=== PATIENT | female | born 1940 | race Caucasian/White ===

== ENCOUNTER 2016-06-03 13:01 | Inpatient (IN) | payer BC, OTHER ==
[~2016-06-03] VITALS: Ht 157.5 cm; Wt 74.7 kg
[~2016-06-03 13:01] MED LIST: ACET-1311 PO; ALUMCHW2 PO; CIPR-255 PO; CLB/200 PO; CLON0.5T3 PO; CYAN100020 PO; FERR325T18 PO; MELA1TAB3 PO; MOUTLIQ83 PO; PRLSR20 PO; SIMV20TA2 PO; TMB100 PO; WARF4TAB44 PO
[2016-06-03] MEDS ORDERED: SODIUM CHLORIDE 0.9% 1000ML 1,000 ML IV STA (14:03)
[2016-06-03] MEDS ORDERED: ACETAMINOPHEN 500 MG TAB PO STA (14:03)
--- NOTE | 2016-06-03 14:37 | EMERGENCY ROOM VISIT NOTE ---
History Report prepared by Flaquita: Gloria Awad Under the Supervision of: Dr. Loco Chanel D.O. First contact with patient: 13:49 Chief Complaint: FEVER Stated Complaint: SORE THROAT, HIGH FEVER, MUSCLE/KNEE PAIN History of Present Illness The patient is a 75 year old female who presents to the Emergency Room with complaints of a persistent sore throat starting a few weeks ago. She has worsening pain with swallowing. The patient also reports a headache and body aches. She had a fever with a temperature of 104 degrees Fahrenheit this morning. She notes that the fever started yesterday. She had one vomiting episode this morning. She currently denies nausea/abdominal pain. She notes normal appetite and normal fluid intake. Her granddaughter recently had strep throat. She also complains of left arm erythema starting a few days ago. The patient has a history of chronic right knee pain which she notes is significantly worsened this morning. She notes that she noticed this when she got out of bed. She has had trouble walking on it and flexing her knee. This knee has been replaced by Dr. Riddle. She complains of severe knee pain and swelling. She denies any recent trauma or injuries. She did not receive any recent injections in the right knee. The patient denies cough, runny nose, chest pain, shortness of breath, diarrhea, pain with urination, and melena. She has a cat at home but denies exposure to any other animals. Source of History: patient Onset: a few weeks ago Position: throat Quality: other (sore throat) Timing: other (persistent) Modifying Factors (Worsening): other (swallowing) Associated Symptoms: + fevers, + headache, + vomiting, No SOB, No chest pain , No cough, No diarrhea, No nausea Review of Systems See HPI for pertinent positives & negatives. A total of 10 systems reviewed and were otherwise negative. Past Medical & Surgical Medical Problems: (1) Bronchitis (2) Cellulitis (3) Diverticulosis (4) Gastroesophageal reflux disease (5) Hyperlipidemia (6) Osteoarthritis (7) Pneumonia (8) Stomach problems (9) Ulcer Family History Cancer Diabetes mellitus FH: seizures Heart disease Hypertension Social History Smoking Status: Never Smoker Marital Status: Housing Status: lives with family Current/Historical Medications Scheduled Acetaminophen (Tylenol), 650 MG PO DAILY Celecoxib (CeleBREX), 200 MG PO BID Clonazepam (Klonopin), 0.5 MG PO QDL Cyanocobalamin (Vitamin B12), 2,500 MCG PO QAM Ferrous Gluconate (Ferrous Gluconate), 324 MG PO DAILY Flecainide Acetate (Flecainide Acetate), 50 MG PO Q12 Melatonin-Pyridoxine (Melatonin), 5 MG PO HS Simvastatin (Zocor), 20 MG PO QPM Warfarin Sodium (Warfarin Sodium), 1.5 TAB PO DAILY Scheduled PRN Aluminum Hydroxide-Mag Trisil (Gaviscon), 3 TAB PO DAILY PRN for PRN Omeprazole (Prilosec), 20 MG PO BID PRN for HEART BURN Allergies Coded Allergies: No Known Allergies (Verified , NONE, 06/03/16) Physical Exam Vital Signs Date Time Temp Pulse Resp B/P Pulse Ox O2 Delivery O2 Flow Rate FiO2 06/03/16 16:40 92 18 148/65 97 Room Air 06/03/16 15:33 38.7 91 20 161/69 96 Room Air 06/03/16 15:00 86 06/03/16 14:39 85 18 100/71 99 Room Air 06/03/16 13:14 38.9 93 20 144/68 98 Room Air Physical Exam GENERAL: Sitting up in bed, disheveled, uncomfortable. No acute distress. EYE EXAM: normal conjunctiva EARS: TMs are clear bilaterally. OROPHARYNX: no exudate, no erythema, lips, buccal mucosa, and tongue normal and mucous membranes are moist NECK: supple, no nuchal rigidity, no adenopathy, non-tender LUNGS: Clear to auscultation. Normal chest wall mechanics HEART: no murmurs, S1 normal and S2 normal ABDOMEN: abdomen soft, non-tender, normo-active bowel sounds, no masses, no rebound or guarding. BACK: Back is symmetrical on inspection and there is no deformity, no midline tenderness, no CVA tenderness. SKIN: no rashes and no bruising UPPER EXTREMITIES: Left upper extremity with erythema on the dorsal aspect tracking from mid forearm to elbow. Full range of motion of left elbow. Skin is erythematous, no induration. LOWER EXTREMITIES: Right knee with old incision present, mild swelling and warmth, no redness, flexed to 30 degrees, moderate pain with flexion and extension of knee beyond 20 and 35. No pitting edema. NEURO EXAM: Normal sensorium, cranial nerves II-XII grossly intact, normal speech, no gross weakness of arms. Medical Decision & Procedures ER Provider Diagnostic Interpretation: Xray results per the radiologist and my interpretation. RIGHT KNEE 3 VIEWS CLINICAL HISTORY: Right knee pain. Fever. COMPARISON: Right knee radiographs September 08, 2014. FINDINGS: Alignment of the total right knee arthroplasty is anatomic. Hardware is intact. There is no periprosthetic fracture or lucency. There is a suspected small right knee joint effusion. There is infrapatellar opacity. A few calcific/ossific densities adjacent to the patella measure up to 1.6 cm. IMPRESSION: 1. Status post total right knee arthroplasty. Hardware intact with no periprosthetic fracture or lucency. 2. Suspected moderate size right knee joint effusion. 3. A few calcific/ossific densities adjacent to the patella which are likely chronic. Electronically signed by: Titus Weller M.D. 06/03/2016 2:41 PM Dictated Date/Time: 06/03/2016 2:38 PM CHEST ONE VIEW PORTABLE CLINICAL HISTORY: fever COMPARISON STUDY: 03/29/2016 FINDINGS: The cardiac and mediastinal contours are normal. There is no evidence of focal pulmonary consolidation. There is no evidence of failure. No pleural effusions are visualized.[ IMPRESSION: No active disease in the chest. Electronically signed by: Davian Ellison M.D. 06/03/2016 2:41 PM Dictated Date/Time: 06/03/2016 2:39 PM Laboratory Results 06/03/16 14:30 Red Blood Count 3.45, Mean Corpuscular Volume 90.7, Mean Corpuscular Hemoglobin 29.0, Mean Corpuscular Hemoglobin Concent 31.9, Mean Platelet Volume 9.2, Neutrophils (%) (Auto) 84.5, Lymphocytes (%) (Auto) 6.9, Monocytes (%) (Auto) 8.1, Eosinophils (%) (Auto) 0.1, Basophils (%) (Auto) 0.2, Neutrophils # (Auto) 14.77, Lymphocytes # (Auto) 1.21, Monocytes # (Auto) 1.42, Eosinophils # (Auto) 0.01, Basophils # (Auto) 0.03 06/03/16 14:30 Test 06/03/16 14:30 06/03/16 14:33 2/20/17 14:37 06/03/16 16:20 White Blood Count 17.48 K/uL (4.8-10.8) Red Blood Count 3.45 M/uL (4.2-5.4) Hemoglobin 10.0 g/dL (12.0-16.0) Hematocrit 31.3 % (37-47) Mean Corpuscular Volume 90.7 fL (80-100) Mean Corpuscular Hemoglobin 29.0 pg (25-34) Mean Corpuscular Hemoglobin Concent 31.9 g/dl (32-36) Platelet Count 372 K/uL (130-400) Mean Platelet Volume 9.2 fL (7.4-10.4) Neutrophils (%) (Auto) 84.5 % Lymphocytes (%) (Auto) 6.9 % Monocytes (%) (Auto) 8.1 % Eosinophils (%) (Auto) 0.1 % Basophils (%) (Auto) 0.2 % Neutrophils # (Auto) 14.77 K/uL (1.4-6.5) Lymphocytes # (Auto) 1.21 K/uL (1.2-3.4) Monocytes # (Auto) 1.42 K/uL (0.11-0.59) Eosinophils # (Auto) 0.01 K/uL (0-0.5) Basophils # (Auto) 0.03 K/uL (0-0.2) RDW Standard Deviation 57.5 fL (36.4-46.3) RDW Coefficient of Variation 17.4 % (11.5-14.5) Immature Granulocyte % (Auto) 0.2 % Immature Granulocyte # (Auto) 0.04 K/uL (0.00-0.02) Toxic Vacuolation OCCASIONAL Prothrombin Time 19.4 SECONDS (9.0-12.0) Prothromb Time International Ratio 1.8 (0.9-1.1) Estimated GFR () 73.5 Estimated GFR (Non- 63.4 BUN/Creatinine Ratio 11.9 (10-20) Calcium Level 8.0 mg/dl (8.5-10.1) Magnesium Level 2.5 mg/dl (1.8-2.4) Total Bilirubin 0.7 mg/dl (0.2-1) Direct Bilirubin 0.2 mg/dl (0-0.2) Aspartate Amino Transf (AST/SGOT) 24 U/L (15-37) Alanine Aminotransferase (ALT/SGPT) 28 U/L (12-78) Alkaline Phosphatase 101 U/L (45-117) Total Creatine Kinase 140 U/L (26-192) Creatine Kinase MB 1.0 ng/ml (0.5-3.6) Creatine Kinase MB Ratio 0.7 (0-3.0) Troponin I < 0.015 ng/ml (0-0.045) Total Protein 8.2 gm/dl (6.4-8.2) Albumin 3.8 gm/dl (3.4-5.0) Influenza Type A Antigen Neg for Influ A (NEG) Influenza Type B Antigen Neg for Influ B (NEG) Bedside Lactic Acid Venous 1.96 mmol/L (0.90-1.70) Bedside Hemoglobin 10.9 g/dl (12.0-16.0) Bedside Hematocrit 32 % (37-47) Bedside Sodium 137 mEq/L (135-144) Bedside Potassium 3.6 mEq/L (3.3-5.0) Bedside Chloride 100 mEq/L (101-112) Bedside Total CO2 21 mEq/l (24-31) Anion Gap 21.0 mmol/L (16-25) Bedside Blood Urea Nitrogen 10 mg/dl (7-18) Bedside Creatinine 0.7 mg/dl (0.6-1.3) Bedside Glucose (other) 108 mg/dl (70-99) Bedside Ionized Calcium (Rachel) 1.04 mmol/l (1.12-1.32) Test 06/03/16 16:30 Urine Color YELLOW Urine Appearance CLEAR (CLEAR) Urine pH 6.0 (4.5-7.5) Urine Specific [place] 1.017 (1.000-1.030) Urine Protein NEG (NEG) Urine Glucose (UA) NEG (NEG) Urine Ketones NEG (NEG) Urine Occult Blood NEG (NEG) Urine Nitrite NEG (NEG) Urine Bilirubin NEG (NEG) Urine Urobilinogen NEG (NEG) Urine Leukocyte Esterase NEG (NEG) Urine WBC (Auto) 1-5 /hpf (0-5) Urine RBC (Auto) 0-4 /hpf (0-4) Urine Hyaline Casts (Auto) 1-5 /lpf (0-5) Urine Epithelial Cells (Auto) 10-20 /lpf (0-5) Urine Bacteria (Auto) NEG (NEG) Laboratory results per my review. Medications Administered Medications (Trade) Dose Ordered Sig/Stephy Route Start Time Stop Time Status Last Admin Dose Admin Sodium Chloride (Nss 1000ml) 1,000 ml @ 999 mls/hr Q1H1M STAT IV 06/03/16 14:03 06/03/16 15:03 DC 06/03/16 14:34 999 MLS/HR Acetaminophen (Tylenol Tab) 1,000 mg NOW STAT PO 06/03/16 14:03 06/03/16 14:04 DC 06/03/16 14:33 1,000 MG Ceftriaxone Sodium (Rocephin Inj) 1 gm NOW STAT IV 06/03/16 15:09 06/03/16 15:10 DC 06/03/16 16:38 1 GM Morphine Sulfate (MoRPHine SULFATE INJ) 6 mg NOW STAT IV 06/03/16 15:34 06/03/16 15:35 DC 06/03/16 16:38 6 MG Miscellaneous Information (Patient'S Height And/Or Weight Needed) 1 ea Q2H N/A 06/03/16 17:15 06/03/16 17:19 DC 06/03/16 17:15 1 EA ECG Indication: other (Fever, sorethorat) Rate (beats per minute): 86 Rhythm: sinus rhythm Findings: Q waves (Inferior), other (Poor baseline in inferior leads) ED Course ED COURSE: Vital signs were reviewed and showed febrile. The patients medical record was reviewed The above diagnostic studies were performed and reviewed. ED treatments and interventions as stated above. 1349: The patient was evaluated in room B07. A complete history and physical examination was performed. 1403: Tylenol Tab 1000 mg PO, Sodium Chloride 1000 ml @ 999 mls/hr IV 1450: Ortho has been re-paged several times. 1509: Rocephin Inj 1 gm IV 1530: I discussed the patient's case with Kyler Haddad PA-C with [facility]. He will evaluate the patient in the Emergency Room. 1534: Morphine Sulfate 6 mg IV 1536: I discussed the patient's [facility] 1618: Upon reevaluation, the patient is resting comfortably.I discussed my findings with the patient and she understands and agrees with the treatment plan. Based on the patients age, coexisting illnesses, exam and lab findings the decision to treat as an inpatient was made. The patient remained stable while under my care. The patient will be evaluated for further management. Medical Decision Differential diagnosis: Etiologies such as sepsis, UTI, pneumonia, metabolic, electrolyte abnormalities , cardiac sources, intracerebral event, toxicologic, neurologic, as well as others were entertained. Patient is a 75-year-old female who presents the ER with diffuse myalgias, weakness and fevers of the 104 since yesterday. She notes that she does have a sore throat this is been present for the past several months. She also complains of left arm redness which is been present for the past 2 days along with severe right knee pain. She is unable to flex or extend the knee beyond 20 -40. She has had this knee replaced by orthopedics. The knee is swollen and warm to palpation. Vitals were remarkable for heart rate in the 90s along with a temperature of 38.9. With peaks was consult at as she is a prostatectomy just concerned could be infected versus sialitis of her arm. She is clear infection. She was given a dose of Rocephin. She is admitted to internal medicine for sepsis with cellulitis of her left upper extremity and septic right knee. Consults Time Called: 1430 Consulting Physician: Kyler Haddad PA-C with [facility] Returned Call: 1530 I discussed the patient's case with Kyler Haddad PA-C with [facility]. He will evaluate the patient in the Emergency Room. Additional Consults: Time Called: 1534 Consulted Physician: [facility] Returned Call: 1532 Additional Comments: I discussed the patient's case with Dr[facility]. Impression Primary Impression: Sepsis Additional Impressions: Cellulitis Right knee pain Leukocytosis Septic joint of right knee joint Scribe Attestation The scribe's documentation has been prepared under my direction and personally reviewed by me in its entirety. I confirm that the note above accurately reflects all work, treatment, procedures, and medical decision making performed by me. Departure Information Dispostion Being Evaluated By Hospitalist Referrals Verónica Allen, Sae.R.N.P (PCP) Patient Instructions My [facility] Problem Qualifiers Primary Impression: Sepsis Sepsis type: sepsis due to unspecified organism Qualified Codes: A41.9 - Sepsis, unspecified organism Additional Impressions: Cellulitis Site of cellulitis: extremity Site of cellulitis of extremity: upper extremity Laterality: left Qualified Codes: L03.114 - Cellulitis of left upper limb Right knee pain Chronicity: acute Qualified Codes: M25.561 - Pain in right knee Leukocytosis Leukocytosis type: unspecified Qualified Codes: D72.829 - Elevated white blood cell count, unspecified Septic joint of right knee joint Septic arthritis organism: due to unspecified organism Qualified Codes: M00.9 - Pyogenic arthritis, unspecified
--- NOTE | 2016-06-03 14:42 | DIAGNOSTIC IMAGING REPORT ---
RIGHT KNEE 3 VIEWS CLINICAL HISTORY: Right knee pain. Fever. COMPARISON: Right knee radiographs September 08, 2014. FINDINGS: Alignment of the total right knee arthroplasty is anatomic. Hardware is intact. There is no periprosthetic fracture or lucency. There is a suspected small right knee joint effusion. There is infrapatellar opacity. A few calcific/ossific densities adjacent to the patella measure up to 1.6 cm. IMPRESSION: 1. Status post total right knee arthroplasty. Hardware intact with no periprosthetic fracture or lucency. 2. Suspected moderate size right knee joint effusion. 3. A few calcific/ossific densities adjacent to the patella which are likely chronic. Electronically signed by: Titus Weller M.D. 06/03/2016 2:41 PM Dictated Date/Time: 06/03/2016 2:38 PM
--- NOTE | 2016-06-03 14:42 | DIAGNOSTIC IMAGING REPORT ---
CHEST ONE VIEW PORTABLE CLINICAL HISTORY: fever COMPARISON STUDY: 03/29/2016 FINDINGS: The cardiac and mediastinal contours are normal. There is no evidence of focal pulmonary consolidation. There is no evidence of failure. No pleural effusions are visualized.[ IMPRESSION: No active disease in the chest. Electronically signed by: Davian Ellison M.D. 06/03/2016 2:41 PM Dictated Date/Time: 06/03/2016 2:39 PM
[2016-06-03 14:52] LABS: ISTAT CREATININE 0.7 mg/dl (0.6-1.3); ISTAT HEMOGLOBIN 10.9 g/dl (12.0-16.0); ISTAT IONIZED CALCIUM 1.04 mmol/l (1.12-1.32)
[2016-06-03 14:55] LABS: HEMATOCRIT 31.3 % (37-47); MEAN CELL VOLUME 90.7 fL (80-100); MEAN CORPUSCULAR HGB CONC 31.9 g/dl (32-36); MEAN PLATELET VOLUME 9.2 fL (7.4-10.4); PLATELET COUNT 372 K/uL (130-400); RED BLOOD COUNT 3.45 M/uL (4.2-5.4); WHITE BLOOD COUNT 17.48 K/uL (4.8-10.8)
[2016-06-03 15:07] LABS: INR 1.8 (0.9-1.1); PROTHROMBIN TIME (PATIENT) 19.4 SECONDS (9.0-12.0)
[2016-06-03] MEDS ORDERED: CEFTRIAXONE SOD INJ 1 GM ADDVIAL IV STA (15:09)
[2016-06-03 15:16] LABS: BASO % 0.2 %; BASO ABS # 0.03 K/uL (0-0.2); COMPLETE YES; EOS % 0.1 %; IG% 0.2 %; LYMPH % 6.9 %; LYMPH ABS # 1.21 K/uL (1.2-3.4); MONO % 8.1 %; NEUT % 84.5 %; VACUOLIZATION OCCASIONAL
[2016-06-03 15:23] LABS: ALT/SGPT 28 U/L (12-78); AST/SGOT 24 U/L (15-37); BLOOD UREA NITROGEN 11 mg/dl (7-18); BUN/CREATININE RATIO 11.9 (10-20); CARBON DIOXIDE 23 mmol/L (21-32); CHLORIDE 103 mmol/L (98-107); CREATININE 0.89 mg/dl (0.60-1.20); GLUCOSE 96 mg/dl (70-99); MAGNESIUM 2.5 mg/dl (1.8-2.4); POTASSIUM 3.6 mmol/L (3.5-5.1); SODIUM 138 mmol/L (136-145)
[2016-06-03 15:29] LABS: ALKALINE PHOSPHATASE 101 U/L (45-117); CKMB/CK RATIO 0.7 (0-3.0)
[2016-06-03] MEDS ORDERED: MoRPHine SULFATE 10 MG/ML CARP/VIAL IV STA (15:34)
[2016-06-03] MEDS ORDERED: POLYETHYLENE (MIRALAX) 17 GM PACK PO PRN (16:30)
--- NOTE | 2016-06-03 16:45 | History and Physical ---
History & Physical Date & Time of Service: Jun 03, 2016 at 16:30 Chief Complaint: Sore Throat, High Fever, Muscle/Knee Pain Primary Care Physician: Verónica Allen C.R.N.P History of Present Illness Source: patient Attending: Dr. Ann This is a 75-year-old female that presents with 2-3 days history of generally not feeling well. She indicated that she felt as though she had some fever and chills at home but did not document MAXIMUM TEMPERATURE. She reports that she developed a cellulitis of the left forearm medial to the elbow with no apparent involvement of the olecranon. She also reports several days of increasing pain to her right knee and states that the right knee has been warmer to touch than the left knee. She does report a complete total arthroplasty of the right knee in 2014 with no complications at the time and no subsequence cellulitis. She reports no falls or imbalance. She has no ambulatory dysfunction. She does have a history of paroxysmal atrial fibrillation but denies any awareness of arrhythmia or tachycardia. Urine output is been stable. Her reports no unusual change in mental status. She denies any bites or injury. She further denies any recent travel. She has been seen by orthopedics this admission and the plan is to perform centesis of an effusion around the right knee. She does report some nausea and vomiting this morning. No hematemesis. The patient has no other acute complaints at this time. Past Medical/Surgical History Medical Problems: Bronchitis Cellulitis Diverticulosis Gastroesophageal reflux disease Hyperlipidemia Osteoarthritis Pneumonia Depression/anxiety Stomach problems - Ulcer Paroxysmal atrial fibrillation Factor V Leyden History of left lower extremity DVT Chronic anticoagulation with Coumadin Past surgical history: Total right knee arthroplasty 2015 Tonsillectomy and adenoidectomy as a child Tubal ligation Family History Cancer Diabetes mellitus FH: seizures Heart disease Hypertension Social History Smoking Status: Never Smoker Alcohol Use: socially (1-2 times yearly) Marital Status: Housing status: lives with family (lives with . Children are grown) Occupational Status: retired Immunizations History of Influenza Vaccine: No History of Tetanus Vaccine?: No History of Pneumococcal: Yes History of Hepatitis B Vaccine: No Multi-Drug Resistant Organisms History of MDRO: No Allergies Coded Allergies: No Known Allergies (Verified , NONE, 06/03/16) Home Medications Scheduled Acetaminophen (Tylenol), 650 MG PO DAILY Celecoxib (CeleBREX), 200 MG PO BID Clonazepam (Klonopin), 0.5 MG PO QDL Cyanocobalamin (Vitamin B12), 2,500 MCG PO QAM Ferrous Gluconate (Ferrous Gluconate), 324 MG PO DAILY Flecainide Acetate (Flecainide Acetate), 50 MG PO Q12 Melatonin-Pyridoxine (Melatonin), 5 MG PO HS Simvastatin (Zocor), 20 MG PO QPM Warfarin Sodium (Warfarin Sodium), 1.5 TAB PO DAILY Scheduled PRN Aluminum Hydroxide-Mag Trisil (Gaviscon), 3 TAB PO DAILY PRN for PRN Omeprazole (Prilosec), 20 MG PO BID PRN for HEART BURN Review of Systems A total of 12 systems was reviewed and is negative other than as listed above in the HPI Physical Exam Vital Signs Date Time Temp Pulse Resp B/P Pulse Ox O2 Delivery O2 Flow Rate FiO2 06/03/16 15:33 38.7 91 20 161/69 96 Room Air 06/03/16 15:00 86 06/03/16 14:39 85 18 100/71 99 Room Air 06/03/16 13:14 38.9 93 20 144/68 98 Room Air GENERAL : No acute distress. Pleasant EYES: No icterus, gaze conjugate. NOSE: No evidence of epistaxis MOUTH: No lesions or candidiasis. Mucosa moist NECK: Supple. No carotid bruits LUNGS: CTA B/L, no wheezes, rales or rhonchi. Breath sounds equal bilaterally HEART: Regular, rate controlled. No appreciation of ectopy or arrhythmia ABDOMEN: Soft, NT, ND, BS Present EXTREMITIES: No LE edema, pedal pulses intact. Some swelling of the right knee with warmth to touch. Positive erythema and warmth to left forearm medial to the elbow. No effusion around the elbow NEURO: A&OX3. PERRLA. Cerebellar function intact with finger to nose and rapid on the movements. Gait and Romberg deferred. Diagnostics Laboratory Results Results Past 24 Hours Test 06/03/16 14:30 06/03/16 14:33 06/03/16 14:37 Range/Units White Blood Count 17.48 4.8-10.8 K/uL Red Blood Count 3.45 4.2-5.4 M/uL Hemoglobin 10.0 12.0-16.0 g/dL Hematocrit 31.3 37-47 % Mean Corpuscular Volume 90.7 80-100 fL Mean Corpuscular Hemoglobin 29.0 25-34 pg Mean Corpuscular Hemoglobin Concent 31.9 32-36 g/dl Platelet Count 372 130-400 K/uL Mean Platelet Volume 9.2 7.4-10.4 fL Neutrophils (%) (Auto) 84.5 % Lymphocytes (%) (Auto) 6.9 % Monocytes (%) (Auto) 8.1 % Eosinophils (%) (Auto) 0.1 % Basophils (%) (Auto) 0.2 % Neutrophils # (Auto) 14.77 1.4-6.5 K/uL Lymphocytes # (Auto) 1.21 1.2-3.4 K/uL Monocytes # (Auto) 1.42 0.11-0.59 K/uL Eosinophils # (Auto) 0.01 0-0.5 K/uL Basophils # (Auto) 0.03 0-0.2 K/uL RDW Standard Deviation 57.5 36.4-46.3 fL RDW Coefficient of Variation 17.4 11.5-14.5 % Immature Granulocyte % (Auto) 0.2 % Immature Granulocyte # (Auto) 0.04 0.00-0.02 K/uL Toxic Vacuolation OCCASIONAL Prothrombin Time 19.4 9.0-12.0 SECONDS Prothromb Time International Ratio 1.8 0.9-1.1 Sodium Level 138 136-145 mmol/L Potassium Level 3.6 3.5-5.1 mmol/L Chloride Level 103 98-107 mmol/L Carbon Dioxide Level 23 21-32 mmol/L Anion Gap 12.0 21.0 16-25 mmol/L Blood Urea Nitrogen 11 7-18 mg/dl Creatinine 0.89 0.60-1.20 mg/dl Estimated GFR () 73.5 Estimated GFR (Non- 63.4 BUN/Creatinine Ratio 11.9 10-20 Random Glucose 96 70-99 mg/dl Calcium Level 8.0 8.5-10.1 mg/dl Magnesium Level 2.5 1.8-2.4 mg/dl Total Bilirubin 0.7 0.2-1 mg/dl Direct Bilirubin 0.2 0-0.2 mg/dl Aspartate Amino Transf (AST/SGOT) 24 15-37 U/L Alanine Aminotransferase (ALT/SGPT) 28 12-78 U/L Alkaline Phosphatase 101 45-117 U/L Total Creatine Kinase 140 26-192 U/L Creatine Kinase MB 1.0 0.5-3.6 ng/ml Creatine Kinase MB Ratio 0.7 0-3.0 Troponin I < 0.015 0-0.045 ng/ml Total Protein 8.2 6.4-8.2 gm/dl Albumin 3.8 3.4-5.0 gm/dl Influenza Type A Antigen Neg for Influ A NEG Influenza Type B Antigen Neg for Influ B NEG Bedside Lactic Acid Venous 1.96 0.90-1.70 mmol/L Bedside Hemoglobin 10.9 12.0-16.0 g/dl Bedside Hematocrit 32 37-47 % Bedside Sodium 137 135-144 mEq/L Bedside Potassium 3.6 3.3-5.0 mEq/L Bedside Chloride 100 101-112 mEq/L Bedside Total CO2 21 24-31 mEq/l Bedside Blood Urea Nitrogen 10 7-18 mg/dl Bedside Creatinine 0.7 0.6-1.3 mg/dl Bedside Glucose (other) 108 70-99 mg/dl Bedside Ionized Calcium (Rachel) 1.04 1.12-1.32 mmol/l Microbiology Results 06/03/16 Blood Culture, Received Pending 06/03/16 Blood Culture, Received Pending 06/03/16 Group A Streptococcus Screen - Final, Resulted SPECIMEN NEGATIVE FOR GROUP A BETA ST... 06/03/16 Group A Streptococcus Screen (DISHA), Resulted Pending Diagnostic Radiology CHEST ONE VIEW PORTABLE CLINICAL HISTORY: fever COMPARISON STUDY: 03/29/2016 FINDINGS: The cardiac and mediastinal contours are normal. There is no evidence of focal pulmonary consolidation. There is no evidence of failure. No pleural effusions are visualized.[ IMPRESSION: No active disease in the chest. Electronically signed by: Davian Ellison M.D. 06/03/2016 2:41 PM RIGHT KNEE 3 VIEWS CLINICAL HISTORY: Right knee pain. Fever. COMPARISON: Right knee radiographs September 08, 2014. FINDINGS: Alignment of the total right knee arthroplasty is anatomic. Hardware is intact. There is no periprosthetic fracture or lucency. There is a suspected small right knee joint effusion. There is infrapatellar opacity. A few calcific/ossific densities adjacent to the patella measure up to 1.6 cm. IMPRESSION: 1. Status post total right knee arthroplasty. Hardware intact with no periprosthetic fracture or lucency. 2. Suspected moderate size right knee joint effusion. 3. A few calcific/ossific densities adjacent to the patella which are likely chronic. Electronically signed by: Titus Weller M.D. 06/03/2016 2:41 PM Impression Assessment and Plan CELLULITIS Patient started ceftriaxone 1 g in the emergency department Orthopedics has performance centesis of the right knee and acquired some effusion which has been sent to lab for evaluation This point we will continue ceftriaxone 1 g IV daily pending the results of the laboratory findings of the flu around the to rule out septic joint There is also an area of cellulitis at the left forearm just medial to the elbow No evidence of open trauma or insect bite Lactic acid below two - repeat lactic acid in four hours Continue IV hydration normal saline with 20 of potassium chloride at 75 mL an hour Strict I's and O's Panculture is pending Admit to telemetry secondary to history of paroxysmal A. 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 Patient chronically on Coumadin Continue Coumadin at this time with INR target above two No asymmetrical edema of the feet and ankle Continue to monitor PAROXYSMAL ATRIAL FIBRILLATION Patient had hypercoagulable Coumadin with a INR of 1.8 Hold Coumadin due to probable surgery tomorrow One dose of Lovenox tonight Continue Flecainide May need to hold Coumadin if orthopedics elects to do a washout Patient currently normal sinus rhythm Rate controlled ID Cellulitis as defined above Panculture pending Continue ceftriaxone for cellulitis Await cultures HYPERLIPIDEMIA Continue home meds GERD History of peptic ulcer disease Will start oral pantoprazole DVT PROPHYLAXIS -hold coumadin, lovenox tonight since INR will be low but high risk for DVT due to V Leiden, post op lovenox (40mg daily vs 30mg BID) as soon as is safe, then resume coumadin RESUSCITATION STATUS Patient notes that she does not have a living will or advanced directive She does wish to be resuscitated in the event of cardiopulmonary arrest We'll maintain the patient with a level I resuscitation status Thank you for including us in the care of this patient. Please refer to Dr. Thornton's addendum for further recommendations i personally examined pt and verified all espinal points w E Kroner, PAC knee pain, redness, fevers vitals noted, no respiratory distress, pleasant and calm, no pallor or icterus, exam otherwise as above d/w PA-C of orthopedics - knee aspirate very thick, pus-appearing sepsis, likely from leg cellulitis and septic arthritis of knee -cultures sent, start rocephin and vanco pending final cultures -otherwise as above DVT proph -w V Leiden - will need to be aggressive as possible, but with need for knee surgery due to septic joint and overall sepsis - will have to hold/reverse; once safe/stable to resume anticoagulation - would at least resume w lovenox aggressive DVT proph dosing otherwise as above VTE Prophylaxis VTE Risk Assessment Done? Y/N: Yes Risk Level: Low Social Service Consult None Apply
[2016-06-03 17:04] LABS: URINE APPEARANCE CLEAR (CLEAR); URINE BILIRUBIN NEG (NEG); URINE COLOR YELLOW; URINE NITRITE NEG (NEG); URINE SPECIFIC GRAVITY 1.017 (1.000-1.030); UROBILINOGEN NEG (NEG); ZZUR CULT IF INDIC CLEAN CATCH NO
[2016-06-03 17:05] LABS: MANUAL MICROSCOPIC REQUIRED? NO; REVIEW REQ? NO
[2016-06-03] MEDS ORDERED: VANCOMYCIN CONSULT ACTIVE PRN (17:15)
[2016-06-03] MEDS ORDERED: PATIENT'S HEIGHT AND/OR WEIGHT NEEDED SCH (17:15)
[2016-06-03] MEDS ORDERED: ENOXAPARIN 40 MG/0.4 ML SYR SQ SCH (17:30)
[2016-06-03] MEDS ORDERED: PANTOprazole SOD 40 MG TAB PO SCH (17:30)
[2016-06-03] MEDS ORDERED: VANCOMYCIN INJ 2,000 MG in SODIUM CHLORIDE 0.9% 500ML 500 ML IV SCH (17:30)
[2016-06-03 18:33] LABS: SYNOVIAL FLUID APPEARANCE CLOUDY; SYNOVIAL FLUID COLOR PALE YELLOW; SYNOVIAL FLUID MONONUC RELAT 16.2 %; SYNOVIAL FLUID POLYNUC RELAT 83.8 %
[2016-06-03] MEDS: NSS + 20MEQ KCL 1000ML 1,000 ML IV SCH (20:17)
[2016-06-03] MEDS: SIMVASTATIN 20 MG TAB PO SCH (20:20)
[2016-06-03] MEDS: OXYCODONE HCL IR 5 MG TAB (IMMEDIATE RELEASE) PO PRN (20:20)
[2016-06-03] MEDS: FERROUS GLUCONATE 324 MG TAB PO SCH (20:20)
[2016-06-03] MEDS: FLECAINIDE ACETATE 100 MG TAB PO SCH (20:21)
[2016-06-03 20:30] VITALS: BP 143/70; PULSE 93; TEMP 37.9; O2SAT 97; Ht 157.5 cm; Wt 74.7 kg
[2016-06-03] MEDS: MoRPHine SULFATE 10 MG/ML CARP/VIAL IV PRN (20:56)
[2016-06-03] MEDS ORDERED: PHYTONADIONE 5 MG TAB PO STA (22:23)
[2016-06-03 23:14] VITALS: BP 155/78; PULSE 91; TEMP 38.1; O2SAT 94
[2016-06-04] VITALS (19 sets, daily range): BP systolic 94–147; BP diastolic 55–77; PULSE 65–152; TEMP 36.5–38.3; O2SAT 92–100
--- NOTE | 2016-06-04 00:30 | CONSULTATION REPORT ---
DATE OF CONSULTATION: 06/03/2016 REASON FOR CONSULT: Right knee pain. HISTORY OF PRESENT ILLNESS: The patient is a 75-year-old white female who is being admitted for cellulitis of her left upper extremity. On exam, Dr. Chanel noted that the patient was having [id number] right knee pain that had started that morning. The patient states that she was having increased pain in the left forearm near the elbow that developed 2-3 days ago. This continued to worsen. She states that she started running fevers and then noticed that this morning when she tried to get up and use her right lower extremity, she had a [id number] pain with ambulation and with range of motion. The patient is status post right TKA [place] [address] Lazo. She states that she had some mild nausea and vomiting this morning and coupled with fevers and general malaise. She decided to come in the Emergency Room. She denies any ambulatory dysfunction, although she states her knee has been bothering her off and on for the last 6 weeks, but she has been using the knee normally without any problems. We have been asked to see her for her right knee pain. PAST MEDICAL HISTORY: Bronchitis, diverticulosis, GERD, hyperlipidemia, osteoarthritis, pneumonia, peptic ulcer disease, atrial fibrillation on chronic Coumadin, history of factor V sufficiency, DVT left lower extremity in December 2013, depression, anxiety. PAST SURGICAL HISTORY: Laparoscopic tubal ligation, lung biopsy, tonsillectomy. She has also had a right total knee arthroplasty in [address] Lazo as noted above. FAMILY HISTORY: Cancer, diabetes mellitus, seizures, heart disease, hypertension. SOCIAL HISTORY: The patient is a nonsmoker, does not drink alcohol and is . MEDICATIONS: Acetaminophen 650 mg p.o. daily, Celebrex 200 mg p.o. b.i.d., clonazepam 0.5 mg p.o. daily, vitamin B12 2500 mcg p.o. q.a.m., ferrous gluconate 324 mg p.o. daily, Flecainide 50 mg p.o. q. 12 hours, melatonin 5 mg p.o. at bedtime, simvastatin 20 mg p.o. q.p.m., warfarin sodium 1-1/2 tablets p.o. daily, Gaviscon 3 tabs p.o. daily p.r.n. and omeprazole 20 mg p.o. b.i.d. p.r.n. for heartburn. ALLERGIES: NKDA. REVIEW OF SYSTEMS: As per admitting history and physical. PHYSICAL EXAMINATION: VITAL SIGNS: Latest vital signs showed temp 30.7, pulse 91, respirations 20 on room air, BP was 161/69, and pulse ox 96. GENERAL: The patient is a well-developed, well-nourished white female who is alert and oriented x3 and in no acute distress at this time, pleasant and cooperative. EXTREMITIES: On examination of her right knee, she has a small pad under the knee keeping it flexed approximately 30 degrees which is comfortable for her. She has a noted effusion compared to the left and on light palpation the knee feels a little bit warmer to the touch compared to the left. She has no erythema noted. There are no open areas on her knee at this time and she has a well-healed incision from her previous right TKA. She on a little bit deeper palpation of the knee, she has moderate pain on palpation over the suprapatellar pouch over the patella itself and over the medial and lateral aspects of the patellar joint line as well as the femoral and tibial joint line itself. She has no pain over the patellar tendon on palpation and axial loading does not give her any increased pain at this time and I can almost fully extend the knee with a little bit of discomfort to her; however, in trying to do range of motion passively with the knee, I can get her to approximately about 25-30 degrees before she refuses to go any further. Just doing range of motion with flexion and extension from 0-30 degrees is moderately painful for her. She states that weightbearing is very painful as well; however, not done at this time. Calves; the right calf is soft and nontender. She has no pain down the lower extremity to the ankle. Range of motion of the right ankle and toes is within normal limits and is nontender. Left lower extremity essentially benign and she has no pain in the left hip, knee or ankle. Distal pulses are equal bilaterally. Upper extremities of note, she has an area over the left forearm that is just distal to the elbow over the dorsal aspect that is erythematous and swollen. She has no swelling or pain over the olecranon process and is able to go through range of motion of her left elbow at this time without any discomfort. Right upper extremity is essentially benign. Distal pulses are equal bilaterally and she denies any neck pain at this time and is nontender and denies any mid thoracic or lumbar pain at this time. 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 PLAN: I discussed the plan with Dr. Lazo and plans are to do an aspiration of the right knee. At that point in time, this was discussed with the patient and she was in agreement to go ahead with aspiration of the right knee. The site was chosen at the superior lateral aspect of the suprapatellar pouch and this area was swabbed with alcohol and then 3 Betadine swabs and let to dry. At that point in time, an 18-gauge needle was inserted into the suprapatellar pouch and 12 mL of grossly purulent fluid was removed. The needle was then withdrawn and 2 x 2s were placed over the aspiration site and pressure was held in place for the 30 seconds and at that time, a Band-Aid was placed over the injection site. The aspirate will be sent for Gram stain, aerobic and anaerobic cultures as well as a cell count with diff. I discussed with the patient that this was likely an infection of the right total knee arthroplasty and that she was likely going have to have an irrigation and debridement of the right total knee arthroplasty with polyethylene bearing change and that would require 6 weeks of IV antibiotics if proven to be infected. The patient understood and is now being admitted by medicine service for her cellulitis of her left upper extremity. I discussed the case with Manolo Coello PA-C who is admitting the patient at this time for Dr. Thornton. She is going to be admitted to [facility] for monitoring and plans will be if she is medically stable,and her joint aspirate is positive for organisms, she will be added on to the operating room schedule tomorrow for Dr. Lazo for the above noted irrigation, debridement and polyethylene bearing change. The patient has had 1 gram of ceftriaxone at 3:30 today and will be started on ceftriaxone and Vancomycin by medicine service. We will take care of providing her pain medications and make sure she is n.p.o. after midnight. [facility]ICAL CENTERAugustine
[2016-06-04] MEDS: MoRPHine SULFATE 10 MG/ML CARP/VIAL IV PRN ×2 (03:05→09:52)
[2016-06-04] MEDS: ACETAMINOPHEN 325 MG TAB PO PRN (03:34)
[2016-06-04] MEDS ORDERED: ACETAMINOPHEN IV 650 MG in EMPTY BAG 0 ML IV PRN (03:45)
[2016-06-04] MEDS ORDERED: METOPROLOL TARTRATE 1 MG/ML VIAL IV STA (05:16)
--- NOTE | 2016-06-04 05:35 | Progress Note ---
Progress Note I was paged at approximately 04:50. Patient was noted to have an irregularly irregular fast heartbeat. I give the following instructions prior to my arrival: Obtain full set of vitals , obtain EKG I arrived at the to the bedside to assess the patient: SUBJECTIVE: She does note some palpitations. Patient is overall comfortable. She denies chest pain. She denies shortness of breath. She d denies lightheadedness or dizziness. She does not have lower extremity swelling. She does note that she has a history of paroxysmal atrial fibrillation. She does not normally have palpitations at home. She does take flecainide by mouth twice a day. Last dose was administered yesterday. She is currently nothing by mouth due for revision of an infected right knee total arthroplasty. She does take Coumadin by mouth at home, but her INR is being reversed at this time, in light of pending procedure today. OBJECTIVE: Vitals: Heart rate 140s 150s; BP 131/74; temp 36.9; SPO2 96% on room air Gen. inspection: Patient appears comfortable, no distress, alert and oriented 3 Cardiac: Tachycardic, pulse irregularly irregular. S1 and S2 with no added sounds or murmurs Respiratory: Vesicular breath sounds bilaterally, no wheezing or crackles Discuss telemetry monitoring the instrumentation technician. Bead Preparer notes patient converted from normal sinus to A. fib/A flutter at approximately 04:30 EKG: Normal sinus rhythm, ventricular rate 147, no ectopy or pauses, no acute ST or T-wave changes ASSESSMENT/PLAN: 75-year-old female admitted with upper external he cellulitis and infected right total knee arthroplasty, anticipating surgical revision today. She presents now with conversion from normal sinus rhythm to atrial fibrillation with rapid ventricular response. My plan for her at this time is as follows: - She had gotten her most recent dose of flecainide last night; should be due for a dose this morning, however she is nothing by mouth for procedure - Given that she is NPO, we will treat atrial fibrillation with IV medications Lopressor 5 mg IV stat; repeat vitals every 5 minutes, monitor blood pressure and heart rate; call me in 15 minutes to notify of vital signs -------- 5 mg of metoprolol, patient heart rate still 1:30 to 150; blood pressure did go down to 101/62; patient remains otherwise well and asymptomatic Plan: Given the drop in blood pressure, I'm reluctant to give her additional beta blockers. I did want to start Cardizem drip without a bolus, however she is on med telemetry and it cannot be given in the setting. Troponin also came back at 0.212. Possibly demand ischemia from tachycardia. Plan: - At this point of continue to monitor vitals, monitor blood pressure stable at which point a vascular nurse to give home flecainide dose at approximately 07: 30. - Serial cardiac enzyme monitoring - Will sign out to provider taking care of patient during day shift
[2016-06-04] MEDS: ONDANSETRON INJ 2 MG/ML 2 ML VIAL IV PRN (05:46)
[2016-06-04 05:48] LABS: HEMATOCRIT 30.1 % (37-47); MEAN CELL VOLUME 89.6 fL (80-100); MEAN CORPUSCULAR HEMOGLOBIN 28.6 pg (25-34); MEAN CORPUSCULAR HGB CONC 31.9 g/dl (32-36); MEAN PLATELET VOLUME 8.4 fL (7.4-10.4); PLATELET COUNT 327 K/uL (130-400); RED BLOOD COUNT 3.36 M/uL (4.2-5.4); WHITE BLOOD COUNT 23.34 K/uL (4.8-10.8)
[2016-06-04 06:04] LABS: INR 1.8 (0.9-1.1); PROTHROMBIN TIME (PATIENT) 19.6 SECONDS (9.0-12.0)
[2016-06-04 06:21] LABS: CREATININE 0.91 mg/dl (0.60-1.20); POTASSIUM 3.8 mmol/L (3.5-5.1)
[2016-06-04 06:22] LABS: BASO % 0.2 %; BASO ABS # 0.05 K/uL (0-0.2); COMPLETE YES; IG% 0.4 %; LYMPH % 18.5 %; LYMPH ABS # 4.31 K/uL (1.2-3.4); MONO % 8.7 %; NEUT % 72.2 %; POLYCHROMASIA 1+
[2016-06-04 06:27] LABS: CKMB/CK RATIO 1.8 (0-3.0)
[2016-06-04] MEDS: PANTOprazole SOD 40 MG TAB PO SCH (07:33)
[2016-06-04] MEDS: FLECAINIDE ACETATE 100 MG TAB PO SCH ×2 (07:33→21:07)
--- NOTE | 2016-06-04 07:46 | Orthopedic Progress Note ---
Orthopedic Progress Note Date of Service Jun 04, 2016. Subjective Additional Notes: Pt awake, alert. Nursing states that her heart rhythm went to AFib/RVR last night. Dealing with blood pressures etc. Pt currently seems to be focusing on pain in her RLQ this AM more so that her right knee. No other complaints. Objective calves soft nontender, A&O x3, toes mobile Right knee swollen, tender on palpation. Unable to go through ROM due to pain. Abdomen is soft. Tenderness noted in the RLQ but not severe. Mild rebound tenderness. No pain on palpation over the iliac crest and lateral hip. Date Time Temp Pulse Resp B/P Pulse Ox O2 Delivery O2 Flow Rate FiO2 06/04/16 07:26 36.6 124 16 104/66 93 Room Air 06/04/16 06:18 122 101/62 06/04/16 06:13 136 104/71 06/04/16 06:08 137 100/55 06/04/16 06:03 111 100/55 06/04/16 05:58 123 94/62 06/04/16 05:53 108 101/60 06/04/16 05:48 128 96/62 06/04/16 05:43 65 123/64 06/04/16 05:38 152 123/64 06/04/16 04:55 152 131/74 96 Room Air 06/04/16 04:55 36.9 06/04/16 04:15 Room Air 06/04/16 04:00 38.3 100 18 147/73 92 Room Air 06/04/16 00:00 Room Air 06/03/16 23:14 38.1 91 18 155/78 94 Room Air 06/03/16 20:30 37.9 93 18 143/70 97 Room Air 06/03/16 19:01 83 18 117/60 95 Room Air 06/03/16 18:17 37.8 89 18 96 Room Air 06/03/16 16:40 92 18 148/65 97 Room Air 06/03/16 15:33 38.7 91 20 161/69 96 Room Air 06/03/16 15:00 86 06/03/16 14:39 85 18 100/71 99 Room Air 06/03/16 13:14 38.9 93 20 144/68 98 Room Air Laboratory Results 24 Hours: Test 06/03/16 14:30 06/04/16 05:35 White Blood Count 17.48 K/uL 23.34 K/uL Red Blood Count 3.45 M/uL 3.36 M/uL Hemoglobin 10.0 g/dL 9.6 g/dL Hematocrit 31.3 % 30.1 % Mean Corpuscular Volume 90.7 fL 89.6 fL Mean Corpuscular Hemoglobin 29.0 pg 28.6 pg Mean Corpuscular Hemoglobin Concent 31.9 g/dl 31.9 g/dl Platelet Count 372 K/uL 327 K/uL Mean Platelet Volume 9.2 fL 8.4 fL Neutrophils (%) (Auto) 84.5 % 72.2 % Lymphocytes (%) (Auto) 6.9 % 18.5 % Monocytes (%) (Auto) 8.1 % 8.7 % Eosinophils (%) (Auto) 0.1 % 0.0 % Basophils (%) (Auto) 0.2 % 0.2 % Neutrophils # (Auto) 14.77 K/uL 16.85 K/uL Lymphocytes # (Auto) 1.21 K/uL 4.31 K/uL Monocytes # (Auto) 1.42 K/uL 2.04 K/uL Eosinophils # (Auto) 0.01 K/uL 0.00 K/uL Basophils # (Auto) 0.03 K/uL 0.05 K/uL Prothromb Time International Ratio 1.8 1.8 Prothrombin Time 19.4 SECONDS 19.6 SECONDS Assessment & Plan Assessment: Likely Septic Right TKA - Cx's/gram stain pending - currently on Vanco and Ceftriaxone. Pt tentatively set up for Right TKA I&D with poly change by Dr Lazo for today if she is cleared by the Medicine Team. Will follow. Afib with RVR - As per Medicine Team Inhouse Planning Pain Management: Morphine, Oxy IR
[2016-06-04] MEDS ORDERED: INFLUENZA ADMINISTRATION CHARGE ONE (08:00)
[2016-06-04] MEDS ORDERED: INFLUENZA VIRUS QUAD VACCINE 0.5 ML SYR IM. ONE (08:00)
[2016-06-04] MEDS ORDERED: METOPROLOL TARTRATE 1 MG/ML VIAL ONE (08:26)
[2016-06-04] MEDS ORDERED: METOPROLOL TARTRATE 1 MG/ML VIAL IV ONE (09:00)
[2016-06-04] MEDS: NSS + 20MEQ KCL 1000ML 1,000 ML IV SCH (09:07)
--- NOTE | 2016-06-04 09:27 | Progress Note ---
Internal Med Progress Note Date of Service: Jun 04, 2016. Provider Documentation: This is a 75 yo female admitted 06/03/16 for cellulitis of the left forearm and right knee. An effusion was noted to the knee and ortho was consulted. The knee was aspirated and was found to be purulent. Plan is for the patient to go to the OR for washout as an add on later today. Overnight, the patient went into A. fib with RVR. She received IV Lopressor 5mg at 05:30. Additional doses of Lopressor were held due to a SBP of around 100. Rate continued to be elevated in the 120s to 130s. The patient then received her home dose of Flecainide and continued in A fib with a rate in the 120s. I examined the patient at bedside and she denied awareness of tachyarrhythmia, chest pain, or SOB. I gave her an additional 2.5 IV Lopressor and she converted to NSR with a rate in the 70s. I consulted Dr. Bolanos from cardiology and talked to him personally. He will see the patient this morning. SUBJECTIVE: Positive for fever and sweats overnight. Right knee more painful and swollen this morning. No chest pain or tightness. No SOB. No n/v/d. No other acute complaints OBJECTIVE: Vital Signs-as noted below Exam: General-NAD. Supine in bed. Difficulty moving without significant right knee pain Eyes-PERRL ENT-Mucosa moist Neck-Supple. No bruits or stridor Lungs-CTA B/L Heart-Irregular, irregular. Rate in wendi 120s Abdomen-No tenderness to palpation. BS present Extremities-Positive erythema, warmth, swelling to right knee. No asymmetrical edema. B/L Pedal pulses intact Neuro-AXOX3 Lab data as noted below. ASSESSMENT & PLAN: SEPTIC RIGHT KNEE Vancomycin and Ceftriaxone - Day #2 Ortho consulted Wash out planned in the OR today Await panculture results INR 1.8 - Give Vit K 5mg IV ATRIAL FIBRILLATION WITH RVR Coumadin held for OR procedure today Lovenox 40mg IV given last night Metoprolol IV given X 2 this morning - now NSR in the 70s Cardiology consulted Transfer to PCU and start Cardizem drip - awaiting bed LEFT FOREARM CELLULITIS Day # 2 Vancomycin and Ceftriaxone Erythema improved Continue abx WBC 23,000 ELEVATED TROPONIN Bumped to 0.212 Most likely a troponin leak No chest pain. 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 Please refer to Dr. Cabezas' s addendum for further recommendations DISPOSITION Plan on discharge home when medically improved. Vital Signs: Date Time Temp Pulse Resp B/P Pulse Ox O2 Delivery O2 Flow Rate FiO2 06/04/16 07:26 36.6 124 16 104/66 93 Room Air 06/04/16 06:18 122 101/62 06/04/16 06:13 136 104/71 06/04/16 06:08 137 100/55 06/04/16 06:03 111 100/55 06/04/16 05:58 123 94/62 06/04/16 05:53 108 101/60 06/04/16 05:48 128 96/62 06/04/16 05:43 65 123/64 06/04/16 05:38 152 123/64 06/04/16 04:55 152 131/74 96 Room Air 06/04/16 04:55 36.9 06/04/16 04:15 Room Air 06/04/16 04:00 38.3 100 18 147/73 92 Room Air 06/04/16 00:00 Room Air 06/03/16 23:14 38.1 91 18 155/78 94 Room Air 06/03/16 20:30 37.9 93 18 143/70 97 Room Air 06/03/16 19:01 83 18 117/60 95 Room Air 06/03/16 18:17 37.8 89 18 96 Room Air 06/03/16 16:40 92 18 148/65 97 Room Air 06/03/16 15:33 38.7 91 20 161/69 96 Room Air 06/03/16 15:00 86 06/03/16 14:39 85 18 100/71 99 Room Air 06/03/16 13:14 38.9 93 20 144/68 98 Room Air Lab Results: Results Past 24 Hours Test 06/03/16 14:30 06/03/16 14:33 06/03/16 14:37 06/03/16 16:20 Range/Units White Blood Count 17.48 4.8-10.8 K/uL Red Blood Count 3.45 4.2-5.4 M/uL Hemoglobin 10.0 12.0-16.0 g/dL Hematocrit 31.3 37-47 % Mean Corpuscular Volume 90.7 80-100 fL Mean Corpuscular Hemoglobin 29.0 25-34 pg Mean Corpuscular Hemoglobin Concent 31.9 32-36 g/dl Platelet Count 372 130-400 K/uL Mean Platelet Volume 9.2 7.4-10.4 fL Neutrophils (%) (Auto) 84.5 % Lymphocytes (%) (Auto) 6.9 % Monocytes (%) (Auto) 8.1 % Eosinophils (%) (Auto) 0.1 % Basophils (%) (Auto) 0.2 % Neutrophils # (Auto) 14.77 1.4-6.5 K/uL Lymphocytes # (Auto) 1.21 1.2-3.4 K/uL Monocytes # (Auto) 1.42 0.11-0.59 K/uL Eosinophils # (Auto) 0.01 0-0.5 K/uL Basophils # (Auto) 0.03 0-0.2 K/uL RDW Standard Deviation 57.5 36.4-46.3 fL RDW Coefficient of Variation 17.4 11.5-14.5 % Immature Granulocyte % (Auto) 0.2 % Immature Granulocyte # (Auto) 0.04 0.00-0.02 K/uL Toxic Vacuolation OCCASIONAL Prothrombin Time 19.4 9.0-12.0 SECONDS Prothromb Time International Ratio 1.8 0.9-1.1 Sodium Level 138 136-145 mmol/L Potassium Level 3.6 3.5-5.1 mmol/L Chloride Level 103 98-107 mmol/L Carbon Dioxide Level 23 21-32 mmol/L Anion Gap 12.0 21.0 16-25 mmol/L Blood Urea Nitrogen 11 7-18 mg/dl Creatinine 0.89 0.60-1.20 mg/dl Estimated GFR () 73.5 Estimated GFR (Non- 63.4 BUN/Creatinine Ratio 11.9 10-20 Random Glucose 96 70-99 mg/dl Calcium Level 8.0 8.5-10.1 mg/dl Magnesium Level 2.5 1.8-2.4 mg/dl Total Bilirubin 0.7 0.2-1 mg/dl Direct Bilirubin 0.2 0-0.2 mg/dl Aspartate Amino Transf (AST/SGOT) 24 15-37 U/L Alanine Aminotransferase (ALT/SGPT) 28 12-78 U/L Alkaline Phosphatase 101 45-117 U/L Total Creatine Kinase 140 26-192 U/L Creatine Kinase MB 1.0 0.5-3.6 ng/ml Creatine Kinase MB Ratio 0.7 0-3.0 Troponin I < 0.015 0-0.045 ng/ml Total Protein 8.2 6.4-8.2 gm/dl Albumin 3.8 3.4-5.0 gm/dl Influenza Type A Antigen Neg for Influ A NEG Influenza Type B Antigen Neg for Influ B NEG Bedside Lactic Acid Venous 1.96 0.90-1.70 mmol/L Bedside Hemoglobin 10.9 12.0-16.0 g/dl Bedside Hematocrit 32 37-47 % Bedside Sodium 137 135-144 mEq/L Bedside Potassium 3.6 3.3-5.0 mEq/L Bedside Chloride 100 101-112 mEq/L Bedside Total CO2 21 24-31 mEq/l Bedside Blood Urea Nitrogen 10 7-18 mg/dl Bedside Creatinine 0.7 0.6-1.3 mg/dl Bedside Glucose (other) 108 70-99 mg/dl Bedside Ionized Calcium (Rachel) 1.04 1.12-1.32 mmol/l Synovial Fluid Source KNEE Synovial Fluid Color PALE YELLOW Synovial Fluid Appearance CLOUDY Synovial Fluid WBC 604749 0-200 /uL Synovial Fluid RBC 70750 /uL Synovial Fluid Polynuclear WBCs % 83.8 % Synovial Fluid Mononuclear WBCs % 16.2 % Test 06/03/16 16:30 06/04/16 05:35 Range/Units Urine Color YELLOW Urine Appearance CLEAR CLEAR Urine pH 6.0 4.5-7.5 Urine Specific [place] 1.017 1.000-1.030 Urine Protein NEG NEG Urine Glucose (UA) NEG NEG Urine Ketones NEG NEG Urine Occult Blood NEG NEG Urine Nitrite NEG NEG Urine Bilirubin NEG NEG Urine Urobilinogen NEG NEG Urine Leukocyte Esterase NEG NEG Urine WBC (Auto) 1-5 0-5 /hpf Urine RBC (Auto) 0-4 0-4 /hpf Urine Hyaline Casts (Auto) 1-5 0-5 /lpf Urine Epithelial Cells (Auto) 10-20 0-5 /lpf Urine Bacteria (Auto) NEG NEG White Blood Count 23.34 4.8-10.8 K/uL Red Blood Count 3.36 4.2-5.4 M/uL Hemoglobin 9.6 12.0-16.0 g/dL Hematocrit 30.1 37-47 % Mean Corpuscular Volume 89.6 80-100 fL Mean Corpuscular Hemoglobin 28.6 25-34 pg Mean Corpuscular Hemoglobin Concent 31.9 32-36 g/dl Platelet Count 327 130-400 K/uL Mean Platelet Volume 8.4 7.4-10.4 fL Neutrophils (%) (Auto) 72.2 % Lymphocytes (%) (Auto) 18.5 % Monocytes (%) (Auto) 8.7 % Eosinophils (%) (Auto) 0.0 % Basophils (%) (Auto) 0.2 % Neutrophils # (Auto) 16.85 1.4-6.5 K/uL Lymphocytes # (Auto) 4.31 1.2-3.4 K/uL Monocytes # (Auto) 2.04 0.11-0.59 K/uL Eosinophils # (Auto) 0.00 0-0.5 K/uL Basophils # (Auto) 0.05 0-0.2 K/uL RDW Standard Deviation 58.4 36.4-46.3 fL RDW Coefficient of Variation 17.7 11.5-14.5 % Immature Granulocyte % (Auto) 0.4 % Immature Granulocyte # (Auto) 0.09 0.00-0.02 K/uL Polychromasia 1+ Prothrombin Time 19.6 9.0-12.0 SECONDS Prothromb Time International Ratio 1.8 0.9-1.1 Sodium Level 138 136-145 mmol/L Potassium Level 3.8 3.5-5.1 mmol/L Chloride Level 105 98-107 mmol/L Carbon Dioxide Level 22 21-32 mmol/L Anion Gap 11.0 3-11 mmol/L Blood Urea Nitrogen 9 7-18 mg/dl Creatinine 0.91 0.60-1.20 mg/dl Est Creatinine Clear Calc Drug Dose 52.5 ml/min Estimated GFR () 71.5 Estimated GFR (Non- 61.7 BUN/Creatinine Ratio 10.0 - Random Glucose 108 70-99 mg/dl Calcium Level 8.0 8.5-10.1 mg/dl Total Creatine Kinase 141 26-192 U/L Creatine Kinase MB 2.6 0.5-3.6 ng/ml Creatine Kinase MB Ratio 1.8 0-3.0 Troponin I 0.212 0-0.045 ng/ml Microbiology Results 06/03/16 Blood Culture, Received Pending 06/03/16 Blood Culture, Received Pending 06/03/16 Gram Stain, Received Pending 06/03/16 Bacterial Culture, Received Pending 06/03/16 Group A Streptococcus Screen - Final, Resulted SPECIMEN NEGATIVE FOR GROUP A BETA ST... 06/03/16 Group A Streptococcus Screen (DISHA), Resulted Pending
[2016-06-04] MEDS ORDERED: PHYTONADIONE INJ 5 MG in SODIUM CHLORIDE 0.9% 50ML 50 ML IV ONE (09:45)
--- NOTE | 2016-06-04 10:54 | Cardiology Consultation ---
Cardiology Consultation Date of Consultation: Jun 04, 2016. Requesting Physician: Manolo Coello Reason for Consultation: AF Pt evaluation today including: conversation w/ patient, physical exam, lab review, review of studies, review of inpatient medication list History of Present Illness This is a very pleasant 75-year-old woman who has a history of hypercholesterolemia, factor V Leiden mutation as well as a history of DVT. She also has DJD and has had surgery on her right knee on 09/08/2014. Her cardiac history is notable for a history of paroxysmal atrial tachycardia which was observed in the emergency room when she presented with DVT. She is on chronic anticoagulation with warfarin due to her factor V Leiden mutation as well as her DVT, she is never had a pulmonary embolism. At the time of her surgery in August 2014 she was observed to have an irregular and rapid heart rate, it is not clear whether this represented an atrial tachycardia or paroxysmal atrial fibrillation. She was having symptomatic palpitations in any case therefore we started flecainide 50 mg twice a day 10/21. Since she was already anticoagulated for other reasons we did not make a vigorous attempt to determine whether she has atrial fibrillation or atrial tachycardia. She is admitted now feeling poorly and had cellulitis of her left arm as well as pain in her right knee. She was not aware of having palpitations or her arrhythmia at the time of presentation. She was however observed to have her atrial arrhythmia after admission, on her electrocardiogram from 06/04/2016 at 5 AM she is in what does appear to be atrial fibrillation with a heart rate of about 147 bpm. This converted back to normal at around 8:30 this morning, therefore it lasted about 4-1/2 hours. The rate was quite fast during the arrhythmia. She believe she may have missed 2 doses of flecainide leading up to the arrhythmia. At the time of my evaluation her only complaint is right knee pain, she was evidently quite unaware of the arrhythmia. She feels that she has not had much difficulty with the arrhythmia lately, although she does tend to be relatively asymptomatic during it. She has no other cardiovascular complaints. Past Medical/Surgical History Medical Problems: Bronchitis Cellulitis Diverticulosis Gastroesophageal reflux disease Hyperlipidemia Osteoarthritis Pneumonia Depression/anxiety Stomach problems - Ulcer Paroxysmal atrial fibrillation Factor V Leyden History of left lower extremity DVT Chronic anticoagulation with Coumadin Past surgical history: Total right knee arthroplasty 2015 Tonsillectomy and adenoidectomy as a child Tubal ligation Family History Cancer Diabetes mellitus FH: seizures Heart disease Hypertension Social History Smoking Status: Never Smoker History of Alcohol Use: No (wine - occasionally) Review of Systems Constitutional: No fever, No weakness, No weight loss Respiratory: No cough, No dyspnea on exertion, No shortness of breath, No wheezing Cardiac: No PND, No chest pain, No edema, No orthopnea, No palpitations Abdomen: No GI bleeding, No diarrhea, No nausea, No pain, No vomiting Female : No problem reported Neurologic: No balance problems, No numbness/tingling, No paralysis, No weakness Heme: No abnormal bleeding/bruising, No clotting problems Endo: No fatigue Skin: No problem reported Progressive right knee discomfort All Other Systems: Reviewed and Negative Allergies Coded Allergies: No Known Allergies (Verified , NONE, 06/03/16) Medications Current Inpatient Medications Medications (Trade) Dose Ordered Sig/Stephy Route Start Time Stop Time Status Last Admin Dose Admin Potassium Chloride/Sodium Chloride (Nss + 20meq KCl 1000ml) 1,000 ml @ 75 mls/hr [id number] IV 06/03/16 20:00 07/03/16 16:18 06/04/16 09:07 75 MLS/HR Acetaminophen (Tylenol Tab) 650 mg Q4H PRN PO 06/03/16 18:00 07/03/16 17:59 Ondansetron HCl (Zofran Inj) 4 mg Q6H PRN IV 06/03/16 16:30 07/03/16 16:29 06/04/16 05:46 4 MG Polyethylene 17 gm 17 gm DAILY PRN PO 06/03/16 16:30 07/03/16 16:29 Ceftriaxone Sodium/Dextrose (Rocephin Inj/ Dextrose Add-[place] 50ML) 50 ml @ 100 mls/hr Q24H IV 06/04/16 16:00 06/13/16 15:59 Morphine Sulfate (MoRPHine SULFATE INJ) 2 mg Q4HWA PRN IV 06/03/16 16:30 06/17/16 16:29 Oxycodone HCl @ Q4HWA PRN PO 06/03/16 17:00 06/17/16 16:59 06/03/16 20:20 10 MG Vancomycin HCl/ Sodium Chloride (Vancomycin Inj/ Nss 250ml) 274 ml @ 125 mls/hr Q18H IV 06/04/16 12:00 06/14/16 11:59 Vancomycin HCl (Consult) 1 ea UD PRN N/A 06/03/16 17:15 07/03/16 17:14 Clonazepam (Klonopin Tab) 0.5 mg QDL PO 06/04/16 12:00 07/04/16 11:59 Ferrous Gluconate (Ferrous Gluconate Tab) 324 mg DAILY PO 06/04/16 09:00 07/04/16 08:59 06/03/16 20:20 324 MG Flecainide Acetate (Tambocor Tab) 50 mg Q12 PO 06/03/16 21:00 07/03/16 20:59 06/04/16 07:33 50 MG Simvastatin (Zocor Tab) 20 mg QPM PO 06/03/16 21:00 07/03/16 20:59 06/03/16 20:20 20 MG Pantoprazole Sodium (Protonix Tab) 40 mg QAM PO 06/04/16 09:00 07/04/16 08:59 06/04/16 07:33 40 MG Morphine Sulfate (MoRPHine SULFATE INJ) 4 mg Q4HWA PRN IV 06/03/16 17:30 06/17/16 17:29 Morphine Sulfate 6 mg 6 mg Q4HWA PRN IV 06/03/16 17:30 06/17/16 17:29 06/04/16 03:05 6 MG Acetaminophen/ Empty Bag (Ofirmev IV/ Empty Iv Bag 100ml) 65 ml @ 260 mls/hr Q6H PRN IV 06/04/16 03:45 07/04/16 03:44 06/04/16 03:51 260 MLS/HR Physical Exam Vital Signs Past 12 Hours Date Time Temp Pulse Resp B/P Pulse Ox O2 Delivery O2 Flow Rate FiO2 06/04/16 08:48 88 105/70 06/04/16 08:34 144 113/75 06/04/16 07:26 36.6 124 16 104/66 93 Room Air 06/04/16 06:18 122 101/62 06/04/16 06:13 136 104/71 06/04/16 06:08 137 100/55 06/04/16 06:03 111 100/55 06/04/16 05:58 123 94/62 06/04/16 05:53 108 101/60 06/04/16 05:48 128 96/62 06/04/16 05:43 65 123/64 06/04/16 05:38 152 123/64 06/04/16 04:55 152 131/74 96 Room Air 06/04/16 04:55 36.9 06/04/16 04:15 Room Air 06/04/16 04:00 38.3 100 18 147/73 92 Room Air 06/04/16 00:00 Room Air 06/03/16 23:14 38.1 91 18 155/78 94 Room Air Constitutional: General Apperance: heathly-appearing Level of Distress: NAD Psychiatric: Mental Status: active & alert Head: normocephalic Eyes: EOM: EOMI ENMT: normal ENT inspection, hearing grossly normal Neck: supple, no masses Lungs: Respiratory effort: no dyspnea, good air movement Auscultation: breath sounds normal, no wheezing Cardiovascular: Heart Auscultation: RRR, no murmurs, no rubs, no gallops Peripheral Pulses: Bruits: none appreciated Abdomen: Bowel Sounds: normal Inspection & Palpation: soft, no tenderness, guarding & rebound, no masses Musculoskeletal: pertinent finding (right knee swollen and painful) Extremities: no edema Neurologic: Cranial Nerves: grossly intact Sensation: grossly intact Data Laboratory Results: Last 24 Hours Test 06/03/16 14:30 06/03/16 14:33 06/03/16 14:37 06/03/16 16:20 White Blood Count 17.48 K/uL Red Blood Count 3.45 M/uL Hemoglobin 10.0 g/dL Hematocrit 31.3 % Mean Corpuscular Volume 90.7 fL Mean Corpuscular Hemoglobin 29.0 pg Mean Corpuscular Hemoglobin Concent 31.9 g/dl Platelet Count 372 K/uL Mean Platelet Volume 9.2 fL Neutrophils (%) (Auto) 84.5 % Lymphocytes (%) (Auto) 6.9 % Monocytes (%) (Auto) 8.1 % Eosinophils (%) (Auto) 0.1 % Basophils (%) (Auto) 0.2 % Neutrophils # (Auto) 14.77 K/uL Lymphocytes # (Auto) 1.21 K/uL Monocytes # (Auto) 1.42 K/uL Eosinophils # (Auto) 0.01 K/uL Basophils # (Auto) 0.03 K/uL RDW Standard Deviation 57.5 fL RDW Coefficient of Variation 17.4 % Immature Granulocyte % (Auto) 0.2 % Immature Granulocyte # (Auto) 0.04 K/uL Toxic Vacuolation OCCASIONAL Prothrombin Time 19.4 SECONDS Prothromb Time International Ratio 1.8 Sodium Level 138 mmol/L Potassium Level 3.6 mmol/L Chloride Level 103 mmol/L Carbon Dioxide Level 23 mmol/L Anion Gap 12.0 mmol/L 21.0 mmol/L Blood Urea Nitrogen 11 mg/dl Creatinine 0.89 mg/dl Estimated GFR () 73.5 Estimated GFR (Non- 63.4 BUN/Creatinine Ratio 11.9 Random Glucose 96 mg/dl Calcium Level 8.0 mg/dl Magnesium Level 2.5 mg/dl Total Bilirubin 0.7 mg/dl Direct Bilirubin 0.2 mg/dl Aspartate Amino Transf (AST/SGOT) 24 U/L Alanine Aminotransferase (ALT/SGPT) 28 U/L Alkaline Phosphatase 101 U/L Total Creatine Kinase 140 U/L Creatine Kinase MB 1.0 ng/ml Creatine Kinase MB Ratio 0.7 Troponin I < 0.015 ng/ml Total Protein 8.2 gm/dl Albumin 3.8 gm/dl Influenza Type A Antigen Neg for Influ A Influenza Type B Antigen Neg for Influ B Bedside Lactic Acid Venous 1.96 mmol/L Bedside Hemoglobin 10.9 g/dl Bedside Hematocrit 32 % Bedside Sodium 137 mEq/L Bedside Potassium 3.6 mEq/L Bedside Chloride 100 mEq/L Bedside Total CO2 21 mEq/l Bedside Blood Urea Nitrogen 10 mg/dl Bedside Creatinine 0.7 mg/dl Bedside Glucose (other) 108 mg/dl Bedside Ionized Calcium (Rachel) 1.04 mmol/l Synovial Fluid Source KNEE Synovial Fluid Color PALE YELLOW Synovial Fluid Appearance CLOUDY Synovial Fluid WBC 480988 /uL Synovial Fluid RBC 86790 /uL Synovial Fluid Polynuclear WBCs % 83.8 % Synovial Fluid Mononuclear WBCs % 16.2 % Test 06/03/16 16:30 06/04/16 05:35 Urine Color YELLOW Urine Appearance CLEAR Urine pH 6.0 Urine Specific [place] 1.017 Urine Protein NEG Urine Glucose (UA) NEG Urine Ketones NEG Urine Occult Blood NEG Urine Nitrite NEG Urine Bilirubin NEG Urine Urobilinogen NEG Urine Leukocyte Esterase NEG Urine WBC (Auto) 1-5 /hpf Urine RBC (Auto) 0-4 /hpf Urine Hyaline Casts (Auto) 1-5 /lpf Urine Epithelial Cells (Auto) 10-20 /lpf Urine Bacteria (Auto) NEG White Blood Count 23.34 K/uL Red Blood Count 3.36 M/uL Hemoglobin 9.6 g/dL Hematocrit 30.1 % Mean Corpuscular Volume 89.6 fL Mean Corpuscular Hemoglobin 28.6 pg Mean Corpuscular Hemoglobin Concent 31.9 g/dl Platelet Count 327 K/uL Mean Platelet Volume 8.4 fL Neutrophils (%) (Auto) 72.2 % Lymphocytes (%) (Auto) 18.5 % Monocytes (%) (Auto) 8.7 % Eosinophils (%) (Auto) 0.0 % Basophils (%) (Auto) 0.2 % Neutrophils # (Auto) 16.85 K/uL Lymphocytes # (Auto) 4.31 K/uL Monocytes # (Auto) 2.04 K/uL Eosinophils # (Auto) 0.00 K/uL Basophils # (Auto) 0.05 K/uL RDW Standard Deviation 58.4 fL RDW Coefficient of Variation 17.7 % Immature Granulocyte % (Auto) 0.4 % Immature Granulocyte # (Auto) 0.09 K/uL Polychromasia 1+ Prothrombin Time 19.6 SECONDS Prothromb Time International Ratio 1.8 Sodium Level 138 mmol/L Potassium Level 3.8 mmol/L Chloride Level 105 mmol/L Carbon Dioxide Level 22 mmol/L Anion Gap 11.0 mmol/L Blood Urea Nitrogen 9 mg/dl Creatinine 0.91 mg/dl Est Creatinine Clear Calc Drug Dose 52.5 ml/min Estimated GFR () 71.5 Estimated GFR (Non- 61.7 BUN/Creatinine Ratio 10.0 Random Glucose 108 mg/dl Calcium Level 8.0 mg/dl Total Creatine Kinase 141 U/L Creatine Kinase MB 2.6 ng/ml Creatine Kinase MB Ratio 1.8 Troponin I 0.212 ng/ml EKG: On arrival sinus rhythm at 86 bpm, no significant abnormality. This morning at 5:15 AM atrial fibrillation at 147 bpm, no acute changes. Telemetry reviewed: Sinus rhythm with onset of what appears to be atrial fibrillation at around 4 AM this morning, with conversion back to sinus rhythm around 8:30 AM. During atrial fibrillation or heart rate was initially about 150 bpm and then diminished with medical therapy but remained elevated. Assessment & Plan #1. Atrial fibrillation: In the past we weren't sure if she had runs of atrial tachycardia or atrial fibrillation but they often coexist. This episode clearly appears to be atrial fibrillation. Part of the events precipitating this occurrence could have been the stress of her infection, and it sounds as though she probably missed 2 doses of flecainide her recollection. Now with restarting the flecainide her arrhythmia has resolved although could certainly start again. I am going to give her an additional 50 mg of flecainide (100 mg this morning) to try to ensure that she stays in sinus rhythm during surgery, however she goes back in atrial fibrillation I would treat her with intravenous diltiazem. Since she is back in sinus rhythm now I have not started the medication. The arrhythmia certainly should not interfere with her surgery, even though the rate is fast she is hemodynamically stable and it. Thank you for allowing me to participate in her care.
[2016-06-04] MEDS ORDERED: FLECAINIDE ACETATE 100 MG TAB PO ONE (11:30)
--- NOTE | 2016-06-04 11:37 | Medical Consult ---
Consultation Date of Consultation: Jun 04, 2016. Attending Physician: Hubert Cabezas MD, PhD Reason for Consultation: Infected R TKA History of Present Illness Patient is a 75-year-old female presents the emergency department with complaints of a sore throat for approximately 3 weeks. Patient states that over the past 3 weeks, she has been having worsening pain with swallowing, fever , sweats, chills, body aches, and 1 episode of vomiting prior to admission. The patient states that her fever at home was up to 104 F. She states that her appetite has been slightly decreased over the past day or so due to pain in her throat. She feels however that this pain has slightly improved since admission. She does have history of a right TKA completed approximately in 2011. The patient states that recently, her knee has been more painful than usual over the past few weeks. She has also noted some right groin pain/right lower quadrant pain. She has not noted any diarrhea, nausea, shortness of breath, or chest pain. The patient does note chronic urinary frequency for which she is followed by Urology as an outpatient. She states that she has had yeast infection recently as well for which she has been treated. Since admission, the patient has had a throat culture, which her screen was negative for group a strep, but beta-hemolytic colonies were present on the culture With the final result pending. An aspiration was completed of her right knee, which is growing gram-negative bacilli. Her blood cultures are also growing gram-negative bacilli. The patient is currently on IV vancomycin and ceftriaxone. She did have fever up to 38.9 C on admission, but has been afebrile this morning. Her white blood cell count today is 23.34. It is also noted that her troponin was elevated this morning to 0.212. Her creatinine this morning was 0.91. Her urinalysis was unremarkable. Her synovial fluid analysis showed 260,000 white blood cells. Her influenza screens were negative. A knee x-ray showed moderate size right knee joint effusion. Orthopedics has seen this patient, and our consultation note was reviewed. She is anticipated to have a right knee I and D completed today. Past Medical/Surgical History Medical Problems: (1) Leukocytosis Status: Acute (2) Right knee pain Status: Acute (3) Sepsis Status: Acute (4) Septic joint of right knee joint Status: Acute Medical Problems: (1) Bronchitis (2) Cellulitis (3) Diverticulosis (4) Gastroesophageal reflux disease (5) Hyperlipidemia (6) Osteoarthritis (7) Pneumonia (8) Stomach problems (9) Ulcer Surgical Hx: Right TKA approx. 2011 Family History Cancer Diabetes mellitus FH: seizures Heart disease Hypertension Noncontributory Social History Smoking Status: Never Smoker Alcohol Use: socially (1-2 times yearly) Marital Status: Housing Status: lives with family Occupation Status: retired Allergies Coded Allergies: No Known Allergies (Verified , NONE, 06/03/16) Home Medications Reported Home Medications Medications Dose Route/Sig Max Daily Dose Days Date Category Dose Instructions Flecainide Acetate 100 Mg Tab 50 Mg PO Q12 10/21/14 Rx Klonopin (Clonazepam) 0.5 Mg Tab 0.5 Mg PO QDL 10/20/14 Reported Warfarin Sodium 1 Mg Tab 1.5 Tab PO DAILY 90 10/20/14 Reported Ferrous Gluconate 324 Mg Tab 324 Mg PO DAILY 10/20/14 Reported Tylenol (Acetaminophen) 325 Mg Tab 650 Mg PO DAILY 10/20/14 Reported CeleBREX (Celecoxib) 200 Mg Cap 200 Mg PO BID 10/20/14 Reported Vitamin B12 (Cyanocobalamin) 1,000 Mcg Tab 2,500 Mcg PO QAM 08/15/14 Reported Melatonin (Melatonin-Pyridoxine) 1 Tab Tab 5 Mg PO HS 08/15/14 Reported Gaviscon (Aluminum Hydroxide-Mag Trisil) 1 Chw Chw 3 Tab PO DAILY PRN 08/15/14 Reported Prilosec (Omeprazole) 20 Mg Capcr 20 Mg PO BID PRN 08/15/14 Reported USUALLY LUNCH TIME AND IN THE EVENING Zocor (Simvastatin) 20 Mg Tab 20 Mg PO QPM 07/30/08 Reported Current Inpatient Medications Current Inpatient Medications Medications (Trade) Dose Ordered Sig/Stephy Route Start Time Stop Time Status Last Admin Dose Admin Potassium Chloride/Sodium Chloride (Nss + 20meq KCl 1000ml) 1,000 ml @ 75 mls/hr [id number] IV 06/03/16 20:00 07/03/16 16:18 06/04/16 09:07 75 MLS/HR Acetaminophen (Tylenol Tab) 650 mg Q4H PRN PO 06/03/16 18:00 07/03/16 17:59 Ondansetron HCl (Zofran Inj) 4 mg Q6H PRN IV 06/03/16 16:30 07/03/16 16:29 06/04/16 05:46 4 MG Polyethylene (Miralax Powder Packet) 17 gm DAILY PRN PO 06/03/16 16:30 07/03/16 16:29 Morphine Sulfate (MoRPHine SULFATE INJ) 2 mg Q4HWA PRN IV 06/03/16 16:30 06/17/16 16:29 Oxycodone HCl @ Q4HWA PRN PO 06/03/16 17:00 06/17/16 16:59 06/03/16 20:20 10 MG Vancomycin HCl/ Sodium Chloride (Vancomycin Inj/ Nss 250ml) 274 ml @ 125 mls/hr Q18H IV 06/04/16 12:00 06/14/16 11:59 Vancomycin HCl (Consult) 1 ea UD PRN N/A 06/03/16 17:15 07/03/16 17:14 Clonazepam (Klonopin Tab) 0.5 mg QDL PO 06/04/16 11:30 07/04/16 11:59 Ferrous Gluconate (Ferrous Gluconate Tab) 324 mg DAILY PO 06/04/16 09:00 07/04/16 08:59 06/03/16 20:20 324 MG Flecainide Acetate (Tambocor Tab) 50 mg Q12 PO 06/03/16 21:00 07/03/16 20:59 06/04/16 07:33 50 MG Simvastatin (Zocor Tab) 20 mg QPM PO 06/03/16 21:00 07/03/16 20:59 06/03/16 20:20 20 MG Pantoprazole Sodium (Protonix Tab) 40 mg QAM PO 06/04/16 09:00 07/04/16 08:59 06/04/16 07:33 40 MG Morphine Sulfate (MoRPHine SULFATE INJ) 4 mg Q4HWA PRN IV 06/03/16 17:30 06/17/16 17:29 Morphine Sulfate 6 mg 6 mg Q4HWA PRN IV 06/03/16 17:30 06/17/16 17:29 06/04/16 09:52 6 MG Acetaminophen/ Empty Bag (Ofirmev IV/ Empty Iv Bag 100ml) 65 ml @ 260 mls/hr Q6H PRN IV 06/04/16 03:45 07/04/16 03:44 06/04/16 03:51 260 MLS/HR Flecainide Acetate 50 mg 50 mg 1130 ONCE PO 06/04/16 11:30 06/04/16 11:31 Piperacillin Sod/ Tazobactam Sod/ Dextrose (Zosyn Iv/D5 100ml) 115 ml @ 200 mls/hr Q6 IV 06/04/16 12:00 07/16/16 11:59 UNV Review of Systems Constitutional: + chills, + fever, + sweats Eyes: No worsening of vision ENT: + sore throat (x 3 weeks), No hearing loss Respiratory: No cough, No shortness of breath Cardiovascular: No chest pain Abdomen: + pain (RLQ), No diarrhea, No nausea, No vomiting Musculoskeletal: + joint pain (right knee), + swelling (right knee, left forearm) Genitourinary - Female: + urinary frequency (night time- chronic (approx. 1 year)), No dysuria, No urinary urgency Integumentary: + new/changing skin lesions (mild erythema of the left posterior forearm), No itch, No rash Physical Exam Date Time Temp Pulse Resp B/P Pulse Ox O2 Delivery O2 Flow Rate FiO2 06/04/16 11:29 36.9 82 16 113/68 93 06/04/16 10:53 36.6 88 16 93 06/04/16 08:48 88 105/70 06/04/16 08:34 144 113/75 06/04/16 08:00 Room Air 06/04/16 07:26 36.6 124 16 104/66 93 Room Air 06/04/16 06:18 122 101/62 06/04/16 06:13 136 104/71 06/04/16 06:08 137 100/55 06/04/16 06:03 111 100/55 06/04/16 05:58 123 94/62 06/04/16 05:53 108 101/60 06/04/16 05:48 128 96/62 06/04/16 05:43 65 123/64 06/04/16 05:38 152 123/64 06/04/16 04:55 152 131/74 96 Room Air 06/04/16 04:55 36.9 06/04/16 04:15 Room Air 06/04/16 04:00 38.3 100 18 147/73 92 Room Air 06/04/16 00:00 Room Air 06/03/16 23:14 38.1 91 18 155/78 94 Room Air 06/03/16 20:30 37.9 93 18 143/70 97 Room Air 06/03/16 19:01 83 18 117/60 95 Room Air 06/03/16 18:17 37.8 89 18 96 Room Air 06/03/16 16:40 92 18 148/65 97 Room Air 06/03/16 15:33 38.7 91 20 161/69 96 Room Air 06/03/16 15:00 86 06/03/16 14:39 85 18 100/71 99 Room Air 06/03/16 13:14 38.9 93 20 144/68 98 Room Air General Appearance: no apparent distress, + obese Head: normocephalic, atraumatic Eyes: normal inspection, sclerae normal ENT: hearing grossly normal Neck: supple, trachea midline Respiratory/Chest: chest non-tender, normal breath sounds, no respiratory distress, no accessory muscle use, + crackles (very mild bilateral posterior bases) Cardiovascular: regular rate, rhythm Abdomen/GI: normal bowel sounds, soft, + tenderness (mild tenderness right lower quadrant) Back: normal inspection Extremities/Musculoskelatal: + swelling, + pertinent finding (edema, warmth, and tenderness of the right knee- previous TKA scar noted) Neurologic/Psych: alert, normal mood/affect Skin: warm/dry, no rash, + pertinent finding (very mild erythema of the left posterior forearm. Nontender to light palpation) Laboratory Results RIGHT KNEE 3 VIEWS CLINICAL HISTORY: Right knee pain. Fever. COMPARISON: Right knee radiographs September 08, 2014. FINDINGS: Alignment of the total right knee arthroplasty is anatomic. Hardware is intact. There is no periprosthetic fracture or lucency. There is a suspected small right knee joint effusion. There is infrapatellar opacity. A few calcific/ossific densities adjacent to the patella measure up to 1.6 cm. IMPRESSION: 1. Status post total right knee arthroplasty. Hardware intact with no periprosthetic fracture or lucency. 2. Suspected moderate size right knee joint effusion. 3. A few calcific/ossific densities adjacent to the patella which are likely chronic. RUN DATE: 06/04/16 [facility] PAGE 1 RUN TIME: 900 Specimen Inquiry PATIENT: KEO PÉREZ [facility]: [facility] # : [id number] AGE/SX: 75/F ROOM: [facility] REG : 06/03/[address]: Loco Thornton D.O. : 1940 BED: 2 DIS : STATUS: ADM IN TLOC: SPEC #: [id number] SANJUANITA: 06/03/16 STATUS: RES REQ #: [id number] RECD: 06/03/[address]: Kyler Haddad, P.A. SOURCE: JOINT FLSP ENTR: 06/03/[address]: Loco Chanel DO SPDESC: KNEE RIGHT Verónica Allen C.R.N.P Ridenour, Ryan, D.O. Roeshot, Douglas, M.D. ORDERED: AER/YARITZA CULTSMR COMMENTS: Has Specimen Been Obtained/Collected? Y Procedure Result Verified Site GRAM STAIN Final 06/04/16-853 RESULT MANY POLYS FEW GRAM NEGATIVE COCCOBACILLI OR AER/YARITZA CULT Preliminary 06/04/16-900 Organism 1 GRAM NEGATIVE BACILLI QUANITY MANY SENS SENSITIVITY TO FOLLOW Item Value Date Time Gram Stain - Final Resulted 06/03/16 1620 Joint Fluid/Space (Synovial) Knee Right Blood Culture Received 06/03/16 1435 Blood Pending Blood Culture Received 06/03/16 1430 Blood Pending Group A Streptococcus Screen - Final Resulted 06/03/16 1420 Throat SPECIMEN NEGATIVE FOR GROUP A BETA ST... Last 24 Hours Test 06/03/16 14:30 06/03/16 14:33 06/03/16 14:37 06/03/16 16:20 White Blood Count 17.48 K/uL Red Blood Count 3.45 M/uL Hemoglobin 10.0 g/dL Hematocrit 31.3 % Mean Corpuscular Volume 90.7 fL Mean Corpuscular Hemoglobin 29.0 pg Mean Corpuscular Hemoglobin Concent 31.9 g/dl Platelet Count 372 K/uL Mean Platelet Volume 9.2 fL Neutrophils (%) (Auto) 84.5 % Lymphocytes (%) (Auto) 6.9 % Monocytes (%) (Auto) 8.1 % Eosinophils (%) (Auto) 0.1 % Basophils (%) (Auto) 0.2 % Neutrophils # (Auto) 14.77 K/uL Lymphocytes # (Auto) 1.21 K/uL Monocytes # (Auto) 1.42 K/uL Eosinophils # (Auto) 0.01 K/uL Basophils # (Auto) 0.03 K/uL RDW Standard Deviation 57.5 fL RDW Coefficient of Variation 17.4 % Immature Granulocyte % (Auto) 0.2 % Immature Granulocyte # (Auto) 0.04 K/uL Toxic Vacuolation OCCASIONAL Prothrombin Time 19.4 SECONDS Prothromb Time International Ratio 1.8 Sodium Level 138 mmol/L Potassium Level 3.6 mmol/L Chloride Level 103 mmol/L Carbon Dioxide Level 23 mmol/L Anion Gap 12.0 mmol/L 21.0 mmol/L Blood Urea Nitrogen 11 mg/dl Creatinine 0.89 mg/dl Estimated GFR () 73.5 Estimated GFR (Non- 63.4 BUN/Creatinine Ratio 11.9 Random Glucose 96 mg/dl Calcium Level 8.0 mg/dl Magnesium Level 2.5 mg/dl Total Bilirubin 0.7 mg/dl Direct Bilirubin 0.2 mg/dl Aspartate Amino Transf (AST/SGOT) 24 U/L Alanine Aminotransferase (ALT/SGPT) 28 U/L Alkaline Phosphatase 101 U/L Total Creatine Kinase 140 U/L Creatine Kinase MB 1.0 ng/ml Creatine Kinase MB Ratio 0.7 Troponin I < 0.015 ng/ml Total Protein 8.2 gm/dl Albumin 3.8 gm/dl Influenza Type A Antigen Neg for Influ A Influenza Type B Antigen Neg for Influ B Bedside Lactic Acid Venous 1.96 mmol/L Bedside Hemoglobin 10.9 g/dl Bedside Hematocrit 32 % Bedside Sodium 137 mEq/L Bedside Potassium 3.6 mEq/L Bedside Chloride 100 mEq/L Bedside Total CO2 21 mEq/l Bedside Blood Urea Nitrogen 10 mg/dl Bedside Creatinine 0.7 mg/dl Bedside Glucose (other) 108 mg/dl Bedside Ionized Calcium (Rachel) 1.04 mmol/l Synovial Fluid Source KNEE Synovial Fluid Color PALE YELLOW Synovial Fluid Appearance CLOUDY Synovial Fluid WBC 921378 /uL Synovial Fluid RBC 31044 /uL Synovial Fluid Polynuclear WBCs % 83.8 % Synovial Fluid Mononuclear WBCs % 16.2 % Test 06/03/16 16:30 06/04/16 05:35 06/04/16 11:06 Urine Color YELLOW Urine Appearance CLEAR Urine pH 6.0 Urine Specific [place] 1.017 Urine Protein NEG Urine Glucose (UA) NEG Urine Ketones NEG Urine Occult Blood NEG Urine Nitrite NEG Urine Bilirubin NEG Urine Urobilinogen NEG Urine Leukocyte Esterase NEG Urine WBC (Auto) 1-5 /hpf Urine RBC (Auto) 0-4 /hpf Urine Hyaline Casts (Auto) 1-5 /lpf Urine Epithelial Cells (Auto) 10-20 /lpf Urine Bacteria (Auto) NEG White Blood Count 23.34 K/uL Red Blood Count 3.36 M/uL Hemoglobin 9.6 g/dL Hematocrit 30.1 % Mean Corpuscular Volume 89.6 fL Mean Corpuscular Hemoglobin 28.6 pg Mean Corpuscular Hemoglobin Concent 31.9 g/dl Platelet Count 327 K/uL Mean Platelet Volume 8.4 fL Neutrophils (%) (Auto) 72.2 % Lymphocytes (%) (Auto) 18.5 % Monocytes (%) (Auto) 8.7 % Eosinophils (%) (Auto) 0.0 % Basophils (%) (Auto) 0.2 % Neutrophils # (Auto) 16.85 K/uL Lymphocytes # (Auto) 4.31 K/uL Monocytes # (Auto) 2.04 K/uL Eosinophils # (Auto) 0.00 K/uL Basophils # (Auto) 0.05 K/uL RDW Standard Deviation 58.4 fL RDW Coefficient of Variation 17.7 % Immature Granulocyte % (Auto) 0.4 % Immature Granulocyte # (Auto) 0.09 K/uL Polychromasia 1+ Prothrombin Time 19.6 SECONDS Prothromb Time International Ratio 1.8 Sodium Level 138 mmol/L Potassium Level 3.8 mmol/L Chloride Level 105 mmol/L Carbon Dioxide Level 22 mmol/L Anion Gap 11.0 mmol/L Blood Urea Nitrogen 9 mg/dl Creatinine 0.91 mg/dl Est Creatinine Clear Calc Drug Dose 52.5 ml/min Estimated GFR () 71.5 Estimated GFR (Non- 61.7 BUN/Creatinine Ratio 10.0 Random Glucose 108 mg/dl Calcium Level 8.0 mg/dl Total Creatine Kinase 141 U/L Creatine Kinase MB 2.6 ng/ml Creatine Kinase MB Ratio 1.8 Troponin I 0.212 ng/ml Assessment & Plan Patient with septic right TKA and sepsis. Culture from right knee aspirate is growing gram negative bacilli. Blood cultures are pending. The patient is currently on IV Ceftriaxone and Vancomycin. Will change Ceftriaxone to Zosyn to increase coverage until culture is available. Will likely D/C Vancomycin when blood cultures are available. Also will order Urinalysis and Urine culture with chronic complaint of frequency and gram negatives in knee. We will follow and adjust. Patient anticipated to have I & D of TKA this afternoon. PROVIDER ADDENDUM: Patient examined and reviewed with Ms. Christensen. Agree with above assessment.
[2016-06-04] MEDS: CLONAZEPAM 0.5 MG TAB PO SCH (11:46)
[2016-06-04] MEDS ORDERED: VANCOMYCIN INJ 1,200 MG in SODIUM CHLORIDE 0.9% 250ML 250 ML IV SCH (12:00)
[2016-06-04 12:20] LABS: CKMB/CK RATIO 2.6 (0-3.0)
[2016-06-04] MEDS ORDERED: PIPERACILL/TAZOBAC IV 4.5 GM in DEXTROSE 5% 100ML IV ONE (13:00)
[2016-06-04] MEDS ORDERED: PIPERACILL/TAZOBAC CONSULT ACTIVE PRN (13:00)
[2016-06-04] MEDS ORDERED: PROPOFOL IV EMULSION 10 MG/ML 20 ML VIAL IV ONE ×2 (13:50→14:29)
[2016-06-04] MEDS ORDERED: MIDAZOLAM HCL 1 MG/ML 2ML VIAL ONE ×2 (13:51→14:49)
[2016-06-04] MEDS ORDERED: FENTANYL CITRATE INJ 50 MCG/1 ML 2 ML VIAL ONE ×4 (13:51→16:41)
[2016-06-04] MEDS ORDERED: DEXAMETHASONE SOD INJ 4 MG/ML VIAL ONE (14:29)
[2016-06-04] MEDS ORDERED: LIDOCAINE HCL 2% 2 ML VIAL (20MG/ML) ONE (14:29)
[2016-06-04] MEDS ORDERED: ONDANSETRON INJ 2 MG/ML 2 ML VIAL ONE (14:29)
[2016-06-04] MEDS ORDERED: POVIDONE-IODINE OP SOLN 30 ML BTL ONE (15:03)
[2016-06-04] MEDS ORDERED: BACITRACIN 50000 UNIT VIAL ONE (15:03)
[2016-06-04 15:14] LABS: INR 1.4 (0.9-1.1)
--- NOTE | 2016-06-04 15:14 | History & Physical Bridge Note ---
H&P Re-Evaluation Bridge Note: I have examined the patient, reviewed the History & Physical and in the interval since the performance of the History & Physical I have noted the following changes of clinical significance: No changes noted
[2016-06-04] MEDS ORDERED: SUCCINYLCHOLINE 100MG/5ML SYR IV ONE (15:38)
[2016-06-04] MEDS ORDERED: GLYCOPYRROLATE INJ 0.2 MG/ML VIAL ONE (15:43)
[2016-06-04] MEDS ORDERED: NEOSTIGMINE METHYLSULFATE 5 MG/5 ML SYR ONE (15:43)
[2016-06-04] MEDS ORDERED: ROCURONIUM BROMIDE 10 MG/ML 5 ML VIAL ONE (15:43)
[2016-06-04] MEDS ORDERED: EpHEDrine SULFATE 50MG/5ML SYR ONE (15:44)
[2016-06-04] MEDS ORDERED: CEFTRIAXONE SOD INJ 1 GM in DEXTROSE 5% ADD-VANTAGE 50ML 50 ML IV SCH (16:00)
--- NOTE | 2016-06-04 16:59 | [facility] Post Operative Brief Note ---
Immediate Operative Summary Operative Date Jun 04, 2016. Pre-Operative Diagnosis Infected right total knee Post-Operative Diagnosis Same Procedure(s) Performed Incision and drainage total knee, synovectomy and poly exchange, right knee Surgeon Dr Lazo Law Enforcement Instructor Surgeon(s) Shannon Mathews Pa-C Estimated Blood Loss 10 ml Findings gross purulence Specimens #1 Routine Culture and anaerobic and gram stain right total knee fluid #2 Routine Culture and anaerobic right total knee fluid #3 Routine Culture and anaerobic right total knee fluid a, explant - poly right knee Disposition Recovery Room / PACU
--- NOTE | 2016-06-04 16:59 | [facility] Post Operative Brief Note ---
Immediate Operative Summary Operative Date Jun 04, 2016. Pre-Operative Diagnosis Infected right total knee Post-Operative Diagnosis Same Procedure(s) Performed Incision and drainage total knee, synovectomy and poly exchange, right knee Surgeon Dr Lazo Director Of Safety And Security Surgeon(s) Shannon Mathews Pa-C Estimated Blood Loss 10 ml Specimens #1 Routine Culture and anaerobic and gram stain right total knee fluid #2 Routine Culture and anaerobic right total knee fluid #3 Routine Culture and anaerobic right total knee fluid a, explant - poly right knee Disposition Recovery Room / PACU
[2016-06-04] MEDS ORDERED: MAGNESIUM HYDROXIDE SUSP 30 ML UDC PO PRN (17:00)
[2016-06-04] MEDS ORDERED: LABETALOL HCL IV 5 MG/ML 20ML IV PRN (17:00)
[2016-06-04] MEDS ORDERED: NALOXONE HCL 0.4 MG/1 ML VIAL/CARP IV PRN (17:00)
[2016-06-04] MEDS ORDERED: DiphenhydrAMINE HCL 50 MG/ML VIAL IV PRN (17:00)
[2016-06-04] MEDS ORDERED: EpHEDrine SULFATE INJ 50 MG/ML AMP IV PRN (17:00)
[2016-06-04] MEDS ORDERED: ONDANSETRON INJ 2 MG/ML 2 ML VIAL IV PRN (17:00)
[2016-06-04] MEDS ORDERED: FLUMAZENIL 0.1 MG/1 ML 10 ML VIAL IV PRN (17:00)
[2016-06-04] MEDS ORDERED: PROMETHAZINE HCL INJ 12.5 MG in SODIUM CHLORIDE 0.9% 50ML 50 ML IV PRN (17:00)
[2016-06-04] MEDS ORDERED: ATROPINE SULFATE 0.1 MG/ML 5ML SYR IV PRN (17:00)
[2016-06-04] MEDS ORDERED: BISACODYL 10 MG SUPP PR PRN (17:00)
[2016-06-04] MEDS ORDERED: ALUMINUM/MAGNESIUM/SIMETH (MAALOX MAX) 30 ML UDC PO PRN (17:00)
--- NOTE | 2016-06-04 17:22 | OPERATIVE REPORT ---
DATE OF OPERATION: 06/04/2016 PREOPERATIVE DIAGNOSIS: Right total knee infection. POSTOPERATIVE DIAGNOSIS: Right total knee infection. PROCEDURE: Incision and drainage, synovectomy and poly exchange of right total knee. SURGEON: Dr. Lazo. BRAKE OPERATOR: Kyler Haddad PA-C. ANESTHESIA: General. COMPLICATIONS: None. OPERATION AND FINDINGS: Following induction of adequate general anesthesia, the patient's right leg was prepped and draped in the usual sterile manner. Limb was exsanguinated with elevation only and the tourniquet was inflated to 300 mmHg. The previously made incision was reopened. Subcutaneous tissue was sharply dissected. Electrocautery was used for hemostasis. Median parapatellar incision was made. No lateral snip was required. Gross purulence was identified and this was suctioned. Three cultures were taken first. The wound was first initially irrigated briefly and then a complete synovectomy was carried out using sharp dissection. The polyethylene component was removed and the first 3000 mL of pulsatile irrigant with bacitracin was utilized. Following this, the entire knee was treated with an ultrasonic wand and then thoroughly scrubbed with Betadine scrub brush. The second 3000 mL of antibiotic impregnated saline was irrigated through the knee. All gloves were changed, fresh sheet was placed and the last 3000 mL was irrigated. This did not contain antibiotics. This last 3000 mL was irrigated after the fresh polyethylene was inserted into position. Following this, a Hemovac drain was placed, wound was closed using #1 Vicryl, 0 Dexon and parul. Prevena dressing was applied. The patient was awakened and taken to recovery in stable and good condition. She tolerated the procedure well. I attest to the content of the Intraoperative Record and any orders documented therein. Any exceptio ns are noted below.
[2016-06-04] MEDS: HYDROmorphone INJ 1 MG/ML SYR IV PRN ×2 (17:24→17:30)
--- NOTE | 2016-06-04 17:29 | DIAGNOSTIC IMAGING REPORT ---
RIGHT KNEE 2 VIEWS History: Right total knee arthroplasty. Degenerative arthritis. Postop. FINDINGS: The patient is status post a right total knee arthroplasty. The hardware is intact. No fracture or dislocation. Skin parul and surgical drains are in place. IMPRESSION: Right total knee arthroplasty. No evidence for hardware complication. Electronically signed by: Nura Conner M.D. 06/04/2016 5:27 PM Dictated Date/Time: 06/04/2016 5:27 PM
--- NOTE | 2016-06-04 17:34 | Progress Note ---
Progress Note Attending: Dr. Cabezas - [facility] Hospitalist Service POD#0 Right knee wash out - please refer to orthopedic operative note. Patient seen in PACU postoperatively Oxygenating well with nasal cannula. Some crackles at bilateral bases on exam. Regular rate and rhythm in the 70s with no appreciation of ectopy Successfully extubated. It is reported the patient had some bradycardia during the procedure which is now resolved. Patient reports the pain is well-controlled in her knee and denies chest pain or shortness of breath Patient remained in normal sinus rhythm throughout the entire surgery and was hemodynamically stable with minimal blood loss Discussed with orthopedics - resume Coumadin sliding scale tonight. Resume Lovenox 40 mg subcutaneous tomorrow Both sets of blood cultures from admission positive for gram-negative bacilli. Effusion from right knee also positive for gram-negative bacilli. Further cultures taken intraoperatively - await microbiology reports with sensitivity and organism Continue vancomycin and ceftriaxone for now Patient to return to room 209 after completion of recovery for monitoring on telemetry
--- NOTE | 2016-06-04 17:39 | Anesthesiology Progress Note ---
Anesthesia Post Op Note Date & Time Jun 04, 2016 at 17:39 Vital Signs Pain Intensity: 5.0 Vital Signs Past 12 Hours Date Time Temp Pulse Resp B/P Pulse Ox O2 Delivery O2 Flow Rate FiO2 06/04/16 17:30 87 16 170/75 99 Nasal Cannula 2 06/04/16 17:20 87 18 166/76 96 Nasal Cannula 2 06/04/16 17:10 89 16 137/73 100 Mask 10 06/04/16 17:00 89 16 140/81 100 Mask 10 06/04/16 16:51 37. 88 16 148/73 100 Mask 10 06/04/16 12:38 Room Air 06/04/16 12:00 Room Air 06/04/16 11:29 36.9 82 16 113/68 93 06/04/16 10:53 36.6 88 16 93 06/04/16 08:48 88 105/70 06/04/16 08:34 144 113/75 06/04/16 08:00 Room Air 06/04/16 07:26 36.6 124 16 104/66 93 Room Air 06/04/16 06:18 122 101/62 06/04/16 06:13 136 104/71 06/04/16 06:08 137 100/55 06/04/16 06:03 111 100/55 06/04/16 05:58 123 94/62 06/04/16 05:53 108 101/60 06/04/16 05:48 128 96/62 06/04/16 05:43 65 123/64 Notes Mental Status: alert / awake / arousable, participated in evaluation Pt Amnestic to Procedure: Yes Nausea / Vomiting: adequately controlled Pain: adequately controlled Airway Patency, RR, SpO2: stable & adequate BP & HR: stable & adequate Hydration State: stable & adequate Anesthetic Complications: no major complications apparent
[2016-06-04] MEDS: PIPERACILL/TAZOBAC IV 4.5 GM in DEXTROSE 5% 100ML 100 ML IV SCH (18:10)
[2016-06-04] MEDS ORDERED: WARFARIN SOD 5 MG TAB PO ONE (18:30)
[2016-06-04 20:03] LABS: CKMB/CK RATIO 2.7 (0-3.0)
[2016-06-04] MEDS: SIMVASTATIN 20 MG TAB PO SCH (21:07)
[2016-06-04] MEDS: SENNA 8.6 MG TAB PO SCH (21:07)
[2016-06-04] MEDS: DOCUSATE SODIUM 100 MG CAP PO SCH (21:07)
[2016-06-04] MEDS: OXYCODONE HCL 10 MG TABCR (OXYCONTIN) PO SCH (21:10)
[2016-06-05] VITALS (25 sets, daily range): BP systolic 100–148; BP diastolic 51–104; PULSE 80–176; TEMP 36.4–37.4; O2SAT 93–98
[2016-06-05] MEDS: OXYCODONE HCL IR 5 MG TAB (IMMEDIATE RELEASE) PO PRN (00:18)
[2016-06-05] MEDS: PIPERACILL/TAZOBAC IV 4.5 GM in DEXTROSE 5% 100ML 100 ML IV SCH ×3 (02:20→17:48)
[2016-06-05] MEDS ORDERED: DILTIAZEM BOLUS / DRIP IV STA ×2 (06:18→23:58)
[2016-06-05] MEDS ORDERED: DILTIAZEM HCL INJ 125 MG in DEXTROSE 5% 100ML IV PRN (06:30)
[2016-06-05] MEDS ORDERED: DILTIAZEM HCL 5 MG/ML 5 ML VIAL IV ONE (06:30)
[2016-06-05 06:41] LABS: BASO % 0.1 %; BASO ABS # 0.02 K/uL (0-0.2); EOS % 0.1 %; HEMATOCRIT 23.9 % (37-47); IG% 0.4 %; LYMPH % 12.8 %; LYMPH ABS # 1.97 K/uL (1.2-3.4); MEAN CELL VOLUME 90.2 fL (80-100); MEAN CORPUSCULAR HEMOGLOBIN 28.7 pg (25-34); MEAN CORPUSCULAR HGB CONC 31.8 g/dl (32-36); MEAN PLATELET VOLUME 8.6 fL (7.4-10.4); NEUT % 78.6 %; PLATELET COUNT 298 K/uL (130-400); RED BLOOD COUNT 2.65 M/uL (4.2-5.4)
--- NOTE | 2016-06-05 06:45 | Progress Note ---
Progress Note I was paged at approximately 05:40. Patient was noted to be atrial fibrillation with RVR. I give the following instructions prior to my arrival: Obtain EKG, obtain full set of vital signs, I would be up to assess the patient. I arrived at the to the bedside to assess the patient: SUBJECTIVE: Patient is comfortable at this time. She denies chest pain, shortness of breath , palpitations, dizziness, lower extremity edema OBJECTIVE: Item Value Date Time Oxygen Flow Rate 2.0 L/min 06/05/16332 Oxygen Delivery Method Nasal Cannula 06/05/16332 Vital Signs Label Value Date Time Bedside Pulse Oximetry 94 % 06/05/16332 Blood Pressure Assessment 148/76 (108) 06/05/16332 Location Left Arm Source NIBP Position Supine -P-u-l-s-e- -9-4- -2--/--2-2--/--1-7- -0-3-3-3- - - -T-b-g-a-t-i-o-n- -L-e-f-t- -G-f-r-c-h-i-a-l- - - -O-s-g-t-h-m- -M-s-t-u-l-a-r- Respiratory Rate 16 06/05/16332 Patient Temperature 36.8 C. 06/05/16332 Temperature Source Oral 06/05/16332 EKG: Atrial flutter with variable AV block, rate 158, low voltage QRS, anterior infarct, age undetermined Telemetry reviewed: Patient converted from normal sinus rhythm atrial fibrillation/A flutter at approximately 05:30 ASSESSMENT/PLAN: 75-year-old female, with a history of paroxysmal atrial fibrillation on flecainide at home converted from normal sinus rhythm to atrial flutter this morning. She's had one bout of atrial fibrillation during her hospital stay 24 hours ago which did improve spontaneously following single Lopressor injection. I have reviewed cardiac consult which recommends starting a Cardizem drip if she converts from normal sinus rhythm back into atrial fibrillation/A flutter. Plan is as follows - Cardizem drip: 5 mg bolus, started infusion at 10 mg per hour, increase by 5 mg/h every 15 minutes, titrate to heart rate less than 110. Hold for heart rate less than 60 or SBP less than 90 - Continue Flecanide - Cardiology following - Sign out the day team
[2016-06-05 06:48] LABS: INR 1.1 (0.9-1.1); PROTHROMBIN TIME (PATIENT) 11.4 SECONDS (9.0-12.0)
[2016-06-05 07:07] LABS: COMPLETE YES
[2016-06-05 07:12] LABS: BUN/CREATININE RATIO 13.9 (10-20); CALCIUM 7.9 mg/dl (8.5-10.1); CREATININE 0.71 mg/dl (0.60-1.20)
[2016-06-05 07:33] LABS: URINE APPEARANCE TURBID (CLEAR); URINE BILIRUBIN NEG (NEG); URINE COLOR YELLOW; URINE EPITHELIAL CELL AUTO >30 /lpf (0-5); URINE NITRITE NEG (NEG); URINE SPECIFIC GRAVITY 1.026 (1.000-1.030); UROBILINOGEN NEG (NEG)
--- NOTE | 2016-06-05 07:33 | Clinical Documentation Query ---
CLINICAL DOCUMENTATION QUERY Sepsis was well documented on H&P and then again by ID consult. Since this time the documentation has not been continued in EMR. Unless this diagnosis is clearly documented through on to DC summary it may not get coded by this facilities coding department. In your clinical opinion is this patient being managed for: ( x ) possible Sepsis due to septic right TKR. ( ) Not Agree Please clarify and document your clinical opinion in the progress notes and discharge summary. Terms such as "probable", "suspected", "likely", "questionable", "possible", or "still to be ruled out" are acceptable. IF IN AGREEMENT, YOU MUST DOCUMENT ABOVE DIAGNOSTIC STATEMENT IN DAILY PROGRESS NOTES AND DISCHARGE SUMMARY. This document is not part of the patient's record. Thank You, Darwin Hawley, RN [phone]
--- NOTE | 2016-06-05 07:34 | Clinical Documentation Query ---
CLINICAL DOCUMENTATION QUERY Sepsis was well documented on H&P and then again by ID consult. Since this time the documentation has not been continued in EMR. Unless this diagnosis is clearly documented through on to DC summary it may not get coded by this facilities coding department. In your clinical opinion is this patient being managed for: ( ) Sepsis due to septic right TKR. (X) Not Agree Please clarify and document your clinical opinion in the progress notes and discharge summary. Terms such as "probable", "suspected", "likely", "questionable", "possible", or "still to be ruled out" are acceptable. IF IN AGREEMENT, YOU MUST DOCUMENT ABOVE DIAGNOSTIC STATEMENT IN DAILY PROGRESS NOTES AND DISCHARGE SUMMARY. This document is not part of the patient's record. Thank You, Darwin Hawley, JAY JAY [phone]
--- NOTE | 2016-06-05 07:43 | Anesthesiology Progress Note ---
Anesthesia Post Op Note Date & Time Jun 05, 2016 at 07:42 Vital Signs Vital Signs Past 12 Hours Date Time Temp Pulse Resp B/P Pulse Ox O2 Delivery O2 Flow Rate FiO2 06/05/16 07:36 37.2 166 20 110/88 95 Nasal Cannula 2.0 06/05/16 04:00 Nasal Cannula 2.0 06/05/16 03:33 36.8 94 16 148/76 94 Nasal Cannula 2.0 06/05/16 00:01 98 Nasal Cannula 2.0 06/04/16 23:30 36.9 98 23 138/77 98 Nasal Cannula 2.0 06/04/16 21:00 37.0 83 16 141/67 97 Nasal Cannula 2.0 06/04/16 20:00 97 Nasal Cannula 2.0 06/04/16 20:00 36.7 86 16 145/67 100 Nasal Cannula 2.0 Notes Mental Status: alert / awake / arousable, participated in evaluation Pt Amnestic to Procedure: Yes Nausea / Vomiting: adequately controlled Pain: adequately controlled Airway Patency, RR, SpO2: stable & adequate BP & HR: stable & adequate, see Notes (At times during the interview patient's HR would increase to 160s on monitor. Discussed with bedside RN and they are aware and this is being followed.) Hydration State: stable & adequate Anesthetic Complications: no major complications apparent
[2016-06-05 07:46] LABS: MANUAL MICROSCOPIC REQUIRED? NO; REVIEW REQ? YES
--- NOTE | 2016-06-05 08:42 | Cardiology Follow-Up ---
Subjective Date of Service: Jun 05, 2016. Pt evaluation today including: conversation w/ patient, physical exam, lab review, review of studies, review of inpatient medication list History of Present Illness This is a very pleasant 75-year-old woman who has a history of hypercholesterolemia, factor V Leiden mutation as well as a history of DVT. She also has DJD and has had surgery on her right knee on 09/08/2014. Her cardiac history is notable for a history of paroxysmal atrial tachycardia which was observed in the emergency room when she presented with DVT. She is on chronic anticoagulation with warfarin due to her factor V Leiden mutation as well as her DVT, she is never had a pulmonary embolism. At the time of her surgery in August 2014 she was observed to have an irregular and rapid heart rate, it is not clear whether this represented an atrial tachycardia or paroxysmal atrial fibrillation. She was having symptomatic palpitations in any case therefore we started flecainide 50 mg twice a day 10/21. Since she was already anticoagulated for other reasons we did not make a vigorous attempt to determine whether she has atrial fibrillation or atrial tachycardia. She is admitted now feeling poorly and had cellulitis of her left arm as well as pain in her right knee. She was not aware of having palpitations or her arrhythmia at the time of presentation. She was however observed to have her atrial arrhythmia after admission, on her electrocardiogram from 06/04/2016 at 5 AM she is in what does appear to be atrial fibrillation with a heart rate of about 147 bpm. This converted back to normal at around 8:30 the same morning, therefore it lasted about 3-1/2 hours. The rate was quite fast during the arrhythmia. She believe she may have missed 2 doses of flecainide leading up to the arrhythmia. I gave her an extra 50 mg of flecainide and she went through her surgery without difficulty. This morning at around 6 AM she went back into atrial fibrillation with average heart rate of about 150 bpm. At the time of my evaluation her only complaint is right knee pain, she is minimally aware of the arrhythmia. She feels that she has not had much difficulty with the arrhythmia lately, although she does tend to be relatively asymptomatic during it. She may have more of it than she realizes. She has no other cardiovascular complaints. Social History Smoking Status: Never Smoker History of Alcohol Use: No (wine - occasionally) Review of Systems Respiratory: No cough, No dyspnea on exertion, No shortness of breath, No wheezing Cardiac: + palpitations (mild), No PND, No chest pain, No edema, No orthopnea Progressive right knee discomfort Medications Cardiovascular: Item Value Date Time Warfarin Sodium 5 mg 06/05/16 1600 (Coumadin Tab) DAILY@16/PO Enoxaparin Sodium 40 mg 06/05/16 0900 (Lovenox Inj) QAM/SQ Diltiazem HCl 125 125 ml @ 0 mls/hr 06/05/16 0630 mg/Dextrose .Q0M PRN/IV 06/05/16 0643 Flecainide Acetate 50 mg 06/03/16 2100 (Tambocor Tab) Q12/PO 06/04/162106 Simvastatin 20 mg 06/03/16 2100 (Zocor Tab) QPM/PO 06/04/162106 Objective Vital Signs Past 12 Hours Date Time Temp Pulse Resp B/P Pulse Ox O2 Delivery O2 Flow Rate FiO2 06/05/16 08:15 37.0 146 24 118/80 98 Nasal Cannula 2.0 06/05/16 08:00 37.2 162 17 105/83 96 Nasal Cannula 2.0 06/05/16 07:36 37.2 166 20 110/88 95 Nasal Cannula 2.0 06/05/16 07:30 161 16 111/84 98 Room Air 06/05/16 07:15 145 21 130/104 98 Room Air 06/05/16 07:00 36.7 176 19 110/88 93 Room Air 06/05/16 04:00 Nasal Cannula 2.0 06/05/16 03:33 36.8 94 16 148/76 94 Nasal Cannula 2.0 06/05/16 00:01 98 Nasal Cannula 2.0 06/04/16 23:30 36.9 98 23 138/77 98 Nasal Cannula 2.0 06/04/16 21:00 37.0 83 16 141/67 97 Nasal Cannula 2.0 Last Recorded Weight-Kilograms: 84.200 Intake & Output 8-Hour Column 06/04/16 06/05/16 06/05/16 16:00 00:00 08:00 Intake Total 453 ml 1921 ml 857 ml Output Total 350 ml 60 ml 725 ml Balance 103 ml 1861 ml 132 ml 24-Hour Column 06/05/16 08:00 Intake Total 3231 ml Output Total 1135 ml Balance 2096 ml Physical Exam Constitutional: General Apperance: heathly-appearing Level of Distress: NAD Lungs: Respiratory effort: no dyspnea, good air movement Auscultation: breath sounds normal, no wheezing Cardiovascular: Heart Auscultation: no murmurs, no rubs, no gallops, tachycardia, irregular rate rhythm Peripheral Pulses: Bruits: none appreciated Extremities: no edema Data Laboratory Results: Last 24 Hours Test 06/04/16 11:25 06/04/16 14:44 06/04/16 19:12 06/05/16 00:20 Total Creatine Kinase 145 U/L 127 U/L Creatine Kinase MB 3.7 ng/ml 3.4 ng/ml Creatine Kinase MB Ratio 2.6 2.7 Troponin I 0.133 ng/ml 0.182 ng/ml Prothrombin Time 15.0 SECONDS Prothromb Time International Ratio 1.4 Urine Color YELLOW Urine Appearance TURBID Urine pH 5.0 Urine Specific [place] 1.026 Urine Protein 1+ Urine Glucose (UA) NEG Urine Ketones TRACE Urine Occult Blood TRACE Urine Nitrite NEG Urine Bilirubin NEG Urine Urobilinogen NEG Urine Leukocyte Esterase NEG Urine WBC (Auto) 1-5 /hpf Urine RBC (Auto) 10-30 /hpf Urine Hyaline Casts (Auto) 1-5 /lpf Urine Epithelial Cells (Auto) >30 /lpf Urine Bacteria (Auto) NEG Urine Renal Epithelial Cells /lpf Urine Crystals URIC ACID Test 06/05/16 06:00 White Blood Count 15.40 K/uL Red Blood Count 2.65 M/uL Hemoglobin 7.6 g/dL Hematocrit 23.9 % Mean Corpuscular Volume 90.2 fL Mean Corpuscular Hemoglobin 28.7 pg Mean Corpuscular Hemoglobin Concent 31.8 g/dl Platelet Count 298 K/uL Mean Platelet Volume 8.6 fL Neutrophils (%) (Auto) 78.6 % Lymphocytes (%) (Auto) 12.8 % Monocytes (%) (Auto) 8.0 % Eosinophils (%) (Auto) 0.1 % Basophils (%) (Auto) 0.1 % Neutrophils # (Auto) 12.10 K/uL Lymphocytes # (Auto) 1.97 K/uL Monocytes # (Auto) 1.23 K/uL Eosinophils # (Auto) 0.02 K/uL Basophils # (Auto) 0.02 K/uL RDW Standard Deviation 59.4 fL RDW Coefficient of Variation 18.0 % Immature Granulocyte % (Auto) 0.4 % Immature Granulocyte # (Auto) 0.06 K/uL Red Blood Cell Morphology Unremarkable Prothrombin Time 11.4 SECONDS Prothromb Time International Ratio 1.1 Sodium Level 135 mmol/L Potassium Level 4.0 mmol/L Chloride Level 102 mmol/L Carbon Dioxide Level 22 mmol/L Anion Gap 11.0 mmol/L Blood Urea Nitrogen 10 mg/dl Creatinine 0.71 mg/dl Est Creatinine Clear Calc Drug Dose 68.9 ml/min Estimated GFR () 96.6 Estimated GFR (Non- 83.3 BUN/Creatinine Ratio 13.9 Random Glucose 109 mg/dl Calcium Level 7.9 mg/dl Telemetry reviewed: Onset of rapid atrial fibrillation this morning at around 6 AM, average heart rate is around 150 bpm. Assessment and Plan #1. Atrial fibrillation: In the past we weren't sure if she had runs of atrial tachycardia or atrial fibrillation but they often coexist. Here the rhythm clearly appears to be atrial fibrillation. Part of the events precipitating this occurrence could have been the stress of her infection, and it sounds as though she probably missed 2 doses of flecainide by her recollection which may have helped trigger the initial episode, however I don't think she has missed anymore and had recurrent arrhythmia this morning. At least for now I'm going to increase her flecainide to 100 mg twice a day. We also need more medications for rate control, she was not on rate controlling medications at home. Now she is on intravenous diltiazem but still has a high heart rate. I am going to switch her to oral Cardizem and we may need to add another agent. Her blood pressure is low at times we may have to consider digoxin. We probably should perform some type of alf monitoring after discharge. She has episodes when she is less ill. Thank you for allowing me to participate in her care.
[2016-06-05] MEDS: FERROUS GLUCONATE 324 MG TAB PO SCH ×4 (08:53→17:48)
[2016-06-05] MEDS: DOCUSATE SODIUM 100 MG CAP PO SCH ×2 (08:53→20:48)
[2016-06-05] MEDS: PANTOprazole SOD 40 MG TAB PO SCH (08:55)
[2016-06-05] MEDS: ENOXAPARIN 40 MG/0.4 ML SYR SQ SCH (08:56)
[2016-06-05] MEDS: DILTIAZEM HCL 240 MG CAPCR PO SCH (09:00)
[2016-06-05] MEDS: OXYCODONE HCL 10 MG TABCR (OXYCONTIN) PO SCH ×2 (09:05→20:48)
[2016-06-05] MEDS: FLECAINIDE ACETATE 100 MG TAB PO SCH ×2 (09:05→18:31)
--- NOTE | 2016-06-05 09:42 | Orthopedic Progress Note ---
Orthopedic Progress Note Date of Service Jun 05, 2016. Subjective Post OP Day: 1 Reports: complaints (right knee pain with ROM), Denies: SOB, chest pain, nausea / vomiting Additional Notes: Mentions that she is having some right groin pain. This is the pain that she had mentioned to be yesterday. No worse than before and she was having it at home as well prior to the admission Objective calves soft nontender, N/V intact, dressing C/D/I, A&O x3, toes mobile Holding the RLE, I gently flexed / extended the right hip. Pt states that all of her pain is mainly in the right knee and goes down the leg with movement but not into the toes. No pain in the right hip/groin with ROM currently. Date Time Temp Pulse Resp B/P Pulse Ox O2 Delivery O2 Flow Rate FiO2 06/05/16 08:15 37.0 146 24 118/80 98 Nasal Cannula 2.0 06/05/16 08:00 37.2 162 17 105/83 96 Nasal Cannula 2.0 06/05/16 07:36 37.2 166 20 110/88 95 Nasal Cannula 2.0 06/05/16 07:30 161 16 111/84 98 Room Air 06/05/16 07:15 145 21 130/104 98 Room Air 06/05/16 07:00 36.7 176 19 110/88 93 Room Air 06/05/16 04:00 Nasal Cannula 2.0 06/05/16 03:33 36.8 94 16 148/76 94 Nasal Cannula 2.0 06/05/16 00:01 98 Nasal Cannula 2.0 06/04/16 23:30 36.9 98 23 138/77 98 Nasal Cannula 2.0 06/04/16 21:00 37.0 83 16 141/67 97 Nasal Cannula 2.0 06/04/16 20:00 97 Nasal Cannula 2.0 06/04/16 20:00 36.7 86 16 145/67 100 Nasal Cannula 2.0 06/04/16 19:15 36.8 82 16 135/63 97 Nasal Cannula 2.0 06/04/16 18:38 82 17 134/57 100 2.0 06/04/16 18:21 36.5 88 17 140/65 98 Nasal Cannula 2.0 06/04/16 17:40 36.9 78 16 158/78 98 Nasal Cannula 2 06/04/16 17:30 87 16 170/75 99 Nasal Cannula 2 06/04/16 17:20 87 18 166/76 96 Nasal Cannula 2 06/04/16 17:10 89 16 137/73 100 Mask 10 06/04/16 17:00 89 16 140/81 100 Mask 10 06/04/16 16:51 37. 88 16 148/73 100 Mask 10 06/04/16 12:38 Room Air 06/04/16 12:00 Room Air 06/04/16 11:29 36.9 82 16 113/68 93 06/04/16 10:53 36.6 88 16 93 Laboratory Results 24 Hours: Test 06/04/16 14:44 06/05/16 06:00 Prothromb Time International Ratio 1.4 1.1 Prothrombin Time 15.0 SECONDS 11.4 SECONDS White Blood Count 15.40 K/uL Red Blood Count 2.65 M/uL Hemoglobin 7.6 g/dL Hematocrit 23.9 % Mean Corpuscular Volume 90.2 fL Mean Corpuscular Hemoglobin 28.7 pg Mean Corpuscular Hemoglobin Concent 31.8 g/dl Platelet Count 298 K/uL Mean Platelet Volume 8.6 fL Neutrophils (%) (Auto) 78.6 % Lymphocytes (%) (Auto) 12.8 % Monocytes (%) (Auto) 8.0 % Eosinophils (%) (Auto) 0.1 % Basophils (%) (Auto) 0.1 % Neutrophils # (Auto) 12.10 K/uL Lymphocytes # (Auto) 1.97 K/uL Monocytes # (Auto) 1.23 K/uL Eosinophils # (Auto) 0.02 K/uL Basophils # (Auto) 0.02 K/uL Additional Notes: RUN DATE: 06/05/16 [facility] PAGE 1 RUN TIME: 7084 Specimen Inquiry PATIENT: KEO PÉREZ [facility] # : [id number] AGE/SX: 75/F ROOM: 09 REG : 06/03/[address]: Hubert Cabezas MD, PhD : 1940 BED: 1 DIS : STATUS: ADM IN TLOC: SPEC #: [id number] SANJUANITA: 06/03/16 STATUS: RES REQ #: [id number] RECD: 06/03/[address]: Kyler Haddad, P.A. SOURCE: JOINT FLSP ENTR: 06/03/[address] [facility] [address]: Loco Chanel, DO SPDESC: KNEE RIGHT Verónica Aleln C.R.N.P Ridenour, Ryan, D.O. Roeshot, Douglas, M.D. ORDERED: AER/YARITZA CULTSMR COMMENTS: Has Specimen Been Obtained/Collected? Y Procedure Result Verified Site GRAM STAIN Final 06/04/16-853 RESULT MANY POLYS FEW GRAM NEGATIVE COCCOBACILLI OR AER/YARITZA CULT Preliminary 06/05/16-852 Organism 1 HAEMO. INFLU BETALACTAMASE POS QUANITY MANY SENS SENSITIVITY TO FOLLOW RUN DATE: 06/04/16 [facility] PAGE 1 RUN TIME: 1049 Specimen Inquiry PATIENT: KEO PÉREZ LOC: C.MED U # : [id number] AGE/SX: 75/F ROOM: [facility] REG : 06/03/[address]: Hubert Cabezas MD, PhD : 1940 BED: 2 DIS : STATUS: ADM IN TLOC: SPEC #: [id number] SANJUANITA: 06/03/16 STATUS: RES REQ #: [id number] RECD: 06/03/[address]: Loco Chanel DO SOURCE: THROAT ENTR: 06/03/[address]: Verónica Allen C.R.N.P SPDESC: ORDERED: GRP A STRP SCN COMMENTS: Comments to Brush Operator poc neg Has Specimen Been Obtained/Collected? Y Procedure Result Verified Site RAPID GRP A BETA STREP SCREEN Final 06/03/16-151 SPECIMEN NEGATIVE FOR GROUP A BETA STREP. BY RAPID METHOD, CULTURE REPORT TO FOLLOW. GRP A STREP BACKUP CULTURE Preliminary 06/04/16-1049 BETA-HEMOLYTIC COLONIES PRESENT, ADDITIONAL REPORT TO FOLLOW. Assessment & Plan Assessment: Septic Right TKA Left Forearm Cellulitis Acute Blood Loss Anemia Afib H/O DVT; Factor V Leiden Deficiency Plan: Transfusion ordered per Med Service Above noted Cx results - antibx as per ID Team Coumadin 5mg daily ordered - follow INR / Lovenox bridging starting today Will consider Right hip film due to patient's continued mention of groin pain. Inhouse Planning Pain Management: Oxycontin, Morphine, PO Tylenol, Oxy IR DVT Prophylaxis: Coumadin, Lovenox
--- NOTE | 2016-06-05 10:42 | DIAGNOSTIC IMAGING REPORT ---
PELVIS 1 OR 2 VIEW ROUTINE CLINICAL HISTORY: Right groin pain pain COMPARISON: None. DISCUSSION: Moderate to rather significant degenerative change right hip. Mild degenerative change left hip. Significant degenerative change of the sacroiliac joints bilaterally. Degenerative changes low lumbar spine. No evidence for acetabular protrusion. There is no evidence for soft tissue swelling. 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 No acute process. Electronically signed by: Khai Davis M.D. 06/05/2016 10:41 AM Dictated Date/Time: 06/05/2016 10:41 AM
[2016-06-05 11:08] LABS: IMMUNOGLOBULN M 30.7 mg/dL (40-230)
[2016-06-05] MEDS: CLONAZEPAM 0.5 MG TAB PO SCH (11:13)
--- NOTE | 2016-06-05 12:06 | Progress Note ---
Subjective Date of Service: Jun 05, 2016. Subjective Pt evaluation today including: conversation w/ patient, physical exam, chart review, lab review, review of studies, conversation w/ talent development consultant, review of inpatient medication list Heart rate still out of control with the A. fib rapid ventricular response, heart rate up to 150, after switching to oral Cardizem and first dose of Cardizem, heart rate seems improved to 120 No fever or chill, pain fairly controlled, patient seems doing okay, reported generally tired, not sleep well Problem List Medical Problems: (1) Leukocytosis Status: Acute (2) Right knee pain Status: Acute (3) Sepsis Status: Acute (4) Septic joint of right knee joint Status: Acute Review of Systems Constitutional: + fatigue, + weakness, No chills, No fever, No problem reported , No sweats, No weight loss Eyes: No diplopia, No discharge, No eye pain, No redness, No worsening of vision ENT: No dental problems, No hearing loss, No nasal symptoms, No sore throat, No tinnitus, No trouble swallowing, No unusual epistaxis Respiratory: + shortness of breath, No cough, No dyspnea at rest, No dyspnea on exertion, No hemoptysis, No sputum, No wheezing Cardiac: + palpitations, No PND, No chest pain, No claudication, No edema, No orthopnea Abdomen: No constipation, No diarrhea, No nausea, No pain, No vomiting Musculoskeletal: + joint pain, No calf pain, No muscle pain, No swelling Female : No abnormal vaginal bleeding, No dysuria, No hematuria, No incontinence, No urinary frequency, No vaginal discharge Neurologic: No balance problems, No memory loss, No numbness/tingling, No paralysis, No vertigo, No weakness Psychiatric: No anhedonism, No anxiety, No depression symptoms, No insomnia, No substance abuse Heme: No abnormal bleeding/bruising, No clotting problems, No night sweats, No swollen lymph nodes Endo: No excessive thirst, No excessive urination, No fatigue Skin: No bleeding, No color change, No itch, No new/changing skin lesions, No rash Objective Vital Signs Date Time Temp Pulse Resp B/P Pulse Ox O2 Delivery O2 Flow Rate FiO2 06/05/16 12:00 36.6 83 20 122/62 98 2.0 06/05/16 11:45 36.4 85 20 106/56 95 2.0 06/05/16 11:30 36.4 86 20 104/58 98 2.0 06/05/16 11:17 36.8 124 18 115/69 97 2.0 06/05/16 10:45 37.2 151 20 121/69 96 Nasal Cannula 2.0 06/05/16 09:45 159 120/68 06/05/16 09:30 142 124/94 06/05/16 08:15 37.0 146 24 118/80 98 Nasal Cannula 2.0 06/05/16 08:00 37.2 162 17 105/83 96 Nasal Cannula 2.0 06/05/16 07:36 37.2 166 20 110/88 95 Nasal Cannula 2.0 06/05/16 07:30 161 16 111/84 98 Room Air 06/05/16 07:15 145 21 130/104 98 Room Air 06/05/16 07:00 36.7 176 19 110/88 93 Room Air 06/05/16 04:00 Nasal Cannula 2.0 06/05/16 03:33 36.8 94 16 148/76 94 Nasal Cannula 2.0 06/05/16 00:01 98 Nasal Cannula 2.0 06/04/16 23:30 36.9 98 23 138/77 98 Nasal Cannula 2.0 06/04/16 21:00 37.0 83 16 141/67 97 Nasal Cannula 2.0 06/04/16 20:00 97 Nasal Cannula 2.0 06/04/16 20:00 36.7 86 16 145/67 100 Nasal Cannula 2.0 06/04/16 19:15 36.8 82 16 135/63 97 Nasal Cannula 2.0 06/04/16 18:38 82 17 134/57 100 2.0 06/04/16 18:21 36.5 88 17 140/65 98 Nasal Cannula 2.0 06/04/16 17:40 36.9 78 16 158/78 98 Nasal Cannula 2 06/04/16 17:30 87 16 170/75 99 Nasal Cannula 2 06/04/16 17:20 87 18 166/76 96 Nasal Cannula 2 06/04/16 17:10 89 16 137/73 100 Mask 10 06/04/16 17:00 89 16 140/81 100 Mask 10 06/04/16 16:51 37. 88 16 148/73 100 Mask 10 06/04/16 12:38 Room Air Physical Exam General Appearance: WD/WN, no apparent distress, + obese, + pertinent finding ( tired,) Eyes: normal inspection, PERRL, EOMI, sclerae normal ENT: normal ENT inspection, hearing grossly normal, pharynx normal Neck: supple, no adenopathy, thyroid normal, no JVD, no carotid bruits, trachea midline Respiratory/Chest: chest non-tender, normal breath sounds, no respiratory distress, no accessory muscle use, + decreased breath sounds Cardiovascular: regular rate, rhythm, no edema, no gallop, no JVD, no murmur, + irregularly irregular Abdomen: normal bowel sounds, non tender, soft, no organomegaly, no pulsatile mass Extremities: normal inspection, no pedal edema, no calf tenderness, normal capillary refill, pelvis stable, + pertinent finding (right knee incision looks good , CRISSY drainage is going on) Neurologic/Psychiatric: manager generation II-XII nml as tested, no motor/sensory deficits, alert, normal mood/affect, oriented x 3 Skin: normal color, warm/dry, no rash Lymphatic: no adenopathy Laboratory Results Last 24 Hours Test 06/04/16 14:44 06/04/16 19:12 06/05/16 00:20 06/05/16 06:00 Prothrombin Time 15.0 SECONDS 11.4 SECONDS Prothromb Time International Ratio 1.4 1.1 Total Creatine Kinase 127 U/L Creatine Kinase MB 3.4 ng/ml Creatine Kinase MB Ratio 2.7 Troponin I 0.182 ng/ml Urine Color YELLOW Urine Appearance TURBID Urine pH 5.0 Urine Specific [place] 1.026 Urine Protein 1+ Urine Glucose (UA) NEG Urine Ketones TRACE Urine Occult Blood TRACE Urine Nitrite NEG Urine Bilirubin NEG Urine Urobilinogen NEG Urine Leukocyte Esterase NEG Urine WBC (Auto) 1-5 /hpf Urine RBC (Auto) 10-30 /hpf Urine Hyaline Casts (Auto) 1-5 /lpf Urine Epithelial Cells (Auto) >30 /lpf Urine Bacteria (Auto) NEG Urine Renal Epithelial Cells /lpf Urine Crystals URIC ACID White Blood Count 15.40 K/uL Red Blood Count 2.65 M/uL Hemoglobin 7.6 g/dL Hematocrit 23.9 % Mean Corpuscular Volume 90.2 fL Mean Corpuscular Hemoglobin 28.7 pg Mean Corpuscular Hemoglobin Concent 31.8 g/dl Platelet Count 298 K/uL Mean Platelet Volume 8.6 fL Neutrophils (%) (Auto) 78.6 % Lymphocytes (%) (Auto) 12.8 % Monocytes (%) (Auto) 8.0 % Eosinophils (%) (Auto) 0.1 % Basophils (%) (Auto) 0.1 % Neutrophils # (Auto) 12.10 K/uL Lymphocytes # (Auto) 1.97 K/uL Monocytes # (Auto) 1.23 K/uL Eosinophils # (Auto) 0.02 K/uL Basophils # (Auto) 0.02 K/uL RDW Standard Deviation 59.4 fL RDW Coefficient of Variation 18.0 % Immature Granulocyte % (Auto) 0.4 % Immature Granulocyte # (Auto) 0.06 K/uL Red Blood Cell Morphology Unremarkable Sodium Level 135 mmol/L Potassium Level 4.0 mmol/L Chloride Level 102 mmol/L Carbon Dioxide Level 22 mmol/L Anion Gap 11.0 mmol/L Blood Urea Nitrogen 10 mg/dl Creatinine 0.71 mg/dl Est Creatinine Clear Calc Drug Dose 68.9 ml/min Estimated GFR () 96.6 Estimated GFR (Non- 83.3 BUN/Creatinine Ratio 13.9 Random Glucose 109 mg/dl Calcium Level 7.9 mg/dl Test 06/05/16 09:46 Immunoglobulin G 879.0 mg/dL Immunoglobulin A 252.0 mg/dL Immunoglobulin M 30.7 mg/dL Assessment and Plan 75-year-old white female admitted because of septic knee, on 06/02/2016 SEPTIC RIGHT KNEE, S/P washing per orthopedic, postop day 1 Vancomycin and Ceftriaxone - Day #3 Ortho and infectious disease consulted, will follow-up Will just antibiotic per sensitivity ATRIAL FIBRILLATION WITH RVR still not controlled Cardiology on the case, Cardizem by mouth by mouth, flecainide po Coumadin held for OR procedure, has restarted per recs from orthopedic Need to be on stroke prevention continue by blood thinner Coumadin 5mg daily ordered - follow INR / Lovenox bridging starting Acute blood loss anemia likely from blood lost during the procedure, after counseling the risk and benefit of transfusion, consent is signed ELEVATED TROPONIN HISTORY OF LEFT LOWER EXTREMITY 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
[2016-06-05] MEDS: MoRPHine SULFATE 2 MG/ML CARP IV PRN ×2 (13:50→20:47)
--- NOTE | 2016-06-05 15:31 | Infectious Disease Progress Nt ---
Progress Note Date of Service Jun 05, 2016. Subjective Pt evaluation today including: conversation w/ patient, physical exam, chart review, lab review, review of studies, review of inpatient medication list WBC count down slightly to 15.40 today. Hgb was 7.6, and patient was transfused this afternoon. Creatinine is stable at 0.71. Blood cultures continue to show GNB. Synovial fluid culture is growing Haemophilus Influenzae Betalactamase Positive. Surgical cultures are pending. Urine culture shows no growth on preliminary cx. Final Throat culture is showing no group A beta Strep isolated. Pelvic X-Ray today showed degenerative change most significant at the right hip and SI joints. The patient is now s/p I & D with poly exchange of the right knee. Operative record was reviewed and noted gross purulence during surgery. 3 cultures taken and pending. The patient states that her right groin pain is slightly less today. Her right knee is very painful. She continues to have mild sore throat on and off. She is on IV Zosyn. All Other Systems: Reviewed and Negative Medications Current Inpatient Medications Medications (Trade) Dose Ordered Sig/Stephy Route Start Time Stop Time Status Last Admin Dose Admin Acetaminophen (Tylenol Tab) 650 mg Q4H PRN PO 06/03/16 18:00 07/03/16 17:59 Ondansetron HCl (Zofran Inj) 4 mg Q6H PRN IV 06/03/16 16:30 07/03/16 16:29 06/04/16 05:46 4 MG Polyethylene (Miralax Powder Packet) 17 gm DAILY PRN PO 06/03/16 16:30 07/03/16 16:29 Morphine Sulfate (MoRPHine SULFATE INJ) 2 mg Q4HWA PRN IV 06/03/16 16:30 06/17/16 16:29 06/05/16 13:50 2 MG Oxycodone HCl (Roxicodone Immediate Rel Tab) @ Q4HWA PRN PO 06/03/16 17:00 06/17/16 16:59 06/05/16 00:18 10 MG Clonazepam (Klonopin Tab) 0.5 mg QDL PO 06/04/16 11:30 07/04/16 11:59 06/05/16 11:13 0.5 MG Ferrous Gluconate (Ferrous Gluconate Tab) 324 mg DAILY PO 06/04/16 09:00 07/04/16 08:59 06/05/16 08:55 324 MG Simvastatin (Zocor Tab) 20 mg QPM PO 06/03/16 21:00 07/03/16 20:59 06/04/16 21:07 20 MG Pantoprazole Sodium (Protonix Tab) 40 mg QAM PO 06/04/16 09:00 07/04/16 08:59 06/05/16 08:55 40 MG Morphine Sulfate (MoRPHine SULFATE INJ) 4 mg Q4HWA PRN IV 06/03/16 17:30 06/17/16 17:29 Morphine Sulfate 6 mg 6 mg Q4HWA PRN IV 06/03/16 17:30 06/17/16 17:29 06/04/16 09:52 6 MG Acetaminophen 650 mg/Empty Bag 65 ml @ 260 mls/hr Q6H PRN IV 06/04/16 03:45 07/04/16 03:44 06/04/16 03:51 260 MLS/HR Piperacillin Sod/ Tazobactam Sod/ Dextrose (Zosyn Iv/D5 100ml) 120 ml @ 30 mls/hr Q8H IV 06/04/16 18:00 07/16/16 17:59 06/05/16 09:06 30 MLS/HR Piperacillin Sod/ Tazobactam Sod (Consult) 1 ea UD PRN N/A 06/04/16 13:00 07/04/16 12:59 Oxycodone HCl (Oxycontin Tab) 10 mg Q12 PO 06/04/16 21:00 06/18/16 20:59 06/05/16 09:05 10 MG Magnesium Hydroxide (Milk Of Magnesia Susp) 30 ml Q6H PRN PO 06/04/16 17:00 07/04/16 16:59 Bisacodyl (Dulcolax Supp) 10 mg DAILY PRN SC 06/04/16 17:00 07/04/16 16:59 Senna (Senokot Tab) 17.2 mg HS PO 06/04/16 21:00 07/04/16 20:59 06/04/16 21:07 17.2 MG Docusate Sodium (coLACE CAP) 100 mg BID PO 06/04/16 21:00 07/04/16 20:59 06/05/16 08:53 100 MG Diphenhydramine HCl (Benadryl Inj) 25 mg Q8H PRN IV 06/04/16 17:00 07/04/16 16:59 Al Hydrox/Mg Hydrox/Simethicone (Maalox Max Susp) 15 ml Q4H PRN PO 06/04/16 17:00 07/04/16 16:59 Ferrous Gluconate (Ferrous Gluconate Tab) 324 mg TIDM PO 06/05/16 07:30 07/05/16 07:29 06/05/16 11:13 324 MG Enoxaparin Sodium (Lovenox Inj) 40 mg QAM SQ 06/05/16 09:00 07/05/16 08:59 06/05/16 08:56 40 MG Warfarin Sodium (Coumadin Tab) 5 mg DAILY@16 PO 06/05/16 16:00 07/05/16 15:59 Flecainide Acetate (Tambocor Tab) 100 mg Q12 PO 06/05/16 09:00 07/05/16 08:59 06/05/16 09:05 100 MG Diltiazem HCl (Cardizem Cd Cap) 240 mg QAM PO 06/05/16 09:00 07/05/16 08:59 06/05/16 09:00 240 MG Objective Vital Signs Date Time Temp Pulse Resp B/P Pulse Ox O2 Delivery O2 Flow Rate FiO2 06/05/16 13:38 80 97 06/05/16 13:15 37.4 80 20 119/51 97 2.0 06/05/16 12:45 36.9 81 20 131/64 96 2.0 06/05/16 12:15 36.5 81 20 106/73 97 2.0 06/05/16 12:00 Nasal Cannula 2.0 06/05/16 12:00 36.6 83 20 122/62 98 2.0 06/05/16 11:45 36.4 85 20 106/56 95 2.0 06/05/16 11:30 36.4 86 20 104/58 98 2.0 06/05/16 11:17 36.8 124 18 115/69 97 2.0 06/05/16 10:45 37.2 151 20 121/69 96 Nasal Cannula 2.0 06/05/16 09:45 159 120/68 06/05/16 09:30 142 124/94 06/05/16 08:15 37.0 146 24 118/80 98 Nasal Cannula 2.0 06/05/16 08:00 Nasal Cannula 2.0 06/05/16 08:00 37.2 162 17 105/83 96 Nasal Cannula 2.0 06/05/16 07:36 37.2 166 20 110/88 95 Nasal Cannula 2.0 06/05/16 07:30 161 16 111/84 98 Room Air 06/05/16 07:15 145 21 130/104 98 Room Air 06/05/16 07:00 36.7 176 19 110/88 93 Room Air 06/05/16 04:00 Nasal Cannula 2.0 06/05/16 03:33 36.8 94 16 148/76 94 Nasal Cannula 2.0 06/05/16 00:01 98 Nasal Cannula 2.0 06/04/16 23:30 36.9 98 23 138/77 98 Nasal Cannula 2.0 06/04/16 21:00 37.0 83 16 141/67 97 Nasal Cannula 2.0 06/04/16 20:00 97 Nasal Cannula 2.0 06/04/16 20:00 36.7 86 16 145/67 100 Nasal Cannula 2.0 06/04/16 19:15 36.8 82 16 135/63 97 Nasal Cannula 2.0 06/04/16 18:38 82 17 134/57 100 2.0 06/04/16 18:21 36.5 88 17 140/65 98 Nasal Cannula 2.0 06/04/16 17:40 36.9 78 16 158/78 98 Nasal Cannula 2 06/04/16 17:30 87 16 170/75 99 Nasal Cannula 2 06/04/16 17:20 87 18 166/76 96 Nasal Cannula 2 06/04/16 17:10 89 16 137/73 100 Mask 10 06/04/16 17:00 89 16 140/81 100 Mask 10 06/04/16 16:51 37. 88 16 148/73 100 Mask 10 Physical Exam General Appearance: WD/WN, no apparent distress Eyes: normal inspection, sclerae normal ENT: hearing grossly normal Neck: supple, trachea midline Respiratory/Chest: chest non-tender, no respiratory distress, no accessory muscle use, + crackles (bilateral lower lobes) Cardiovascular: regular rate, rhythm, + systolic murmur Abdomen: normal bowel sounds, non tender, soft Extremities: no pedal edema, + pertinent finding (large dressing on left leg. Continued very mild tenderness of the left forearm.) Neurologic/Psychiatric: alert, oriented x 3 Skin: warm/dry, no rash Laboratory Results RUN DATE: 06/05/16 [facility] LAB PAGE 1 RUN TIME: 1308 Specimen Inquiry PATIENT: KEO PÉREZ LOC: [place] U # : [id number] AGE/SX: 75/F ROOM: [facility] REG : 06/03/[address]: Hubert Cabezas MD, PhD : 1940 BED: 1 DIS : STATUS: ADM IN TLOC: SPEC #: [id number] SANJUANITA: 06/03/16-1619 STATUS: RES REQ #: [id number] RECD: 06/03/16-[address]: Kyler Haddad PAnnyAAnny SOURCE: JOINT FLSP ENTR: 06/03/16-165 [facility] DR: Loco Chanel, DO [facility]: KNEE RIGHT Verónica Allen C.R.N.P Ridenour, Ryan, D.O. Roeshot, Douglas, M.D. ORDERED: AER/YARITZA CULTSMR COMMENTS: Has Specimen Been Obtained/Collected? Y Procedure Result Verified Site GRAM STAIN Final 06/04/16-0854 RESULT MANY POLYS FEW GRAM NEGATIVE COCCOBACILLI OR AER/YARITZA CULT Preliminary 06/05/16-1308 Organism 1 HAEMO. INFLU BETALACTAMASE POS QUANITY MANY SENS SENSITIVITY TO FOLLOW Item Value Date Time Urine Culture - Preliminary Resulted 06/04/16 1345 Urine , Clean Catch NO GROWTH - LESS THAN 1,000 COLONIES/... Gram Stain - Final Resulted 06/04/16 0000 Joint Fluid/Space (Synovial) Knee Right Gram Stain - Final Resulted 06/04/16 0000 Joint Fluid/Space (Synovial) Knee Right Gram Stain - Final Resulted 06/04/16 0000 Joint Fluid/Space (Synovial) Knee Right Gram Stain - Final Resulted 06/03/16 1620 Joint Fluid/Space (Synovial) Knee Right Blood Culture - Preliminary Resulted 06/03/16 1435 Blood Gram Negative Bacilli Group A Streptococcus Screen - Final Complete 06/03/16 1420 Throat SPECIMEN NEGATIVE FOR GROUP A BETA ST... Blood Culture - Preliminary Resulted 06/03/16 1430 Blood Gram Negative Bacilli PELVIS 1 OR 2 VIEW ROUTINE CLINICAL HISTORY: Right groin pain pain COMPARISON: None. DISCUSSION: Moderate to rather significant degenerative change right hip. Mild degenerative change left hip. Significant degenerative change of the sacroiliac joints bilaterally. Degenerative changes low lumbar spine. No evidence for acetabular protrusion. There is no evidence for soft tissue swelling. 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 No acute process. Last 24 Hours Test 06/04/16 19:12 06/05/16 00:20 06/05/16 06:00 06/05/16 09:46 Total Creatine Kinase 127 U/L Creatine Kinase MB 3.4 ng/ml Creatine Kinase MB Ratio 2.7 Troponin I 0.182 ng/ml Urine Color YELLOW Urine Appearance TURBID Urine pH 5.0 Urine Specific Marble 1.026 Urine Protein 1+ Urine Glucose (UA) NEG Urine Ketones TRACE Urine Occult Blood TRACE Urine Nitrite NEG Urine Bilirubin NEG Urine Urobilinogen NEG Urine Leukocyte Esterase NEG Urine WBC (Auto) 1-5 /hpf Urine RBC (Auto) 10-30 /hpf Urine Hyaline Casts (Auto) 1-5 /lpf Urine Epithelial Cells (Auto) >30 /lpf Urine Bacteria (Auto) NEG Urine Renal Epithelial Cells /lpf Urine Crystals URIC ACID White Blood Count 15.40 K/uL Red Blood Count 2.65 M/uL Hemoglobin 7.6 g/dL Hematocrit 23.9 % Mean Corpuscular Volume 90.2 fL Mean Corpuscular Hemoglobin 28.7 pg Mean Corpuscular Hemoglobin Concent 31.8 g/dl Platelet Count 298 K/uL Mean Platelet Volume 8.6 fL Neutrophils (%) (Auto) 78.6 % Lymphocytes (%) (Auto) 12.8 % Monocytes (%) (Auto) 8.0 % Eosinophils (%) (Auto) 0.1 % Basophils (%) (Auto) 0.1 % Neutrophils # (Auto) 12.10 K/uL Lymphocytes # (Auto) 1.97 K/uL Monocytes # (Auto) 1.23 K/uL Eosinophils # (Auto) 0.02 K/uL Basophils # (Auto) 0.02 K/uL RDW Standard Deviation 59.4 fL RDW Coefficient of Variation 18.0 % Immature Granulocyte % (Auto) 0.4 % Immature Granulocyte # (Auto) 0.06 K/uL Red Blood Cell Morphology Unremarkable Prothrombin Time 11.4 SECONDS Prothromb Time International Ratio 1.1 Sodium Level 135 mmol/L Potassium Level 4.0 mmol/L Chloride Level 102 mmol/L Carbon Dioxide Level 22 mmol/L Anion Gap 11.0 mmol/L Blood Urea Nitrogen 10 mg/dl Creatinine 0.71 mg/dl Est Creatinine Clear Calc Drug Dose 68.9 ml/min Estimated GFR () 96.6 Estimated GFR (Non- 83.3 BUN/Creatinine Ratio 13.9 Random Glucose 109 mg/dl Calcium Level 7.9 mg/dl Immunoglobulin G 879.0 mg/dL Immunoglobulin A 252.0 mg/dL Immunoglobulin M 30.7 mg/dL Assessment and Plan Patient with septic right TKA with Haemophilus Influenzae and gram negative sepsis. Blood cultures continue to show GNB pending identification, but likely also H. Flu. The patient is currently on IV Zosyn. Vancomycin was D/C'd. Likely can transition to IV Ceftriaxone 2 g daily if blood cultures are growing same pathogen. She likely will need 6 weeks of IV therapy due to septic joint. Will repeat blood cultures to ensure clearance. I ordered an echo and immunoglobulins as well on this patient today. We will continue to follow. Would await PICC placement until repeat cultures are negative. PROVIDER ADDENDUM: Patient reviewed with Ms. Christensen. Agree with above assessment.
[2016-06-05] MEDS ORDERED: FUROSEMIDE INJ 20 MG in SYRINGE 0 ML IV ONE (16:00)
[2016-06-05] MEDS ORDERED: PERFLUTREN LIPID MICROSPHERE (DEFINITY) IV ONE (16:00)
[2016-06-05] MEDS: WARFARIN SOD 5 MG TAB PO SCH (16:24)
--- NOTE | 2016-06-05 16:50 | ECHOCARDIOGRAM REPORT ---
*NOTICE TO RECEIVING CONSTITUTION PARTY AGENCY This information is strictly Confidential and protected under [place] law. [place] law prohibits you from making any further disclosure of this information unless further disclosure is expressly permitted by the written consent of the person to whom it pertains or is authorized by law. A general authorization for the release of medical or other information is not sufficient for this purpose. Hospital accepts no responsibility if the information is made available to any other person, INCLUDING THE PATIENT. Interpretation Summary * Name: KEO PÉREZ Study Date: 06/05/2016 04:33 PM BP: 119/51 mmHg * Patient Location: C.2E\S\E209\S\1 HR: 80 * : 1940 (M/d/yyyy) Gender: Female Height: 62 in * Age: 75 yrs Ethnicity: CA Weight: 185 lb * Ordering Physician: Christine Christensen * Performed By: Elisha Vincent * * Reason For Study: Endocarditis * BSA: 1.8 m2 * -- Conclusions -- * 1. Normal LV size. Moderate concentric LVH. * 2. Normal LV systolic function. LVEF 65-70%. No regional wall motion abnormalities. * 3. RV not well visualized. Grossly normal RV function. * 4. Borderline anterior leaflet mitral valve prolapse with mild mitral regurgitation. * 5. No valvular vegetations or evidence of endocarditis. * 6. Normal estimated RA and PA pressures. * 7. Compared with prior study on 01/05/2014: No significant change. Procedure Details * A complete two-dimensional transthoracic echocardiogram was performed (2D, M-mode, Doppler and color flow Doppler). * A contrast injection of Definity was performed to improve assessment of LV function. * Contrast was injected into an intravenous site in the right arm. * One vial of Definity ultrasound contrast was diluted in normal saline to a total volume of 10 ml. A total of '2' ml of solution was administered during imaging. * Lot # [id number] of Definity utilized for procedure. * Expiration date 06/01. * The attending nurse who injected the contrast agent was Ramon Acosta RN. Left Ventricle * The left ventricle is grossly normal size. * There is moderate concentric left ventricular hypertrophy. * Ejection Fraction = 65-70%. * No regional wall motion abnormalities noted. Right Ventricle * The right ventricle is not well visualized. * The right ventricular systolic function is normal as assessed by tricuspid annular plane systolic excursion (TAPSE) (normal >1.5 cm). Atria * The left atrial size is normal. * Right atrium not well visualized. * No ASD detected; PFO is not assessed. Mitral Valve * The mitral valve leaflets appear thickened, but open well. * Prolapse of the anterior mitral leaflet. * There is no vegetation seen on the mitral valve. * There is no mitral valve stenosis. * There is mild mitral regurgitation. Tricuspid Valve * The tricuspid valve is not well visualized. * There is trace tricuspid regurgitation. * Right ventricular systolic pressure is normal. Aortic Valve * The aortic valve opens well. * There is no aortic valvular vegetation. * No hemodynamically significant valvular aortic stenosis. * There is no significant aortic regurgitation. Pulmonic Valve * The pulmonary valve is inadequately visualized, but the Doppler data is adequate for interpretation. * There is no pulmonic valvular stenosis. * There is no pulmonic valvular regurgitation. Great Vessels * The aortic root and proximal ascending aorta are normal sized. * No Doppler or imaging evidence of an aortic coarctation. Pericardium/Pleural * There is no pericardial effusion. * There is no pleural effusion. Great Vessels * Normal inferior vena cava size and collapsability with sniff indicates a normal right atrial pressure of 3 mmHg MMode 2D Measurements and Calculations IVSd 1.5 cm IVSs 1.9 cm LVIDd 4.0 cm LVIDs 2.5 cm LVPWd 1.1 cm LVPWs 1.8 cm IVS/LVPW 1.4 FS 38.2 % EDV(Teich) 70.5 ml ESV(Teich) 21.9 ml EF(Teich) 69.0 % EDV(cubed) 64.6 ml ESV(cubed) 15.2 ml EF(cubed) 76.4 % % IVS thick 26.6 % % LVPW thick 75.2 % LV mass(C)d 181.6 grams LV mass(C)dI 98.2 grams/m\S\2 LV mass(C)s 187.6 grams LV mass(C)sI 101.4 grams/m\S\2 SV(Teich) 48.7 ml SI(Teich) 26.3 ml/m\S\2 SV(cubed) 49.4 ml SI(cubed) 26.7 ml/m\S\2 ACS 1.6 cm LA dimension 3.8 cm asc Aorta Diam 3.4 cm LVOT diam 2.0 cm LVOT area 3.0 cm\S\2 LVAd ap4 29.5 cm\S\2 LVLd ap4 8.4 cm EDV(MOD-sp4) 86.0 ml EDV(sp4-el) 88.2 ml LVAs ap4 14.7 cm\S\2 LVLs ap4 6.8 cm ESV(MOD-sp4) 25.4 ml ESV(sp4-el) 27.0 ml EF(MOD-sp4) 70.5 % EF(sp4-el) 69.4 % LVAd ap2 28.0 cm\S\2 LVLd ap2 8.2 cm EDV(MOD-sp2) 78.5 ml EDV(sp2-el) 81.4 ml LVAs ap2 14.4 cm\S\2 LVLs ap2 7.3 cm ESV(MOD-sp2) 23.2 ml ESV(sp2-el) 24.2 ml EF(MOD-sp2) 70.4 % EF(sp2-el) 70.3 % LVLd %diff -2.84 % EDV(MOD-bp) 81.3 ml LVLs %diff 7.1 % ESV(MOD-bp) 24.7 ml EF(MOD-bp) 69.6 % SV(MOD-sp4) 60.6 ml SI(MOD-sp4) 32.8 ml/m\S\2 SV(MOD-sp2) 55.3 ml SI(MOD-sp2) 29.9 ml/m\S\2 SV(MOD-bp) 56.6 ml SI(MOD-bp) 30.6 ml/m\S\2 SV(sp4-el) 61.2 ml SI(sp4-el) 33.1 ml/m\S\2 SV(sp2-el) 57.2 ml SI(sp2-el) 30.9 ml/m\S\2 Doppler Measurements and Calculations MV E max erica 140.2 cm/sec MV A max erica 98.7 cm/sec MV E/A 1.4 MV dec time 0.26 sec Ao V2 max 160.1 cm/sec Ao max PG 10.3 mmHg Ao max PG (full) 3.1 mmHg CAYLA(V,A) 2.5 cm\S\2 CAYLA(V,D) 2.5 cm\S\2 LV V1 max PG 7.2 mmHg LV V1 mean PG 3.3 mmHg LV V1 max 133.9 cm/sec LV V1 mean 83.5 cm/sec LV V1 VTI 25.1 cm SV(LVOT) 76.1 ml SI(LVOT) 41.1 ml/m\S\2 PA V2 max 70.6 cm/sec PA max PG 2.0 mmHg TR max erica 246.8 cm/sec
[2016-06-05] MEDS ORDERED: NURSING VERBAL MED ORDER ONE (18:30)
[2016-06-05] MEDS ORDERED: DIGOXIN IV 250 MCG in SYRINGE 9 ML IV ONE (19:00)
--- NOTE | 2016-06-05 19:04 | DIAGNOSTIC IMAGING REPORT ---
CHEST 1 VW FRONT-NOT PORTABLE HISTORY: hypoxia COMPARISON: Chest 06/03/2016. FINDINGS: The heart is borderline enlarged. No pleural effusions. No pneumothorax. Linear density left lung base favor subsegmental atelectasis. Otherwise, no focal lung consolidations to suggest pneumonia. No evidence for pulmonary edema. IMPRESSION: 1. No acute process within the chest. 2. Left basilar linear densities favor subsegmental atelectasis. 3. The heart is borderline enlarged Electronically signed by: Nura Conner M.D. 06/05/2016 7:03 PM Dictated Date/Time: 06/05/2016 7:00 PM
[2016-06-05 19:16] LABS: BLOOD UREA NITROGEN 9 mg/dl (7-18); BUN/CREATININE RATIO 8.8 (10-20); CALCIUM 7.6 mg/dl (8.5-10.1); CARBON DIOXIDE 27 mmol/L (21-32); CHLORIDE 99 mmol/L (98-107); CREATININE 0.97 mg/dl (0.60-1.20); GLUCOSE 139 mg/dl (70-99); MAGNESIUM 2.2 mg/dl (1.8-2.4); PHOSPHORUS 1.7 mg/dl (2.5-4.9); POTASSIUM 3.7 mmol/L (3.5-5.1); SODIUM 135 mmol/L (136-145)
[2016-06-05] MEDS: SENNA 8.6 MG TAB PO SCH (20:48)
[2016-06-05] MEDS: SIMVASTATIN 20 MG TAB PO SCH (20:48)
[2016-06-05] MEDS ORDERED: VANCOMYCIN TROUGH SCH (23:30)
[2016-06-06] VITALS (9 sets, daily range): BP systolic 108–158; BP diastolic 60–74; PULSE 72–120; TEMP 36.4–37; O2SAT 96–99
[2016-06-06] MEDS: DILTIAZEM HCL INJ 125 MG in DEXTROSE 5% 100ML IV PRN ×2 (00:29→02:30)
--- NOTE | 2016-06-06 02:13 | Progress Note ---
Progress Note Date of Service Jun 06, 2016. Progress Note I was paged at approximately 22:46 on 06/05/2016. Patient was noted to be back in atrial fibrillation. Per nursing the patient is been noted to be back in Atrial Fibrillation at approximately 18:00 in the evening. I gave the following instructions prior to my arrival: Obtain an EKG, and a full set of vital signs I arrived at the to the bedside to assess the patient: SUBJECTIVE: Mrs. Live is comfortable. She denies any chest pain, palpitations, shortness of breath, dizziness, lower external swelling OBJECTIVE: Item Value Date Time Oxygen Flow Rate 2.0 L/min 06/05/162358 Oxygen Delivery Method Nasal Cannula 06/05/162358 Vital Signs Label Value Date Time Bedside Pulse Oximetry 96 % 06/05/162358 Blood Pressure Assessment 112/61 06/05/162358 Location Left Arm Source NIBP Position Supine Pulse 130 06/05/162358 Location Left Brachial Patient Temperature 36.7 C. 06/05/162358 Temperature Source Oral 06/05/162358 Respiratory Rate 20 06/05/162358 Gen. inspection: Patient comfortable, alert and oriented, answers questions appropriately Cardiac: S1 and S2 with no added sounds or murmurs, no JVD, no lower barrow worker helper edema EKG: Atrial fibrillation with rapid ventricular response, ventricular rate 150 BPM, nonspecific ST and T-wave abnormality, no acute ST elevation, no ectopy or pauses ASSESSMENT/PLAN: 75-year-old female, with history of paroxysmal atrial fibrillation, who is been alternating between normal sinus and A. fib on this admission and now reverting back to A. fib this evening. At this time she is hemodynamically stable, and asymptomatic. I've noted that she her flecainide dose was increased today from 50 mg BID --> 100 mg BID, and that her evening dose was given early. The plan is as follows - Restart Cardizem infusion. No bolus. Start drip at 10 mg/hr and increase at a rate of 5 mg/hr every 15 minutes Goal HR less than 110 Hold for HR less than 60; hold for SBP less than 90 - Cardiology is already on board and following the patient I will follow along into the overnight and if no other issues will sign out to the day team
[2016-06-06] MEDS: PIPERACILL/TAZOBAC IV 4.5 GM in DEXTROSE 5% 100ML 100 ML IV SCH ×2 (02:17→03:00)
[2016-06-06 05:53] LABS: BASO % 0.2 %; BASO ABS # 0.02 K/uL (0-0.2); EOS % 1.8 %; HEMATOCRIT 27.8 % (37-47); IG% 0.3 %; LYMPH % 18.1 %; LYMPH ABS # 2.06 K/uL (1.2-3.4); MEAN CELL VOLUME 89.4 fL (80-100); MEAN CORPUSCULAR HEMOGLOBIN 28.6 pg (25-34); MEAN PLATELET VOLUME 8.7 fL (7.4-10.4); MONO % 11.7 %; NEUT % 67.9 %; PLATELET COUNT 303 K/uL (130-400); RED BLOOD COUNT 3.11 M/uL (4.2-5.4); WHITE BLOOD COUNT 11.41 K/uL (4.8-10.8)
[2016-06-06 06:01] LABS: INR 1.4 (0.9-1.1); PROTHROMBIN TIME (PATIENT) 15.1 SECONDS (9.0-12.0)
[2016-06-06 06:16] LABS: COMPLETE YES; POLYCHROMASIA 1+
[2016-06-06 06:19] LABS: BUN/CREATININE RATIO 10.1 (10-20); CALCIUM 7.8 mg/dl (8.5-10.1); CREATININE 0.73 mg/dl (0.60-1.20); MAGNESIUM 2.2 mg/dl (1.8-2.4); POTASSIUM 3.5 mmol/L (3.5-5.1)
--- NOTE | 2016-06-06 08:35 | Clinical Documentation Query ---
CLINICAL DOCUMENTATION QUERY On PM of 06/05 at approx 1818 patient was SOB with sats in 80% range, had crackles to lungs, and was found in afib witb RVR of 140-150. In your clinical opinion is this patient being managed for: ( x) possible Acute diastolic (preserved EF) CHF treated with IV Lasix and rate control. ( ) Other explanation of clinical findings (Please Explain) ( ) Unable to determine (Please Define) ( ) Need to Discuss ( ) Not Agree The medical record reflects the following clinical findings, treatment, and risk factors. Clinical Indicators: As above. Last echo showed LVEF of 65-70% Treatment: IV Lasix and Cardizem gtt. Risk Factors: Age, Afib RVR, blood product administration, sepsis Please clarify and document your clinical opinion in the progress notes and discharge summary. Terms such as "probable", "suspected", "likely", "questionable", "possible", or "still to be ruled out" are acceptable. IF IN AGREEMENT, YOU MUST DOCUMENT ABOVE DIAGNOSTIC STATEMENT IN DAILY PROGRESS NOTES AND DISCHARGE SUMMARY. This document is not part of the patient's record. Thank You, Darwin Hawley, RN [phone]
--- NOTE | 2016-06-06 09:13 | Progress Note ---
Subjective Date of Service: Jun 06, 2016. Subjective Pt evaluation today including: conversation w/ patient, conversation w/ family , physical exam, chart review, lab review, review of studies, conversation w/ internal consultant, review of inpatient medication list Was again has A. fib with RVR last night, she needs to restart Cardizem drip over night , currently is on Cardizem drip, has been converted to normal sinus rhythm in this morning, she is generally feeling okay, Ribeiro catheter is in place because yesterday was having difficulty breathing, hypoxia and needed Lasix IV and she was having difficulty moving around, Ribeiro continue drainage with clearing clear urine Problem List Medical Problems: (1) Leukocytosis Status: Acute (2) Right knee pain Status: Acute (3) Sepsis Status: Acute (4) Septic joint of right knee joint Status: Acute Review of Systems Constitutional: + fatigue, + weakness, No chills, No fever, No problem reported , No sweats, No weight loss Eyes: No diplopia, No discharge, No eye pain, No redness, No worsening of vision ENT: No dental problems, No hearing loss, No nasal symptoms, No sore throat, No tinnitus, No trouble swallowing, No unusual epistaxis Respiratory: + shortness of breath, No cough, No dyspnea at rest, No dyspnea on exertion, No hemoptysis, No sputum, No wheezing Cardiac: No PND, No chest pain, No claudication, No edema, No orthopnea, No palpitations Abdomen: No constipation, No diarrhea, No nausea, No pain, No vomiting Musculoskeletal: + joint pain, No calf pain, No muscle pain, No swelling Female : No abnormal vaginal bleeding, No dysuria, No hematuria, No incontinence, No urinary frequency, No vaginal discharge Neurologic: No balance problems, No memory loss, No numbness/tingling, No paralysis, No vertigo, No weakness Psychiatric: No anhedonism, No anxiety, No depression symptoms, No insomnia, No substance abuse Heme: No abnormal bleeding/bruising, No clotting problems, No night sweats, No swollen lymph nodes Endo: No excessive thirst, No excessive urination, No fatigue Skin: No bleeding, No color change, No itch, No new/changing skin lesions, No rash Objective Vital Signs Date Time Temp Pulse Resp B/P Pulse Ox O2 Delivery O2 Flow Rate FiO2 06/06/16 08:07 36.4 75 16 108/64 98 Nasal Cannula 2.0 06/06/16 04:00 Nasal Cannula 2.0 06/06/16 04:00 36.9 96 21 112/74 99 Nasal Cannula 2.0 06/06/16 02:24 120 110/64 06/05/16 23:59 36.7 130 20 112/61 96 Nasal Cannula 2.0 06/05/16 23:59 Nasal Cannula 2.0 06/05/16 23:15 36.9 129 15 127/66 98 Nasal Cannula 2.0 06/05/16 20:00 96 Nasal Cannula 2.0 06/05/16 19:58 37.1 118 21 100/79 98 Nasal Cannula 2.0 06/05/16 19:10 131 06/05/16 16:13 37.1 83 24 121/69 95 Room Air 06/05/16 16:00 97 Nasal Cannula 2.0 06/05/16 13:38 80 97 06/05/16 13:15 37.4 80 20 119/51 97 2.0 06/05/16 12:45 36.9 81 20 131/64 96 2.0 06/05/16 12:15 36.5 81 20 106/73 97 2.0 06/05/16 12:00 Nasal Cannula 2.0 06/05/16 12:00 36.6 83 20 122/62 98 2.0 06/05/16 11:45 36.4 85 20 106/56 95 2.0 06/05/16 11:30 36.4 86 20 104/58 98 2.0 06/05/16 11:17 36.8 124 18 115/69 97 2.0 06/05/16 10:45 37.2 151 20 121/69 96 Nasal Cannula 2.0 06/05/16 09:45 159 120/68 06/05/16 09:30 142 124/94 Physical Exam General Appearance: WD/WN, no apparent distress, + obese Eyes: normal inspection, PERRL, EOMI, sclerae normal ENT: normal ENT inspection, hearing grossly normal, pharynx normal Neck: supple, no adenopathy, thyroid normal, no JVD, no carotid bruits, trachea midline Respiratory/Chest: chest non-tender, normal breath sounds, no respiratory distress, no accessory muscle use, + decreased breath sounds, + crackles ( occasional), + rales (improved), + wheezing (occasion) Cardiovascular: regular rate, rhythm, no edema, no gallop, no JVD, no murmur Abdomen: normal bowel sounds, non tender, soft, no organomegaly, no pulsatile mass, + pertinent finding (Ribeiro in place) Extremities: normal range of motion, non-tender, normal inspection, no pedal edema, no calf tenderness, normal capillary refill, pelvis stable, + swelling ( trace edema) Neurologic/Psychiatric: 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 tested, no motor/sensory deficits, alert, normal mood/affect, oriented x 3 Skin: normal color, warm/dry, no rash Lymphatic: no adenopathy Laboratory Results Last 24 Hours Test 06/05/16 09:46 06/05/16 18:14 06/05/16 18:15 06/05/16 18:35 Immunoglobulin G 879.0 mg/dL Immunoglobulin A 252.0 mg/dL Immunoglobulin M 30.7 mg/dL Creatine Kinase MB Ratio Sodium Level 135 mmol/L Potassium Level 3.7 mmol/L Chloride Level 99 mmol/L Carbon Dioxide Level 27 mmol/L Anion Gap 9.0 mmol/L Blood Urea Nitrogen 9 mg/dl Creatinine 0.97 mg/dl Est Creatinine Clear Calc Drug Dose 50.4 ml/min Estimated GFR () 66.2 Estimated GFR (Non- 57.1 BUN/Creatinine Ratio 8.8 Random Glucose 139 mg/dl Calcium Level 7.6 mg/dl Phosphorus Level 1.7 mg/dl Magnesium Level 2.2 mg/dl Creatine Kinase MB 2.7 ng/ml Troponin I 0.170 ng/ml Pro-B-Type Natriuretic Peptide 5341 pg/ml Test 06/06/16 05:41 White Blood Count 11.41 K/uL Red Blood Count 3.11 M/uL Hemoglobin 8.9 g/dL Hematocrit 27.8 % Mean Corpuscular Volume 89.4 fL Mean Corpuscular Hemoglobin 28.6 pg Mean Corpuscular Hemoglobin Concent 32.0 g/dl Platelet Count 303 K/uL Mean Platelet Volume 8.7 fL Neutrophils (%) (Auto) 67.9 % Lymphocytes (%) (Auto) 18.1 % Monocytes (%) (Auto) 11.7 % Eosinophils (%) (Auto) 1.8 % Basophils (%) (Auto) 0.2 % Neutrophils # (Auto) 7.77 K/uL Lymphocytes # (Auto) 2.06 K/uL Monocytes # (Auto) 1.33 K/uL Eosinophils # (Auto) 0.20 K/uL Basophils # (Auto) 0.02 K/uL RDW Standard Deviation 55.5 fL RDW Coefficient of Variation 16.9 % Immature Granulocyte % (Auto) 0.3 % Immature Granulocyte # (Auto) 0.03 K/uL Polychromasia 1+ Prothrombin Time 15.1 SECONDS Prothromb Time International Ratio 1.4 Sodium Level 137 mmol/L Potassium Level 3.5 mmol/L Chloride Level 101 mmol/L Carbon Dioxide Level 28 mmol/L Anion Gap 8.0 mmol/L Blood Urea Nitrogen 7 mg/dl Creatinine 0.73 mg/dl Est Creatinine Clear Calc Drug Dose 67.0 ml/min Estimated GFR () 93.4 Estimated GFR (Non- 80.6 BUN/Creatinine Ratio 10.1 Random Glucose 119 mg/dl Calcium Level 7.8 mg/dl Magnesium Level 2.2 mg/dl Assessment and Plan 75-year-old white female admitted because of septic knee, on 06/02/2016 SEPTIC RIGHT KNEE, S/P washing per orthopedic, postop day 1 Panchito influenza bacteremia and septic right knee, infectious disease on the case, has been on Vancomycin , zosyn and Ceftriaxone, now is change to Ceftriaxone - Day #4 Ortho and infectious disease consulted, Will just antibiotic per sensitivity ATRIAL FIBRILLATION WITH RVR , was on oral Cardizem CD yesterday 240 mg, however develop A. fib with rapid ventricular again need IV Cardizem since yesterday again, continue treatment for now Cardiology on the case, flecainide po Coumadin held for OR procedure, has restarted per recs from orthopedic Need to be on stroke prevention continue by blood thinner Coumadin 5mg daily ordered - follow INR / Lovenox bridging starting possible Acute diastolic (preserved EF) CHF which is supported by lung crackles , hypoxia, and elevated BNP, treated with IV Lasix and rate control. 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
[2016-06-06] MEDS: OXYCODONE HCL 10 MG TABCR (OXYCONTIN) PO SCH ×2 (09:36→21:00)
[2016-06-06] MEDS: DILTIAZEM HCL 240 MG CAPCR PO SCH (09:38)
[2016-06-06] MEDS: PANTOprazole SOD 40 MG TAB PO SCH (09:38)
[2016-06-06] MEDS: FLECAINIDE ACETATE 100 MG TAB PO SCH ×2 (09:39→21:23)
[2016-06-06] MEDS: DOCUSATE SODIUM 100 MG CAP PO SCH ×2 (09:39→21:23)
[2016-06-06] MEDS: ENOXAPARIN 40 MG/0.4 ML SYR SQ SCH (09:40)
[2016-06-06] MEDS: FERROUS GLUCONATE 324 MG TAB PO SCH ×3 (09:40→15:23)
[2016-06-06] MEDS: MoRPHine SULFATE 10 MG/ML CARP/VIAL IV PRN (10:52)
--- NOTE | 2016-06-06 10:52 | Infectious Disease Progress Nt ---
Progress Note Date of Service Jun 06, 2016. Subjective Pt evaluation today including: conversation w/ patient, physical exam, chart review, lab review, review of studies, review of inpatient medication list WBC count is 11.41 this morning. Creatinine is stable at 0.73 this morning. Initial blood cultures growing Haemophilus Influenzae, and repeat cultures are pending. Surgical cultures are showing no growth on 2/3 cultures and GPC on 1/2 cultures. She continues on IV Zosyn, and she is feeling slightly better today. She continues to have pain in her right knee. She did go into rapid Afib again overnight. She is currently on a Cardizem drip. Echo showed no evidence of valvular vegetations, and no significant change from her previous echo. Repeat CXR yesterday showed no acute process, and did mention left basilar linear densities favoring atelectasis. All Other Systems: Reviewed and Negative Medications Current Inpatient Medications Medications (Trade) Dose Ordered Sig/Stephy Route Start Time Stop Time Status Last Admin Dose Admin Acetaminophen (Tylenol Tab) 650 mg Q4H PRN PO 06/03/16 18:00 07/03/16 17:59 Ondansetron HCl (Zofran Inj) 4 mg Q6H PRN IV 06/03/16 16:30 07/03/16 16:29 06/04/16 05:46 4 MG Polyethylene (Miralax Powder Packet) 17 gm DAILY PRN PO 06/03/16 16:30 07/03/16 16:29 06/06/16 09:36 17 GM Morphine Sulfate (MoRPHine SULFATE INJ) 2 mg Q4HWA PRN IV 06/03/16 16:30 06/17/16 16:29 06/05/16 20:47 2 MG Oxycodone HCl (Roxicodone Immediate Rel Tab) @ Q4HWA PRN PO 06/03/16 17:00 06/17/16 16:59 06/05/16 00:18 10 MG Clonazepam (Klonopin Tab) 0.5 mg QDL PO 06/04/16 11:30 07/04/16 11:59 06/05/16 11:13 0.5 MG Simvastatin (Zocor Tab) 20 mg QPM PO 06/03/16 21:00 07/03/16 20:59 06/05/16 20:48 20 MG Pantoprazole Sodium (Protonix Tab) 40 mg QAM PO 06/04/16 09:00 07/04/16 08:59 06/06/16 09:38 40 MG Morphine Sulfate (MoRPHine SULFATE INJ) 4 mg Q4HWA PRN IV 06/03/16 17:30 06/17/16 17:29 Morphine Sulfate 6 mg 6 mg Q4HWA PRN IV 06/03/16 17:30 06/17/16 17:29 06/04/16 09:52 6 MG Acetaminophen/ Empty Bag (Ofirmev IV/ Empty Iv Bag 100ml) 65 ml @ 260 mls/hr Q6H PRN IV 06/04/16 03:45 07/04/16 03:44 06/04/16 03:51 260 MLS/HR Piperacillin Sod/ Tazobactam Sod (Consult) 1 ea UD PRN N/A 06/04/16 13:00 07/04/16 12:59 Oxycodone HCl (Oxycontin Tab) 10 mg Q12 PO 06/04/16 21:00 06/18/16 20:59 06/06/16 09:36 10 MG Magnesium Hydroxide (Milk Of Magnesia Susp) 30 ml Q6H PRN PO 06/04/16 17:00 07/04/16 16:59 06/06/16 09:36 30 ML Bisacodyl (Dulcolax Supp) 10 mg DAILY PRN ND 06/04/16 17:00 07/04/16 16:59 Senna (Senokot Tab) 17.2 mg HS PO 06/04/16 21:00 07/04/16 20:59 06/05/16 20:48 17.2 MG Docusate Sodium (coLACE CAP) 100 mg BID PO 06/04/16 21:00 07/04/16 20:59 06/06/16 09:39 100 MG Diphenhydramine HCl (Benadryl Inj) 25 mg Q8H PRN IV 06/04/16 17:00 07/04/16 16:59 Al Hydrox/Mg Hydrox/Simethicone (Maalox Max Susp) 15 ml Q4H PRN PO 06/04/16 17:00 07/04/16 16:59 Ferrous Gluconate (Ferrous Gluconate Tab) 324 mg TIDM PO 06/05/16 07:30 07/05/16 07:29 06/06/16 09:40 324 MG Enoxaparin Sodium (Lovenox Inj) 40 mg QAM SQ 06/05/16 09:00 07/05/16 08:59 06/06/16 09:40 40 MG Warfarin Sodium (Coumadin Tab) 5 mg DAILY@16 PO 06/05/16 16:00 07/05/16 15:59 06/05/16 16:24 5 MG Flecainide Acetate (Tambocor Tab) 100 mg Q12 PO 06/05/16 09:00 07/05/16 08:59 06/06/16 09:39 100 MG Diltiazem HCl 240 mg 240 mg QAM PO 06/05/16 09:00 07/05/16 08:59 06/06/16 09:38 240 MG Diltiazem HCl 125 mg/Dextrose 125 ml @ 0 mls/hr Q0M PRN IV 06/06/16 00:30 07/06/16 00:29 06/06/16 02:30 15 MLS/HR Ceftriaxone Sodium/Dextrose (Rocephin Inj/D5 50ml) 70 ml @ 100 mls/hr Q24H IV 06/06/16 09:15 06/20/16 09:14 UNV Objective Vital Signs Date Time Temp Pulse Resp B/P Pulse Ox O2 Delivery O2 Flow Rate FiO2 06/06/16 08:07 36.4 75 16 108/64 98 Nasal Cannula 2.0 06/06/16 04:00 Nasal Cannula 2.0 06/06/16 04:00 36.9 96 21 112/74 99 Nasal Cannula 2.0 06/06/16 02:24 120 110/64 06/05/16 23:59 36.7 130 20 112/61 96 Nasal Cannula 2.0 06/05/16 23:59 Nasal Cannula 2.0 06/05/16 23:15 36.9 129 15 127/66 98 Nasal Cannula 2.0 06/05/16 20:00 96 Nasal Cannula 2.0 06/05/16 19:58 37.1 118 21 100/79 98 Nasal Cannula 2.0 06/05/16 19:10 131 06/05/16 16:13 37.1 83 24 121/69 95 Room Air 06/05/16 16:00 97 Nasal Cannula 2.0 06/05/16 13:38 80 97 06/05/16 13:15 37.4 80 20 119/51 97 2.0 06/05/16 12:45 36.9 81 20 131/64 96 2.0 06/05/16 12:15 36.5 81 20 106/73 97 2.0 06/05/16 12:00 Nasal Cannula 2.0 06/05/16 12:00 36.6 83 20 122/62 98 2.0 06/05/16 11:45 36.4 85 20 106/56 95 2.0 06/05/16 11:30 36.4 86 20 104/58 98 2.0 06/05/16 11:17 36.8 124 18 115/69 97 2.0 Physical Exam General Appearance: no apparent distress, + obese Eyes: normal inspection, sclerae normal ENT: hearing grossly normal Neck: supple, trachea midline Respiratory/Chest: no respiratory distress, no accessory muscle use Cardiovascular: + irregularly irregular Extremities: + pertinent finding (Hemovac on right knee. Mild continued surround swelling and tenderness. No continued swelling of left forearm) Neurologic/Psychiatric: alert, normal mood/affect Skin: warm/dry, no rash, + pertinent finding (continued mild medial erythema of the right knee) Laboratory Results RUN DATE: 06/05/16 [facility] LAB PAGE 1 RUN TIME: 1308 Specimen Inquiry PATIENT: KEO PÉREZ LOC: [facility] # : [id number] AGE/SX: 75/F ROOM: 09 REG : 06/03/[address]: Hubert Cabezas MD, PhD : 1940 BED: 1 DIS : STATUS: ADM IN TLOC: SPEC #: [id number] SANJUANITA: 06/03/16 STATUS: RES REQ #: [id number] RECD: 06/03/[address]: Kyler Haddad P.AAnny SOURCE: [facility] ENTR: 06/03/16 [facility] DR: Loco Chanel, DO SPDESC: KNEE RIGHT Verónica Allen C.R.N.P Ridenour, Ryan, D.O. Roeshot, Douglas, M.D. ORDERED: AER/YARITZA CULTSMR COMMENTS: Has Specimen Been Obtained/Collected? Y Procedure Result Verified Site GRAM STAIN Final 06/04/16 RESULT MANY POLYS FEW GRAM NEGATIVE COCCOBACILLI OR AER/YARITZA CULT Preliminary 06/05/16-1308 Organism 1 HAEMO. INFLU BETALACTAMASE POS QUANITY MANY SENS SENSITIVITY TO FOLLOW Item Value Date Time Blood Culture Received 06/05/16 1527 Blood Pending Blood Culture Received 06/05/16 1522 Blood Pending Urine Culture - Final Complete 06/04/16 1345 Urine , Clean Catch NO GROWTH - LESS THAN 1,000 COLONIES/ML Gram Stain - Final Resulted 06/04/16 0000 Joint Fluid/Space (Synovial) Knee Right Gram Stain - Final Resulted 06/04/16 0000 Joint Fluid/Space (Synovial) Knee Right Gram Stain - Final Resulted 06/04/16 0000 Joint Fluid/Space (Synovial) Knee Right Gram Stain - Final Resulted 06/03/16 1620 Joint Fluid/Space (Synovial) Knee Right Blood Culture - Final Complete 06/03/16 1435 Blood Haemo. Influ Betalactamase Pos Blood Culture - Preliminary Resulted 06/03/16 1430 Blood Haemo. Influ Betalactamase Pos Group A Streptococcus Screen - Final Complete 06/03/16 1420 Throat SPECIMEN NEGATIVE FOR GROUP A BETA ST... Last 24 Hours Test 06/05/16 18:14 06/05/16 18:15 06/05/16 18:35 06/06/16 05:41 Creatine Kinase MB Ratio Sodium Level 135 mmol/L 137 mmol/L Potassium Level 3.7 mmol/L 3.5 mmol/L Chloride Level 99 mmol/L 101 mmol/L Carbon Dioxide Level 27 mmol/L 28 mmol/L Anion Gap 9.0 mmol/L 8.0 mmol/L Blood Urea Nitrogen 9 mg/dl 7 mg/dl Creatinine 0.97 mg/dl 0.73 mg/dl Est Creatinine Clear Calc Drug Dose 50.4 ml/min 67.0 ml/min Estimated GFR () 66.2 93.4 Estimated GFR (Non- 57.1 80.6 BUN/Creatinine Ratio 8.8 10.1 Random Glucose 139 mg/dl 119 mg/dl Calcium Level 7.6 mg/dl 7.8 mg/dl Phosphorus Level 1.7 mg/dl Magnesium Level 2.2 mg/dl 2.2 mg/dl Creatine Kinase MB 2.7 ng/ml Troponin I 0.170 ng/ml Pro-B-Type Natriuretic Peptide 5341 pg/ml White Blood Count 11.41 K/uL Red Blood Count 3.11 M/uL Hemoglobin 8.9 g/dL Hematocrit 27.8 % Mean Corpuscular Volume 89.4 fL Mean Corpuscular Hemoglobin 28.6 pg Mean Corpuscular Hemoglobin Concent 32.0 g/dl Platelet Count 303 K/uL Mean Platelet Volume 8.7 fL Neutrophils (%) (Auto) 67.9 % Lymphocytes (%) (Auto) 18.1 % Monocytes (%) (Auto) 11.7 % Eosinophils (%) (Auto) 1.8 % Basophils (%) (Auto) 0.2 % Neutrophils # (Auto) 7.77 K/uL Lymphocytes # (Auto) 2.06 K/uL Monocytes # (Auto) 1.33 K/uL Eosinophils # (Auto) 0.20 K/uL Basophils # (Auto) 0.02 K/uL RDW Standard Deviation 55.5 fL RDW Coefficient of Variation 16.9 % Immature Granulocyte % (Auto) 0.3 % Immature Granulocyte # (Auto) 0.03 K/uL Polychromasia 1+ Prothrombin Time 15.1 SECONDS Prothromb Time International Ratio 1.4 Assessment and Plan Patient with septic right TKA with Haemophilus Influenzae and gram negative sepsis. Blood cultures also growing H. Flu. The patient is currently on IV Zosyn. Will change to IV Ceftriaxone 2 g daily. She likely will need 6 weeks of IV therapy due to septic joint. Repeat blood cultures pending. Would await PICC placement until repeat cultures are negative. We will continue to follow. Plan: 1. D/C Zosyn 2. Start Ceftriaxone 2 g daily PROVIDER ADDENDUM: Patient reviewed with Ms. Christensen. Agree with above assessment.
[2016-06-06] MEDS ORDERED: PIPERACILL/TAZOBAC IV 4.5 GM in DEXTROSE 5% 100ML 100 ML IV SCH (11:00)
[2016-06-06] MEDS: CLONAZEPAM 0.5 MG TAB PO SCH (12:39)
[2016-06-06] MEDS: CEFTRIAXONE SOD INJ 2,000 MG in DEXTROSE 5% 50ML 50 ML IV SCH (12:39)
--- NOTE | 2016-06-06 14:50 | Orthopedic Progress Note ---
Orthopedic Progress Note Date of Service Jun 06, 2016. Subjective Post OP Day: 2 Reports: feeling well, Denies: SOB, chest pain, light headedness, nausea / vomiting Additional Notes: pain control is better today. States she was up a little more today. Drain removed. Nursing states minimal drainage all day yesterday. Objective calves soft nontender, N/V intact, dressing C/D/I (Prevena ), A&O x3, toes mobile Date Time Temp Pulse Resp B/P Pulse Ox O2 Delivery O2 Flow Rate FiO2 06/06/16 11:35 36.8 78 18 126/60 99 2.0 06/06/16 08:07 36.4 75 16 108/64 98 Nasal Cannula 2.0 06/06/16 04:00 Nasal Cannula 2.0 06/06/16 04:00 36.9 96 21 112/74 99 Nasal Cannula 2.0 06/06/16 02:24 120 110/64 06/05/16 23:59 36.7 130 20 112/61 96 Nasal Cannula 2.0 06/05/16 23:59 Nasal Cannula 2.0 06/05/16 23:15 36.9 129 15 127/66 98 Nasal Cannula 2.0 06/05/16 20:00 96 Nasal Cannula 2.0 06/05/16 19:58 37.1 118 21 100/79 98 Nasal Cannula 2.0 06/05/16 19:10 131 06/05/16 16:13 37.1 83 24 121/69 95 Room Air 06/05/16 16:00 97 Nasal Cannula 2.0 Laboratory Results 24 Hours: Test 06/06/16 05:41 White Blood Count 11.41 K/uL Red Blood Count 3.11 M/uL Hemoglobin 8.9 g/dL Hematocrit 27.8 % Mean Corpuscular Volume 89.4 fL Mean Corpuscular Hemoglobin 28.6 pg Mean Corpuscular Hemoglobin Concent 32.0 g/dl Platelet Count 303 K/uL Mean Platelet Volume 8.7 fL Neutrophils (%) (Auto) 67.9 % Lymphocytes (%) (Auto) 18.1 % Monocytes (%) (Auto) 11.7 % Eosinophils (%) (Auto) 1.8 % Basophils (%) (Auto) 0.2 % Neutrophils # (Auto) 7.77 K/uL Lymphocytes # (Auto) 2.06 K/uL Monocytes # (Auto) 1.33 K/uL Eosinophils # (Auto) 0.20 K/uL Basophils # (Auto) 0.02 K/uL Prothromb Time International Ratio 1.4 Prothrombin Time 15.1 SECONDS Assessment & Plan Assessment: Septic Right TKA Left Forearm Cellulitis Acute Blood Loss Anemia Afib H/O DVT; Factor V Leiden Deficiency Plan: Hgb better today - follow Above noted Cx results - antibx as per ID Team - currently IV Ceftriaxone Coumadin 5mg daily ordered - follow INR / Lovenox bridging starting today Pelvis film showing moderate Djd of the right hip. Continue PT/OT as allowed per Med Service Inhouse Planning Pain Management: Oxycontin, Morphine, PO Tylenol, Oxy IR DVT Prophylaxis: Coumadin, Lovenox Discharge Planning Discharge Planning: rehab hospital
[2016-06-06] MEDS: WARFARIN SOD 5 MG TAB PO SCH (15:23)
[2016-06-06] MEDS: OXYCODONE HCL IR 5 MG TAB (IMMEDIATE RELEASE) PO PRN (15:30)
[2016-06-06] MEDS: SIMVASTATIN 20 MG TAB PO SCH (21:23)
[2016-06-06] MEDS: SENNA 8.6 MG TAB PO SCH (21:23)
[2016-06-07] VITALS (8 sets, daily range): BP systolic 134–155; BP diastolic 68–83; PULSE 76–126; TEMP 36.7–37.2; O2SAT 95–98
[2016-06-07] MEDS: ACETAMINOPHEN 325 MG TAB PO PRN ×2 (03:03→21:30)
[2016-06-07] MEDS ORDERED: FLECAINIDE ACETATE 100 MG TAB PO STA (04:32)
--- NOTE | 2016-06-07 05:30 | Progress Note ---
Progress Note Date of Service Jun 07, 2016. Progress Note I was paged at approximately 04:30. Patient was noted to be back in A. fib with RVR. I give the following instructions prior to my arrival: Obtain vital signs the patient shortly I arrived at the to the bedside to assess the patient: SUBJECTIVE: Patient patient notes at this time she is comfortable. She does feel slight fluttering in her chest but notes that this is actually not uncommon for her. She states that occasionally she'll wake up in the middle the night with the sensation and she will, urinate and her symptoms will be alleviated. She has not noted this to me previously OBJECTIVE: - Vital signs per nursing: Heart rate 120-140, BP 155/88; SPO2 98% on room air Cardiac: Irregularly irregular rhythm tachycardic, S1 and S2 with no added sounds or murmurs ASSESSMENT/PLAN: 75-year-old female with recurrence of her atrial fibrillation. On this hospitalization, it is routine for her to flip from normal sinus rhythm to atrial fibrillation in the early hours in the morning. Her history notes that urinating seems to alleviate fluttering symptoms. This may be due to vagal maneuver that occurs with increasing abdominal pressure. Ideally, I would like to try and reconvert her to sinus using PO strategy. Cardizem seems to work, but this is only been a temporary solution in the inpatient setting so I will resort to using it as a second line. Our plan is as follows - Start with administering 50 mg for flecainide now. - If she does not convert over the period of one hour, I will start the Cardizem drip again.
[2016-06-07 06:54] LABS: BUN/CREATININE RATIO 15.7 (10-20); CALCIUM 8.3 mg/dl (8.5-10.1); CREATININE 0.69 mg/dl (0.60-1.20); MAGNESIUM 2.3 mg/dl (1.8-2.4); POTASSIUM 3.9 mmol/L (3.5-5.1)
[2016-06-07 07:10] LABS: INR 2.1 (0.9-1.1); PROTHROMBIN TIME (PATIENT) 23.4 SECONDS (9.0-12.0)
[2016-06-07] MEDS: FERROUS GLUCONATE 324 MG TAB PO SCH ×3 (07:57→17:17)
[2016-06-07] MEDS: PANTOprazole SOD 40 MG TAB PO SCH (07:57)
[2016-06-07] MEDS: FLECAINIDE ACETATE 100 MG TAB PO SCH (07:57)
[2016-06-07] MEDS: DOCUSATE SODIUM 100 MG CAP PO SCH ×2 (07:57→21:30)
[2016-06-07] MEDS: DILTIAZEM HCL 240 MG CAPCR PO SCH (07:57)
[2016-06-07] MEDS: ENOXAPARIN 40 MG/0.4 ML SYR SQ SCH (07:58)
[2016-06-07] MEDS: OXYCODONE HCL 10 MG TABCR (OXYCONTIN) PO SCH ×2 (09:00→21:00)
[2016-06-07] MEDS: CLONAZEPAM 0.5 MG TAB PO SCH (11:30)
--- NOTE | 2016-06-07 12:01 | Infectious Disease Progress Nt ---
Progress Note Date of Service Jun 07, 2016. Subjective Pt evaluation today including: conversation w/ patient, physical exam, chart review, lab review, review of studies, review of inpatient medication list Patient is feeling improved today. Repeat blood cultures are showing no growth to date. OR cultures growing GPC in 1/3 cultures which looks likely to be contamination according to micro. Creatinine continues to be stable at 0.69. All Other Systems: Reviewed and Negative Medications Current Inpatient Medications Medications (Trade) Dose Ordered Sig/Stephy Route Start Time Stop Time Status Last Admin Dose Admin Acetaminophen (Tylenol Tab) 650 mg Q4H PRN PO 06/03/16 18:00 07/03/16 17:59 06/07/16 03:03 650 MG Ondansetron HCl (Zofran Inj) 4 mg Q6H PRN IV 06/03/16 16:30 07/03/16 16:29 06/04/16 05:46 4 MG Polyethylene (Miralax Powder Packet) 17 gm DAILY PRN PO 06/03/16 16:30 07/03/16 16:29 06/06/16 09:36 17 GM Morphine Sulfate (MoRPHine SULFATE INJ) 2 mg Q4HWA PRN IV 06/03/16 16:30 06/17/16 16:29 06/05/16 20:47 2 MG Oxycodone HCl (Roxicodone Immediate Rel Tab) @ Q4HWA PRN PO 06/03/16 17:00 06/17/16 16:59 06/06/16 15:30 10 MG Clonazepam (Klonopin Tab) 0.5 mg QDL PO 06/04/16 11:30 07/04/16 11:59 06/06/16 12:39 0.5 MG Simvastatin (Zocor Tab) 20 mg QPM PO 06/03/16 21:00 07/03/16 20:59 06/06/16 21:23 20 MG Pantoprazole Sodium (Protonix Tab) 40 mg QAM PO 06/04/16 09:00 07/04/16 08:59 06/07/16 07:57 40 MG Morphine Sulfate (MoRPHine SULFATE INJ) 4 mg Q4HWA PRN IV 06/03/16 17:30 06/17/16 17:29 Morphine Sulfate 6 mg 6 mg Q4HWA PRN IV 06/03/16 17:30 06/17/16 17:29 06/06/16 10:52 6 MG Acetaminophen/ Empty Bag (Ofirmev IV/ Empty Iv Bag 100ml) 65 ml @ 260 mls/hr Q6H PRN IV 06/04/16 03:45 07/04/16 03:44 06/04/16 03:51 260 MLS/HR Oxycodone HCl (Oxycontin Tab) 10 mg Q12 PO 06/04/16 21:00 06/18/16 20:59 06/06/16 09:36 10 MG Magnesium Hydroxide (Milk Of Magnesia Susp) 30 ml Q6H PRN PO 06/04/16 17:00 07/04/16 16:59 06/06/16 09:36 30 ML Bisacodyl (Dulcolax Supp) 10 mg DAILY PRN MA 06/04/16 17:00 07/04/16 16:59 06/06/16 19:24 10 MG Senna (Senokot Tab) 17.2 mg HS PO 06/04/16 21:00 07/04/16 20:59 06/06/16 21:23 17.2 MG Docusate Sodium (coLACE CAP) 100 mg BID PO 06/04/16 21:00 07/04/16 20:59 06/07/16 07:57 100 MG Diphenhydramine HCl (Benadryl Inj) 25 mg Q8H PRN IV 06/04/16 17:00 07/04/16 16:59 Al Hydrox/Mg Hydrox/Simethicone (Maalox Max Susp) 15 ml Q4H PRN PO 06/04/16 17:00 07/04/16 16:59 Ferrous Gluconate (Ferrous Gluconate Tab) 324 mg TIDM PO 06/05/16 07:30 07/05/16 07:29 06/07/16 07:57 324 MG Flecainide Acetate (Tambocor Tab) 100 mg Q12 PO 06/05/16 09:00 07/05/16 08:59 06/07/16 07:57 100 MG Diltiazem HCl 240 mg 240 mg QAM PO 06/05/16 09:00 07/05/16 08:59 06/07/16 07:57 240 MG Diltiazem HCl 125 mg/Dextrose 125 ml @ 0 mls/hr Q0M PRN IV 06/06/16 00:30 07/06/16 00:29 06/06/16 02:30 15 MLS/HR Ceftriaxone Sodium/Dextrose (Rocephin Inj/D5 50ml) 70 ml @ 100 mls/hr Q24H IV 06/06/16 12:00 06/20/16 11:59 06/06/16 12:39 100 MLS/HR Warfarin Sodium (Coumadin Tab) 1.25 mg DAILY@16 PO 06/07/16 16:00 07/07/16 15:59 Objective Vital Signs Date Time Temp Pulse Resp B/P Pulse Ox O2 Delivery O2 Flow Rate FiO2 06/07/16 11:14 37.0 123 20 134/80 97 Room Air 06/07/16 08:57 Room Air 06/07/16 07:51 36.7 114 20 140/83 95 Room Air 06/07/16 04:00 98 Room Air 06/07/16 04:00 36.8 76 18 155/83 97 Nasal Cannula 2.0 06/06/16 23:59 97 Nasal Cannula 2.0 06/06/16 23:58 37.0 80 15 158/72 97 Nasal Cannula 2.0 06/06/16 20:57 37.0 78 18 132/71 96 Nasal Cannula 2.0 06/06/16 20:00 98 Nasal Cannula 2.0 06/06/16 16:07 36.8 72 18 131/66 98 06/06/16 16:00 Nasal Cannula 2.0 06/06/16 12:00 Nasal Cannula 2.0 Physical Exam General Appearance: WD/WN, no apparent distress Eyes: normal inspection, sclerae normal ENT: hearing grossly normal Neck: supple, trachea midline Respiratory/Chest: chest non-tender, lungs clear, no respiratory distress, no accessory muscle use Cardiovascular: + irregularly irregular Abdomen: normal bowel sounds Neurologic/Psychiatric: alert, normal mood/affect Skin: normal color, warm/dry, no rash Laboratory Results RUN DATE: 06/07/16 [facility] PAGE 1 RUN TIME: 1152 Specimen Inquiry PATIENT: KEO PÉREZ LOC: [facility]ie U # : [id number] AGE/SX: 75/F ROOM: 09 REG : 06/03/[address]: Hubert Cabezas MD, PhD : 1940 BED: 1 DIS : STATUS: ADM IN TLOC: SPEC #: [id number] SANJUANITA: 06/03/16 STATUS: RES REQ #: [id number] RECD: 06/03/16 [facility] DR: Kyler Haddad, P.AAnny SOURCE: JOINT FLSP ENTR: 06/03/[address] [facility] DR: Loco Chanel, DO SPDESC: KNEE RIGHT Verónica Allen C.R.N.P Ridenour, Ryan, D.O. Roeshot, Douglas, M.D. ORDERED: AER/YARTIZA CULTANGEL COMMENTS: Has Specimen Been Obtained/Collected? Y Procedure Result Verified Site GRAM STAIN Final 06/04/16-54 RESULT MANY POLYS FEW GRAM NEGATIVE COCCOBACILLI OR AER/YARITZA CULT Preliminary 06/07/16-1152 Organism 1 HAEMO. INFLU BETALACTAMASE POS QUANITY MANY SENS SENSITIVITY TO FOLLOW ANAS NO ANAEROBES ISOLATED. 1. HAEMO. INFLU BETALACTAMASE POS Target Route Dose RX AB Cost Zone Sz ------ ----- ------ -- ------ -- ------- AMPICILLIN R 12 CEFTRIAXONE S 35 CEFUROXIME S 26 CHLORAMPHENICOL S 32 CLARITHROMYCIN S 13 CIPROFLOXACIN S 32 IMIPENEM S 29 TETRACYCLINE S 30 TRIM/SULF S 19 S = SENSITIVE I = INTERMEDIATE R = RESISTANT Item Value Date Time Blood Culture - Preliminary Resulted 06/05/16 1527 Blood NO GROWTH TO DATE. Blood Culture - Preliminary Resulted 06/05/16 1522 Blood NO GROWTH TO DATE. Urine Culture - Final Complete 06/04/16 1345 Urine , Clean Catch NO GROWTH - LESS THAN 1,000 COLONIES/ML Gram Stain - Final Resulted 06/04/16 0000 Joint Fluid/Space (Synovial) Knee Right Gram Stain - Final Resulted 06/04/16 0000 Joint Fluid/Space (Synovial) Knee Right Gram Stain - Final Resulted 06/04/16 0000 Joint Fluid/Space (Synovial) Knee Right Gram Stain - Final Resulted 06/03/16 1620 Joint Fluid/Space (Synovial) Knee Right Blood Culture - Final Complete 06/03/16 1435 Blood [place]. Influ Betalactamase Pos Blood Culture - Final Complete 06/03/16 1430 Blood [place]. Influ Betalactamase Pos Last 24 Hours Test 06/07/16 05:45 06/07/16 06:39 Sodium Level 136 mmol/L Potassium Level 3.9 mmol/L Chloride Level 99 mmol/L Carbon Dioxide Level 30 mmol/L Anion Gap 7.0 mmol/L Blood Urea Nitrogen 11 mg/dl Creatinine 0.69 mg/dl Est Creatinine Clear Calc Drug Dose 69.1 ml/min Estimated GFR () 98.7 Estimated GFR (Non- 85.2 BUN/Creatinine Ratio 15.7 Random Glucose 119 mg/dl Calcium Level 8.3 mg/dl Magnesium Level 2.3 mg/dl Prothrombin Time 23.4 SECONDS Prothromb Time International Ratio 2.1 Assessment and Plan Patient with septic right TKA with Haemophilus Influenzae and gram negative sepsis. Blood cultures also growing H. Flu. The patient is currently on IV Ceftriaxone 2 g daily. She likely will need 6 weeks of IV therapy due to septic joint. Repeat blood cultures showing no growth. OK to insert PICC line for continued therapy at this time. She is OK for D/C From ID perspective once medically cleared, PICC line placed, and at home IV abx set up. Thanks PROVIDER ADDENDUM: Patient reviewed with Ms. Christensen. Agree with above assessment.
[2016-06-07] MEDS: CEFTRIAXONE SOD INJ 2,000 MG in DEXTROSE 5% 50ML 50 ML IV SCH (12:03)
[2016-06-07] MEDS ORDERED: DILTIAZEM HCL 5 MG/ML 5 ML VIAL IV STA (12:07)
--- NOTE | 2016-06-07 13:41 | Orthopedic Progress Note ---
Orthopedic Progress Note Date of Service Jun 07, 2016. Subjective Post OP Day: 3 Reports: feeling well, pain controlled w PO medications, Denies: SOB, chest pain , complaints, light headedness, nausea / vomiting Objective calves soft nontender, N/V intact, dressing C/D/I ((prevena)), A&O x3, toes mobile Date Time Temp Pulse Resp B/P Pulse Ox O2 Delivery O2 Flow Rate FiO2 06/07/16 11:14 37.0 123 20 134/80 97 Room Air 06/07/16 08:57 Room Air 06/07/16 07:51 36.7 114 20 140/83 95 Room Air 06/07/16 04:00 98 Room Air 06/07/16 04:00 36.8 76 18 155/83 97 Nasal Cannula 2.0 06/06/16 23:59 97 Nasal Cannula 2.0 06/06/16 23:58 37.0 80 15 158/72 97 Nasal Cannula 2.0 06/06/16 20:57 37.0 78 18 132/71 96 Nasal Cannula 2.0 06/06/16 20:00 98 Nasal Cannula 2.0 06/06/16 16:07 36.8 72 18 131/66 98 06/06/16 16:00 Nasal Cannula 2.0 Laboratory Results 24 Hours: Test 06/07/16 06:39 Prothromb Time International Ratio 2.1 Prothrombin Time 23.4 SECONDS Assessment & Plan Assessment: Septic Right TKA Left Forearm Cellulitis Acute Blood Loss Anemia Afib H/O DVT; Factor V Leiden Deficiency Plan: Hgb better today - follow Above noted Cx results - antibx as per ID Team - currently IV Ceftriaxone Coumadin 5mg daily ordered - follow INR / Lovenox bridging starting today Pelvis film showing moderate Djd of the right hip. Continue PT/OT as allowed per Med Service Patient is pending [facility] referral. Possible to go home over the weekend. patient will have PICC and IV abx Inhouse Planning Pain Management: Oxycontin, Morphine, PO Tylenol, Oxy IR DVT Prophylaxis: Coumadin, Lovenox Discharge Planning Discharge Planning: rehab hospital
[2016-06-07] MEDS ORDERED: LORAZEPAM 2 MG/ML 1 ML VIAL IV ONE (15:00)
--- NOTE | 2016-06-07 15:57 | Cardiology Follow-Up ---
Subjective Date of Service: Jun 07, 2016. Pt evaluation today including: conversation w/ patient, conversation w/ family , physical exam, lab review, review of inpatient medication list History of Present Illness This is a very pleasant 75-year-old woman who has a history of hypercholesterolemia, factor V Leiden mutation as well as a history of DVT. She also has DJD and has had surgery on her right knee on 09/08/2014. Her cardiac history is notable for a history of paroxysmal atrial tachycardia which was observed in the emergency room when she presented with DVT. She is on chronic anticoagulation with warfarin due to her factor V Leiden mutation as well as her DVT, she is never had a pulmonary embolism. At the time of her surgery in August 2014 she was observed to have an irregular and rapid heart rate, it is not clear whether this represented an atrial tachycardia or paroxysmal atrial fibrillation. She was having symptomatic palpitations in any case therefore we started flecainide 50 mg twice a day 10/21. Since she was already anticoagulated for other reasons we did not make a vigorous attempt to determine whether she has atrial fibrillation or atrial tachycardia. She is admitted now feeling poorly and had cellulitis of her left arm as well as pain in her right knee. She was not aware of having palpitations or her arrhythmia at the time of presentation. She was however observed to have her atrial arrhythmia after admission, on her electrocardiogram from 06/04/2016 at 5 AM she is in what does appear to be atrial fibrillation with a heart rate of about 147 bpm. This converted back to normal at around 8:30 the same morning, therefore it lasted about 3-1/2 hours. The rate was quite fast during the arrhythmia. She believe she may have missed 2 doses of flecainide leading up to the arrhythmia. I gave her an extra 50 mg of flecainide and she went through her surgery without difficulty. This morning at around 6 AM she went back into atrial fibrillation with average heart rate of about 150 bpm. I increased her flecainide to 100 mg twice a day and she has continued to have intermittent atrial fibrillation with a somewhat rapid heart rate. At the time of my evaluation she is minimally aware of the arrhythmia (she is in atrial fibrillation currently). She may have more of it than she realizes. She has no other cardiovascular complaints. Social History Smoking Status: Never Smoker History of Alcohol Use: No (wine - occasionally) Review of Systems Respiratory: + shortness of breath, No cough, No dyspnea at rest, No dyspnea on exertion, No hemoptysis, No sputum, No wheezing Cardiac: No PND, No chest pain, No claudication, No edema, No orthopnea, No palpitations Progressive right knee discomfort Medications Cardiovascular: Item Value Date Time Warfarin Sodium 1.25 mg 06/07/16 1600 (Coumadin Tab) DAILY@16/PO Flecainide Acetate 100 mg 06/05/16 0900 (Tambocor Tab) Q12/PO 06/07/16 0757 Diltiazem HCl 240 mg 06/05/16 0900 (Cardizem Cd Cap) QAM/PO 06/07/16 0757 Simvastatin 20 mg 06/03/16 2100 (Zocor Tab) QPM/PO 06/06/162122 Objective Vital Signs Past 12 Hours Date Time Temp Pulse Resp B/P Pulse Ox O2 Delivery O2 Flow Rate FiO2 06/07/16 12:00 97 Room Air 06/07/16 11:14 37.0 123 20 134/80 97 Room Air 06/07/16 08:57 Room Air 06/07/16 07:51 36.7 114 20 140/83 95 Room Air 06/07/16 04:00 98 Room Air 06/07/16 04:00 36.8 76 18 155/83 97 Nasal Cannula 2.0 Last Recorded Weight-Kilograms: 81.300 Intake & Output 8-Hour Column 06/06/16 06/07/16 06/07/16 16:00 00:00 08:00 Intake Total 652 ml 275 ml 100 ml Output Total 375 ml 1100 ml 1500 ml Balance 277 ml -825 ml -1400 ml 24-Hour Column 06/07/16 08:00 Intake Total 1027 ml Output Total 2975 ml Balance -1948 ml Physical Exam Constitutional: General Apperance: heathly-appearing Level of Distress: NAD Lungs: Respiratory effort: no dyspnea, good air movement Auscultation: breath sounds normal, no wheezing Cardiovascular: Heart Auscultation: no murmurs, no rubs, no gallops, tachycardia, irregular rate rhythm Peripheral Pulses: Bruits: none appreciated Extremities: no edema Data Laboratory Results: Last 24 Hours Test 06/07/16 05:45 06/07/16 06:39 Sodium Level 136 mmol/L Potassium Level 3.9 mmol/L Chloride Level 99 mmol/L Carbon Dioxide Level 30 mmol/L Anion Gap 7.0 mmol/L Blood Urea Nitrogen 11 mg/dl Creatinine 0.69 mg/dl Est Creatinine Clear Calc Drug Dose 69.1 ml/min Estimated GFR () 98.7 Estimated GFR (Non- 85.2 BUN/Creatinine Ratio 15.7 Random Glucose 119 mg/dl Calcium Level 8.3 mg/dl Magnesium Level 2.3 mg/dl Prothrombin Time 23.4 SECONDS Prothromb Time International Ratio 2.1 Telemetry reviewed: Intermittent atrial fibrillation with a somewhat rapid heart rate, averaging perhaps 1:30 to 1 40 bpm during atrial fibrillation. Assessment and Plan #1. Atrial fibrillation: In the past we weren't sure how much difficulty she had with the arrhythmia, here it seems that she is generally fairly unaware of the arrhythmia and has had it quite frequently. Part of that might be the stress of the situation, but I suspect she hasn't much more frequently than she realizes. Flecainide evidently isn't working and I am therefore going to discontinue it. I'm going to try rate control strategy, at least while she is here. I'm going to increase her diltiazem, if that doesn't work I would add a low-dose beta tess or low-dose digoxin. She will need to be on long-term anticoagulation. Thank you for allowing me to participate in her care.
[2016-06-07] MEDS ORDERED: WARFARIN SOD 1.25 MG TAB PO SCH (16:00)
--- NOTE | 2016-06-07 16:26 | Hospitalist Progress Note ---
Hospitalist Progress Note Date of Service Jun 07, 2016. Subjective Pt evaluation today including: conversation w/ patient, physical exam, chart review, lab review, review of studies, review of inpatient medication list Patient reports having right knee pain, but otherwise feels she is doing better overall. Early this am she had RVR. She was given an extra dose of Flecainide. Nursing called me later in this morning with rates in the 110s-140' s. I gave a single IV dose of Cardizem and as I saw her, rate was in the 80s-90 's. Cardiology had seen her this afternoon and has plan for further rate treatment. She is therapeutic on warfarin today. I obtained consent for PICC line to which she will receive IV antibiotics for septic knee. Additional Comments: A 10 system review was performed and all were negative. Positives were placed in the subjective section. Objective Vital Signs Date Time Temp Pulse Resp B/P Pulse Ox O2 Delivery O2 Flow Rate FiO2 06/07/16 12:00 97 Room Air 06/07/16 11:14 37.0 123 20 134/80 97 Room Air 06/07/16 08:57 Room Air 06/07/16 07:51 36.7 114 20 140/83 95 Room Air 06/07/16 04:00 98 Room Air 06/07/16 04:00 36.8 76 18 155/83 97 Nasal Cannula 2.0 06/06/16 23:59 97 Nasal Cannula 2.0 06/06/16 23:58 37.0 80 15 158/72 97 Nasal Cannula 2.0 06/06/16 20:57 37.0 78 18 132/71 96 Nasal Cannula 2.0 06/06/16 20:00 98 Nasal Cannula 2.0 Physical Exam Notes: GEN: Awake, alert, and oriented x 3. Not in acute distress HEENT: Tm's intact, no inflammation, EOMI, PERRLA, MMM Neck: Soft, supple Lungs: CTA b/l, no r/r/w Heart: IRREG nrl S1S2 without murmurs, rubs or gallops Abdomen: Soft, NT, ND, + BS EXT: No C/C/E. Right knee dressing in place. NEURO: CN's II-XII grossly intact, non-focal Skin: warm, dry, no rashes PSYCH: pleasant, cooperative. Laboratory Results Last 24 Hours Test 06/07/16 05:45 06/07/16 06:39 Sodium Level 136 mmol/L Potassium Level 3.9 mmol/L Chloride Level 99 mmol/L Carbon Dioxide Level 30 mmol/L Anion Gap 7.0 mmol/L Blood Urea Nitrogen 11 mg/dl Creatinine 0.69 mg/dl Est Creatinine Clear Calc Drug Dose 69.1 ml/min Estimated GFR () 98.7 Estimated GFR (Non- 85.2 BUN/Creatinine Ratio 15.7 Random Glucose 119 mg/dl Calcium Level 8.3 mg/dl Magnesium Level 2.3 mg/dl Prothrombin Time 23.4 SECONDS Prothromb Time International Ratio 2.1 Assessment and Plan 1) SEPTIC RIGHT KNEE - Will require IV Ceftriaxone upon discharge. PICC line ordered. 2) ATRIAL FIBRILLATION WITH RVR - Cardiology reported plans to use cardizem and betablocker for rate control. Abandoning Flecainide as it did not appear to work well for this patient. therapeutic on warfarin. 3) HISTORY OF LEFT LOWER EXTREMITY DVT WITH FACTOR V LEYDEN GENETIC MUTATION - Therapeutic on warfarin. 4) GERD - pantoprazole 5) Hx PUD 6) Hyperlipidemia - statin DVT PROPHYLAXIS is covered by warfarin. -TEDs/SCDs Continued [facility] stay due to: abnormal vital signs, multiple IV medications needed Discharge planning: rehab hospital
--- NOTE | 2016-06-07 16:42 | DIAGNOSTIC IMAGING REPORT ---
CHEST ONE VIEW PORTABLE CLINICAL HISTORY: PICC PLACEMENT VERIFICATION RIGHT UPPER ARM COMPARISON STUDY: 06/05/2016 FINDINGS: The cardiac and mediastinal contours are normal. There is no evidence of focal pulmonary consolidation. There is no evidence of failure. No pleural effusions are visualized.[ There is mild chronic interstitial thickening. There is a right-sided PICC catheter, the tip of which projects over the superior vena cava. IMPRESSION: The right-sided PICC catheter is positioned with its tip in the superior vena cava Electronically signed by: Davian Ellison M.D. 06/07/2016 4:40 PM Dictated Date/Time: 06/07/2016 4:39 PM
[2016-06-07] MEDS: SIMVASTATIN 20 MG TAB PO SCH (21:30)
[2016-06-07] MEDS: SENNA 8.6 MG TAB PO SCH (21:31)
[2016-06-08] VITALS (9 sets, daily range): BP systolic 135–156; BP diastolic 69–93; PULSE 69–88; TEMP 36.6–37; O2SAT 95–100
[2016-06-08] MEDS: ACETAMINOPHEN 325 MG TAB PO PRN (04:51)
[2016-06-08 06:11] LABS: BASO % 0.2 %; BASO ABS # 0.02 K/uL (0-0.2); COMPLETE YES; HEMATOCRIT 29.1 % (37-47); IG% 0.5 %; LYMPH % 23.5 %; MEAN CELL VOLUME 89.5 fL (80-100); MEAN CORPUSCULAR HEMOGLOBIN 28.9 pg (25-34); MEAN CORPUSCULAR HGB CONC 32.3 g/dl (32-36); MEAN PLATELET VOLUME 9.1 fL (7.4-10.4); MONO % 11.2 %; NEUT % 62.6 %; PLATELET COUNT 416 K/uL (130-400); RED BLOOD COUNT 3.25 M/uL (4.2-5.4); WHITE BLOOD COUNT 9.36 K/uL (4.8-10.8)
[2016-06-08 06:18] LABS: INR 1.9 (0.9-1.1); PROTHROMBIN TIME (PATIENT) 20.9 SECONDS (9.0-12.0)
[2016-06-08 06:43] LABS: BUN/CREATININE RATIO 15.8 (10-20); CALCIUM 7.9 mg/dl (8.5-10.1); CREATININE 0.63 mg/dl (0.60-1.20); POTASSIUM 3.6 mmol/L (3.5-5.1)
[2016-06-08] MEDS: OXYCODONE HCL 10 MG TABCR (OXYCONTIN) PO SCH ×2 (07:43→20:37)
[2016-06-08] MEDS: DOCUSATE SODIUM 100 MG CAP PO SCH ×2 (07:45→20:37)
[2016-06-08] MEDS: FERROUS GLUCONATE 324 MG TAB PO SCH ×3 (07:45→16:47)
[2016-06-08] MEDS: PANTOprazole SOD 40 MG TAB PO SCH (07:45)
[2016-06-08] MEDS ORDERED: DILTIAZEM HCL 300 MG CAPCR PO SCH (09:00)
--- NOTE | 2016-06-08 09:43 | PROGRESS NOTE ---
DATE: 06/08/2016 DATE: 06/08/2016. SUBJECTIVE: Postop day 4, doing well in regard to her knee. No other complaints of shortness of breath or chest pain. OBJECTIVE: Right lower extremity examination intact Prevena. She can flex and extend her toes. Her calves are soft and nontender. ASSESSMENT: Postop day 4 status post right total knee infection with I\T\D, history of deep venous thrombosis, factor V Leiden. PLAN: At this point in time, will continue IV antibiotics, continue PT and OT. Continue Lovenox and Coumadin. Will continue to follow. MTDD
--- NOTE | 2016-06-08 09:55 | Cardiology Follow-Up ---
Subjective General Date of Service: Jun 08, 2016. Pt evaluation today including: conversation w/ patient, chart review, lab review, review of studies, conversation w/ interventional sale consultant History of Present Illness The patient is a 75 year old female Allergies Coded Allergies: No Known Allergies (Verified , NONE, 06/03/16) Social History Smoking Status: Never Smoker Hx Tobacco Use In Past Year?: No Hx Alcohol Use - Type And Amou: No (wine - occasionally) Hx Substance Use - Type And Am: No Problem List Medical Problems: (1) Leukocytosis Status: Acute (2) Right knee pain Status: Acute (3) Sepsis Status: Acute (4) Septic joint of right knee joint Status: Acute Review of Systems Respiratory: No cough, No dyspnea at rest, No shortness of breath Cardiac: No chest pain, No claudication, No edema, No palpitations Additional ROS Details: right knee pain Physical Exam Vital Signs Last Vital Signs Documentation Date Time Temp Pulse Resp B/P Pulse Ox O2 Delivery O2 Flow Rate FiO2 06/08/16 08:19 36.8 69 18 135/77 100 Nasal Cannula 2.0 Physical Exam Constitutional: General Apperance: heathly-appearing Level of Distress: NAD Psychiatric: Mental Status: active & alert Eyes: EOM: EOMI Lungs: Respiratory effort: no dyspnea, good air movement Auscultation: breath sounds normal, no wheezing Cardiovascular: Heart Auscultation: RRR, no murmurs, no rubs, no gallops Peripheral Pulses: Bruits: none appreciated Abdomen: Bowel Sounds: normal Inspection & Palpation: soft, no tenderness, guarding & rebound, no masses Musculoskeletal: pertinent finding (right knee swollen and painful) Extremities: no edema Neurologic: Cranial Nerves: grossly intact Sensation: grossly intact Assessment and Plan Assessment and Plan 1) PAT and PAF on chronic AC with failed rhythm control strategy 2) Up to 4 second pauses with sleep 3) Signs and Sx's of Sleep Apnea 4) hypercholesterolemia 5) factor V Leiden mutation as well as a history of DVT. 6) DJD and has had surgery on her right knee on 09/08/2014 with recurrent infection and current wound vac Still with atrial arrhythmias and while sleeping they lead to 4 second pauses ( all asymptomatic) on monitor . No pauses while awake. Reduce cardizem CD to 120mg until flecainide out of system No indication for pacer especially with active infection. Needs home sleep study and Tx of her RENAY for the pauses. Atrial arrhythmias all asymptomatic now Laboratory Results Last 24 Hours Test 06/08/16 05:22 White Blood Count 9.36 K/uL Red Blood Count 3.25 M/uL Hemoglobin 9.4 g/dL Hematocrit 29.1 % Mean Corpuscular Volume 89.5 fL Mean Corpuscular Hemoglobin 28.9 pg Mean Corpuscular Hemoglobin Concent 32.3 g/dl Platelet Count 416 K/uL Mean Platelet Volume 9.1 fL Neutrophils (%) (Auto) 62.6 % Lymphocytes (%) (Auto) 23.5 % Monocytes (%) (Auto) 11.2 % Eosinophils (%) (Auto) 2.0 % Basophils (%) (Auto) 0.2 % Neutrophils # (Auto) 5.85 K/uL Lymphocytes # (Auto) 2.20 K/uL Monocytes # (Auto) 1.05 K/uL Eosinophils # (Auto) 0.19 K/uL Basophils # (Auto) 0.02 K/uL RDW Standard Deviation 53.8 fL RDW Coefficient of Variation 16.3 % Immature Granulocyte % (Auto) 0.5 % Immature Granulocyte # (Auto) 0.05 K/uL Prothrombin Time 20.9 SECONDS Prothromb Time International Ratio 1.9 Sodium Level 140 mmol/L Potassium Level 3.6 mmol/L Chloride Level 103 mmol/L Carbon Dioxide Level 28 mmol/L Anion Gap 9.0 mmol/L Blood Urea Nitrogen 10 mg/dl Creatinine 0.63 mg/dl Est Creatinine Clear Calc Drug Dose 74.9 ml/min Estimated GFR () 101.7 Estimated GFR (Non- 87.7 BUN/Creatinine Ratio 15.8 Random Glucose 103 mg/dl Calcium Level 7.9 mg/dl
--- NOTE | 2016-06-08 10:40 | Hospitalist Progress Note ---
Hospitalist Progress Note Date of Service Jun 08, 2016. Subjective Pt evaluation today including: conversation w/ patient, physical exam, chart review, lab review, review of studies, review of inpatient medication list Patient doing well today. I noted her walking in hallways with PT. She has no new concerns today. PICC line inserted yesterday. Pauses and bradycardia noted overnight. Dr. Denson lowered dose of Cardizem to 120mg daily. He recommended a sleep study which can be set up as an outpatient. Additional Comments: A 10 system review was performed and all were negative. Positives were placed in the subjective section. Objective Vital Signs Date Time Temp Pulse Resp B/P Pulse Ox O2 Delivery O2 Flow Rate FiO2 06/08/16 08:19 36.8 69 18 135/77 100 Nasal Cannula 2.0 06/08/16 04:48 155/77 06/08/16 04:09 36.9 85 18 148/84 98 Room Air 06/08/16 04:00 Room Air 06/08/16 00:15 37.0 72 18 154/79 98 Room Air 06/08/16 00:00 Room Air 06/07/16 20:05 37.2 76 18 155/72 95 Room Air 06/07/16 20:00 Room Air 06/07/16 18:17 103 06/07/16 17:40 37.1 126 20 149/68 97 Room Air 06/07/16 16:00 97 Room Air 06/07/16 12:00 97 Room Air 06/07/16 11:14 37.0 123 20 134/80 97 Room Air Physical Exam Notes: GEN: Awake, alert, and oriented x 3. Not in acute distress HEENT: Tm's intact, no inflammation, EOMI, PERRLA, MMM Neck: Soft, supple Lungs: CTA b/l, no r/r/w Heart: REG, nrl S1S2 without murmurs, rubs or gallops Abdomen: Soft, NT, ND, + BS EXT: No C/C/E. Right knee dressing in place. NEURO: CN's II-XII grossly intact, non-focal Skin: warm, dry, no rashes PSYCH: pleasant, cooperative. Laboratory Results Last 24 Hours Test 06/08/16 05:22 White Blood Count 9.36 K/uL Red Blood Count 3.25 M/uL Hemoglobin 9.4 g/dL Hematocrit 29.1 % Mean Corpuscular Volume 89.5 fL Mean Corpuscular Hemoglobin 28.9 pg Mean Corpuscular Hemoglobin Concent 32.3 g/dl Platelet Count 416 K/uL Mean Platelet Volume 9.1 fL Neutrophils (%) (Auto) 62.6 % Lymphocytes (%) (Auto) 23.5 % Monocytes (%) (Auto) 11.2 % Eosinophils (%) (Auto) 2.0 % Basophils (%) (Auto) 0.2 % Neutrophils # (Auto) 5.85 K/uL Lymphocytes # (Auto) 2.20 K/uL Monocytes # (Auto) 1.05 K/uL Eosinophils # (Auto) 0.19 K/uL Basophils # (Auto) 0.02 K/uL RDW Standard Deviation 53.8 fL RDW Coefficient of Variation 16.3 % Immature Granulocyte % (Auto) 0.5 % Immature Granulocyte # (Auto) 0.05 K/uL Prothrombin Time 20.9 SECONDS Prothromb Time International Ratio 1.9 Sodium Level 140 mmol/L Potassium Level 3.6 mmol/L Chloride Level 103 mmol/L Carbon Dioxide Level 28 mmol/L Anion Gap 9.0 mmol/L Blood Urea Nitrogen 10 mg/dl Creatinine 0.63 mg/dl Est Creatinine Clear Calc Drug Dose 74.9 ml/min Estimated GFR () 101.7 Estimated GFR (Non- 87.7 BUN/Creatinine Ratio 15.8 Random Glucose 103 mg/dl Calcium Level 7.9 mg/dl Assessment and Plan 1) SEPTIC RIGHT KNEE - Continue IV Ceftriaxone will look to infectious disease and/or ortho to direct length of treatment. PICC line in place. 2) ATRIAL FIBRILLATION WITH RVR - Cardiology reduced Cardizem to 120mg daily, recommended sleep study. INR 1.9 today. I increased warfarin dose and will follow INR with goal of 2-3 for A.Fib. 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 4) GERD - pantoprazole 5) Hx PUD - No recurrence. 6) Hyperlipidemia - statin DVT PROPHYLAXIS is covered by warfarin. -TEDs/SCDs Discharge planning: other (Awaiting final insurance approval for [facility]. )
[2016-06-08] MEDS: CLONAZEPAM 0.5 MG TAB PO SCH (11:54)
[2016-06-08] MEDS: OXYCODONE HCL IR 5 MG TAB (IMMEDIATE RELEASE) PO PRN ×2 (11:55→18:35)
[2016-06-08] MEDS: DILTIAZEM HCL 120 MG CAPCR PO SCH (12:00)
[2016-06-08] MEDS: CEFTRIAXONE SOD INJ 2,000 MG in DEXTROSE 5% 50ML 50 ML IV SCH (12:03)
[2016-06-08] MEDS: WARFARIN SOD 2.5 MG TAB PO SCH (16:46)
[2016-06-08] MEDS: SIMVASTATIN 20 MG TAB PO SCH (20:37)
[2016-06-08] MEDS: SENNA 8.6 MG TAB PO SCH (20:37)
[2016-06-08] MEDS: MoRPHine SULFATE 4 MG/ML 1 ML CARP\\VIAL IV PRN (23:24)
[2016-06-09] VITALS (10 sets, daily range): BP systolic 135–168; BP diastolic 68–92; PULSE 71–82; TEMP 36.6–37.4; O2SAT 96–100
[2016-06-09] MEDS ORDERED: DILTIAZEM HCL 5 MG/ML 5 ML VIAL ONE (01:13)
[2016-06-09] MEDS ORDERED: NURSING VERBAL MED ORDER ONE ×2 (01:15→17:45)
[2016-06-09] MEDS ORDERED: DILTIAZEM HCL 5 MG/ML 5 ML VIAL IV STA (01:29)
[2016-06-09 01:55] LABS: BUN/CREATININE RATIO 13.5 (10-20); CALCIUM 8.4 mg/dl (8.5-10.1); CREATININE 0.79 mg/dl (0.60-1.20); MAGNESIUM 2.2 mg/dl (1.8-2.4); POTASSIUM 3.8 mmol/L (3.5-5.1)
[2016-06-09] MEDS: METOPROLOL TARTRATE 1 MG/ML VIAL IV PRN (02:57)
[2016-06-09] MEDS: NSS + 20MEQ KCL 1000ML 1,000 ML IV SCH ×3 (02:57→22:31)
[2016-06-09] MEDS: MoRPHine SULFATE 4 MG/ML 1 ML CARP\\VIAL IV PRN (03:06)
[2016-06-09 05:29] LABS: HEMATOCRIT 29.9 % (37-47); MEAN CELL VOLUME 90.3 fL (80-100); MEAN CORPUSCULAR HEMOGLOBIN 29.3 pg (25-34); MEAN CORPUSCULAR HGB CONC 32.4 g/dl (32-36); MEAN PLATELET VOLUME 8.7 fL (7.4-10.4); PLATELET COUNT 440 K/uL (130-400); RED BLOOD COUNT 3.31 M/uL (4.2-5.4); WHITE BLOOD COUNT 9.52 K/uL (4.8-10.8)
[2016-06-09 05:38] LABS: INR 2.4 (0.9-1.1); PROTHROMBIN TIME (PATIENT) 26.1 SECONDS (9.0-12.0)
[2016-06-09 05:47] LABS: BUN/CREATININE RATIO 15.5 (10-20); CALCIUM 7.8 mg/dl (8.5-10.1); CREATININE 0.65 mg/dl (0.60-1.20)
[2016-06-09] MEDS: FERROUS GLUCONATE 324 MG TAB PO SCH ×3 (07:36→16:55)
[2016-06-09] MEDS: OXYCODONE HCL 10 MG TABCR (OXYCONTIN) PO SCH ×2 (07:36→20:27)
[2016-06-09] MEDS: DOCUSATE SODIUM 100 MG CAP PO SCH ×2 (07:36→20:28)
[2016-06-09] MEDS: PANTOprazole SOD 40 MG TAB PO SCH (07:36)
[2016-06-09] MEDS: DILTIAZEM HCL 120 MG CAPCR PO SCH (07:37)
--- NOTE | 2016-06-09 07:48 | Orthopedic Progress Note ---
Orthopedic Progress Note Date of Service Jun 09, 2016. Subjective Post OP Day: 5 Reports: feeling well, pain controlled w PO medications, Denies: SOB, calf pain , chest pain, complaints, light headedness, nausea / vomiting Objective calves soft nontender, N/V intact, capillary refill less than 2 sec., dressing C /D/I (prevena intact), A&O x3, toes mobile Date Time Temp Pulse Resp B/P Pulse Ox O2 Delivery O2 Flow Rate FiO2 06/09/16 07:23 36.6 71 16 167/92 99 Room Air 06/09/16 04:23 37.4 73 18 135/68 96 Room Air 06/09/16 04:00 Room Air 06/09/16 02:57 136 164/111 06/08/16 23:59 Room Air 06/08/16 23:59 36.9 88 18 135/69 95 Room Air 06/08/16 20:00 Room Air 06/08/16 19:41 36.9 83 18 156/93 95 Room Air 06/08/16 16:00 Room Air 06/08/16 14:59 36.8 70 20 137/73 99 Room Air 06/08/16 13:07 36.6 73 18 144/73 100 Nasal Cannula 2.0 06/08/16 12:00 96 Room Air 06/08/16 08:19 36.8 69 18 135/77 100 Nasal Cannula 2.0 06/08/16 08:00 Nasal Cannula 2.0 Laboratory Results 24 Hours: Test 06/09/16 05:10 Hematocrit 29.9 % Hemoglobin 9.7 g/dL Prothromb Time International Ratio 2.4 Prothrombin Time 26.1 SECONDS Assessment & Plan Assessment: Septic Right TKA- POD #5 s/p I&D and poly exchange Left Forearm Cellulitis Acute Blood Loss Anemia Afib H/O DVT; Factor V Leiden Deficiency Plan: Above noted Cx results - antibx as per ID Team - currently IV Ceftriaxone Coumadin 5mg daily ordered - follow INR / Lovenox bridging starting today Pelvis film showing moderate Djd of the right hip. Continue PT/OT as allowed per Med Service Patient is pending [facility] referral. Possible to go home over the weekend. PICC in place Discharge Planning Discharge Planning: rehab hospital
--- NOTE | 2016-06-09 10:41 | Cardiology Follow-Up ---
Subjective General Date of Service: Jun 09, 2016. Pt evaluation today including: chart review, lab review, review of studies, conversation w/ framing consultant History of Present Illness The patient is a 75 year old female Allergies Coded Allergies: No Known Allergies (Verified , NONE, 06/03/16) Social History Smoking Status: Never Smoker Hx Tobacco Use In Past Year?: No Hx Alcohol Use - Type And Amou: No (wine - occasionally) Hx Substance Use - Type And Am: No Problem List Medical Problems: (1) Leukocytosis Status: Acute (2) Right knee pain Status: Acute (3) Sepsis Status: Acute (4) Septic joint of right knee joint Status: Acute Review of Systems Respiratory: No dyspnea at rest, No shortness of breath Cardiac: No chest pain, No edema, No palpitations Physical Exam Vital Signs Last Vital Signs Documentation Date Time Temp Pulse Resp B/P Pulse Ox O2 Delivery O2 Flow Rate FiO2 06/09/16 08:00 Room Air 06/09/16 07:23 36.6 71 16 167/92 99 06/08/16 13:07 2.0 Physical Exam Constitutional: General Apperance: heathly-appearing Level of Distress: NAD Psychiatric: Mental Status: active & alert Eyes: EOM: EOMI Lungs: Respiratory effort: no dyspnea, good air movement Auscultation: breath sounds normal, no wheezing Cardiovascular: Heart Auscultation: RRR, no murmurs, no rubs, no gallops Peripheral Pulses: Bruits: none appreciated Abdomen: Bowel Sounds: normal Inspection & Palpation: soft, no tenderness, guarding & rebound, no masses Musculoskeletal: pertinent finding (right knee swollen and painful) Extremities: no edema Neurologic: Cranial Nerves: grossly intact Sensation: grossly intact Assessment and Plan Assessment and Plan 1) PAT and PAF on chronic AC with failed rhythm control strategy 2) Up to 4 second pauses with sleep 3) Signs and Sx's of Sleep Apnea 4) hypercholesterolemia 5) factor V Leiden mutation as well as a history of DVT. 6) DJD and has had surgery on her right knee on 09/08/2014 with recurrent infection and current wound vac Still with atrial arrhythmias and while sleeping they lead to 4 second pauses ( all asymptomatic) on monitor 06/07-06/08. No pauses while awake. Pauses better last night with d/c flecainide Increase cardizem CD to 180mg until flecainide out of system; received am dose and therefore add 60mg with dinner tonight No indication for pacer especially with active infection. Needs home sleep study and Tx of her RENAY for the pauses. Atrial arrhythmias all asymptomatic now Laboratory Results Last 24 Hours Test 06/09/16 01:26 06/09/16 05:10 Sodium Level 142 mmol/L 141 mmol/L Potassium Level 3.8 mmol/L 4.0 mmol/L Chloride Level 102 mmol/L 105 mmol/L Carbon Dioxide Level 29 mmol/L 28 mmol/L Anion Gap 11.0 mmol/L 8.0 mmol/L Blood Urea Nitrogen 11 mg/dl 10 mg/dl Creatinine 0.79 mg/dl 0.65 mg/dl Est Creatinine Clear Calc Drug Dose 59.7 ml/min 72.6 ml/min Estimated GFR () 84.9 100.7 Estimated GFR (Non- 73.2 86.8 BUN/Creatinine Ratio 13.5 15.5 Random Glucose 112 mg/dl 95 mg/dl Calcium Level 8.4 mg/dl 7.8 mg/dl Magnesium Level 2.2 mg/dl White Blood Count 9.52 K/uL Red Blood Count 3.31 M/uL Hemoglobin 9.7 g/dL Hematocrit 29.9 % Mean Corpuscular Volume 90.3 fL Mean Corpuscular Hemoglobin 29.3 pg Mean Corpuscular Hemoglobin Concent 32.4 g/dl RDW Standard Deviation 53.7 fL RDW Coefficient of Variation 16.3 % Platelet Count 440 K/uL Mean Platelet Volume 8.7 fL Prothrombin Time 26.1 SECONDS Prothromb Time International Ratio 2.4
[2016-06-09] MEDS: CEFTRIAXONE SOD INJ 2,000 MG in DEXTROSE 5% 50ML 50 ML IV SCH (12:02)
[2016-06-09] MEDS: CLONAZEPAM 0.5 MG TAB PO SCH (12:02)
[2016-06-09] MEDS: WARFARIN SOD 2.5 MG TAB PO SCH (15:19)
[2016-06-09] MEDS ORDERED: DILTIAZEM HCL 60 MG TAB PO ONE (16:00)
[2016-06-09] MEDS ORDERED: COUGH DROP (SUGAR FREE) LOZ 24 LOZ/1 BOX PO PRN (17:45)
[2016-06-09] MEDS: OXYCODONE HCL IR 5 MG TAB (IMMEDIATE RELEASE) PO PRN ×2 (18:07→23:03)
--- NOTE | 2016-06-09 19:26 | Hospitalist Progress Note ---
Hospitalist Progress Note Date of Service Jun 09, 2016. Subjective Pt evaluation today including: conversation w/ patient, physical exam, chart review, lab review, review of studies, review of inpatient medication list The patient is feeling well today. She did have episode over night of A-fib with RVR. This was treated with a single dose of Cardizem. She then converted back to NSR. Dr. Denson increased Cardizem to 180mg daily. Additional Comments: A 10 system review was performed and all were negative. Positives were placed in the subjective section. Objective Vital Signs Date Time Temp Pulse Resp B/P Pulse Ox O2 Delivery O2 Flow Rate FiO2 06/09/16 16:02 37.0 75 15 168/72 99 Room Air 06/09/16 16:00 99 Room Air 06/09/16 15:37 36.7 75 19 156/83 100 Room Air 06/09/16 12:00 36.7 75 16 149/77 99 Room Air 06/09/16 12:00 Room Air 06/09/16 08:00 Room Air 06/09/16 07:23 36.6 71 16 167/92 99 Room Air 06/09/16 04:23 37.4 73 18 135/68 96 Room Air 06/09/16 04:00 Room Air 06/09/16 02:57 136 164/111 06/08/16 23:59 Room Air 06/08/16 23:59 36.9 88 18 135/69 95 Room Air 06/08/16 20:00 Room Air 06/08/16 19:41 36.9 83 18 156/93 95 Room Air Physical Exam Notes: GEN: Awake, alert, and oriented x 3. Not in acute distress HEENT: Tm's intact, no inflammation, EOMI, PERRLA, MMM Neck: Soft, supple Lungs: CTA b/l, no r/r/w Heart: REG, nrl S1S2 without murmurs, rubs or gallops Abdomen: Soft, NT, ND, + BS EXT: No C/C/E NEURO: CN's II-XII grossly intact, non-focal Skin: warm, dry, no rashes PSYCH: pleasant, cooperative. Laboratory Results Last 24 Hours Test 06/09/16 01:26 06/09/16 05:10 Sodium Level 142 mmol/L 141 mmol/L Potassium Level 3.8 mmol/L 4.0 mmol/L Chloride Level 102 mmol/L 105 mmol/L Carbon Dioxide Level 29 mmol/L 28 mmol/L Anion Gap 11.0 mmol/L 8.0 mmol/L Blood Urea Nitrogen 11 mg/dl 10 mg/dl Creatinine 0.79 mg/dl 0.65 mg/dl Est Creatinine Clear Calc Drug Dose 59.7 ml/min 72.6 ml/min Estimated GFR () 84.9 100.7 Estimated GFR (Non- 73.2 86.8 BUN/Creatinine Ratio 13.5 15.5 Random Glucose 112 mg/dl 95 mg/dl Calcium Level 8.4 mg/dl 7.8 mg/dl Magnesium Level 2.2 mg/dl White Blood Count 9.52 K/uL Red Blood Count 3.31 M/uL Hemoglobin 9.7 g/dL Hematocrit 29.9 % Mean Corpuscular Volume 90.3 fL Mean Corpuscular Hemoglobin 29.3 pg Mean Corpuscular Hemoglobin Concent 32.4 g/dl RDW Standard Deviation 53.7 fL RDW Coefficient of Variation 16.3 % Platelet Count 440 K/uL Mean Platelet Volume 8.7 fL Prothrombin Time 26.1 SECONDS Prothromb Time International Ratio 2.4 Assessment and Plan 1) SEPTIC RIGHT KNEE - Continue IV Ceftriaxone will look to infectious disease and/or ortho to direct length of treatment. PICC line in place. 2) ATRIAL FIBRILLATION WITH RVR - Cardiology increased Cardizem to 180mg daily , recommended sleep study. INR 2.6 today. I increased warfarin dose and will follow INR with goal of 2-3 for A.Fib. 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 4) GERD - pantoprazole 5) Hx PUD - No recurrence. 6) Hyperlipidemia - statin DVT PROPHYLAXIS is covered by warfarin. -TEDs/SCDs
[2016-06-09] MEDS: ACETAMINOPHEN 325 MG TAB PO PRN (20:27)
[2016-06-09] MEDS: SENNA 8.6 MG TAB PO SCH (20:28)
[2016-06-09] MEDS: SIMVASTATIN 20 MG TAB PO SCH (20:29)
[2016-06-10] VITALS (8 sets, daily range): BP systolic 124–165; BP diastolic 72–97; PULSE 67–115; TEMP 36.5–36.8; O2SAT 95–99
[2016-06-10] MEDS: METOPROLOL TARTRATE 1 MG/ML VIAL IV PRN ×2 (00:48→04:54)
[2016-06-10] MEDS ORDERED: DILTIAZEM HCL 5 MG/ML 5 ML VIAL IV STA (01:54)
[2016-06-10] MEDS: OXYCODONE HCL IR 5 MG TAB (IMMEDIATE RELEASE) PO PRN ×2 (04:54→19:20)
[2016-06-10 06:46] LABS: INR 2.7 (0.9-1.1); PROTHROMBIN TIME (PATIENT) 29.6 SECONDS (9.0-12.0)
[2016-06-10 07:06] LABS: BUN/CREATININE RATIO 12.7 (10-20); CALCIUM 8.3 mg/dl (8.5-10.1); CREATININE 0.63 mg/dl (0.60-1.20); POTASSIUM 4.6 mmol/L (3.5-5.1)
[2016-06-10] MEDS: PANTOprazole SOD 40 MG TAB PO SCH (07:51)
[2016-06-10] MEDS: ONDANSETRON INJ 2 MG/ML 2 ML VIAL IV PRN (07:51)
[2016-06-10] MEDS: DILTIAZEM HCL 180 MG CAPCR PO SCH (07:51)
[2016-06-10] MEDS: OXYCODONE HCL 10 MG TABCR (OXYCONTIN) PO SCH ×2 (07:51→21:00)
[2016-06-10] MEDS: NSS + 20MEQ KCL 1000ML 1,000 ML IV SCH ×2 (07:52→19:22)
[2016-06-10] MEDS: DOCUSATE SODIUM 100 MG CAP PO SCH ×2 (07:52→19:21)
[2016-06-10] MEDS: FERROUS GLUCONATE 324 MG TAB PO SCH ×3 (07:52→15:56)
[2016-06-10] MEDS ORDERED: AMIODARONE IV BOLUS / DRIP IV STA (10:55)
--- NOTE | 2016-06-10 10:55 | Cardiology Follow-Up ---
Subjective Date of Service: Jun 10, 2016. Pt evaluation today including: conversation w/ patient, physical exam, lab review, review of studies, review of inpatient medication list, conversation w/ attending History of Present Illness This is a very pleasant 75-year-old woman who has a history of hypercholesterolemia, factor V Leiden mutation as well as a history of DVT. She also has DJD and has had surgery on her right knee on 09/08/2014. Her cardiac history is notable for a history of paroxysmal atrial tachycardia which was observed in the emergency room when she presented with DVT. She is on chronic anticoagulation with warfarin due to her factor V Leiden mutation as well as her DVT, she is never had a pulmonary embolism. At the time of her surgery in August 2014 she was observed to have an irregular and rapid heart rate, it is not clear whether this represented an atrial tachycardia or paroxysmal atrial fibrillation. She was having symptomatic palpitations in any case therefore we started flecainide 50 mg twice a day 10/21. Since she was already anticoagulated for other reasons we did not make a vigorous attempt to determine whether she has atrial fibrillation or atrial tachycardia. She is admitted now feeling poorly and had cellulitis of her left arm as well as pain in her right knee. She was not aware of having palpitations or her arrhythmia at the time of presentation. She was however observed to have her atrial arrhythmia after admission, on her electrocardiogram from 06/04/2016 at 5 AM she is in what does appear to be atrial fibrillation with a heart rate of about 147 bpm. This converted back to normal at around 8:30 the same morning, therefore it lasted about 3-1/2 hours. The rate was quite fast during the arrhythmia. She believe she may have missed 2 doses of flecainide leading up to the arrhythmia. I gave her an extra 50 mg of flecainide and she went through her surgery without difficulty. This morning at around 6 AM she went back into atrial fibrillation with average heart rate of about 150 bpm. I increased her flecainide to 100 mg twice a day and she has continued to have intermittent atrial fibrillation with a somewhat rapid heart rate. On flecainide 100 mg twice a day she did not have good control of her arrhythmia therefore we discontinued it and tried a strategy of rate control. With addition of diltiazem her rate was perhaps a little bit better but still she had elevated heart rates during early frequent episodes of atrial fibrillation, however she also had an abnormal sinus node recovery time with a prolonged pause following termination of her atrial arrhythmia (as long as 4 seconds). She remains on diltiazem 180 mg daily, she has not had difficulty with pauses on that dose but has not had good rate control. Social History Smoking Status: Never Smoker History of Alcohol Use: No (wine - occasionally) Review of Systems Respiratory: No dyspnea at rest, No shortness of breath Cardiac: No chest pain, No edema, No palpitations Progressive right knee discomfort Medications Cardiovascular: Item Value Date Time Diltiazem HCl 180 mg 06/10/16 0900 (Cardizem Cd Cap) QAM/PO 06/10/16 0751 Metoprolol 5 mg 06/09/16 0230 Tartrate Q4 PRN/IV 06/10/16 0454 (Lopressor Iv) Warfarin Sodium 2.5 mg 06/08/16 1600 (Coumadin Tab) DAILY@16/PO 06/09/16 1519 Simvastatin 20 mg 06/03/16 2100 (Zocor Tab) QPM/PO 06/09/162028 Objective Vital Signs Past 12 Hours Date Time Temp Pulse Resp B/P Pulse Ox O2 Delivery O2 Flow Rate FiO2 06/10/16 08:00 Room Air 06/10/16 07:15 36.5 108 19 147/97 96 Room Air 06/10/16 04:54 134 157/98 06/10/16 04:00 Room Air 06/10/16 03:11 36.7 98 18 139/85 96 Room Air 06/10/16 02:05 115 152/90 06/10/16 00:48 136 06/10/16 00:42 163/93 06/09/16 23:59 Room Air 06/09/16 23:04 36.7 75 18 162/79 99 Room Air Last Recorded Weight-Kilograms: 76.600 Intake & Output 8-Hour Column 06/09/16 06/09/16 06/10/16 15:59 23:59 07:59 Intake Total 1228 ml 1136 ml 878 ml Output Total 1100 ml 300 ml 2500 ml Balance 128 ml 836 ml -1622 ml 24-Hour Column 06/10/16 07:59 Intake Total 3242 ml Output Total 3900 ml Balance -658 ml Physical Exam Constitutional: General Apperance: heathly-appearing Level of Distress: NAD Lungs: Respiratory effort: no dyspnea, good air movement Auscultation: breath sounds normal, no wheezing Cardiovascular: Heart Auscultation: RRR, no murmurs, no rubs, no gallops Peripheral Pulses: Bruits: none appreciated Extremities: no edema Data Laboratory Results: Last 24 Hours Test 06/10/16 05:21 Prothrombin Time 29.6 SECONDS Prothromb Time International Ratio 2.7 Sodium Level 139 mmol/L Potassium Level 4.6 mmol/L Chloride Level 104 mmol/L Carbon Dioxide Level 27 mmol/L Anion Gap 8.0 mmol/L Blood Urea Nitrogen 8 mg/dl Creatinine 0.63 mg/dl Est Creatinine Clear Calc Drug Dose 73.9 ml/min Estimated GFR () 101.7 Estimated GFR (Non- 87.7 BUN/Creatinine Ratio 12.7 Random Glucose 102 mg/dl Calcium Level 8.3 mg/dl Telemetry reviewed: Continued episodes of paroxysmal atrial fibrillation, including this morning with rapid heart rates. Currently in sinus rhythm. Assessment and Plan #1. Atrial fibrillation: In the past we weren't sure how much difficulty she had with the arrhythmia, here it seems that she is generally fairly unaware of the arrhythmia and has had it quite frequently. Part of that might be the stress of the situation, but I suspect she has it much more frequently than she realizes. It appears that rate control will not be effective without a pacemaker (4 second pauses with termination of the atrial arrhythmia despite somewhat rapid rates during atrial fibrillation) to support her lower heart rate , implantation of a pacemaker is somewhat problematic with her current infection and we will still need to have her on high doses of medications for rate control during atrial arrhythmias. I discussed options with her which include a trial of amiodarone, she would prefer to go that route. Even if this is a temporary measure to control her arrhythmia it may be beneficial allowing us time to sort out the infection. I'm therefore starting her on intravenous amiodarone to see whether we'll be effective, if it is we can transition her to oral understanding that she may have some breakthrough until her level comes up.. She will need to be on long-term anticoagulation. 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 This is worrisome in view of possibly needing a pacemaker. I would prefer to hold off, but in the event that we can't we need to investigate what the risk of developing a pacemaker infection would be. Awaiting ID opinion on that. For now however I'm not going to implant the device. Thank you for allowing me to participate in her care.
--- NOTE | 2016-06-10 10:56 | Orthopedic Progress Note ---
Orthopedic Progress Note Date of Service Jun 10, 2016. Subjective Post OP Day: 6 Reports: feeling well, Denies: complaints Additional Notes: States she's doing a little better with PT Objective calves soft nontender, N/V intact, dressing C/D/I (Prevena intact), A&O x3, toes mobile Date Time Temp Pulse Resp B/P Pulse Ox O2 Delivery O2 Flow Rate FiO2 06/10/16 08:00 Room Air 06/10/16 07:15 36.5 108 19 147/97 96 Room Air 06/10/16 04:54 134 157/98 06/10/16 04:00 Room Air 06/10/16 03:11 36.7 98 18 139/85 96 Room Air 06/10/16 02:05 115 152/90 06/10/16 00:48 136 06/10/16 00:42 163/93 06/09/16 23:59 Room Air 06/09/16 23:04 36.7 75 18 162/79 99 Room Air 06/09/16 22:10 36.9 82 18 149/82 98 Room Air 06/09/16 20:00 99 Room Air 06/09/16 20:00 99 Room Air 2.0 06/09/16 19:10 37.0 78 19 145/82 98 Room Air 06/09/16 16:02 37.0 75 15 168/72 99 Room Air 06/09/16 16:00 99 Room Air 06/09/16 15:37 36.7 75 19 156/83 100 Room Air 06/09/16 12:00 36.7 75 16 149/77 99 Room Air 06/09/16 12:00 Room Air Laboratory Results 24 Hours: Test 06/10/16 05:21 Prothromb Time International Ratio 2.7 Prothrombin Time 29.6 SECONDS Assessment & Plan Assessment: Septic Right TKA- POD #6 s/p I&D and poly exchange Left Forearm Cellulitis Acute Blood Loss Anemia Afib with rate issues H/O DVT; Factor V Leiden Deficiency Plan: antibx as per ID Team - currently IV Ceftriaxone Coumadin daily as per Cards/Med Teams Discussed rate control with Cardiology - going to try Amiodarone IV with switching to oral if it works well. If not, patient may need Pacemaker insertion. Discussed this also with ID team (Sri Christensen PA-C). Optimally , it would be better to wait until IV antibx finished but if the patient is in need, then she could have it as per Cards team. Pelvis film showing moderate Djd of the right hip. Not really bothering her at this time. NSaids if ok with Med/Cards team when stable. Continue PT/OT as allowed per Med Service Patient is pending [facility] referral. Possible to go home over the weekend. PICC in place Inhouse Planning Pain Management: Oxycontin, Morphine, PO Tylenol, Oxy IR DVT Prophylaxis: TEDs, SCDs, Coumadin, Lovenox Discharge Planning Discharge Planning: rehab hospital Therapy: Physical Therapy
--- NOTE | 2016-06-10 11:17 | Infectious Disease Progress Nt ---
Progress Note Date of Service Jun 10, 2016. Subjective Pt evaluation today including: conversation w/ patient, physical exam, chart review, lab review, review of studies, conversation w/ lean consultant (Kyler Rizzo, ortho ; Dr. Bolanos, cardio), review of inpatient medication list WBC Count yesterday was 9.52. Creatinine was 0.63. CXR showed PICC placement in the RUE. The patient is feeling fatigued but OK otherwise. She has less pain in her right knee today. Patient may need a pacemaker due to continued arrhythmia. Spoke with ortho and cardio regarding pacemaker placement. I also spoke with Dr. Davalos. Patient's repeat blood cultures have shown no growth. All Other Systems: Reviewed and Negative Medications Current Inpatient Medications Medications (Trade) Dose Ordered Sig/Stephy Route Start Time Stop Time Status Last Admin Dose Admin Acetaminophen (Tylenol Tab) 650 mg Q4H PRN PO 06/03/16 18:00 07/03/16 17:59 06/09/16 20:27 650 MG Ondansetron HCl (Zofran Inj) 4 mg Q6H PRN IV 06/03/16 16:30 07/03/16 16:29 06/10/16 07:51 4 MG Polyethylene (Miralax Powder Packet) 17 gm DAILY PRN PO 06/03/16 16:30 07/03/16 16:29 06/06/16 09:36 17 GM Morphine Sulfate (MoRPHine SULFATE INJ) 2 mg Q4HWA PRN IV 06/03/16 16:30 06/17/16 16:29 06/05/16 20:47 2 MG Oxycodone HCl (Roxicodone Immediate Rel Tab) @ Q4HWA PRN PO 06/03/16 17:00 06/17/16 16:59 06/10/16 04:54 10 MG Clonazepam (Klonopin Tab) 0.5 mg QDL PO 06/04/16 11:30 07/04/16 11:59 06/09/16 12:02 0.5 MG Simvastatin (Zocor Tab) 20 mg QPM PO 06/03/16 21:00 07/03/16 20:59 06/09/16 20:29 20 MG Pantoprazole Sodium (Protonix Tab) 40 mg QAM PO 06/04/16 09:00 07/04/16 08:59 06/10/16 07:51 40 MG Morphine Sulfate (MoRPHine SULFATE INJ) 4 mg Q4HWA PRN IV 06/03/16 17:30 06/17/16 17:29 06/09/16 03:06 4 MG Morphine Sulfate 6 mg 6 mg Q4HWA PRN IV 06/03/16 17:30 06/17/16 17:29 06/06/16 10:52 6 MG Acetaminophen/ Empty Bag (Ofirmev IV/ Empty Iv Bag 100ml) 65 ml @ 260 mls/hr Q6H PRN IV 06/04/16 03:45 07/04/16 03:44 06/04/16 03:51 260 MLS/HR Oxycodone HCl (Oxycontin Tab) 10 mg Q12 PO 06/04/16 21:00 06/18/16 20:59 06/10/16 07:51 10 MG Magnesium Hydroxide (Milk Of Magnesia Susp) 30 ml Q6H PRN PO 06/04/16 17:00 07/04/16 16:59 06/06/16 09:36 30 ML Bisacodyl (Dulcolax Supp) 10 mg DAILY PRN NE 06/04/16 17:00 07/04/16 16:59 06/06/16 19:24 10 MG Senna (Senokot Tab) 17.2 mg HS PO 06/04/16 21:00 07/04/16 20:59 06/09/16 20:28 17.2 MG Docusate Sodium (coLACE CAP) 100 mg BID PO 06/04/16 21:00 07/04/16 20:59 06/10/16 07:52 100 MG Diphenhydramine HCl (Benadryl Inj) 25 mg Q8H PRN IV 06/04/16 17:00 07/04/16 16:59 Al Hydrox/Mg Hydrox/Simethicone (Maalox Max Susp) 15 ml Q4H PRN PO 06/04/16 17:00 07/04/16 16:59 Ferrous Gluconate 324 mg 324 mg TIDM PO 06/05/16 07:30 07/05/16 07:29 06/10/16 07:52 324 MG Ceftriaxone Sodium/Dextrose (Rocephin Inj/D5 50ml) 70 ml @ 100 mls/hr Q24H IV 06/06/16 12:00 3/9/17 11:59 06/09/16 12:02 100 MLS/HR Warfarin Sodium (Coumadin Tab) 2.5 mg DAILY@16 PO 06/08/16 16:00 07/08/16 15:59 06/09/16 15:19 2.5 MG Heparin Sodium (Porcine) (Heparin 10 Unit/ ml 5 ml Flush) 5 ml PRN PRN FLUSH 06/08/16 13:45 07/08/16 13:44 06/08/16 12:30 5 ML Metoprolol Tartrate 5 mg 5 mg Q4 PRN IV 06/09/16 02:30 07/09/16 02:29 06/10/16 04:54 5 MG Potassium Chloride/Sodium Chloride (Nss + 20meq KCl 1000ml) 1,000 ml @ 100 mls/hr Q10H IV 06/09/16 02:35 07/09/16 02:34 06/10/16 07:52 100 MLS/HR Diltiazem HCl (Cardizem Cd Cap) 180 mg QAM PO 06/10/16 09:00 07/10/16 08:59 06/10/16 07:51 180 MG Menthol (Nice Adriano) 1 adriano PRN PRN PO 06/09/16 17:45 07/09/16 17:44 06/09/16 17:50 1 ADRIANO Amiodarone HCl (Cordarone IV Bolus / Drip) 1 ea NOW STAT IV 06/10/16 10:55 06/10/16 10:56 UNV Objective Vital Signs Date Time Temp Pulse Resp B/P Pulse Ox O2 Delivery O2 Flow Rate FiO2 06/10/16 08:00 Room Air 06/10/16 07:15 36.5 108 19 147/97 96 Room Air 06/10/16 04:54 134 157/98 06/10/16 04:00 Room Air 06/10/16 03:11 36.7 98 18 139/85 96 Room Air 06/10/16 02:05 115 152/90 06/10/16 00:48 136 06/10/16 00:42 163/93 06/09/16 23:59 Room Air 06/09/16 23:04 36.7 75 18 162/79 99 Room Air 06/09/16 22:10 36.9 82 18 149/82 98 Room Air 06/09/16 20:00 99 Room Air 06/09/16 20:00 99 Room Air 2.0 06/09/16 19:10 37.0 78 19 145/82 98 Room Air 06/09/16 16:02 37.0 75 15 168/72 99 Room Air 06/09/16 16:00 99 Room Air 06/09/16 15:37 36.7 75 19 156/83 100 Room Air 06/09/16 12:00 36.7 75 16 149/77 99 Room Air 06/09/16 12:00 Room Air Physical Exam General Appearance: WD/WN, no apparent distress Eyes: normal inspection, sclerae normal ENT: hearing grossly normal Neck: supple, trachea midline Respiratory/Chest: chest non-tender, lungs clear, normal breath sounds, no respiratory distress, no accessory muscle use Cardiovascular: regular rate, rhythm Abdomen: normal bowel sounds, non tender, soft Extremities: + pertinent finding (right knee with hemovac in place) Neurologic/Psychiatric: alert, normal mood/affect Skin: normal color, warm/dry, no rash Laboratory Results Item Value Date Time Blood Culture - Preliminary Resulted 06/05/16 1527 Blood NO GROWTH TO DATE. Blood Culture - Preliminary Resulted 06/05/16 1522 Blood NO GROWTH TO DATE. Urine Culture - Final Complete 06/04/16 1345 Urine , Clean Catch NO GROWTH - LESS THAN 1,000 COLONIES/ML Gram Stain - Final Complete 06/04/16 0000 Joint Fluid/Space (Synovial) Knee Right Gram Stain - Final Complete 06/04/16 0000 Joint Fluid/Space (Synovial) Knee Right Gram Stain - Final Complete 06/04/16 0000 Joint Fluid/Space (Synovial) Knee Right Gram Stain - Final Complete 06/03/16 1620 Joint Fluid/Space (Synovial) Knee Right Blood Culture - Final Complete 06/03/16 1435 Blood [place]. Influ Betalactamase Pos Blood Culture - Final Complete 06/03/16 1430 Blood [place]. Influ Betalactamase Pos CHEST ONE VIEW PORTABLE CLINICAL HISTORY: PICC PLACEMENT VERIFICATION RIGHT UPPER ARM COMPARISON STUDY: 06/05/2016 FINDINGS: The cardiac and mediastinal contours are normal. There is no evidence of focal pulmonary consolidation. There is no evidence of failure. No pleural effusions are visualized.[ There is mild chronic interstitial thickening. There is a right-sided PICC catheter, the tip of which projects over the superior vena cava. IMPRESSION: The right-sided PICC catheter is positioned with its tip in the superior vena cava Last 24 Hours Test 06/10/16 05:21 Prothrombin Time 29.6 SECONDS Prothromb Time International Ratio 2.7 Sodium Level 139 mmol/L Potassium Level 4.6 mmol/L Chloride Level 104 mmol/L Carbon Dioxide Level 27 mmol/L Anion Gap 8.0 mmol/L Blood Urea Nitrogen 8 mg/dl Creatinine 0.63 mg/dl Est Creatinine Clear Calc Drug Dose 73.9 ml/min Estimated GFR () 101.7 Estimated GFR (Non- 87.7 BUN/Creatinine Ratio 12.7 Random Glucose 102 mg/dl Calcium Level 8.3 mg/dl Assessment and Plan Patient with septic right TKA with Haemophilus Influenzae and gram negative sepsis. Repeat blood cultures show NGTD currently. The patient is on IV Ceftriaxone 2 g daily. She likely will need 6 weeks of IV therapy due to septic joint. PICC line in place. Patient may require a pacemaker to be placed due to continued arrhythmia. Due to patient's bacteremia on admission with H. Flu, would prefer to wait at least a few weeks for placement. Will repeat blood culture to ensure clearance of bacteremia incase pacemaker placement is necessary sooner than later. We will follow. PROVIDER ADDENDUM: Patient reviewed with Ms. Christensen. Agree with above assessment.
[2016-06-10] MEDS ORDERED: AMIODARONE / D5W 100 ML IV SCH (11:20)
[2016-06-10] MEDS ORDERED: AMIODARONE / D5W 200 ML IV SCH (11:20)
[2016-06-10] MEDS: CLONAZEPAM 0.5 MG TAB PO SCH (11:48)
[2016-06-10] MEDS: CEFTRIAXONE SOD INJ 2,000 MG in DEXTROSE 5% 50ML 50 ML IV SCH (11:52)
--- NOTE | 2016-06-10 13:54 | Discharge Instructions ---
Discharge Instructions Admission Reason for Admission: Cellulitis Discharge Discharge Diagnosis / Problem: Septic Right TKA Discharge Goals Goal(s): Decrease discomfort, Improve function Activity Recommendations Activity Level: Assistance Required Therapies: Physical Therapy (TKA protocol/ gentle ROM), Occupational Therapy ( ADL's and transfers) Weightbearing Status: Right weightbearing (as tolerated) . Additional Information Patient informed of condition: Yes Advance Directives: No DNR: No Level of Care: Acute Rehab Communicable Disease: Yes Prognosis: Stable Ribeiro Catheter: No Instructions / Follow-Up Instructions / Follow-Up ACTIVITY RECOMMENDATIONS: SELF CARE INSTRUCTIONS AFTER TOTAL KNEE REPLACEMENT A. You may need to continue a physical therapy program after discharge from the hospital. There are several options available to you. Your doctor will assist you in selecting the best one for you. 1. An out-patient facility 2 to 3 times a week for therapy or home therapy. 2. Continue working on all exercises taught to you in the hospital. Your goals should be to increase bending of your knee to 90 degrees and beyond and to fully straighten your knee. B. You may progress at your own pace from walking with a walker or crutches to a cane; then to no assistive devices. C. Make walking a part of your daily routine. Be up as much as comfortable with rest periods throughout the day. Rest with leg elevation is very important. Use the ice wrap frequently for the first 3-4 weeks. D. There are no restrictions on activities. You may ride in a car, shop, participate in liner machine operator helper and all social activities. E. Wear the long elastic stockings (YAYO hose) 20 hours a day for 2 weeks after surgery. They can be removed several times a day for laundering and for a bath. F. You may shower, no tub baths until cleared by your doctor. SPECIAL CARE INSTRUCTIONS: VERY IMPORTANT TO READ AND REVIEW A. There are a few signs you need to watch for after you are home. Call [facility] if you notice any of the followin. Increased severe knee pain. Some pain is expected especially when you exercise. 2. Increased swelling in your leg or knee; pain or swelling of the calf muscle in either lower leg. 3. Any fluid drainage from the incision. 4. Shortness of breath or chest pain. B. Please call [facility] at if you have any concerns or questions about your operation or recovery. The doctor or his nurse will return your call promptly. C. You must take antibiotics before dental work, bladder, bowel or other surgery. Your doctor will provide you with a permanent care to carry describing this precaution. IMPORTANT: * RESUME YOUR COUMADIN DIRECTED BY YOUR RADIOLOGICAL METALLURGIST/FAMILY PHYSICIAN. THIS IS YOUR BLOOD THINNER. RESUME YOUR INR DRAWS DIRECTED BY ABOVE PHYSICIANS. * HIGH RISK PATIENTS MAY BE PRESCRIBED A STRONGER BLOOD THINNER. THIS WILL BE PROVIDED AT DISCHARGE. * CALL IF INCREASED PAIN, REDNESS, DRAINAGE OR FEVER GREATER THAT 101. * WEAR YAYO HOSE 20 HOURS PER DAY FOR 2 WEEKS. * YOU WILL BE RECEIVING IV ANTIBIOTICS FOR [address] ALVES OR DR RASHID WITH ANY QUESTIONS REGARDING YOUR ANTIBIOTICS. [phone] FOLLOW UP VISIT: If appointment is not already scheduled: Please call [facility] to make a follow-up appointment for 2 weeks after your surgery at . FOLLOW UP WITH DR ALVES/GAY IN 10-14 DAYS. CALL FOR APPT. [phone] Current Hospital Diet Patient's current hospital diet: AHA Diet (Heart Healthy) Discharge Diet Recommended Diet: Regular Diet Procedures Procedures Performed: Incision and drainage total knee, synovectomy and poly exchange, right knee Pending Studies Studies pending at discharge: no Physician Orders On Transfer Dressing Changes: DAILY PRN Vital Signs: ROUTINE Additional Orders: PICC LINE CARE Medical Emergencies . Who to Call and When: Medical Emergencies: If at any time you feel your situation is an emergency, please call 911 immediately. . Non-Emergent Contact Non-Emergency issues call your: Surgeon (ABOUT YOUR KNEE) Call Non-Emergent contact if: temperature is above 101.5, your pain is not controlled, your pain is worsening, wound has increased drainage, wound has increased redness . . "Provider Documentation" section prepared by Kyler Haddad. Core Measure Problem Core Measures: None
[2016-06-10] MEDS: WARFARIN SOD 2.5 MG TAB PO SCH (15:56)
[2016-06-10] MEDS: AMIODARONE / D5W 200 ML IV SCH (17:45)
[2016-06-10] MEDS: SIMVASTATIN 20 MG TAB PO SCH (19:21)
[2016-06-10] MEDS: SENNA 8.6 MG TAB PO SCH (19:21)
--- NOTE | 2016-06-10 19:54 | Hospitalist Progress Note ---
Hospitalist Progress Note Date of Service Jun 10, 2016. Subjective Pt evaluation today including: conversation w/ patient, physical exam, chart review, lab review, conversation w/ decorator consultant (Cardiology, ID), review of inpatient medication list Voiding: no voiding problems Doing well, pain controlled with pain meds, still with intermittent RVR, started on amiodarone gtt today All Other Systems: Reviewed and Negative Objective Vital Signs Date Time Temp Pulse Resp B/P Pulse Ox O2 Delivery O2 Flow Rate FiO2 06/10/16 16:01 36.7 67 16 127/73 95 Room Air 06/10/16 16:00 Room Air 06/10/16 12:00 Room Air 06/10/16 11:08 36.7 75 18 124/78 97 Room Air 06/10/16 08:00 Room Air 06/10/16 07:15 36.5 108 19 147/97 96 Room Air 06/10/16 04:54 134 157/98 06/10/16 04:00 Room Air 06/10/16 03:11 36.7 98 18 139/85 96 Room Air 06/10/16 02:05 115 152/90 06/10/16 00:48 136 06/10/16 00:42 163/93 06/09/16 23:59 Room Air 06/09/16 23:04 36.7 75 18 162/79 99 Room Air 06/09/16 22:10 36.9 82 18 149/82 98 Room Air 06/09/16 20:00 99 Room Air 06/09/16 20:00 99 Room Air 2.0 Physical Exam General Appearance: WD/WN, no apparent distress Eyes: normal inspection, sclerae normal ENT: hearing grossly normal, pharynx normal Neck: supple, no adenopathy, trachea midline Respiratory/Chest: lungs clear, normal breath sounds, no respiratory distress, no accessory muscle use Cardiovascular: regular rate, rhythm, no edema, no gallop, no murmur Abdomen: normal bowel sounds, non tender, soft, no organomegaly, no pulsatile mass Extremities: + pertinent finding (right knee with wound vac in place, no erythema; left forearm with no erythema at all) Neurologic/Psychiatric: alert, normal mood/affect, oriented x 3 Skin: normal color, warm/dry, no rash Laboratory Results Last 24 Hours Test 06/10/16 05:21 Prothrombin Time 29.6 SECONDS Prothromb Time International Ratio 2.7 Sodium Level 139 mmol/L Potassium Level 4.6 mmol/L Chloride Level 104 mmol/L Carbon Dioxide Level 27 mmol/L Anion Gap 8.0 mmol/L Blood Urea Nitrogen 8 mg/dl Creatinine 0.63 mg/dl Est Creatinine Clear Calc Drug Dose 73.9 ml/min Estimated GFR () 101.7 Estimated GFR (Non- 87.7 BUN/Creatinine Ratio 12.7 Random Glucose 102 mg/dl Calcium Level 8.3 mg/dl Assessment and Plan This pt is a 75 yo female with a h/o Right TKA, Bronchitis, Diverticulosis, PUD/ GERD, Hyperlipidemia, Osteoarthritis, Depression/anxiety, PAF, Factor V Leiden def with History of left lower extremity DVT, and Chronic anticoagulation with Coumadin, here with left forearm cellulitis and right septic knee, H. influenzae bacteremia. CELLULITIS left forearm, Right knee Septic arthritis with h/o prosthesis. Results of arthrocentesis and BCxs showing H. influenzae. Went for surgical washout and poly exchange on 06/[address] Lazo Orthopedics consult appreciated Continue IV Ceftriaxone --> infectious disease consult recommending 6 weeks of IV abx, PICC line in place. 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
[2016-06-11] MEDS ORDERED: ALUM HYDROX/MAG TRISILICATE CHEW PO PRN (00:30)
[2016-06-11 00:43] VITALS: BP 162/83
--- NOTE | 2016-06-11 01:40 | Progress Note ---
Progress Note Date of Service Jun 11, 2016. Progress Note Called by RN due to patient complaining of heartburn / chest pain. Vital signs stable. EKG: sinus rhythm without ischemic changes S: Patient was sitting up in bed with occasional belching. Chest pain intermittently comes on for a few seconds at a time. She feels the pain is similar to previous GERD related pain. No radiation, diaphoresis, shortness of breath or nausea. Severity 5/10. O: VITAL SIGNS: reviewed GENERAL: no acute distress, sitting up in bed, comfortable in with mild intermittent chest pain SKIN: Warm dry and pink, no rashes HEAD: Normocephalic and atraumatic NECK: JVD +ve 1-2 cm from clavicle to mandible @45 degrees LUNGS: clear to auscultation, no accessory muscle use, no respiratory distress HEART: Regular rate and rhythm, heart sounds 1+2, no murmurs ABDOMEN: Soft, bowel sounds normal, mild tenderness in epigastric region without rebound or guarding EXTREMITIES: Warm and well perfused, peripheral cap refill < 2s NEUROLOGICALLY: Awake alert and oriented without focal deficit. No facial droop. A: Probable reflux. Patient is already on pantoprazole daily but may need BID dosing as she does increase her home dose of Prilosec when her symptoms get worse. Will prescribe her usual home remedy of Gaviscon and reassess. MSK pain: denies any trauma, pain on pressure to her chest however. Rule out ACS - no EKG changes and Hx not consistent with this . No previous WI. Will get stat troponin now and again in the morning to further assess but likely will be negative. P: Gaviscon 2 tabs now, then PRN Troponin stat + QAM Addendum: After Gavison patient feels relief from the pain. Will increase pantoprazole to BID. Resident Tracking Resident Involvement: Resident Care Provided Care Provided: Adult Hospital Medicine
[2016-06-11 03:00] VITALS: BP 150/78; PULSE 75; TEMP 36.6; O2SAT 99
[2016-06-11] MEDS: OXYCODONE HCL IR 5 MG TAB (IMMEDIATE RELEASE) PO PRN (03:17)
[2016-06-11] MEDS: AMIODARONE / D5W 200 ML IV SCH ×2 (05:03→16:42)
[2016-06-11 06:22] LABS: BASO % 0.6 %; BASO ABS # 0.04 K/uL (0-0.2); COMPLETE YES; EOS % 2.3 %; HEMATOCRIT 29.8 % (37-47); IG% 0.8 %; LYMPH % 30.2 %; LYMPH ABS # 1.98 K/uL (1.2-3.4); MEAN CELL VOLUME 90.9 fL (80-100); MEAN CORPUSCULAR HEMOGLOBIN 28.7 pg (25-34); MEAN CORPUSCULAR HGB CONC 31.5 g/dl (32-36); MEAN PLATELET VOLUME 8.6 fL (7.4-10.4); MONO % 10.8 %; NEUT % 55.3 %; PLATELET COUNT 513 K/uL (130-400); RED BLOOD COUNT 3.28 M/uL (4.2-5.4); WHITE BLOOD COUNT 6.55 K/uL (4.8-10.8)
[2016-06-11 06:32] LABS: INR 3.3 (0.9-1.1); PROTHROMBIN TIME (PATIENT) 37.5 SECONDS (9.0-12.0)
[2016-06-11 07:12] LABS: ALKALINE PHOSPHATASE 83 U/L (45-117); ALT/SGPT 32 U/L (12-78); AST/SGOT 17 U/L (15-37); MAGNESIUM 2.3 mg/dl (1.8-2.4)
[2016-06-11 07:33] VITALS: BP 143/83; PULSE 71; TEMP 36.7; O2SAT 98
[2016-06-11] MEDS: OXYCODONE HCL 10 MG TABCR (OXYCONTIN) PO SCH ×2 (07:45→20:03)
[2016-06-11] MEDS: FERROUS GLUCONATE 324 MG TAB PO SCH ×3 (07:45→19:03)
[2016-06-11] MEDS: DILTIAZEM HCL 180 MG CAPCR PO SCH (07:46)
[2016-06-11] MEDS: DOCUSATE SODIUM 100 MG CAP PO SCH ×2 (07:46→20:03)
[2016-06-11] MEDS: PANTOprazole SOD 40 MG TAB PO SCH (07:46)
[2016-06-11] MEDS: ONDANSETRON INJ 2 MG/ML 2 ML VIAL IV PRN (08:59)
[2016-06-11 09:16] LABS: BUN/CREATININE RATIO 12.1 (10-20); CALCIUM 8.3 mg/dl (8.5-10.1); CREATININE 0.7 mg/dl (0.60-1.20); POTASSIUM 4.3 mmol/L (3.5-5.1)
[2016-06-11] MEDS: CEFTRIAXONE SOD INJ 2,000 MG in DEXTROSE 5% 50ML 50 ML IV SCH (12:04)
[2016-06-11] MEDS: CLONAZEPAM 0.5 MG TAB PO SCH (12:37)
[2016-06-11 12:44] VITALS: BP 147/73; PULSE 73; TEMP 36.3; O2SAT 98
[2016-06-11] MEDS: ACETAMINOPHEN 325 MG TAB PO PRN (15:45)
[2016-06-11 16:08] VITALS: BP 134/78; PULSE 72; TEMP 37; O2SAT 97
[2016-06-11] MEDS: WARFARIN SOD 2.5 MG TAB PO SCH (16:41)
--- NOTE | 2016-06-11 16:53 | Infectious Disease Progress Nt ---
Progress Note Date of Service Jun 11, 2016. Subjective Pt evaluation today including: conversation w/ patient, physical exam, chart review, lab review, review of studies, review of inpatient medication list WBC count this morning was 6.55. Creatinine is 0.70. Repeat blood cultures are pending. Patient is feeling slightly nauseous today, but she continues to improve overall. She states that her heart rate has been better controlled on medication. She is unsure of whether not she will need a pacemaker. She continues to have some mild pain in her right knee. All Other Systems: Reviewed and Negative Medications Current Inpatient Medications Medications (Trade) Dose Ordered Sig/Stephy Route Start Time Stop Time Status Last Admin Dose Admin Acetaminophen (Tylenol Tab) 650 mg Q4H PRN PO 06/03/16 18:00 07/03/16 17:59 06/11/16 15:45 650 MG Ondansetron HCl (Zofran Inj) 4 mg Q6H PRN IV 06/03/16 16:30 07/03/16 16:29 06/11/16 08:59 4 MG Polyethylene (Miralax Powder Packet) 17 gm DAILY PRN PO 06/03/16 16:30 07/03/16 16:29 06/06/16 09:36 17 GM Morphine Sulfate (MoRPHine SULFATE INJ) 2 mg Q4HWA PRN IV 06/03/16 16:30 06/17/16 16:29 06/05/16 20:47 2 MG Oxycodone HCl (Roxicodone Immediate Rel Tab) @ Q4HWA PRN PO 06/03/16 17:00 06/17/16 16:59 06/11/16 03:17 10 MG Clonazepam (Klonopin Tab) 0.5 mg QDL PO 06/04/16 11:30 07/04/16 11:59 06/11/16 12:37 0.5 MG Simvastatin (Zocor Tab) 20 mg QPM PO 06/03/16 21:00 07/03/16 20:59 06/10/16 19:21 20 MG Pantoprazole Sodium (Protonix Tab) 40 mg QAM PO 06/04/16 09:00 07/04/16 08:59 06/11/16 07:46 40 MG Morphine Sulfate (MoRPHine SULFATE INJ) 4 mg Q4HWA PRN IV 06/03/16 17:30 06/17/16 17:29 06/09/16 03:06 4 MG Morphine Sulfate 6 mg 6 mg Q4HWA PRN IV 06/03/16 17:30 06/17/16 17:29 06/06/16 10:52 6 MG Acetaminophen/ Empty Bag (Ofirmev IV/ Empty Iv Bag 100ml) 65 ml @ 260 mls/hr Q6H PRN IV 06/04/16 03:45 07/04/16 03:44 06/04/16 03:51 260 MLS/HR Oxycodone HCl (Oxycontin Tab) 10 mg Q12 PO 06/04/16 21:00 06/18/16 20:59 06/11/16 07:45 10 MG Magnesium Hydroxide (Milk Of Magnesia Susp) 30 ml Q6H PRN PO 06/04/16 17:00 07/04/16 16:59 06/06/16 09:36 30 ML Bisacodyl (Dulcolax Supp) 10 mg DAILY PRN [place] 06/04/16 17:00 07/04/16 16:59 06/06/16 19:24 10 MG Senna (Senokot Tab) 17.2 mg HS PO 06/04/16 21:00 07/04/16 20:59 06/10/16 19:21 17.2 MG Docusate Sodium (coLACE CAP) 100 mg BID PO 06/04/16 21:00 07/04/16 20:59 06/11/16 07:46 100 MG Diphenhydramine HCl (Benadryl Inj) 25 mg Q8H PRN IV 06/04/16 17:00 07/04/16 16:59 Al Hydrox/Mg Hydrox/Simethicone (Maalox Max Susp) 15 ml Q4H PRN PO 06/04/16 17:00 07/04/16 16:59 Ferrous Gluconate 324 mg 324 mg TIDM PO 06/05/16 07:30 07/05/16 07:29 06/11/16 12:05 324 MG Ceftriaxone Sodium/Dextrose (Rocephin Inj/D5 50ml) 70 ml @ 100 mls/hr Q24H IV 06/06/16 12:00 06/20/16 11:59 06/11/16 12:04 100 MLS/HR Heparin Sodium (Porcine) (Heparin 10 Unit/ ml 5 ml Flush) 5 ml PRN PRN FLUSH 06/08/16 13:45 07/08/16 13:44 06/08/16 12:30 5 ML Metoprolol Tartrate (Lopressor Iv) 5 mg Q4 PRN IV 06/09/16 02:30 07/09/16 02:29 06/10/16 04:54 5 MG Diltiazem HCl (Cardizem Cd Cap) 180 mg QAM PO 06/10/16 09:00 07/10/16 08:59 06/11/16 07:46 180 MG Menthol 1 britney 1 britney PRN PRN PO 06/09/16 17:45 07/09/16 17:44 06/09/16 17:50 1 BRITNEY Amiodarone HCL/ Dextrose (Nexterone / D5w) 200 ml @ 16.7 mls/hr [id number] IV 06/10/16 17:20 07/10/16 17:19 06/11/16 16:42 16.7 MLS/HR Al Hydroxide/Mg Trisilicate (Gaviscon Chew Tab) 2 tab Q6H PRN PO 06/11/16 00:30 07/11/16 00:29 06/11/16 00:45 2 TAB Warfarin Sodium (Coumadin Tab) 2 mg DAILY@16 PO 06/11/16 16:00 07/11/16 15:59 Objective Vital Signs Date Time Temp Pulse Resp B/P Pulse Ox O2 Delivery O2 Flow Rate FiO2 06/11/16 12:44 36.3 73 18 147/73 98 Room Air 06/11/16 12:00 Room Air 06/11/16 08:00 Room Air 06/11/16 07:33 36.7 71 20 143/83 98 Room Air 06/11/16 04:00 Room Air 06/11/16 03:00 36.6 75 18 150/78 99 Room Air 06/11/16 00:43 162/83 06/11/16 00:00 Room Air 06/10/16 23:10 36.6 68 18 165/72 99 Room Air 06/10/16 20:05 36.8 70 18 138/75 98 Room Air 06/10/16 20:00 Room Air 06/10/16 16:01 36.7 67 16 127/73 95 Room Air 06/10/16 16:00 Room Air Physical Exam General Appearance: no apparent distress, + obese Eyes: normal inspection, sclerae normal ENT: hearing grossly normal Neck: supple, trachea midline Respiratory/Chest: no respiratory distress, no accessory muscle use Cardiovascular: regular rate, rhythm Neurologic/Psychiatric: alert, normal mood/affect Skin: normal color, warm/dry, no rash Laboratory Results Item Value Date Time Blood Culture Received 06/10/16 1154 Blood Pending Blood Culture Received 06/10/16 1146 Blood Pending Blood Culture - Final Complete 06/05/16 1527 Blood NO GROWTH Blood Culture - Final Complete 06/05/16 1522 Blood NO GROWTH Last 24 Hours Test 06/11/16 00:45 06/11/16 05:25 Troponin I < 0.015 ng/ml < 0.015 ng/ml White Blood Count 6.55 K/uL Red Blood Count 3.28 M/uL Hemoglobin 9.4 g/dL Hematocrit 29.8 % Mean Corpuscular Volume 90.9 fL Mean Corpuscular Hemoglobin 28.7 pg Mean Corpuscular Hemoglobin Concent 31.5 g/dl Platelet Count 513 K/uL Mean Platelet Volume 8.6 fL Neutrophils (%) (Auto) 55.3 % Lymphocytes (%) (Auto) 30.2 % Monocytes (%) (Auto) 10.8 % Eosinophils (%) (Auto) 2.3 % Basophils (%) (Auto) 0.6 % Neutrophils # (Auto) 3.62 K/uL Lymphocytes # (Auto) 1.98 K/uL Monocytes # (Auto) 0.71 K/uL Eosinophils # (Auto) 0.15 K/uL Basophils # (Auto) 0.04 K/uL RDW Standard Deviation 54.7 fL RDW Coefficient of Variation 16.3 % Immature Granulocyte % (Auto) 0.8 % Immature Granulocyte # (Auto) 0.05 K/uL Prothrombin Time 37.5 SECONDS Prothromb Time International Ratio 3.3 Sodium Level 135 mmol/L Potassium Level 4.3 mmol/L Chloride Level 101 mmol/L Carbon Dioxide Level 24 mmol/L Anion Gap 10.0 mmol/L Blood Urea Nitrogen 9 mg/dl Creatinine 0.70 mg/dl Est Creatinine Clear Calc Drug Dose 66.4 ml/min Estimated GFR () 98.2 Estimated GFR (Non- 84.8 BUN/Creatinine Ratio 12.1 Random Glucose 105 mg/dl Calcium Level 8.3 mg/dl Magnesium Level 2.3 mg/dl Total Bilirubin 0.2 mg/dl Direct Bilirubin < 0.1 mg/dl Aspartate Amino Transf (AST/SGOT) 17 U/L Alanine Aminotransferase (ALT/SGPT) 32 U/L Alkaline Phosphatase 83 U/L Total Protein 7.0 gm/dl Albumin 2.7 gm/dl Assessment and Plan Patient with septic right TKA with Haemophilus Influenzae and gram negative sepsis. Repeat blood cultures showed no growth today, but final repeat culture pending. The patient is on IV Ceftriaxone 2 g daily. She likely will need 6 weeks of IV therapy due to septic joint. PICC line in place. Patient may require a pacemaker to be placed due to continued arrhythmia. Due to patient's bacteremia on admission with H. Flu, would prefer to wait at least a few weeks for placement. Will repeat blood culture to ensure clearance of bacteremia incase pacemaker placement is necessary sooner than later. We will follow. PROVIDER ADDENDUM: Patient reviewed with Ms. Christensen. Agree with above assessment.
--- NOTE | 2016-06-11 18:41 | Cardiology Follow-Up ---
Subjective Date of Service: Jun 11, 2016. Pt evaluation today including: conversation w/ patient, physical exam, lab review, review of studies, review of inpatient medication list History of Present Illness This is a very pleasant 75-year-old woman who has a history of hypercholesterolemia, factor V Leiden mutation as well as a history of DVT. She also has DJD and has had surgery on her right knee on 09/08/2014. Her cardiac history is notable for a history of paroxysmal atrial tachycardia which was observed in the emergency room when she presented with DVT. She is on chronic anticoagulation with warfarin due to her factor V Leiden mutation as well as her DVT, she is never had a pulmonary embolism. At the time of her surgery in August 2014 she was observed to have an irregular and rapid heart rate, it is not clear whether this represented an atrial tachycardia or paroxysmal atrial fibrillation. She was having symptomatic palpitations in any case therefore we started flecainide 50 mg twice a day 10/21. Since she was already anticoagulated for other reasons we did not make a vigorous attempt to determine whether she has atrial fibrillation or atrial tachycardia. She is admitted now feeling poorly and had cellulitis of her left arm as well as pain in her right knee. She was not aware of having palpitations or her arrhythmia at the time of presentation. She was however observed to have her atrial arrhythmia after admission, on her electrocardiogram from 06/04/2016 at 5 AM she is in what does appear to be atrial fibrillation with a heart rate of about 147 bpm. This converted back to normal at around 8:30 the same morning, therefore it lasted about 3-1/2 hours. The rate was quite fast during the arrhythmia. She believe she may have missed 2 doses of flecainide leading up to the arrhythmia. I gave her an extra 50 mg of flecainide and she went through her surgery without difficulty. This morning at around 6 AM she went back into atrial fibrillation with average heart rate of about 150 bpm. I increased her flecainide to 100 mg twice a day and she has continued to have intermittent atrial fibrillation with a somewhat rapid heart rate. On flecainide 100 mg twice a day she did not have good control of her arrhythmia therefore we discontinued it and tried a strategy of rate control. With addition of diltiazem her rate was perhaps a little bit better but still she had elevated heart rates during early frequent episodes of atrial fibrillation, however she also had an abnormal sinus node recovery time with a prolonged pause following termination of her atrial arrhythmia (as long as 4 seconds). She remains on diltiazem 180 mg daily, she has not had difficulty with pauses on that dose but has not had good rate control. I therefore started IV amiodarone to see if we could control her AF without too much bradycardia. She feels well today other than knee pain. No CV complaints. Social History Smoking Status: Never Smoker History of Alcohol Use: No (wine - occasionally) Review of Systems Respiratory: No dyspnea at rest, No shortness of breath Cardiac: No chest pain, No edema, No palpitations Right knee discomfort Medications Cardiovascular: Item Value Date Time Warfarin Sodium 2 mg 06/11/16 1600 (Coumadin Tab) DAILY@16/PO Amiodarone HCL/ 200 ml @ 16.7 mls/hr 06/10/16 1720 Dextrose .[id number]/IV 06/11/16 1642 Diltiazem HCl 180 mg 06/10/16 0900 (Cardizem Cd Cap) QAM/PO 06/11/16 0746 Objective Vital Signs Past 12 Hours Date Time Temp Pulse Resp B/P Pulse Ox O2 Delivery O2 Flow Rate FiO2 06/11/16 16:08 37.0 72 16 134/78 97 06/11/16 16:00 Room Air 06/11/16 14:30 Room Air 06/11/16 12:44 36.3 73 18 147/73 98 Room Air 06/11/16 12:00 Room Air 06/11/16 08:00 Room Air 06/11/16 07:33 36.7 71 20 143/83 98 Room Air Last Recorded Weight-Kilograms: 76.200 Intake & Output 8-Hour Column 06/10/16 06/11/16 06/11/16 16:00 00:00 08:00 Intake Total 850 ml 1141 ml 318 ml Output Total 1000 ml 1000 ml Balance 850 ml 141 ml -682 ml 24-Hour Column 06/11/16 08:00 Intake Total 2309 ml Output Total 2000 ml Balance 309 ml Physical Exam Constitutional: General Apperance: heathly-appearing Level of Distress: NAD Lungs: Respiratory effort: no dyspnea, good air movement Auscultation: breath sounds normal, no wheezing Cardiovascular: Heart Auscultation: RRR, no murmurs, no rubs, no gallops Peripheral Pulses: Bruits: none appreciated Extremities: no edema Data Laboratory Results: Last 24 Hours Test 06/11/16 00:45 06/11/16 05:25 Troponin I < 0.015 ng/ml < 0.015 ng/ml White Blood Count 6.55 K/uL Red Blood Count 3.28 M/uL Hemoglobin 9.4 g/dL Hematocrit 29.8 % Mean Corpuscular Volume 90.9 fL Mean Corpuscular Hemoglobin 28.7 pg Mean Corpuscular Hemoglobin Concent 31.5 g/dl Platelet Count 513 K/uL Mean Platelet Volume 8.6 fL Neutrophils (%) (Auto) 55.3 % Lymphocytes (%) (Auto) 30.2 % Monocytes (%) (Auto) 10.8 % Eosinophils (%) (Auto) 2.3 % Basophils (%) (Auto) 0.6 % Neutrophils # (Auto) 3.62 K/uL Lymphocytes # (Auto) 1.98 K/uL Monocytes # (Auto) 0.71 K/uL Eosinophils # (Auto) 0.15 K/uL Basophils # (Auto) 0.04 K/uL RDW Standard Deviation 54.7 fL RDW Coefficient of Variation 16.3 % Immature Granulocyte % (Auto) 0.8 % Immature Granulocyte # (Auto) 0.05 K/uL Prothrombin Time 37.5 SECONDS Prothromb Time International Ratio 3.3 Sodium Level 135 mmol/L Potassium Level 4.3 mmol/L Chloride Level 101 mmol/L Carbon Dioxide Level 24 mmol/L Anion Gap 10.0 mmol/L Blood Urea Nitrogen 9 mg/dl Creatinine 0.70 mg/dl Est Creatinine Clear Calc Drug Dose 66.4 ml/min Estimated GFR () 98.2 Estimated GFR (Non- 84.8 BUN/Creatinine Ratio 12.1 Random Glucose 105 mg/dl Calcium Level 8.3 mg/dl Magnesium Level 2.3 mg/dl Total Bilirubin 0.2 mg/dl Direct Bilirubin < 0.1 mg/dl Aspartate Amino Transf (AST/SGOT) 17 U/L Alanine Aminotransferase (ALT/SGPT) 32 U/L Alkaline Phosphatase 83 U/L Total Protein 7.0 gm/dl Albumin 2.7 gm/dl Telemetry reviewed: In SR since around 10AM 06/10/2016, no bradycardia. Assessment and Plan #1. Atrial fibrillation: In the past we weren't sure how much difficulty she had with the arrhythmia, here it seems that she is generally fairly unaware of the arrhythmia and has had it quite frequently. Part of that might be the stress of the situation, but I suspect she has it much more frequently than she realizes. It appears that rate control will not be effective without a pacemaker (4 second pauses with termination of the atrial arrhythmia despite somewhat rapid rates during atrial fibrillation) to support her lower heart rate , implantation of a pacemaker is somewhat problematic with her current infection and we will still need to have her on high doses of medications for rate control during atrial arrhythmias. We opted for a trial of amiodarone to see if that would control her arrhythmia. So far for about 24 hours the amiodarone is working. Continue for a total of about 48 hours before changing to oral. 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 This is worrisome in view of possibly needing a pacemaker. I would prefer to hold off if possible. For now however I' m not going to implant the device, amiodarone may be working to control her arrhythmia. Thank you for allowing me to participate in her care.
[2016-06-11 19:29] VITALS: BP 133/78; PULSE 68; TEMP 36.5; O2SAT 99
[2016-06-11] MEDS: SENNA 8.6 MG TAB PO SCH (20:03)
[2016-06-11] MEDS: SIMVASTATIN 20 MG TAB PO SCH (20:03)
--- NOTE | 2016-06-11 22:24 | Hospitalist Progress Note ---
Hospitalist Progress Note Date of Service Jun 11, 2016. Subjective Pt evaluation today including: conversation w/ patient, physical exam, lab review, conversation w/ car sales consultant (Cardiology) Improving, remains in NSR overnight on amiodarone gtt Constitutional: No fever Cardiovascular: No chest pain All Other Systems: Reviewed and Negative Objective Vital Signs Date Time Temp Pulse Resp B/P Pulse Ox O2 Delivery O2 Flow Rate FiO2 06/11/16 19:29 36.5 68 18 133/78 99 Room Air 06/11/16 16:08 37.0 72 16 134/78 97 06/11/16 16:00 Room Air 06/11/16 14:30 Room Air 06/11/16 12:44 36.3 73 18 147/73 98 Room Air 06/11/16 12:00 Room Air 06/11/16 08:00 Room Air 06/11/16 07:33 36.7 71 20 143/83 98 Room Air 06/11/16 04:00 Room Air 06/11/16 03:00 36.6 75 18 150/78 99 Room Air 06/11/16 00:43 162/83 06/11/16 00:00 Room Air 06/10/16 23:10 36.6 68 18 165/72 99 Room Air Physical Exam General Appearance: WD/WN, no apparent distress Eyes: normal inspection ENT: hearing grossly normal Respiratory/Chest: lungs clear, normal breath sounds, no respiratory distress, no accessory muscle use Cardiovascular: regular rate, rhythm, no edema, no murmur Abdomen: normal bowel sounds, non tender, soft Extremities: + pertinent finding (right knee with wound vac and drain in place , no erythema) Neurologic/Psychiatric: alert, oriented x 3 Skin: normal color, warm/dry, no rash Laboratory Results Last 24 Hours Test 06/11/16 00:45 06/11/16 05:25 Troponin I < 0.015 ng/ml < 0.015 ng/ml White Blood Count 6.55 K/uL Red Blood Count 3.28 M/uL Hemoglobin 9.4 g/dL Hematocrit 29.8 % Mean Corpuscular Volume 90.9 fL Mean Corpuscular Hemoglobin 28.7 pg Mean Corpuscular Hemoglobin Concent 31.5 g/dl Platelet Count 513 K/uL Mean Platelet Volume 8.6 fL Neutrophils (%) (Auto) 55.3 % Lymphocytes (%) (Auto) 30.2 % Monocytes (%) (Auto) 10.8 % Eosinophils (%) (Auto) 2.3 % Basophils (%) (Auto) 0.6 % Neutrophils # (Auto) 3.62 K/uL Lymphocytes # (Auto) 1.98 K/uL Monocytes # (Auto) 0.71 K/uL Eosinophils # (Auto) 0.15 K/uL Basophils # (Auto) 0.04 K/uL RDW Standard Deviation 54.7 fL RDW Coefficient of Variation 16.3 % Immature Granulocyte % (Auto) 0.8 % Immature Granulocyte # (Auto) 0.05 K/uL Prothrombin Time 37.5 SECONDS Prothromb Time International Ratio 3.3 Sodium Level 135 mmol/L Potassium Level 4.3 mmol/L Chloride Level 101 mmol/L Carbon Dioxide Level 24 mmol/L Anion Gap 10.0 mmol/L Blood Urea Nitrogen 9 mg/dl Creatinine 0.70 mg/dl Est Creatinine Clear Calc Drug Dose 66.4 ml/min Estimated GFR () 98.2 Estimated GFR (Non- 84.8 BUN/Creatinine Ratio 12.1 Random Glucose 105 mg/dl Calcium Level 8.3 mg/dl Magnesium Level 2.3 mg/dl Total Bilirubin 0.2 mg/dl Direct Bilirubin < 0.1 mg/dl Aspartate Amino Transf (AST/SGOT) 17 U/L Alanine Aminotransferase (ALT/SGPT) 32 U/L Alkaline Phosphatase 83 U/L Total Protein 7.0 gm/dl Albumin 2.7 gm/dl Assessment and Plan This pt is a 75 yo female with a h/o Right TKA, Bronchitis, Diverticulosis, PUD/ GERD, Hyperlipidemia, Osteoarthritis, Depression/anxiety, PAF, Factor V Leiden def with History of left lower extremity DVT, and Chronic anticoagulation with Coumadin, here with left forearm cellulitis and right septic knee, H. influenzae bacteremia. CELLULITIS left forearm, Right knee Septic arthritis with h/o prosthesis.-Much improved Results of arthrocentesis and BCxs showing H. influenzae. Went for surgical washout and poly exchange on 06/[address] Lazo Orthopedics consult appreciated Continue IV Ceftriaxone --> infectious disease consult recommending 6 weeks of IV abx, PICC line in place. PAROXYSMAL ATRIAL FIBRILLATION with RVR, had 4 second pauses with termination of A-fib into NSR continued with periodic RVR, now in NSR with being on amiodarone gtt Flecainide not helpful so discontinued, EP following -continue amiodarone gtt for rhythm control and switch to po after 48 hours-but may need pacer if not helping -Cardiology increased Cardizem to 180mg daily, recommended sleep study -hold Coumadin for INR 3.3 and follow INR HISTORY OF LEFT LOWER EXTREMITY DVT WITH FACTOR V LEIDEN GENETIC MUTATION Patient chronically on Coumadin Continue Coumadin at this time with INR target 2-3 HYPERLIPIDEMIA Continue statin GERD History of peptic ulcer disease continue PPI DVT PROPHYLAXIS coumadin
[2016-06-12] VITALS (11 sets, daily range): BP systolic 121–166; BP diastolic 63–83; PULSE 65–79; TEMP 36.4–36.8; O2SAT 94–99
[2016-06-12] MEDS: OXYCODONE HCL IR 5 MG TAB (IMMEDIATE RELEASE) PO PRN ×3 (02:12→20:20)
[2016-06-12] MEDS: AMIODARONE / D5W 200 ML IV SCH ×2 (05:09→16:59)
[2016-06-12 06:29] LABS: HEMATOCRIT 30.3 % (37-47); MEAN CELL VOLUME 90.2 fL (80-100); MEAN CORPUSCULAR HEMOGLOBIN 28.9 pg (25-34); MEAN PLATELET VOLUME 8.7 fL (7.4-10.4); PLATELET COUNT 567 K/uL (130-400); RED BLOOD COUNT 3.36 M/uL (4.2-5.4); WHITE BLOOD COUNT 6.88 K/uL (4.8-10.8)
[2016-06-12 07:06] LABS: BUN/CREATININE RATIO 11.1 (10-20); CALCIUM 8.3 mg/dl (8.5-10.1); CREATININE 0.67 mg/dl (0.60-1.20); MAGNESIUM 2.3 mg/dl (1.8-2.4); POTASSIUM 4.1 mmol/L (3.5-5.1)
[2016-06-12] MEDS: DOCUSATE SODIUM 100 MG CAP PO SCH ×2 (08:00→20:15)
[2016-06-12] MEDS: FERROUS GLUCONATE 324 MG TAB PO SCH ×3 (08:00→16:59)
[2016-06-12] MEDS: DILTIAZEM HCL 180 MG CAPCR PO SCH (08:00)
[2016-06-12] MEDS: PANTOprazole SOD 40 MG TAB PO SCH (08:01)
[2016-06-12] MEDS: OXYCODONE HCL 10 MG TABCR (OXYCONTIN) PO SCH ×2 (08:05→20:19)
[2016-06-12 09:19] LABS: INR 2.8 (0.9-1.1); PROTHROMBIN TIME (PATIENT) 30.8 SECONDS (9.0-12.0)
[2016-06-12] MEDS: CEFTRIAXONE SOD INJ 2,000 MG in DEXTROSE 5% 50ML 50 ML IV SCH (11:53)
[2016-06-12] MEDS: CLONAZEPAM 0.5 MG TAB PO SCH (11:53)
[2016-06-12] MEDS: WARFARIN SOD 2.5 MG TAB PO SCH (15:49)
[2016-06-12] MEDS ORDERED: AMIODARONE 200 MG TAB PO ONE (19:15)
[2016-06-12] MEDS: SIMVASTATIN 20 MG TAB PO SCH (20:16)
[2016-06-12] MEDS: SENNA 8.6 MG TAB PO SCH (20:16)
--- NOTE | 2016-06-12 21:38 | Hospitalist Progress Note ---
Hospitalist Progress Note Date of Service Jun 12, 2016. Subjective Pt evaluation today including: conversation w/ patient, physical exam, lab review, review of inpatient medication list Pt doing well, no more a-fib, had wound vac removed. Constitutional: No fever Respiratory: No shortness of breath Cardiovascular: No chest pain All Other Systems: Reviewed and Negative Objective Vital Signs Date Time Temp Pulse Resp B/P Pulse Ox O2 Delivery O2 Flow Rate FiO2 06/12/16 20:00 96 Room Air 06/12/16 19:39 36.8 69 18 148/78 99 Room Air 06/12/16 16:00 96 Room Air 06/12/16 15:38 36.8 79 18 121/63 96 06/12/16 12:00 96 Room Air 06/12/16 11:50 36.5 72 18 129/64 98 06/12/16 10:56 Room Air 06/12/16 08:00 96 Room Air 06/12/16 07:46 36.4 68 16 139/83 96 Room Air 06/12/16 04:15 36.5 65 16 132/75 96 Room Air 06/12/16 04:15 Room Air 06/12/16 00:02 36.6 66 20 152/79 94 Room Air 06/12/16 00:00 Room Air Physical Exam General Appearance: WD/WN, no apparent distress Eyes: normal inspection, sclerae normal Respiratory/Chest: lungs clear, normal breath sounds, no respiratory distress, no accessory muscle use Cardiovascular: regular rate, rhythm, no edema, no murmur Abdomen: normal bowel sounds, non tender, soft Extremities: no pedal edema, no calf tenderness, + pertinent finding (right knee with parul in place, no erythema) Neurologic/Psychiatric: alert, oriented x 3 Skin: normal color, warm/dry, no rash Laboratory Results Last 24 Hours Test 06/12/16 05:24 06/12/16 08:36 White Blood Count 6.88 K/uL Red Blood Count 3.36 M/uL Hemoglobin 9.7 g/dL Hematocrit 30.3 % Mean Corpuscular Volume 90.2 fL Mean Corpuscular Hemoglobin 28.9 pg Mean Corpuscular Hemoglobin Concent 32.0 g/dl RDW Standard Deviation 53.1 fL RDW Coefficient of Variation 16.1 % Platelet Count 567 K/uL Mean Platelet Volume 8.7 fL Sodium Level 138 mmol/L Potassium Level 4.1 mmol/L Chloride Level 100 mmol/L Carbon Dioxide Level 27 mmol/L Anion Gap 11.0 mmol/L Blood Urea Nitrogen 7 mg/dl Creatinine 0.67 mg/dl Est Creatinine Clear Calc Drug Dose 69.0 ml/min Estimated GFR () 99.7 Estimated GFR (Non- 86.0 BUN/Creatinine Ratio 11.1 Random Glucose 98 mg/dl Calcium Level 8.3 mg/dl Magnesium Level 2.3 mg/dl Prothrombin Time 30.8 SECONDS Prothromb Time International Ratio 2.8 Assessment and Plan This pt is a 75 yo female with a h/o Right TKA, Bronchitis, Diverticulosis, PUD/ GERD, Hyperlipidemia, Osteoarthritis, Depression/anxiety, PAF, Factor V Leiden def with History of left lower extremity DVT, and Chronic anticoagulation with Coumadin, here with left forearm cellulitis and right septic knee, H. influenzae bacteremia. CELLULITIS left forearm, Right knee Septic arthritis with h/o prosthesis.-Much improved Results of arthrocentesis and BCxs showing H. influenzae. Went for surgical washout and poly exchange on 06/[address] Lazo Orthopedics consult appreciated Continue IV Ceftriaxone --> infectious disease consult recommending 6 weeks of IV abx through 07/18/16, PICC line in place. -plan for dc to [facility] tomorrow PAROXYSMAL ATRIAL FIBRILLATION with RVR, had 4 second pauses with termination of A-fib into NSR continued with periodic RVR, now in NSR with being on amiodarone gtt Flecainide not helpful so discontinued, EP following -switch to po amiodarone for rhythm control -Cardiology increased Cardizem to 180mg daily -recommended sleep study eventually -continue coumadin for AC and follow INR -f/u with EP/Dr. Bolanos in office in 3-4 weeks HISTORY OF LEFT LOWER EXTREMITY DVT WITH FACTOR V LEIDEN GENETIC MUTATION Patient chronically on Coumadin Continue Coumadin at this time with INR target 2-3 HYPERLIPIDEMIA Continue statin GERD History of peptic ulcer disease continue PPI DVT PROPHYLAXIS coumadin DISPO-to [facility] tomorrow
[2016-06-13] VITALS (9 sets, daily range): BP systolic 116–148; BP diastolic 67–78; PULSE 64–154; TEMP 36.5–36.9; O2SAT 95–99
[2016-06-13] MEDS ORDERED: DILTIAZEM BOLUS / DRIP IV STA (02:47)
[2016-06-13] MEDS ORDERED: DILTIAZEM HCL INJ 125 MG in DEXTROSE 5% 100ML IV PRN (04:30)
[2016-06-13 05:55] LABS: INR 2.8 (0.9-1.1); PROTHROMBIN TIME (PATIENT) 31.4 SECONDS (9.0-12.0)
[2016-06-13 06:17] LABS: BUN/CREATININE RATIO 12.3 (10-20); CALCIUM 8.1 mg/dl (8.5-10.1); CREATININE 0.74 mg/dl (0.60-1.20); POTASSIUM 3.9 mmol/L (3.5-5.1)
[2016-06-13 06:44] LABS: BASO % 0.7 %; BASO ABS # 0.05 K/uL (0-0.2); COMPLETE YES; EOS % 2.5 %; HEMATOCRIT 30.4 % (37-47); IG% 0.4 %; LYMPH % 34.4 %; LYMPH ABS # 2.52 K/uL (1.2-3.4); MEAN CELL VOLUME 88.9 fL (80-100); MEAN CORPUSCULAR HEMOGLOBIN 28.4 pg (25-34); MEAN CORPUSCULAR HGB CONC 31.9 g/dl (32-36); MEAN PLATELET VOLUME 8.7 fL (7.4-10.4); MONO % 12.4 %; NEUT % 49.6 %; PLATELET COUNT 609 K/uL (130-400); RED BLOOD COUNT 3.42 M/uL (4.2-5.4); WHITE BLOOD COUNT 7.33 K/uL (4.8-10.8)
[2016-06-13] MEDS: OXYCODONE HCL IR 5 MG TAB (IMMEDIATE RELEASE) PO PRN (07:32)
[2016-06-13] MEDS: FERROUS GLUCONATE 324 MG TAB PO SCH ×3 (07:33→16:36)
[2016-06-13] MEDS: PANTOprazole SOD 40 MG TAB PO SCH (08:46)
[2016-06-13] MEDS: DOCUSATE SODIUM 100 MG CAP PO SCH (08:48)
[2016-06-13] MEDS: OXYCODONE HCL 10 MG TABCR (OXYCONTIN) PO SCH (08:50)
[2016-06-13] MEDS ORDERED: AMIODARONE 200 MG TAB PO SCH (09:00)
[2016-06-13] MEDS: DILTIAZEM HCL 180 MG CAPCR PO SCH (09:18)
--- NOTE | 2016-06-13 10:56 | Infectious Disease Progress Nt ---
Progress Note Date of Service Jun 13, 2016. Subjective Pt evaluation today including: conversation w/ patient, physical exam, chart review, lab review, review of studies, review of inpatient medication list WBC count 7.33. Repeat blood cultures showing NGTD. Patient is feeling well today. She is improving and is currently doing PT while I'm in the room. She is anticipating D/C today or tomorrow if her heart rhythms continue to be controlled. She has a PICC line in place. She is fatigued from PT and continues to have some mild nausea if she eats too much. All Other Systems: Reviewed and Negative Medications Current Inpatient Medications Medications (Trade) Dose Ordered Sig/Stephy Route Start Time Stop Time Status Last Admin Dose Admin Acetaminophen (Tylenol Tab) 650 mg Q4H PRN PO 06/03/16 18:00 07/03/16 17:59 06/11/16 15:45 650 MG Ondansetron HCl (Zofran Inj) 4 mg Q6H PRN IV 06/03/16 16:30 07/03/16 16:29 06/11/16 08:59 4 MG Polyethylene (Miralax Powder Packet) 17 gm DAILY PRN PO 06/03/16 16:30 07/03/16 16:29 06/06/16 09:36 17 GM Morphine Sulfate (MoRPHine SULFATE INJ) 2 mg Q4HWA PRN IV 06/03/16 16:30 06/17/16 16:29 06/05/16 20:47 2 MG Oxycodone HCl (Roxicodone Immediate Rel Tab) @ Q4HWA PRN PO 06/03/16 17:00 06/17/16 16:59 06/13/16 07:32 10 MG Clonazepam (Klonopin Tab) 0.5 mg QDL PO 06/04/16 11:30 07/04/16 11:59 06/12/16 11:53 0.5 MG Simvastatin (Zocor Tab) 20 mg QPM PO 06/03/16 21:00 07/03/16 20:59 06/12/16 20:16 20 MG Pantoprazole Sodium (Protonix Tab) 40 mg QAM PO 06/04/16 09:00 07/04/16 08:59 06/13/16 08:46 40 MG Morphine Sulfate (MoRPHine SULFATE INJ) 4 mg Q4HWA PRN IV 06/03/16 17:30 06/17/16 17:29 06/09/16 03:06 4 MG Morphine Sulfate 6 mg 6 mg Q4HWA PRN IV 06/03/16 17:30 06/17/16 17:29 06/06/16 10:52 6 MG Acetaminophen/ Empty Bag (Ofirmev IV/ Empty Iv Bag 100ml) 65 ml @ 260 mls/hr Q6H PRN IV 06/04/16 03:45 07/04/16 03:44 06/04/16 03:51 260 MLS/HR Oxycodone HCl (Oxycontin Tab) 10 mg Q12 PO 06/04/16 21:00 06/18/16 20:59 06/13/16 08:50 10 MG Magnesium Hydroxide (Milk Of Magnesia Susp) 30 ml Q6H PRN PO 06/04/16 17:00 07/04/16 16:59 06/06/16 09:36 30 ML Bisacodyl (Dulcolax Supp) 10 mg DAILY PRN NC 06/04/16 17:00 07/04/16 16:59 06/06/16 19:24 10 MG Senna (Senokot Tab) 17.2 mg HS PO 06/04/16 21:00 07/04/16 20:59 06/12/16 20:16 17.2 MG Docusate Sodium (coLACE CAP) 100 mg BID PO 06/04/16 21:00 07/04/16 20:59 06/13/16 08:48 100 MG Diphenhydramine HCl (Benadryl Inj) 25 mg Q8H PRN IV 06/04/16 17:00 07/04/16 16:59 Al Hydrox/Mg Hydrox/Simethicone (Maalox Max Susp) 15 ml Q4H PRN PO 06/04/16 17:00 07/04/16 16:59 Ferrous Gluconate 324 mg 324 mg TIDM PO 06/05/16 07:30 07/05/16 07:29 06/13/16 07:33 324 MG Ceftriaxone Sodium/Dextrose (Rocephin Inj/D5 50ml) 70 ml @ 100 mls/hr Q24H IV 06/06/16 12:00 06/20/16 11:59 06/12/16 11:53 100 MLS/HR Heparin Sodium (Porcine) (Heparin 10 Unit/ ml 5 ml Flush) 5 ml PRN PRN FLUSH 06/08/16 13:45 07/08/16 13:44 06/12/16 19:46 5 ML Metoprolol Tartrate (Lopressor Iv) 5 mg Q4 PRN IV 06/09/16 02:30 07/09/16 02:29 06/10/16 04:54 5 MG Diltiazem HCl (Cardizem Cd Cap) 180 mg QAM PO 06/10/16 09:00 07/10/16 08:59 06/13/16 09:18 180 MG Menthol (Nice Britney) 1 britney PRN PRN PO 06/09/16 17:45 07/09/16 17:44 06/09/16 17:50 1 BRITNEY Al Hydroxide/Mg Trisilicate (Gaviscon Chew Tab) 2 tab Q6H PRN PO 06/11/16 00:30 07/11/16 00:29 06/11/16 00:45 2 TAB Warfarin Sodium (Coumadin Tab) 2 mg DAILY@16 PO 06/11/16 16:00 07/11/16 15:59 06/12/16 15:49 2 MG Amiodarone HCl (Cordarone Tab) 400 mg DAILY PO 06/13/16 09:00 07/13/16 08:59 06/13/16 08:48 400 MG Objective Vital Signs Date Time Temp Pulse Resp B/P Pulse Ox O2 Delivery O2 Flow Rate FiO2 06/13/16 08:00 97 Room Air 06/13/16 07:00 36.9 67 18 129/77 97 Room Air 06/13/16 04:00 36.5 127 20 116/72 98 Room Air 06/13/16 04:00 Room Air 06/13/16 03:45 135 127/67 06/13/16 03:30 154 18 135/78 95 Room Air 06/13/16 00:00 Room Air 06/12/16 23:53 36.6 74 18 166/74 98 Room Air 06/12/16 20:00 96 Room Air 06/12/16 19:39 36.8 69 18 148/78 99 Room Air 06/12/16 16:00 96 Room Air 06/12/16 15:38 36.8 79 18 121/63 96 3/1/17 12:00 96 Room Air 06/12/16 11:50 36.5 72 18 129/64 98 06/12/16 10:56 Room Air Physical Exam General Appearance: WD/WN, no apparent distress Eyes: normal inspection, sclerae normal ENT: hearing grossly normal Neck: supple, trachea midline Respiratory/Chest: no respiratory distress, no accessory muscle use Cardiovascular: regular rate, rhythm Extremities: + pertinent finding (healing surgical incision over right knee. Moving well. ) Neurologic/Psychiatric: alert, normal mood/affect Skin: warm/dry, no rash Laboratory Results Item Value Date Time Blood Culture - Preliminary Resulted 06/10/16 1154 Blood NO GROWTH TO DATE. Blood Culture - Preliminary Resulted 06/10/16 1146 Blood NO GROWTH TO DATE. Last 24 Hours Test 06/13/16 05:02 White Blood Count 7.33 K/uL Red Blood Count 3.42 M/uL Hemoglobin 9.7 g/dL Hematocrit 30.4 % Mean Corpuscular Volume 88.9 fL Mean Corpuscular Hemoglobin 28.4 pg Mean Corpuscular Hemoglobin Concent 31.9 g/dl Platelet Count 609 K/uL Mean Platelet Volume 8.7 fL Neutrophils (%) (Auto) 49.6 % Lymphocytes (%) (Auto) 34.4 % Monocytes (%) (Auto) 12.4 % Eosinophils (%) (Auto) 2.5 % Basophils (%) (Auto) 0.7 % Neutrophils # (Auto) 3.64 K/uL Lymphocytes # (Auto) 2.52 K/uL Monocytes # (Auto) 0.91 K/uL Eosinophils # (Auto) 0.18 K/uL Basophils # (Auto) 0.05 K/uL RDW Standard Deviation 52.8 fL RDW Coefficient of Variation 16.2 % Immature Granulocyte % (Auto) 0.4 % Immature Granulocyte # (Auto) 0.03 K/uL Prothrombin Time 31.4 SECONDS Prothromb Time International Ratio 2.8 Sodium Level 140 mmol/L Potassium Level 3.9 mmol/L Chloride Level 103 mmol/L Carbon Dioxide Level 29 mmol/L Anion Gap 8.0 mmol/L Blood Urea Nitrogen 9 mg/dl Creatinine 0.74 mg/dl Est Creatinine Clear Calc Drug Dose 62.2 ml/min Estimated GFR () 91.9 Estimated GFR (Non- 79.3 BUN/Creatinine Ratio 12.3 Random Glucose 103 mg/dl Calcium Level 8.1 mg/dl Assessment and Plan Patient with septic right TKA with Haemophilus Influenzae and gram negative sepsis. Repeat blood cultures showed no growth. The patient is on IV Ceftriaxone 2 g daily. She will need to complete 6 weeks of IV therapy due to septic joint, and then she will need chronic suppressive therapy following D/C of IV abx. PICC line in place. Patient is OK for D/C from ID perspective and should follow up in 1-2 weeks. Thanks PROVIDER ADDENDUM: Patient reviewed with Ms. Christensen. Agree with above assessment.
[2016-06-13] MEDS: CLONAZEPAM 0.5 MG TAB PO SCH (12:06)
[2016-06-13] MEDS: CEFTRIAXONE SOD INJ 2,000 MG in DEXTROSE 5% 50ML 50 ML IV SCH ×2 (12:07→13:22)
[2016-06-13] MEDS ORDERED: [UNRECOGNIZED DRUG - CODE] IV (13:21)
[2016-06-13] MEDS ORDERED: CLC100 PO (13:21)
[2016-06-13] MEDS ORDERED: OXYSR10 PO (13:21)
[2016-06-13] MEDS ORDERED: SNK PO (13:21)
[2016-06-13] MEDS ORDERED: RXC5 PO (13:21)
[2016-06-13] MEDS ORDERED: MRLP17X PO (13:21)
[2016-06-13] MEDS ORDERED: CRDCD180 PO (13:21)
[2016-06-13] MEDS ORDERED: WARF4TAB44 PO (13:21)
[2016-06-13] MEDS ORDERED: CRD200 PO (13:21)
--- NOTE | 2016-06-13 16:12 | Discharge Instructions ---
Discharge Instructions Admission Reason for Admission: Right TKA septic joint, cellulitis Discharge Discharge Diagnosis / Problem: Right TKA septic joint, cellulitis, atrial fibrillation Discharge Goals Goal(s): Improve disease control, Therapeutic intervention Activity Recommendations Activity Limitations: as noted below (as per Ortho instructions) . Instructions / Follow-Up Instructions / Follow-Up You were admitted for cellulitis of the left arm and an infected right knee which required surgical drainage and washout. You will need to remain on IV antibiotics for a total of 6 weeks for this including then time spent in the hospital. You will go to the [facility] every day to receive your antibiotics. Please follow up with SUE Wick from Infectious Disease as scheduled. You will need to have lab work done each week while on antibiotics with the next labs to be drawn on 06/17/16. Your coumadin level (INR) will also need to be checked with this bloodwork each week. Please also follow up with Orthopedics as scheduled. You were given a prescription for outpatient PT and can choose a place and schedule this on your own. While hospitalized, you did have some episodes of rapid atrial fibrillation and your cardiac medications were adjusted. You were started on a new medication called amiodarone and this will need to be continued as directed by Cardiology. Please follow up with Dr. Bolanos as scheduled. Current Hospital Diet Patient's current hospital diet: AHA Diet (Heart Healthy) Discharge Diet Recommended Diet: AHA Diet (Heart Healthy) Procedures Procedures Performed: Incision and drainage total knee, synovectomy and poly exchange, right knee Multiple chest xrays Knee xrays Pelvis xray Echocardiogram Pending Studies Studies pending at discharge: yes List of pending studies: Final blood culture results from 06/10/16 Medical Emergencies . Who to Call and When: Medical Emergencies: If at any time you feel your situation is an emergency, please call 911 immediately. . Non-Emergent Contact Non-Emergency issues call your: Primary Care Provider, Surgeon Call Non-Emergent contact if: you have a fever, your pain is not controlled, your pain is worsening, your pain is unusual for you, your pain is concerning you, wound has increased drainage, wound has increased redness, wound has increased pain, you have any medication questions . . "Provider Documentation" section prepared by Natacha Wadsworth. VTE Core Measure Inpt VTE Proph given/why not?: Warfarin (Coumadin)[place] Stockings, SCD's [place] Drug Monitoring Program Search Results: patient reviewed within database, no issues identified
[2016-06-13] MEDS: WARFARIN SOD 2.5 MG TAB PO SCH (16:36)
--- NOTE | 2016-06-13 17:32 | Cardiology Follow-Up ---
Subjective Date of Service: Jun 13, 2016. Pt evaluation today including: conversation w/ patient, physical exam, lab review, review of studies, review of inpatient medication list, conversation w/ attending History of Present Illness This is a very pleasant 75-year-old woman who has a history of hypercholesterolemia, factor V Leiden mutation as well as a history of DVT. She also has DJD and has had surgery on her right knee on 09/08/2014. Her cardiac history is notable for a history of paroxysmal atrial tachycardia which was observed in the emergency room when she presented with DVT. She is on chronic anticoagulation with warfarin due to her factor V Leiden mutation as well as her DVT, she is never had a pulmonary embolism. At the time of her surgery in August 2014 she was observed to have an irregular and rapid heart rate, it is not clear whether this represented an atrial tachycardia or paroxysmal atrial fibrillation. She was having symptomatic palpitations in any case therefore we started flecainide 50 mg twice a day 10/21. Since she was already anticoagulated for other reasons we did not make a vigorous attempt to determine whether she has atrial fibrillation or atrial tachycardia. She is admitted now feeling poorly and had cellulitis of her left arm as well as pain in her right knee. She was not aware of having palpitations or her arrhythmia at the time of presentation. She was however observed to have her atrial arrhythmia after admission, on her electrocardiogram from 06/04/2016 at 5 AM she is in what does appear to be atrial fibrillation with a heart rate of about 147 bpm. This converted back to normal at around 8:30 the same morning, therefore it lasted about 3-1/2 hours. The rate was quite fast during the arrhythmia. She believe she may have missed 2 doses of flecainide leading up to the arrhythmia. I gave her an extra 50 mg of flecainide and she went through her surgery without difficulty. This morning at around 6 AM she went back into atrial fibrillation with average heart rate of about 150 bpm. I increased her flecainide to 100 mg twice a day and she has continued to have intermittent atrial fibrillation with a somewhat rapid heart rate. On flecainide 100 mg twice a day she did not have good control of her arrhythmia therefore we discontinued it and tried a strategy of rate control. With addition of diltiazem her rate was perhaps a little bit better but still she had elevated heart rates during early frequent episodes of atrial fibrillation, however she also had an abnormal sinus node recovery time with a prolonged pause following termination of her atrial arrhythmia (as long as 4 seconds). She remains on diltiazem 180 mg daily, she has not had difficulty with pauses on that dose but has not had good rate control. I therefore started IV amiodarone to see if we could control her AF without too much bradycardia. This didn't seem to work for 48 hours, then with discontinuation of her IV amiodarone she had recurrent atrial fibrillation last evening. This is not unexpected. That converted back to normal rhythm. She feels well today other than knee pain. No CV complaints. Social History Smoking Status: Never Smoker History of Alcohol Use: No (wine - occasionally) Review of Systems Respiratory: No shortness of breath Cardiac: No chest pain Right knee discomfort Objective Vital Signs Past 12 Hours Date Time Temp Pulse Resp B/P Pulse Ox O2 Delivery O2 Flow Rate FiO2 06/13/16 16:22 36.6 64 18 97 Room Air 06/13/16 16:00 97 Room Air 06/13/16 12:00 97 Room Air 06/13/16 11:59 36.6 64 18 148/76 99 06/13/16 08:00 97 Room Air 06/13/16 07:00 36.9 67 18 129/77 97 Room Air Last Recorded Weight-Kilograms: 74.700 Intake & Output 8-Hour Column 06/12/16 06/13/16 06/13/16 16:00 00:00 08:00 Intake Total 462 ml 461 ml 139 ml Output Total 450 ml 900 ml 650 ml Balance 12 ml -439 ml -511 ml 24-Hour Column 06/13/16 08:00 Intake Total 1062 ml Output Total 2000 ml Balance -938 ml Physical Exam Constitutional: General Apperance: heathly-appearing Level of Distress: NAD Lungs: Respiratory effort: no dyspnea, good air movement Auscultation: breath sounds normal, no wheezing Cardiovascular: Heart Auscultation: RRR, no murmurs, no rubs, no gallops Peripheral Pulses: Bruits: none appreciated Extremities: no edema Data Laboratory Results: Last 24 Hours Test 06/13/16 05:02 White Blood Count 7.33 K/uL Red Blood Count 3.42 M/uL Hemoglobin 9.7 g/dL Hematocrit 30.4 % Mean Corpuscular Volume 88.9 fL Mean Corpuscular Hemoglobin 28.4 pg Mean Corpuscular Hemoglobin Concent 31.9 g/dl Platelet Count 609 K/uL Mean Platelet Volume 8.7 fL Neutrophils (%) (Auto) 49.6 % Lymphocytes (%) (Auto) 34.4 % Monocytes (%) (Auto) 12.4 % Eosinophils (%) (Auto) 2.5 % Basophils (%) (Auto) 0.7 % Neutrophils # (Auto) 3.64 K/uL Lymphocytes # (Auto) 2.52 K/uL Monocytes # (Auto) 0.91 K/uL Eosinophils # (Auto) 0.18 K/uL Basophils # (Auto) 0.05 K/uL RDW Standard Deviation 52.8 fL RDW Coefficient of Variation 16.2 % Immature Granulocyte % (Auto) 0.4 % Immature Granulocyte # (Auto) 0.03 K/uL Prothrombin Time 31.4 SECONDS Prothromb Time International Ratio 2.8 Sodium Level 140 mmol/L Potassium Level 3.9 mmol/L Chloride Level 103 mmol/L Carbon Dioxide Level 29 mmol/L Anion Gap 8.0 mmol/L Blood Urea Nitrogen 9 mg/dl Creatinine 0.74 mg/dl Est Creatinine Clear Calc Drug Dose 62.2 ml/min Estimated GFR () 91.9 Estimated GFR (Non- 79.3 BUN/Creatinine Ratio 12.3 Random Glucose 103 mg/dl Calcium Level 8.1 mg/dl Telemetry reviewed: Sinus rhythm with an episode of atrial fibrillation with moderately rapid ventricular response last evening. Sinus rhythm today. Assessment and Plan #1. Atrial fibrillation: In the past we weren't sure how much difficulty she had with the arrhythmia, here it seems that she is generally fairly unaware of the arrhythmia and has had it quite frequently. Part of that might be the stress of the situation, but I suspect she has it much more frequently than she realizes. It appears that rate control will not be effective without a pacemaker (4 second pauses with termination of the atrial arrhythmia despite somewhat rapid rates during atrial fibrillation) to support her lower heart rate , implantation of a pacemaker is somewhat problematic with her current infection and we will still need to have her on high doses of medications for rate control during atrial arrhythmias. We opted for a trial of amiodarone to see if that would control her arrhythmia. This appeared to work while she was on intravenous amiodarone, however with discontinuation and starting oral she had recurrence. Her level would've been low and this is not unexpected. I would recommend continuing oral amiodarone 400 mg daily and aspirin level rises hopefully will have suppression of her arrhythmia. She should continue with anticoagulation. I'm very reluctant to increase her AV horacio blocking medications given her difficulty with bradycardia in the past. 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 This is worrisome in view of possibly needing a pacemaker. I would prefer to hold off if possible. For now however I' m not going to implant the device, amiodarone may be working adequately to control her arrhythmia. Thank you for allowing me to participate in her care.
--- NOTE | 2016-06-20 15:00 | Discharge Summary ---
Discharge Summary Date of Service Jun 13, 2016. Discharge Summary Admission Date: Jun 03, 2016 at 16:19 Discharge Date: Jun 13, 2016 Discharge Disposition: Home Principal Diagnosis: Right knee septic joint, Haemaophilus influenza bacteremia , A-fib w/ RVR Problems/Secondary Diagnoses: Left forearm cellulitis Haemophilus influenzae bacteremia H/o Right TKA Diverticulosis PUD/GERD Hyperlipidemia Osteoarthritis Depression/anxiety PAF w/ RVR Factor V Leiden def with History of left lower extremity DVT Chronic anticoagulation Immunizations: Have You Had Influenza Vaccine: No History of Tetanus Vaccine?: No History of Pneumococcal: Yes History of Hepatitis B Vaccine: No Procedures: Incision and drainage total knee, synovectomy and poly exchange, right knee Multiple chest xrays Knee xrays Pelvis xray Echocardiogram Consultations: Orthopedics Cardiology Infectious Disease Medication Reconciliation New Medications: Ceftriaxone Sodium (Bulk) (Ceftriaxone Sodium) 1 Pow Pow 2 GM IV DAILY for 35 Days to be given at [facility] Amiodarone HCl (Amiodarone HCl) 200 Mg Tab 400 MG PO DAILY for 30 Days, #60 TAB Diltiazem HCl (Diltiazem HCl ER) 180 Mg Capcr 180 MG PO QAM for 30 Days, #30 CAP Docusate Sodium (Docusate Sodium) 100 Mg Cap 100 MG PO BID for 30 Days, #60 CAP Oxycodone HCl (Oxycontin) 10 Mg Tabcr 10 MG PO Q12 for 7 Days, #14 TAB Oxycodone HCl (Oxycodone HCl) 5 Mg Tab 5-10 MG PO Q4HWA PRN for Pain for 7 Days, #40 TAB Polyethylene (Miralax) 17 Gm Pow 17 GM PO DAILY PRN for Constipation for 30 Days Senna (Senna Lax) 8.6 Mg Tab 17.2 MG PO HS for 30 Days, TAB Changed Medications: Warfarin Sodium (Warfarin Sodium) 1 Mg Tab 2 TAB PO DAILY for 30 Days, #60 TAB (Changed from: 1.5 TAB; 135; 90) Continued Medications: Acetaminophen (Tylenol) 325 Mg Tab 650 MG PO DAILY, TAB Aluminum Hydroxide-Mag Trisil (Gaviscon) 1 Chw Chw 3 TAB PO DAILY PRN for PRN Clonazepam (Klonopin) 0.5 Mg Tab 0.5 MG PO QDL, TAB Cyanocobalamin (Vitamin B12) 1,000 Mcg Tab 2500 MCG PO QAM Ferrous Gluconate (Ferrous Gluconate) 324 Mg Tab 324 MG PO DAILY Melatonin-Pyridoxine (Melatonin) 1 Tab Tab 5 MG PO HS Omeprazole (Prilosec) 20 Mg Capcr 20 MG PO BID PRN for HEART BURN, CAP USUALLY LUNCH TIME AND IN THE EVENING Simvastatin (Zocor) 20 Mg Tab 20 MG PO QPM Discontinued Medications: Celecoxib (CeleBREX) 200 Mg Cap 200 MG PO BID, CAP Flecainide Acetate (Flecainide Acetate) 100 Mg Tab 50 MG PO Q12, #60 TAB Discharge Exam ROS: Constitutional: No fever Respiratory: No shortness of breath Cardiovascular: No chest pain All Other Systems: Reviewed and Negative PHYSICAL EXAM: Vitals reviewed General Appearance: WD/WN, no apparent distress Eyes: normal inspection, sclerae normal Respiratory/Chest: lungs clear, normal breath sounds, no respiratory distress, no accessory muscle use Cardiovascular: regular rate, rhythm, no edema, no murmur Abdomen: normal bowel sounds, non tender, soft Extremities: no pedal edema, no calf tenderness, + pertinent finding (right knee with parul in place, no erythema) Neurologic/Psychiatric: alert, oriented x 3 Skin: normal color, warm/dry, no rash Hospital Course This pt is a 75 yo female with a h/o Right TKA, Bronchitis, Diverticulosis, PUD/ GERD, Hyperlipidemia, Osteoarthritis, Depression/anxiety, PAF, Factor V Leiden def with History of left lower extremity DVT, and Chronic anticoagulation with Coumadin, here with left forearm cellulitis and right septic knee, H. influenzae bacteremia. CELLULITIS left forearm, Right knee Septic arthritis with h/o prosthesis.-Much improved Results of arthrocentesis and BCxs showing H. influenzae. Went for surgical washout and poly exchange on 06/[address] Lazo Orthopedics consult appreciated Continue IV Ceftriaxone --> infectious disease consult recommending 6 weeks of IV abx through 07/18/16, PICC line in place. -plan for dc to home with IV abx daily at [facility] as did not qualify for [facility] -check weekly CBC, CMP, ESR, Crp PAROXYSMAL ATRIAL FIBRILLATION with RVR, had 4 second pauses with termination of A-fib into NSR continued with periodic RVR, then in NSR with being on amiodarone gtt. Flecainide not helpful so discontinued, EP following -switched to po amiodarone for rhythm control -Cardiology increased Cardizem to 180mg daily -recommended sleep study eventually -continue coumadin for AC and follow INR after discharge -f/u with EP/Dr. Bolanos in office in 3-4 weeks HISTORY OF LEFT LOWER EXTREMITY DVT WITH FACTOR V LEIDEN GENETIC MUTATION Patient chronically on Coumadin Continue Coumadin at this time with INR target 2-3 HYPERLIPIDEMIA Continue statin GERD History of peptic ulcer disease continue PPI DVT PROPHYLAXIS coumadin DISPO-to home Total Time Spent: Greater than 30 minutes This includes examination of the patient, discharge planning, medication reconciliation, and communication with other providers. Discharge Instructions Please refer to the electronic Patient Visit Report (Discharge Instructions) for additional information. Follow-Up PCP within 1 week Ortho in 1 week Cardiology in 3-4 weeks [facility] dialy ID in 1 week Additional Copies To Christine Christensen ., NOLBERTO; Verónica Allen C.R.N.P; Timmy Bolanos M.D.; Mike Lazo M.D.
== END 2016-06-13 17:51 | disposition home or self-care (01) | DRG 515 ==
LOC: ENRESERVDT → ENRESERVTM → C.EDB 13:03 → C.MED 16:19 → C.2E 06-04 11:00 → C.2T 06-09 22:08
PROVIDERS: ADMIT Family Medicine; ATTEND Family Medicine
PROC: 02HV33Z Insertion of Infusion Device into Superior Vena Cava, Percutaneous Approach (ICD-10-PCS; 2016-06-03)
PROC: 0SUV09Z Supplement Right Knee Joint, Tibial Surface with Liner, Open Approach (ICD-10-PCS; principal; 2016-06-04 07:15)
PROC: 0S9C3ZX Drainage of Right Knee Joint, Percutaneous Approach, Diagnostic (ICD-10-PCS; 2016-06-04 07:15)
DX: T84.53XA Infection and inflammatory reaction due to internal right knee prosthesis, initial encounter (principal); I50.31 Acute diastolic (congestive) heart failure; A41.3 Sepsis due to Hemophilus influenzae; A41.50 Gram-negative sepsis, unspecified; D62 Acute posthemorrhagic anemia; I48.92 Unspecified atrial flutter; L03.114 Cellulitis of left upper limb; D68.51 Activated protein C resistance; K21.9 Gastro-esophageal reflux disease without esophagitis; Z68.30 Body mass index [BMI] 30.0-30.9, adult; E78.5 Hyperlipidemia, unspecified; I48.0 Paroxysmal atrial fibrillation; M19.90 Unspecified osteoarthritis, unspecified site; F32.9 Major depressive disorder, single episode, unspecified; F41.9 Anxiety disorder, unspecified; Z87.11 Personal history of peptic ulcer disease; Z86.718 Personal history of other venous thrombosis and embolism; Z87.01 Personal history of pneumonia (recurrent); Z79.01 Long term (current) use of anticoagulants; Z96.651 Presence of right artificial knee joint; Z98.51 Tubal ligation status; Z80.9 Family history of malignant neoplasm, unspecified; Z83.3 Family history of diabetes mellitus; Z82.49 Family history of ischemic heart disease and other diseases of the circulatory system; Z82.0 Family history of epilepsy and other diseases of the nervous system; Z79.899 Other long term (current) drug therapy; E78.00 Pure hypercholesterolemia, unspecified; E66.9 Obesity, unspecified; R00.1 Bradycardia, unspecified; M16.11 Unilateral primary osteoarthritis, right hip; G47.33 Obstructive sleep apnea (adult) (pediatric); R09.02 Hypoxemia; Y83.1 Surgical operation with implant of artificial internal device as the cause of abnormal reaction of the patient, or of later complication, without mention of misadventure at the time of the procedure; R35.0 Frequency of micturition; K57.90 Diverticulosis of intestine, part unspecified, without perforation or abscess without bleeding

== ENCOUNTER → 2016-06-24 | Outpatient (CLI) | payer BC ==
[~2016-06-24] MED LIST changes: -CIPR-255 PO; -CLB/200 PO; +CLC100 PO; +CRD200 PO; +CRDCD180 PO; -MOUTLIQ83 PO; +MRLP17X PO; +OXYSR10 PO; +RXC5 PO; +SNK PO; -TMB100 PO; +[UNRECOGNIZED DRUG - CODE] IV
[2016-06-24 09:28] LABS: INR 1.5 (0.9-1.1); PROTHROMBIN TIME (PATIENT) 16.7 SECONDS (9.0-12.0)
== END | disposition home or self-care (01) ==
LOC: C.LAB 08:47
PROVIDERS: ATTEND Nurse Practitioner
DX: D68.51 Activated protein C resistance (principal)

== ENCOUNTER → 2016-07-22 | Outpatient (CLI) | payer BC ==
[2016-07-24 23:28] LABS: AMIODARONE 1.9 mcg/mL (1.5-2.5); DESMETHYLAMIODARONE 0.7 mcg/mL (1.5-2.5)
== END | disposition home or self-care (01) ==
LOC: C.LAB1850 11:21
PROVIDERS: ATTEND Physician Assistant
DX: I48.91 Unspecified atrial fibrillation (principal); Z51.81 Encounter for therapeutic drug level monitoring; Z79.899 Other long term (current) drug therapy

== ENCOUNTER → 2016-10-07 | Outpatient (CLI) | payer BC ==
[2016-10-07 13:29] LABS: BASO ABS # 0.06 K/uL (0-0.2); COMPLETE YES; EOS % 3.6 %; HEMATOCRIT 36.9 % (37-47); IG% 0.2 %; LYMPH % 33.3 %; LYMPH ABS # 1.92 K/uL (1.2-3.4); MEAN CELL VOLUME 95.1 fL (80-100); MEAN CORPUSCULAR HEMOGLOBIN 30.7 pg (25-34); MEAN CORPUSCULAR HGB CONC 32.2 g/dl (32-36); MEAN PLATELET VOLUME 9.8 fL (7.4-10.4); MONO % 13.5 %; NEUT % 48.4 %; PLATELET COUNT 347 K/uL (130-400); RED BLOOD COUNT 3.88 M/uL (4.2-5.4); WHITE BLOOD COUNT 5.77 K/uL (4.8-10.8)
[2016-10-07 14:09] LABS: ALT/SGPT 54 U/L (12-78); AST/SGOT 35 U/L (15-37); BLOOD UREA NITROGEN 14 mg/dl (7-18); BUN/CREATININE RATIO 14.1 (10-20); CARBON DIOXIDE 29 mmol/L (21-32); CHLORIDE 105 mmol/L (98-107); CREATININE 0.99 mg/dl (0.60-1.20); GLUCOSE 94 mg/dl (70-99); POTASSIUM 4.2 mmol/L (3.5-5.1); SODIUM 141 mmol/L (136-145)
[2016-10-07 14:12] LABS: ALKALINE PHOSPHATASE 98 U/L (45-117)
== END | disposition home or self-care (01) ==
LOC: C.LAB1850 11:26
PROVIDERS: ATTEND Physician Assistant
DX: T84.59XD Infection and inflammatory reaction due to other internal joint prosthesis, subsequent encounter (principal); X58.XXXD Exposure to other specified factors, subsequent encounter; A49.2 Hemophilus influenzae infection, unspecified site

== ENCOUNTER → 2017-01-07 | Outpatient (CLI) | payer BC ==
[2017-01-07 14:40] LABS: BASO % 0.5 %; BASO ABS # 0.03 K/uL (0-0.2); COMPLETE YES; EOS % 2.5 %; HEMATOCRIT 39.3 % (37-47); IG% 0.4 %; LYMPH % 36.4 %; LYMPH ABS # 2.08 K/uL (1.2-3.4); MEAN CELL VOLUME 97.8 fL (80-100); MEAN CORPUSCULAR HEMOGLOBIN 30.8 pg (25-34); MEAN CORPUSCULAR HGB CONC 31.6 g/dl (32-36); MEAN PLATELET VOLUME 9.6 fL (7.4-10.4); MONO % 12.1 %; NEUT % 48.1 %; PLATELET COUNT 316 K/uL (130-400); RED BLOOD COUNT 4.02 M/uL (4.2-5.4); WHITE BLOOD COUNT 5.71 K/uL (4.8-10.8)
[2017-01-07 15:08] LABS: ALT/SGPT 33 U/L (12-78); BLOOD UREA NITROGEN 12 mg/dl (7-18); BUN/CREATININE RATIO 14.1 (10-20); C-REACTIVE PROTEIN 0.45 mg/dl (0-0.29); CALCIUM 8.2 mg/dl (8.5-10.1); CARBON DIOXIDE 25 mmol/L (21-32); CHLORIDE 105 mmol/L (98-107); CREATININE 0.88 mg/dl (0.60-1.20); GLUCOSE 90 mg/dl (70-99); POTASSIUM 3.9 mmol/L (3.5-5.1); SODIUM 139 mmol/L (136-145)
[2017-01-07 15:10] LABS: ALKALINE PHOSPHATASE 91 U/L (45-117); AST/SGOT 24 U/L (15-37)
== END | disposition home or self-care (01) ==
LOC: C.LAB1850 13:40
PROVIDERS: ATTEND Internal Medicine Infectious Disease
DX: T84.59XD Infection and inflammatory reaction due to other internal joint prosthesis, subsequent encounter (principal); X58.XXXD Exposure to other specified factors, subsequent encounter

== ENCOUNTER → 2017-06-16 | Outpatient (CLI) | payer BC ==
[2017-06-16 12:57] LABS: BLOOD UREA NITROGEN 16 mg/dl (7-18); CALCIUM 7.8 mg/dl (8.5-10.1); CARBON DIOXIDE 27 mmol/L (21-32); CREATININE 0.96 mg/dl (0.60-1.20); GLUCOSE 98 mg/dl (70-99); POTASSIUM 3.9 mmol/L (3.5-5.1); SODIUM 139 mmol/L (136-145)
== END | disposition home or self-care (01) ==
LOC: C.LABPVFM 10:04
PROVIDERS: ATTEND Nurse Practitioner
DX: R00.0 Tachycardia, unspecified (principal); I48.91 Unspecified atrial fibrillation

== ENCOUNTER 2017-09-05 19:16 | Emergency (ER) | payer BC ==
[~2017-09-05] VITALS: Ht 160 cm; Wt 80.0 kg
[~2017-09-05 19:16] MED LIST changes: +CEFD300C2 PO; -CLC100 PO; -CLON0.5T3 PO; +DOCU100C31 PO; +EFF75 PO; -MRLP17X PO; -OXYSR10 PO; -RXC5 PO; -[UNRECOGNIZED DRUG - CODE] IV
[2017-09-05 19:21] VITALS: TEMP 36.6; Ht 160 cm; Wt 80.0 kg
[2017-09-05] MEDS ORDERED: SODIUM CHLORIDE 0.9% 1000ML 1,000 ML IV STA (19:36)
[2017-09-05] MEDS ORDERED: ONDANSETRON INJ 2 MG/ML 2 ML VIAL IV STA (19:36)
[2017-09-05] MEDS ORDERED: MoRPHine SULFATE 4 MG/ML 1 ML CARP\\VIAL IV STA ×2 (19:36→21:42)
[2017-09-05] MEDS ORDERED: ACET-1256 PO (19:56)
[2017-09-05] MEDS ORDERED: OPTIRAY 320 IV PRN (20:00)
[2017-09-05] MEDS ORDERED: LPT10 PO (20:01)
[2017-09-05] MEDS ORDERED: DILT-113 PO (20:01)
[2017-09-05] MEDS ORDERED: WARF1TAB PO (20:01)
[2017-09-05] MEDS ORDERED: ATOR10TA82 PO (20:02)
[2017-09-05] MEDS ORDERED: DOXY25TA8 PO (20:02)
[2017-09-05 20:11] LABS: BASO % 0.7 %; BASO ABS # 0.05 K/uL (0-0.2); EOS % 2.8 %; EOS ABS # 0.21 K/uL (0-0.5); HEMATOCRIT 32.6 % (37-47); HEMOGLOBIN 10.6 g/dL (12.0-16.0); IG# 0.02 K/uL (0.00-0.02); LYMPH % 29.9 %; LYMPH ABS # 2.28 K/uL (1.2-3.4); MEAN CELL VOLUME 98.8 fL (80-100); MEAN CORPUSCULAR HEMOGLOBIN 32.1 pg (25-34); MEAN CORPUSCULAR HGB CONC 32.5 g/dl (32-36); MEAN PLATELET VOLUME 8.7 fL (7.4-10.4); MONO % 10.9 %; MONO ABS # 0.83 K/uL (0.11-0.59); NEUT % 55.4 %; NEUT ABS # 4.23 K/uL (1.4-6.5); PLATELET COUNT 377 K/uL (130-400); RED CELL DISTRIBUTION WIDTH CV 14.5 % (11.5-14.5); WHITE BLOOD COUNT 7.62 K/uL (4.8-10.8)
[2017-09-05 20:32] LABS: ALBUMIN 3.7 gm/dl (3.4-5.0); CALCIUM 7.7 mg/dl (8.5-10.1); CREATININE 0.97 mg/dl (0.60-1.20); POTASSIUM 4.2 mmol/L (3.5-5.1); TOTAL PROTEIN 7.4 gm/dl (6.4-8.2)
--- NOTE | 2017-09-05 21:15 | DIAGNOSTIC IMAGING REPORT ---
PELVIS 1 OR 2 VIEW ROUTINE CLINICAL HISTORY: Fall. COMPARISON STUDY: Pelvis radiograph June 05, 2016. FINDINGS: The sacroiliac joints and symphysis pubis are intact. There is no acute fracture within the pelvis or hips. There is moderate osteoarthritis of the right hip and mild to moderate osteoarthritis of the left hip. IMPRESSION: No acute fracture within the pelvis or hips. Electronically signed by: Titus Weller M.D. 09/05/2017 9:14 PM Dictated Date/Time: 09/05/2017 9:13 PM
--- NOTE | 2017-09-05 21:17 | DIAGNOSTIC IMAGING REPORT ---
L SHOULDER MIN 2 VIEWS ROUTINE CLINICAL HISTORY: Left shoulder pain following fall. COMPARISON: None FINDINGS: Alignment of the left shoulder is anatomic. There is no acute fracture. There is moderate osteoarthritis of the left acromioclavicular and glenohumeral joints. Subacromial spurring is noted. IMPRESSION: 1. No acute fracture or dislocation of the left shoulder. 2. Moderate osteoarthritis of the left shoulder. Electronically signed by: Titus Weller M.D. 09/05/2017 9:16 PM Dictated Date/Time: 09/05/2017 9:14 PM
[2017-09-05 21:20] VITALS: O2SAT 98
--- NOTE | 2017-09-05 21:21 | DIAGNOSTIC IMAGING REPORT ---
CT OF THE HEAD WITHOUT CONTRAST CLINICAL HISTORY: Fall. Head injury. COMPARISON STUDY: Head CT July 31, 2008 and MRI of the brain August 01, 2008. CT DOSE: 638.56 mGycm TECHNIQUE: Helical axial images of the head were obtained without IV contrast. Automated exposure control was utilized for the study. A dose lowering technique was utilized adhering to the principles of ALARA. FINDINGS: No acute intracranial hemorrhage, midline shift or mass effect is present. Ventricular system is unremarkable. Basilar cisterns are patent. There are no extra-axial collections. White matter hypodensity suggests small vessel disease. A hypodensity within left basal ganglia is unchanged exam of July 31, 2008. There is no calvarial fracture. IMPRESSION: 1. No acute intracranial findings. 2. No calvarial fracture. Electronically signed by: Titus Weller M.D. 09/05/2017 9:20 PM Dictated Date/Time: 09/05/2017 9:17 PM
--- NOTE | 2017-09-05 21:27 | DIAGNOSTIC IMAGING REPORT ---
CT OF THE CERVICAL SPINE WITHOUT CONTRAST CLINICAL HISTORY: Fall. COMPARISON STUDY: No previous studies for comparison. TECHNIQUE: Helical axial images of the cervical spine were obtained without IV contrast. Sagittal and coronal reconstructions were viewed. A dose lowering technique was utilized adhering to the principles of ALARA. FINDINGS: There is reversal of the normal cervical lordosis. Slight anterolisthesis of C2 on C3 is likely due to facet arthrosis. Severe multilevel facet arthrosis and degenerative disc disease is noted. There is no acute fracture. Severe degenerative changes at the C1-C2 articulation are noted. There is no prevertebral edema. The chest CT will be reported separately. IMPRESSION: 1. No acute cervical spine fracture or subluxation. 2. Severe multilevel degenerative disc disease and facet arthrosis of the cervical spine. Electronically signed by: Titus Weller M.D. 09/05/2017 9:25 PM Dictated Date/Time: 09/05/2017 9:20 PM
--- NOTE | 2017-09-05 21:47 | DIAGNOSTIC IMAGING REPORT ---
CT OF THE CHEST WITH IV CONTRAST CLINICAL HISTORY: Right-sided chest pain following fall. COMPARISON STUDY: Chest CT July 01, 2012 and chest radiograph June 07, 2016. TECHNIQUE: Following IV administration of 115 mL of Optiray-320, helical axial images of the chest were obtained. Sagittal and coronal reconstructions were viewed as well as maximal intensity projections on an independent 3-D workstation. A dose lowering technique was utilized adhering to the principles of ALARA. CT DOSE: 644.56 mGycm FINDINGS: There is no pneumothorax or pleural effusion. There is no evidence of traumatic injury to the thoracic aorta. The heart is moderately enlarged. There is no pericardial effusion. There is suspected acute nondisplaced fractures of the anterior right fourth, fifth, sixth and eighth ribs. No displaced rib fractures are identified. Upper abdomen is unremarkable. There is no pulmonary contusion. No thoracic lymphadenopathy is present. A peripherally calcified right breast lesion is benign. There is no acute thoracic spine fracture. IMPRESSION: 1. Suspected acute nondisplaced fracture the anterior right fourth, fifth, sixth and eighth ribs. No pneumothorax. 2. No additional acute traumatic findings within the chest. Electronically signed by: Titus Weller M.D. 09/05/2017 9:46 PM Dictated Date/Time: 09/05/2017 9:35 PM
[2017-09-05] MEDS ORDERED: OXYCODONE IR HOME PACK PO ONE (22:00)
[2017-09-05] MEDS ORDERED: OXYC1TAB3 PO (22:02)
[2017-09-05 22:16] VITALS: BP 135/65; PULSE 60
--- NOTE | 2017-09-05 23:05 | EMERGENCY ROOM VISIT NOTE ---
History Report prepared by Valentineibshannan: Rachel Mercedes Under the Supervision of: Dr. Loco Chanel D.O. First contact with patient: 19:23 Chief Complaint: FALL Stated Complaint: FELL,RT SIDE RIB CAGE HURTS, TAKES BREATH AWAY History of Present Illness The patient is a 77 year old female who presents to the Emergency Room with complaints of a fall that occurred 2 days ago. She states she was walking down steps when she missed a step and fell onto concrete. She landed on her right side and currently complains of right sided rib pain. Deep breathing and movement worsens her pain. She describes the pain as a 7 out of 10 with breathing. The patient is on daily Coumadin. She admits she hit the right side of her head during the fall but did not lose consciousness. She denies any belly pain. Pt denies headache, change in vision, fevers, chest pain, shortness of breath, nausea, vomiting, diarrhea, pain with urination, hematuria , and melena. 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 A total of 10 systems reviewed and were otherwise negative. Past Medical & Surgical Medical Problems: (1) Bronchitis (2) Cellulitis (3) Diverticulosis (4) Gastroesophageal reflux disease (5) Hyperlipidemia (6) Osteoarthritis (7) Pneumonia (8) Stomach problems (9) Ulcer Family History Cancer Diabetes mellitus FH: seizures Heart disease Hypertension Social History Smoking Status: Never Smoker Alcohol Use: none Drug Use: none Marital Status: Housing Status: lives with family Occupation Status: retired Current/Historical Medications Scheduled Acetaminophen (Tylenol), 1-3 TABS PO PRN Amiodarone HCl (Amiodarone HCl), 200 MG PO HS Atorvastatin (Lipitor), 10 MG PO DAILY Atorvastatin (Lipitor), 10 MG PO DAILY Cefdinir (Omnicef), 1 CAP PO DAILY Cyanocobalamin (Vitamin B12), 2,500 MCG PO QAM Diltiazem Hcl Ext Rel (Tiazac), 180 MG PO DAILY Doxylamine Succinate (Sleep) (Unisom), 1 TAB PO HS Ferrous Gluconate (Ferrous Gluconate), 324 MG PO DAILY Melatonin-Pyridoxine (Melatonin), 10 MG PO HS Venlafaxine Hcl (Effexor), 75 MG PO DAILY Warfarin Sodium (Coumadin), 1-2 TAB PO DAILY UD Scheduled PRN Aluminum Hydroxide-Mag Trisil (Gaviscon), 3 TAB PO DAILY PRN for PRN Oxycodone Immediate Rel Tab (Roxicodone Ir), 5 MG PO Q6H PRN for Pain Allergies Coded Allergies: No Known Allergies (Verified , NONE, 09/03/17) Physical Exam Vital Signs Date Time Temp Pulse Resp B/P (MAP) Pulse Ox O2 Delivery O2 Flow Rate FiO2 09/05/17 22:16 60 18 135/65 09/05/17 21:20 60 138/68 98 Room Air 09/05/17 19:21 36.6 99 18 146/69 97 Room Air Physical Exam GENERAL: alert, well appearing, well nourished, no distress, non-toxic HEAD: normal cephalic, atraumatic EYE EXAM: normal conjunctiva, PERRL and EOM's grossly intact OROPHARYNX: no exudate, no erythema, lips, buccal mucosa, and tongue normal and mucous membranes are moist EARS: TMs clear b/l NECK: supple, no nuchal rigidity, no adenopathy, non-tender CHEST: stable to compression anteriorly and posteriorly LUNGS: clear to auscultation. Normal chest wall mechanics HEART: no murmurs, S1 normal and S2 normal CHEST: Severe right sided chest wall pain on palpation, just under right breast ABDOMEN: abdomen soft, non-tender, normo-active bowel sounds, no masses, no rebound or guarding. PELVIS: stable to compression anteriorly and posteriorly BACK: Back is symmetrical on inspection and there is no deformity, no midline tenderness, no CVA tenderness. UPPER EXTREMITIES: full active and passive range of motion of all joints without tenderness to palpation, bruising to left shoulder LOWER EXTREMITIES: full active and passive range of motion of all joints without tenderness to palpation, small abrasion to right knee NEURO EXAM: Normal sensorium, cranial nerves II-XII grossly intact, normal speech, no gross weakness of arms, no gross weakness of legs. GCS: 15. Medical Decision & Procedures ER Provider Diagnostic Interpretation: Radiology results as stated below per my review and the radiologist's interpretation: CT OF THE CERVICAL SPINE WITHOUT CONTRAST CLINICAL HISTORY: Fall. COMPARISON STUDY: No previous studies for comparison. TECHNIQUE: Helical axial images of the cervical spine were obtained without IV contrast. Sagittal and coronal reconstructions were viewed. A dose lowering technique was utilized adhering to the principles of ALARA. FINDINGS: There is reversal of the normal cervical lordosis. Slight anterolisthesis of C2 on C3 is likely due to facet arthrosis. Severe multilevel facet arthrosis and degenerative disc disease is noted. There is no acute fracture. Severe degenerative changes at the C1-C2 articulation are noted. There is no prevertebral edema. The chest CT will be reported separately. IMPRESSION: 1. No acute cervical spine fracture or subluxation. 2. Severe multilevel degenerative disc disease and facet arthrosis of the cervical spine. Electronically signed by: Titus Weller M.D. 09/05/2017 9:[address] OF THE CHEST WITH IV CONTRAST CLINICAL HISTORY: Right-sided chest pain following fall. COMPARISON STUDY: Chest CT July 01, 2012 and chest radiograph June 07, 2016. TECHNIQUE: Following IV administration of 115 mL of Optiray-320, helical axial images of the chest were obtained. Sagittal and coronal reconstructions were viewed as well as maximal intensity projections on an independent 3-D workstation. A dose lowering technique was utilized adhering to the principles of ALARA. CT DOSE: 644.56 mGycm FINDINGS: There is no pneumothorax or pleural effusion. There is no evidence of traumatic injury to the thoracic aorta. The heart is moderately enlarged. There is no pericardial effusion. There is suspected acute nondisplaced fractures of the anterior right fourth, fifth, sixth and eighth ribs. No displaced rib fractures are identified. Upper abdomen is unremarkable. There is no pulmonary contusion. No thoracic lymphadenopathy is present. A peripherally calcified right breast lesion is benign. There is no acute thoracic spine fracture. IMPRESSION: 1. Suspected acute nondisplaced fracture the anterior right fourth, fifth, sixth and eighth ribs. No pneumothorax. 2. No additional acute traumatic findings within the chest. Electronically signed by: Titus Weller M.D. 09/05/2017 9:[address] OF THE HEAD WITHOUT CONTRAST CLINICAL HISTORY: Fall. Head injury. COMPARISON STUDY: Head CT July 31, 2008 and MRI of the brain August 01, 2008. CT DOSE: 638.56 mGycm TECHNIQUE: Helical axial images of the head were obtained without IV contrast. Automated exposure control was utilized for the study. A dose lowering technique was utilized adhering to the principles of ALARA. FINDINGS: No acute intracranial hemorrhage, midline shift or mass effect is present. Ventricular system is unremarkable. Basilar cisterns are patent. There are no extra-axial collections. White matter hypodensity suggests small vessel disease. A hypodensity within left basal ganglia is unchanged exam of July 31, 2008. There is no calvarial fracture. IMPRESSION: 1. No acute intracranial findings. 2. No calvarial fracture. Electronically signed by: Titus Weller M.D. 09/05/2017 9:20 PM PELVIS 1 OR 2 VIEW ROUTINE CLINICAL HISTORY: Fall. COMPARISON STUDY: Pelvis radiograph June 05, 2016. FINDINGS: The sacroiliac joints and symphysis pubis are intact. There is no acute fracture within the pelvis or hips. There is moderate osteoarthritis of the right hip and mild to moderate osteoarthritis of the left hip. IMPRESSION: No acute fracture within the pelvis or hips. Electronically signed by: Titus Weller M.D. 09/05/2017 9:14 PM L SHOULDER MIN 2 VIEWS ROUTINE CLINICAL HISTORY: Left shoulder pain following fall. COMPARISON: None FINDINGS: Alignment of the left shoulder is anatomic. There is no acute fracture. There is moderate osteoarthritis of the left acromioclavicular and glenohumeral joints. Subacromial spurring is noted. IMPRESSION: 1. No acute fracture or dislocation of the left shoulder. 2. Moderate osteoarthritis of the left shoulder. Electronically signed by: Titus Weller M.D. 09/05/2017 9:16 PM Laboratory Results 09/05/17 19:55 Red Blood Count 3.30, Mean Corpuscular Volume 98.8, Mean Corpuscular Hemoglobin 32.1, Mean Corpuscular Hemoglobin Concent 32.5, Mean Platelet Volume 8.7, Neutrophils (%) (Auto) 55.4, Lymphocytes (%) (Auto) 29.9, Monocytes (%) (Auto) 10.9, Eosinophils (%) (Auto) 2.8, Basophils (%) (Auto) 0.7, Neutrophils # (Auto ) 4.23, Lymphocytes # (Auto) 2.28, Monocytes # (Auto) 0.83, Eosinophils # (Auto ) 0.21, Basophils # (Auto) 0.05 09/05/17 19:55 Test 09/05/17 19:55 09/05/17 20:45 White Blood Count 7.62 K/uL (4.8-10.8) Red Blood Count 3.30 M/uL (4.2-5.4) Hemoglobin 10.6 g/dL (12.0-16.0) Hematocrit 32.6 % (37-47) Mean Corpuscular Volume 98.8 fL (80-100) Mean Corpuscular Hemoglobin 32.1 pg (25-34) Mean Corpuscular Hemoglobin Concent 32.5 g/dl (32-36) Platelet Count 377 K/uL (130-400) Mean Platelet Volume 8.7 fL (7.4-10.4) Neutrophils (%) (Auto) 55.4 % Lymphocytes (%) (Auto) 29.9 % Monocytes (%) (Auto) 10.9 % Eosinophils (%) (Auto) 2.8 % Basophils (%) (Auto) 0.7 % Neutrophils # (Auto) 4.23 K/uL (1.4-6.5) Lymphocytes # (Auto) 2.28 K/uL (1.2-3.4) Monocytes # (Auto) 0.83 K/uL (0.11-0.59) Eosinophils # (Auto) 0.21 K/uL (0-0.5) Basophils # (Auto) 0.05 K/uL (0-0.2) RDW Standard Deviation 52.0 fL (36.4-46.3) RDW Coefficient of Variation 14.5 % (11.5-14.5) Immature Granulocyte % (Auto) 0.3 % Immature Granulocyte # (Auto) 0.02 K/uL (0.00-0.02) Prothrombin Time 31.2 SECONDS (9.0-12.0) Prothromb Time International Ratio 3.0 (0.9-1.1) Anion Gap 5.0 mmol/L (3-11) Est Creatinine Clear Calc Drug Dose 48.6 ml/min Estimated GFR () 65.3 Estimated GFR (Non- 56.3 BUN/Creatinine Ratio 15.8 (10-20) Calcium Level 7.7 mg/dl (8.5-10.1) Total Bilirubin 0.3 mg/dl (0.2-1) Direct Bilirubin 0.1 mg/dl (0-0.2) Aspartate Amino Transf (AST/SGOT) 28 U/L (15-37) Alanine Aminotransferase (ALT/SGPT) 33 U/L (12-78) Alkaline Phosphatase 111 U/L (45-117) Total Protein 7.4 gm/dl (6.4-8.2) Albumin 3.7 gm/dl (3.4-5.0) Lipase 197 U/L (73-393) Urine Color YELLOW Urine Appearance CLEAR (CLEAR) Urine pH 7.0 (4.5-7.5) Urine Specific [place] 1.011 (1.000-1.030) Urine Protein NEG (NEG) Urine Glucose (UA) NEG (NEG) Urine Ketones NEG (NEG) Urine Occult Blood NEG (NEG) Urine Nitrite NEG (NEG) Urine Bilirubin NEG (NEG) Urine Urobilinogen NEG (NEG) Urine Leukocyte Esterase NEG (NEG) Urine WBC (Auto) 1-5 /hpf (0-5) Urine RBC (Auto) 0-4 /hpf (0-4) Urine Hyaline Casts (Auto) 0 /lpf (0-5) Urine Epithelial Cells (Auto) 0-5 /lpf (0-5) Urine Bacteria (Auto) NEG (NEG) Laboratory results per my review. Medications Administered Medications (Trade) Dose Ordered Sig/Stephy Route Start Time Stop Time Status Last Admin Dose Admin Sodium Chloride 1,000 ml @ 999 mls/hr Q1H1M STAT IV 09/05/17 19:36 09/05/17 20:36 DC 09/05/17 19:58 999 MLS/HR Ondansetron HCl (Zofran Inj) 4 mg NOW STAT IV 09/05/17 19:36 09/05/17 19:38 DC 09/05/17 19:57 4 MG Morphine Sulfate (MoRPHine SULFATE INJ) 4 mg NOW STAT IV 09/05/17 19:36 09/05/17 19:38 DC 09/05/17 19:57 4 MG Morphine Sulfate (MoRPHine SULFATE INJ) 4 mg NOW STAT IV 09/05/17 21:42 09/05/17 21:43 DC 09/05/17 22:08 4 MG Oxycodone HCl (Roxicodone Immediate Rel 5MG Home Pack) 1 homepack UD ONCE PO 09/05/17 22:00 09/05/17 22:01 DC 09/05/17 22:08 1 HOMEPACK ED Course ED COURSE: Vital signs were reviewed and showed the patient is situationally hypertensive The patients medical record was reviewed The above diagnostic studies were performed and reviewed. ED treatments and interventions as stated above. 1930: The patient was evaluated in room B7. A complete history and physical examination was performed. 1935: Morphine Sulfate 4 mg IV, Zofran 4 mg IV, NSS 1000 ml @ 999 mls/hr IV. 2141: Morphine Sulfate 4 mg IV. 2154: I reevaluated the patient. She is resting comfortably. I offered her a stay in the hospital but she declines stating she would like to go home. I discussed the risks and benefits associated with going home and she is insistent she would like to go home. 2199: Oxycodone HCl 5 mg 1 homepack PO. 2199: I discussed the patients case with Dr. Pugh, [facility]. He will follow up with the patient in the office. 2229: Upon reevaluation, the patient is feeling well and resting comfortably. I discussed my findings with the patient and she understands and agrees with the treatment plan. Based on the patients age, coexisting illnesses, exam and lab findings the decision to treat as an outpatient was made. The patient remained stable while under my care. The patient appeared well at the time of discharge. Medical Decision Differential diagnoses include major intracranial, cervical, spinal, thoracic, abdominal, pelvic and neurologic injury. Fracture, contusion, sprain, strain, laceration, abrasions included as well. Patient is a 77-year-old female who presents the ER for right-sided pain status post fall. This happened 2 days ago. She does take Coumadin consequently CT of the head, cervical spine chest was obtained. No abdominal pain. CT shows for nondisplaced rib fractures. No pulmonary contusions. No pneumothorax or hemothorax. Patient is hemodynamically stable. CBC along with BMP shows a mild anemia. Bilirubin along with LFTs and lipase is unremarkable. INR was therapeutic at 3. UA was negative. No hematuria. X-rays of the shoulder and pelvis were unremarkable. Patient was updated at bedside. She was given IV narcotics. She is discharged with OxyIR instructed to follow-up with Dr. Pugh. I did discuss the case with him and he was in agreement. Discussed with Pt concerning signs and symptoms to watch out for. Pt was instructed to follow up with their PCP and discussed with the patient their option to return to the ED at anytime for persistent or worsening symptoms. The appropriate anticipatory guidance and out-patient management, including indications for return to the emergency department, were explained at length to the patient and understood. Medication Reconcilliation Current Medication List: was personally reviewed by me Blood Pressure Screening Patient's blood pressure: Elevated blood pressure Blood pressure disposition: Elevated BP felt to be situational Consults Time Called: 2156 Consulting Physician: Dr. Pugh, [facility] Returned Call: [phone] I discussed the patients case with Dr. Pugh, [facility]. He will follow up with the patient in the office. Impression Primary Impression: Rib fractures Scribe Attestation The scribe's documentation has been prepared under my direction and personally reviewed by me in its entirety. I confirm that the note above accurately reflects all work, treatment, procedures, and medical decision making performed by me. Departure Information Dispostion Home / Self-Care Prescriptions Oxycodone Immediate Rel Tab (ROXICODONE IR) 5 Mg Tab 5 MG PO Q6H Y for Pain, #15 TAB Prov: Loco Chanel, DO 09/05/17 Referrals Verónica Allen C.R.N.P (PCP) Patient Instructions Fx Rib, My [facility] Additional Instructions Please follow up with your primary care doctor with in the next 24 hours. Any worsening of your symptoms, please return to the ED immediately. This includes any fevers greater than 100.4, worsening pain, chest pain, shortness breath, persistent nausea, vomiting, unable to eat or drink, or any other concerning signs or symptoms from your standpoint. You were given medications during this visit that will inhibit your ability to drive, operate machinery and work. Please do NOT drive, operate machinery or work for the next 12hrs. You were also given a prescription for a narcotic. While taking this medication you should also not drive, operate machinery and or work. No heavy lifting and please follow-up with thoracic surgery within the next 72 hours. Please use the incentive spirometry every half hour. Problem Qualifiers Primary Impression: Rib fractures Encounter type: initial encounter Rib fracture type: multiple ribs Fracture type: closed Laterality: right Qualified Codes: S22.41XA - Multiple fractures of ribs, right side, initial encounter for closed fracture
== END 2017-09-05 22:17 | disposition home or self-care (01) ==
LOC: C.EDB 19:18
DX: S22.41XA Multiple fractures of ribs, right side, initial encounter for closed fracture (principal); W19.XXXA Unspecified fall, initial encounter; E78.5 Hyperlipidemia, unspecified; M19.90 Unspecified osteoarthritis, unspecified site; Z79.01 Long term (current) use of anticoagulants; Z51.81 Encounter for therapeutic drug level monitoring

== ENCOUNTER → 2017-11-13 | Outpatient (CLI) | payer BC ==
[~2017-11-13] MED LIST changes: +ACET-1256 PO; -ACET-1311 PO; +ATOR10TA82 PO; -CRDCD180 PO; +DILT-113 PO; -DOCU100C31 PO; +DOXY25TA8 PO; -PRLSR20 PO; -SIMV20TA2 PO; -SNK PO; +WARF1TAB PO; -WARF4TAB44 PO
[2017-11-13 17:20] LABS: BASO % 0.8 %; BASO ABS # 0.06 K/uL (0-0.2); EOS % 4.8 %; EOS ABS # 0.35 K/uL (0-0.5); HEMATOCRIT 38.1 % (37-47); IG# 0.02 K/uL (0.00-0.02); LYMPH % 26.9 %; LYMPH ABS # 1.95 K/uL (1.2-3.4); MEAN CELL VOLUME 97.4 fL (80-100); MEAN CORPUSCULAR HEMOGLOBIN 30.7 pg (25-34); MEAN CORPUSCULAR HGB CONC 31.5 g/dl (32-36); MEAN PLATELET VOLUME 9.8 fL (7.4-10.4); MONO % 13.5 %; MONO ABS # 0.98 K/uL (0.11-0.59); NEUT % 53.7 %; NEUT ABS # 3.89 K/uL (1.4-6.5); PLATELET COUNT 371 K/uL (130-400); RED CELL DISTRIBUTION WIDTH CV 13.9 % (11.5-14.5); RED CELL DISTRIBUTION WIDTH SD 49.6 fL (36.4-46.3); WHITE BLOOD COUNT 7.25 K/uL (4.8-10.8)
[2017-11-13 17:42] LABS: BLOOD UREA NITROGEN 13 mg/dl (7-18); CALCIUM 8.2 mg/dl (8.5-10.1); CARBON DIOXIDE 29 mmol/L (21-32); CREATININE 0.96 mg/dl (0.60-1.20); GLUCOSE 95 mg/dl (70-99); POTASSIUM 4.1 mmol/L (3.5-5.1); SODIUM 138 mmol/L (136-145)
== END | disposition home or self-care (01) ==
LOC: C.LABPVFM 13:54
PROVIDERS: ATTEND Nurse Practitioner
DX: E78.01 Familial hypercholesterolemia (principal); F32.9 Major depressive disorder, single episode, unspecified; D64.9 Anemia, unspecified

== ENCOUNTER → 2017-11-19 | Outpatient (CLI) | payer BC ==
[2017-11-19 16:51] LABS: ALBUMIN 3.4 gm/dl (3.4-5.0); ALKALINE PHOSPHATASE 111 U/L (45-117); ALT/SGPT 32 U/L (12-78); AST/SGOT 23 U/L (15-37); TOTAL PROTEIN 7.6 gm/dl (6.4-8.2)
== END | disposition home or self-care (01) ==
LOC: C.LAB1850 15:46
PROVIDERS: ATTEND Internal Medicine Cardiovascular Disease
DX: Z79.899 Other long term (current) drug therapy (principal)

== ENCOUNTER 2019-09-28 11:35 | Inpatient (IN) ==
[2019-09-28] MEDS ORDERED: SODIUM CHLORIDE 0.9% 500 ML IV SCH (12:15)
--- NOTE | 2019-09-28 12:21 | Emergency Department Note ---
Impression & Plan Symptomatic anemia, Paroxysmal atrial fibrillation, GAINES (dyspnea on exertion) ED Provider Note NAME: KEO PÉREZ AGE: 79 SEX: F : 1940 ARRIVES VIA: Walk-In INFORMANT: Patient ED PROVIDER(S): Loco Chanel DO CHIEF COMPLAINT: Low hemoglobin HPI: Patient is a 79-year-old female that presents the ER for low hemoglobin. She notes that she has been having shortness of breath with exertion which is new over the past month. She has never had any previous GI issues. She denies any previous GI bleeds. No coughing up blood vomiting blood or urinating blood. She denies any dark tarry stools. Denies any chest pain. She admits to feeling weak throughout. Denies any belly pain nausea vomiting or diarrhea. She has no other exacerbating or remitting factors. ROS: See above HPI for pertinent positives & negatives. A total of 10 systems reviewed and were otherwise negative. PAST MEDICAL HISTORY:See Below PAST SURGICAL HISTORY:See Below FAMILY HISTORY:See Below SOCIAL HISTORY:See Below HOME MEDICATIONS:See Below ALLERGIES:See Below VITALS:See Below PHYSICAL EXAMINATION: GENERAL: Sitting up in bed, alert, well appearing, well nourished, no distress, non-toxic EYE EXAM: normal conjunctiva. OROPHARYNX: no exudate, no erythema, lips, buccal mucosa, and tongue normal and mucous membranes are moist NECK: supple, no nuchal rigidity, no adenopathy, non-tender LUNGS: Clear to auscultation. Normal chest wall mechanics HEART: no murmurs, S1 normal and S2 normal ABDOMEN: abdomen soft, non-tender, normo-active bowel sounds, no masses, no rebound or guarding. BACK: Back is symmetrical on inspection and there is no deformity, no midline tenderness, no CVA tenderness. SKIN: no rashes and no bruising GI: rectal neg UPPER EXTREMITIES: upper extremities are grossly normal. LOWER EXTREMITIES: No pitting edema. NEURO EXAM: Normal sensorium, cranial nerves II-XII grossly intact, normal speech, no gross weakness of arms, no gross weakness of legs. MEDICAL DECISION MAKING: Patient is a 79-year-old female who presents the ER referred in by PCP for anemia with a hemoglobin of 6.9 as an outpatient. She has been having exertional shortness of breath over the past month. IV was established blood work was obtained. Labs show no significant leukocytosis. Mild anemia of 6.6. INR was unremarkable. BMP with elevated BUN. LFTs, bilirubin, and troponin was negative. Patient was typed and crossed and given 2 units of PRBCs. Rectal was heme-negative although there was not a significant amount of stool. Discussed with the hospitalist and patient was admitted for symptomatic anemia secondary to a low MCV. Triage Nursing notes reviewed. Prior medical records reviewed Vital Signs: reviewed and remarkable for HTN Differential diagnosis: Differential diagnosis includes etiologies such as diverticulitis, diverticulosis, AVM, coagulopathy, colitis, inflammatory bowel disease, malignancy, Zuleika-Shaw tear, esophagitis, peptic ulcer disease, variceal bl eed, gastritis, epistaxis, fissure, hemorrhoids, as well as others were entertained. ER treatment provided: See below Diagnostics interpreted by me: ECG: Sinus bradycardia rate of 56 Normal axis No PVCs Normal QTC DWI in the septal leads Cardiac Monitoring: An order was placed for continuous cardiac monitoring. The monitor shows a rate of 61 with sinus rhythm. Laboratory studies: As stated above and show below. Imaging studies: none Consultation(s): Discussed with Dr. Leighton Bethea ED COURSE: Procedures: none Critical Care: None Past Med/Surg History Social History (Updated 09/28/19 @ 14:17 by Cale Bethea) Preferred Language: [place] Islander Communication Ability: Effective Report Developer Required: No Beliefs That Will Affect Care: None marital status: Current Living Situation: Spouse Current Living Situation Comment: [place] current occupational status: retired current occupation: worked at [employer] Other Information That Helps Us Care for You: No Feels Safe at Home: Yes Safety Concerns: Feels Safe At This Time Smoking Status: Never smoker Do You Dip or Chew Tobacco: No ; Second Hand Exposure: No ; Tobacco Cessation Education Requested by Patient: No Hx Alcohol Use: Yes Alcohol Intake Frequency: Rarely Hx Substance Use: No Childhood Exposure to Second-Hand Smoke: No during the past year weight has: remained stable Dental Care, Regularly: No Seatbelt Use: always Sunscreen Use: Yes Allergies Allergies Allergy/AdvReac Type Severity Reaction Status Date / Time No Known Allergies Allergy NONE Verified 09/28/19 13:06 Home Meds Home Medications Medication Instructions Recorded Confirmed vitamins A,C,P-[id number] 14,320 1 cap PO BID 11/05/18 09/28/19 unit-226 mg-200 unit capsule acetaminophen 500 mg tablet 1,500 mg PO HS tab 11/28/18 09/28/19 cholecalciferol (vitamin D3) 25 1,000 units PO DAILY tab 11/28/18 09/28/19 mcg (1,000 unit) tablet cyanocobalamin (vitamin B-12) 2,500 mcg SL DAILY tab 11/28/18 09/28/19 2,500 mcg sublingual tablet ferrous sulfate 325 mg (65 mg 325 mg PO DAILY tab 11/28/18 09/28/19 iron) tablet melatonin 10 mg tablet 20 mg PO HS tab 11/28/18 09/28/19 amiodarone 200 mg PO QAM 09/28/19 09/28/19 atorvastatin 10 mg PO QAM 09/28/19 09/28/19 baclofen 10 mg PO QAM 09/28/19 09/28/19 cefdinir 300 mg PO QAM 09/28/19 09/28/19 diltiazem HCl 180 mg PO QAM 09/28/19 09/28/19 venlafaxine 75 mg PO QDL 09/28/19 09/28/19 Previous Rx's Medication Instructions Recorded gabapentin 100 mg capsule 100 mg PO .COMPLEX #360 cap 02/26/19 apixaban 5 mg tablet 5 mg PO BID #180 tab 07/19/19 prednisone 20 mg tablet 20 mg PO .COMPLEX #30 tab 09/20/19 Results & Data (ED) Vital Signs Vital Signs - 24 hr 09/28/19 11:42 09/28/19 12:14 09/28/19 12:20 Temperature 36.6 C Temperature Source Oral Pulse Rate 62 54 L 52 L Pulse Rate [Apical] Pulse Rate from SpO2 Sensor Pulse Rhythm [Apical] Pulse Strength [Apical] Respiratory Rate 18 16 16 Respiratory Effort / Characteristics Respiratory Depth Respiratory Pattern Blood Pressure 147/65 H Blood Pressure [Right Arm] Blood Pressure Mean 92 Blood Pressure Mean [Right Arm] Blood Pressure Position Blood Pressure Position [Right Arm] Pulse Oximetry 100 Oxygen Delivery Method Room Air Room Air Room Air Sepsis Recent Fever Within 48 Hours No Sepsis New/Unexplained Change in Mental Status No Sepsis Action Taken by Nursing No Action Required 09/28/19 12:25 09/28/19 12:29 09/28/19 12:31 Temperature Temperature Source Pulse Rate 53 L 55 L Pulse Rate [Apical] 55 L Pulse Rate from SpO2 Sensor 52 L 53 L Pulse Rhythm [Apical] Regular Pulse Strength [Apical] Normal Respiratory Rate 16 15 17 Respiratory Effort / Characteristics Non-Labored Spontaneous Respiratory Depth Normal Respiratory Pattern Regular Blood Pressure 150/58 H Blood Pressure [Right Arm] 150/58 H Blood Pressure Mean 94 Blood Pressure Mean [Right Arm] 88 Blood Pressure Position Blood Pressure Position [Right Arm] Lying Pulse Oximetry 99 100 100 Oxygen Delivery Method Room Air Room Air Room Air Sepsis Recent Fever Within 48 Hours Sepsis New/Unexplained Change in Mental Status Sepsis Action Taken by Nursing 09/28/19 12:40 09/28/19 12:50 09/28/19 13:00 Temperature Temperature Source Pulse Rate 62 54 L 52 L Pulse Rate [Apical] Pulse Rate from SpO2 Sensor 58 L 55 L 51 L Pulse Rhythm [Apical] Pulse Strength [Apical] Respiratory Rate 22 17 11 L Respiratory Effort / Characteristics Respiratory Depth Respiratory Pattern Blood Pressure Blood Pressure [Right Arm] Blood Pressure Mean Blood Pressure Mean [Right Arm] Blood Pressure Position Blood Pressure Position [Right Arm] Pulse Oximetry 99 100 100 Oxygen Delivery Method Room Air Room Air Room Air Sepsis Recent Fever Within 48 Hours Sepsis New/Unexplained Change in Mental Status Sepsis Action Taken by Nursing 09/28/19 13:01 09/28/19 13:10 09/28/19 13:20 Temperature Temperature Source Pulse Rate 51 L 50 L 50 L Pulse Rate [Apical] Pulse Rate from SpO2 Sensor 51 L 50 L 50 L Pulse Rhythm [Apical] Pulse Strength [Apical] Respiratory Rate 14 14 14 Respiratory Effort / Characteristics Respiratory Depth Respiratory Pattern Blood Pressure 179/66 H Blood Pressure [Right Arm] Blood Pressure Mean 87 Blood Pressure Mean [Right Arm] Blood Pressure Position Blood Pressure Position [Right Arm] Pulse Oximetry 100 100 100 Oxygen Delivery Method Room Air Room Air Room Air Sepsis Recent Fever Within 48 Hours Sepsis New/Unexplained Change in Mental Status Sepsis Action Taken by Nursing 09/28/19 13:30 09/28/19 13:35 09/28/19 13:36 Temperature 36.9 C Temperature Source Oral Pulse Rate 49 L 50 L 51 L Pulse Rate [Apical] Pulse Rate from SpO2 Sensor 49 L 51 L Pulse Rhythm [Apical] Pulse Strength [Apical] Respiratory Rate 14 18 12 Respiratory Effort / Characteristics Respiratory Depth Respiratory Pattern Blood Pressure 168/72 H 158/75 H 158/75 H Blood Pressure [Right Arm] Blood Pressure Mean 83 102 91 Blood Pressure Mean [Right Arm] Blood Pressure Position Lying Blood Pressure Position [Right Arm] Pulse Oximetry 100 100 100 Oxygen Delivery Method Room Air Room Air Sepsis Recent Fever Within 48 Hours Sepsis New/Unexplained Change in Mental Status Sepsis Action Taken by Nursing 09/28/19 13:45 09/28/19 13:53 09/28/19 14:08 Temperature 37.0 C 36.8 C Temperature Source Oral Oral Pulse Rate 60 53 L 48 L Pulse Rate [Apical] Pulse Rate from SpO2 Sensor Pulse Rhythm [Apical] Pulse Strength [Apical] Respiratory Rate 18 15 19 Respiratory Effort / Characteristics Respiratory Depth Respiratory Pattern Blood Pressure 184/76 H 180/82 H Blood Pressure [Right Arm] Blood Pressure Mean 112 114 Blood Pressure Mean [Right Arm] Blood Pressure Position Lying Blood Pressure Position [Right Arm] Pulse Oximetry 100 100 Oxygen Delivery Method Room Air Sepsis Recent Fever Within 48 Hours Sepsis New/Unexplained Change in Mental Status Sepsis Action Taken by Nursing Laboratory Data Result diagrams: 09/28/19 12:08 09/28/19 12:08 Lab Results 09/28/19 09/28/19 09/28/19 Range/Units 12:08 12:08 12:08 WBC 9.69 (4.8-10.8) K/uL RBC 3.32 L (4.2-5.4) M/uL Hgb 6.6 L* (12.0-16.0) g/dL Hct 25.1 L (37-47) % MCV 75.6 L (80-100) fL MCH 19.9 L (25-34) pg MCHC 26.3 L (32-36) g/dL RDW Std Deviation 55.4 H (36.4-46.3) fL RDW Coeff of German 20.1 H (11.5-14.5) % Plt Count 554 H (130-400) K/uL MPV 8.0 (7.4-10.4) fL Immature Gran % (Auto) 0.3 % Neut % (Auto) 57.4 % Lymph % (Auto) 26.1 % Cedar % (Auto) 16.2 % Eos % (Auto) 0.0 % Baso % (Auto) 0.0 % Immature Gran # (Auto) 0.03 H (0.00-0.02) K/uL Neut # (Auto) 5.56 (1.4-6.5) K/uL Lymph # (Auto) 2.53 (1.2-3.4) K/uL Cedar # (Auto) 1.57 H (0.11-0.59) K/uL Eos # (Auto) 0.00 (0-0.5) K/uL Baso # (Auto) 0.00 (0-0.2) K/uL Absolute Nucleated RBC 0.15 H (0-0) K/uL Nucleated RBC % (auto) 1.5 % Hypochromasia Present Anisocytosis Present Microcytosis Present PT 11.0 (9.0-12.0) Seconds INR 1.0 (0.9-1.1) APTT 23.5 (21.0-31.0) Seconds PTT Ratio 0.8 Sodium (136-145) mmol/L Potassium (3.5-5.1) mmol/L Chloride (98-107) mmol/L Carbon Dioxide (21-32) mmol/L Anion Gap (3-11) BUN (7-18) mg/dl Creatinine (0.6-1.2) mg/dl Est Cr Clr Drug Dosing ml/min Est GFR ( Amer) Est GFR (Non-Af Amer) BUN/Creatinine Ratio (10-20) Glucose (70-99) mg/dl Calcium (8.5-10.1) mg/dl Iron (35-150) mcg/dl Transferrin (200-360) mg/dl Transferrin % Sat (15-50) % Ferritin (8-388) ng/ml Total Bilirubin (0.2-1) mg/dl AST (15-37) U/L ALT (12-78) U/L Alkaline Phosphatase (45-117) U/L Troponin I (0-0.045) ng/ml Total Protein (6.4-8.2) gm/dl Albumin (3.4-5.0) gm/dl Globulin (2.5-4.0) gm/dl Albumin/Globulin Ratio (0.9-2) Blood Type O Negative Blood Type Recheck Antibody Screen NEGATIVE Crossmatch See Detail 09/28/19 09/28/19 09/28/19 Range/Units 12:08 12:08 12:51 WBC (4.8-10.8) K/uL RBC (4.2-5.4) M/uL Hgb (12.0-16.0) g/dL Hct (37-47) % MCV (80-100) fL MCH (25-34) pg MCHC (32-36) g/dL RDW Std Deviation (36.4-46.3) fL RDW Coeff of German (11.5-14.5) % Plt Count (130-400) K/uL MPV (7.4-10.4) fL Immature Gran % (Auto) % Neut % (Auto) % Lymph % (Auto) % Cedar % (Auto) % Eos % (Auto) % Baso % (Auto) % Immature Gran # (Auto) (0.00-0.02) K/uL Neut # (Auto) (1.4-6.5) K/uL Lymph # (Auto) (1.2-3.4) K/uL Cedar # (Auto) (0.11-0.59) K/uL Eos # (Auto) (0-0.5) K/uL Baso # (Auto) (0-0.2) K/uL Absolute Nucleated RBC (0-0) K/uL Nucleated RBC % (auto) % Hypochromasia Anisocytosis Microcytosis PT (9.0-12.0) Seconds INR (0.9-1.1) APTT (21.0-31.0) Seconds PTT Ratio Sodium 141 (136-145) mmol/L Potassium 3.5 D (3.5-5.1) mmol/L Chloride 108 H (98-107) mmol/L Carbon Dioxide 27 (21-32) mmol/L Anion Gap 6.0 (3-11) BUN 26 H D (7-18) mg/dl Creatinine 0.87 (0.6-1.2) mg/dl Est Cr Clr Drug Dosing 51.9 ml/min Est GFR ( Amer) 73.4 Est GFR (Non-Af Amer) 63.4 BUN/Creatinine Ratio 29.4 H (10-20) Glucose 89 (70-99) mg/dl Calcium 7.7 L (8.5-10.1) mg/dl Iron 16 L (35-150) mcg/dl Transferrin 406 H (200-360) mg/dl Transferrin % Sat 3 L (15-50) % Ferritin 6.8 L (8-388) ng/ml Total Bilirubin 0.3 (0.2-1) mg/dl AST 19 (15-37) U/L ALT 44 (12-78) U/L Alkaline Phosphatase 130 H (45-117) U/L Troponin I < 0.015 (0-0.045) ng/ml Total Protein 7.4 (6.4-8.2) gm/dl Albumin 3.5 (3.4-5.0) gm/dl Globulin 3.9 (2.5-4.0) gm/dl Albumin/Globulin Ratio 0.9 (0.9-2) Blood Type Blood Type Recheck O Negative Antibody Screen Crossmatch Administered Medications Pantoprazole Sodium 40 mg/ (Syringe) 10 mls @ 5 mls/min IV BID JACKY Stop: 10/28/19 14:14 Last Admin: 09/28/19 16:26 Dose: 5 mls/min Documented by: [id number] Discontinued Medications Sodium Chloride (Nss) 500 mls @ 999 mls/hr IV .Q31M JACKY Stop: 09/28/19 12:45 Last Infusion: 09/28/19 13:08 Dose: 0 mls/hr Documented by: [id number] Admin: 09/28/19 12:30 Dose: 999 mls/hr Documented by: [id number] Discharge Plan Visit Data *Final* Discharge Date/Time: 09/28/19 16:06 Chief Complaint: Abnormal Labs/Diagnostic Testing Stated Complaint: HEMOGLOBIN BELOW 7 ED Provider: Loco Chanel Discharge Problem: Symptomatic anemia, Paroxysmal atrial fibrillation, GAINES (dyspnea on exertion) Patient Disposition: Admitted As Inpatient Discharge Instructions Interventions: ED Discharge Assessment Last Done: 09/28/19 16:06
--- NOTE | 2019-09-28 12:22 | Electrocardiogram Report ---
Test Reason : Blood Pressure : / mmHG Vent. Rate : 056 BPM Atrial Rate : 056 BPM P-R Int : 194 ms QRS Dur : 084 ms QT Int : 486 ms P-R-T Axes : 000 010 046 degrees QTc Int : 468 ms Sinus bradycardia Nonspecific T wave abnormality Abnormal ECG When compared with ECG of 11-JUN-2016 00:00, No significant change was found Confirmed by Momo Perez [id number] on 09/28/2019 12:21:45 PM Referred By: Confirmed By:Brad Perez
[2019-09-28 12:28] LABS: Hematocrit (blood only) 25.1 % (37-47); Hemoglobin 6.6 g/dL (12.0-16.0); Mean Corpuscular Hemoglobin 19.9 pg (25-34); Mean Corpuscular Hgb Conc 26.3 g/dL (32-36); Mean Corpuscular Volume 75.6 fL (80-100); Nucleated RBC # (auto) 0.15 K/uL (0-0); Nucleated RBC % (auto) 1.5 %; Platelet Count 554 K/uL (130-400); RDW Coefficient of Variation 20.1 % (11.5-14.5); RDW Standard Deviation 55.4 fL (36.4-46.3); Red Blood Count 3.32 M/uL (4.2-5.4); White Blood Count 9.69 K/uL (4.8-10.8)
[2019-09-28 12:31] LABS: Partial Thromboplastin Ratio 0.8; Partial Thromboplastin Time 23.5 Seconds (21.0-31.0)
[2019-09-28 12:40] LABS: Anisocytosis Present; Hypochromasia Present; Immature Granulocytes # (auto) 0.03 K/uL (0.00-0.02); Immature Granulocytes % (auto) 0.3 %; Lymphocytes # (auto) 2.53 K/uL (1.2-3.4); Lymphocytes % (auto) 26.1 %; Microcytosis Present; Monocytes # (auto) 1.57 K/uL (0.11-0.59); Monocytes % (auto) 16.2 %; Neutrophils # (auto) 5.56 K/uL (1.4-6.5); Neutrophils % (auto) 57.4 %
[2019-09-28] MEDS ORDERED: SODIUM CHLORIDE 0.9% 250 ML IV PRN ×2 (12:43→16:41)
[2019-09-28 12:53] LABS: Alanine Aminotransferase 44 U/L (12-78); Albumin Globulin Ratio 0.9 (0.9-2); Albumin Level 3.5 gm/dl (3.4-5.0); Alkaline Phosphatase 130 U/L (45-117); Aspartate Aminotransferase 19 U/L (15-37); BUN Creatinine Ratio 29.4 (10-20); Bilirubin,Total 0.3 mg/dl (0.2-1); Blood Urea Nitrogen 26 mg/dl (7-18); Calcium 7.7 mg/dl (8.5-10.1); Carbon Dioxide 27 mmol/L (21-32); Chloride 108 mmol/L (98-107); Creatinine Clr Calc Pharmacy 51.9 ml/min; Est GFR (African American) 73.4; Est GFR (Non-African American) 63.4; Globulin 3.9 gm/dl (2.5-4.0); Glucose 89 mg/dl (70-99); Potassium 3.5 mmol/L (3.5-5.1); Sodium 141 mmol/L (136-145); Total Protein 7.4 gm/dl (6.4-8.2); Troponin I < 0.015 ng/ml (0-0.045)
--- NOTE | 2019-09-28 13:42 | History & Physical Report ---
Date of Service September 28, 2019 Assessment & Plan (1) Symptomatic anemia: Patient has had PICA (ice cravings) for 6+ months suggesting severe iron deficiency on a chronic basis. In July 2018 she was anemic with Hb 9.5 at that time. She is clearly symptomatic at this time with fatigue, dizziness, etc. Tx 2 units PRBCs. Check CBC again in am. Due to severe Fe def will need endoscopic eval by GI. start PPI IV twice daily in the event her presumed occult GI bleeding (over lengthy period of time) is due to upper GI source. (2) Iron deficiency anemia: Ferritin is <10. PICA (ice cravings) for 6+ months. Tx 2 units PRBCs due to significant symptoms attributable from the anemia. I don't believe her anemia is due to acute blood loss - everything appears chronic. Will hold PO Fe. Give venofer 200mg IV x [address] [place] Eduardo [place] [facility] [place] consideration of EGD/colonoscopy. Hold eliquis in prep for endoscopies. (3) Factor V Leiden mutation: history of such. had LLE DVT in the past. takes chronic eliquis for PAF. will need to cautiously hold eliquis in light of severe anemia and need for endoscopies. (4) Paroxysmal atrial fibrillation: in NSR at this time. cont amiodarone. hold eliquis. cont CCB. (5) Right hip pain: 2nd bursitis. would hold prednisone for now. (6) Hypocalcemia: etiology?? albumin level is wnl. start with checking 25-OH vitamin D in am. check phos as well. consider intact PTH. 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 cont cefdinir daily as previous. (8) Mitral regurgitation: likely cause of murmur. anemia will make murmur louder as well. last echo in 2017 - should have repeat echo as outpatient. 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 She saw her PCP yesterday for a routine follow-up and labs were drawn as part of her visit. Those labs showed the low hemoglobin. She has had ice cravings for "months" and has had progressive fatigue for 1-2 months along with dizziness/lightheadedness - especially with activity, going up steps, etc. No dyspnea or chest pain. No nausea, emesis, abd pain. Denies overt melena or BRBPR. H/o GI bleeding in 1975 requiring multiple units PRBCs. Unknown source at that time. Does not use OTC NSAIDs. Rarely drinks etoh. During my assessment she was receiving her first unit of PRBCs. Patient states she is currently early on in a prednisone taper for right hip bursitis. Allergies Allergy/AdvReac Type Severity Reaction Status Date / Time No Known Allergies Allergy NONE Verified 09/28/19 13:06 Home Medications Home Medications Medication Instructions Recorded Confirmed Type vitamins A,C,M-nkcr-nlpnjj 14,320 1 cap PO BID 11/05/18 09/28/19 History unit-226 mg-200 unit capsule acetaminophen 500 mg tablet 1,500 mg PO HS tab 11/28/18 09/28/19 History cholecalciferol (vitamin D3) 25 1,000 units PO DAILY tab 11/28/18 09/28/19 History mcg (1,000 unit) tablet cyanocobalamin (vitamin B-12) 2,500 mcg SL DAILY tab 11/28/18 09/28/19 History 2,500 mcg sublingual tablet ferrous sulfate 325 mg (65 mg 325 mg PO DAILY tab 11/28/18 09/28/19 History iron) tablet melatonin 10 mg tablet 20 mg PO HS tab 11/28/18 09/28/19 History gabapentin 100 mg capsule 100 mg PO .COMPLEX #360 cap 02/26/19 09/28/19 Rx apixaban 5 mg tablet 5 mg PO BID #180 tab 07/19/19 09/28/19 Rx prednisone 20 mg tablet 20 mg PO .COMPLEX #30 tab 09/20/19 09/28/19 Rx amiodarone 200 mg PO QAM 09/28/19 09/28/19 History atorvastatin 10 mg PO QAM 09/28/19 09/28/19 History baclofen 10 mg PO QAM 09/28/19 09/28/19 History cefdinir 300 mg PO QAM 09/28/19 09/28/19 History diltiazem HCl 180 mg PO QAM 09/28/19 09/28/19 History venlafaxine 75 mg PO QDL 09/28/19 09/28/19 History Past Med/Surg History Medical History Anemia Atrial premature complex Chronic neck pain Diverticulosis of colon Factor V Leiden mutation (Chronic) Fracture of rib, single, closed Haemophilus infection (Inactive) Heart disease (Chronic) Hypocalcemia (Resolved) Infection and inflammatory reaction due to other internal joint prosthesis, subsequent encounter (Resolved) On amiodarone therapy (Chronic) Paroxysmal atrial fibrillation (Chronic) Spinal stenosis (Chronic) Vitamin D deficiency Surgical History History of lung biopsy History of right knee surgery History of tonsillectomy Family History Brother Prostate cancer Mother Diabetes Other Coronary heart disease Hypertension Denies family history of Ovarian cancer Myocardial infarction Breast cancer Colorectal cancer Social History Preferred Language: Yemeni Communication Ability: Effective Asbestos Handler Required: No Beliefs That Will Affect Care: None marital status: Current Living Situation: Spouse Current Living Situation Comment: Rodrigo Nix current occupational status: retired current occupation: worked at [employer] Other Information That Helps Us Care for You: No Feels Safe at Home: Yes Safety Concerns: Feels Safe At This Time Smoking Status: Never smoker Do You Dip or Chew Tobacco: No ; Second Hand Exposure: No ; Tobacco Cessation Education Requested by Patient: No Hx Alcohol Use: Yes Alcohol Intake Frequency: Rarely Hx Substance Use: No Childhood Exposure to Second-Hand Smoke: No during the past year weight has: remained stable Dental Care, Regularly: No Seatbelt Use: always Sunscreen Use: Yes Review of Systems Constitutional: + fatigue, + weakness and + weight loss (5 pounds - intentional); no fever, no chills and no anorexia Eyes: + worsening vision (left eye) Ear, Nose, Mouth, Throat: no nasal congestion, no sore throat and no dysphagia Respiratory: no cough and no dyspnea Cardiovascular: + lightheadedness and + edema (chronic ); no chest pain, no orthopnea and no paroxysmal nocturnal dyspnea Gastrointestinal: no abdominal pain, no nausea, no vomiting, no constipation, no diarrhea/loose stools, no blood in stools and no melena Genitourinary: no dysuria Musculoskeletal: + neck pain and + joint pain Integumentary: no rash Neurologic: + loss of sensation (left hand ) Psychiatric: no depression Endocrine: denies diabetes Hematologic / Lymphatic: no lymphadenopathy Physical Exam Constitutional: well developed and well nourished; no acute distress and no altered mental status Eyes: PERRL ENMT: external ear and nose normal, oropharynx normal Neck: trachea midline, no thyromegaly Respiratory: normal respiratory effort, lungs clear to auscultation Cardiovascular: Rate/Rhythm: regular rate and regular rhythm Heart Sounds: normal S1, normal S2 and + murmur (2-3/6 RUSB - systolic) Vessels: posterior tibial pulses present and dorsalis pedis pulses present; no JVD Extremities: no edema Gastrointestinal (Abdomen): normal bowel sounds, soft, nontender, no hepatosplenomegaly Musculoskeletal: no cyanosis or clubbing, extremities motor strength 5/5 Skin: + pallor Neurologic: deep tendon reflexes 2+ bilaterally and moves all extremities Psychiatric: A+Ox3, euthymic affect Lymphatic: no cervical lymphadenopathy Results & Data Results & Data ([facility]) Vital Signs (Past 12 Hours) Vital Signs Temp Pulse Pulse Resp BP BP Pulse Ox 09/28/19 13:35 36.9 C 50 L 18 158/75 H 100 09/28/19 12:25 55 L 16 150/58 H 99 09/28/19 11:42 36.6 C 62 18 147/65 H 100 Laboratory Results Laboratory Results - last 24 hr 09/28/19 09/28/19 09/28/19 12:08 12:08 12:08 WBC 9.69 RBC 3.32 L Hgb 6.6 L* Hct 25.1 L MCV 75.6 L MCH 19.9 L MCHC 26.3 L RDW Std Deviation 55.4 H RDW Coeff of German 20.1 H Plt Count 554 H MPV 8.0 Immature Gran % (Auto) 0.3 Neut % (Auto) 57.4 Lymph % (Auto) 26.1 [place] % (Auto) 16.2 Eos % (Auto) 0.0 Baso % (Auto) 0.0 Immature Gran # (Auto) 0.03 H Neut # (Auto) 5.56 Lymph # (Auto) 2.53 [place] # (Auto) 1.57 H Eos # (Auto) 0.00 Baso # (Auto) 0.00 Absolute Nucleated RBC 0.15 H Nucleated RBC % (auto) 1.5 Hypochromasia Present Anisocytosis Present Microcytosis Present PT 11.0 INR 1.0 APTT 23.5 PTT Ratio 0.8 Sodium Potassium Chloride Carbon Dioxide Anion Gap BUN Creatinine Est Cr Clr Drug Dosing Est GFR ( Amer) Est GFR (Non-Af Amer) BUN/Creatinine Ratio Glucose Calcium Iron Transferrin Transferrin % Sat Ferritin Total Bilirubin AST ALT Alkaline Phosphatase Troponin I Total Protein Albumin Globulin Albumin/Globulin Ratio Blood Type O Negative Blood Type Recheck Antibody Screen NEGATIVE Crossmatch See Detail 09/28/19 09/28/19 09/28/19 12:08 12:08 12:51 WBC RBC Hgb Hct MCV MCH MCHC RDW Std Deviation RDW Coeff of German Plt Count MPV Immature Gran % (Auto) Neut % (Auto) Lymph % (Auto) [place] % (Auto) Eos % (Auto) Baso % (Auto) Immature Gran # (Auto) Neut # (Auto) Lymph # (Auto) [place] # (Auto) Eos # (Auto) Baso # (Auto) Absolute Nucleated RBC Nucleated RBC % (auto) Hypochromasia Anisocytosis Microcytosis PT INR APTT PTT Ratio Sodium 141 Potassium 3.5 D Chloride 108 H Carbon Dioxide 27 Anion Gap 6.0 BUN 26 H D Creatinine 0.87 Est Cr Clr Drug Dosing 51.9 Est GFR ( Amer) 73.4 Est GFR (Non-Af Amer) 63.4 BUN/Creatinine Ratio 29.4 H Glucose 89 Calcium 7.7 L Iron 16 L Transferrin 406 H Transferrin % Sat 3 L Ferritin 6.8 L Total Bilirubin 0.3 AST 19 ALT 44 Alkaline Phosphatase 130 H Troponin I < 0.015 Total Protein 7.4 Albumin 3.5 Globulin 3.9 Albumin/Globulin Ratio 0.9 Blood Type Blood Type Recheck O Negative Antibody Screen Crossmatch Diagnostic Findings EKG - sinus holly, no ST changes, normal intervals Code Status & VTE Plan Code Status full VTE Prophylaxis Plan VTE Prophylaxis will be ordered: Yes PG Care Time/CCT Total # of Minutes Spent Total Time Spent with Patient: Total time spent is greater than 50% in coordination of care (as documented) at patient's floor/unit and/or counseling patient: Coding Level of Care Code 55078 Initial Inpt Care Lvl 3 Diagnoses Symptomatic anemia D64.9 Iron deficiency anemia D50.9 Iron deficiency anemia type: unspecified iron deficiency Factor V Leiden mutation D68.51 Paroxysmal atrial fibrillation I48.0 Right hip pain M25.551 Hypocalcemia E83.51 Hx of total knee replacement Z96.651 Laterality: right Mitral regurgitation I34.0 Cardiac valve disease etiology: etiology unspecified DVT prophylaxis Z29.9 (1) Iron deficiency anemia Iron deficiency anemia type: unspecified iron deficiency Qualified Code(s): D50.9 - Iron deficiency anemia, unspecified (2) Hx of total knee replacement Laterality: right Qualified Code(s): Z96.651 - Presence of right artificial knee joint (3) Mitral regurgitation Cardiac valve disease etiology: etiology unspecified Qualified Code(s): I34.0 - Nonrheumatic mitral (valve) insufficiency
[2019-09-28 14:08] LABS: Ferritin 6.8 ng/ml (8-388)
[2019-09-28] MEDS ORDERED: ONDANSETRON INJ 2 MG/ML 2 ML VIAL IV PRN (16:16)
[2019-09-28] MEDS: PANTOprazole 40 MG in SYRINGE 0 ML IV SCH ×2 (16:26→20:28)
[2019-09-28] MEDS: GABAPENTIN 100 MG CAP PO SCH (20:28)
[2019-09-28] MEDS: CEROVITE ADV FORMULA TAB PO SCH (20:28)
[2019-09-28] MEDS: ACETAMINOPHEN 500 MG TAB PO SCH (20:28)
[2019-09-28] MEDS ORDERED: NON-FORMULARY MEDICATION (Melatonin 20 MG) PO SCH (21:00)
[2019-09-28] MEDS ORDERED: MELATONIN 3 MG TAB PO PRN (23:28)
[2019-09-29] MEDS: CEROVITE ADV FORMULA TAB PO SCH ×2 (06:09→18:40)
[2019-09-29 07:53] LABS: Hematocrit (blood only) 31.1 % (37-47); Mean Corpuscular Hemoglobin 22.5 pg (25-34); Mean Corpuscular Hgb Conc 28.9 g/dL (32-36); Mean Corpuscular Volume 77.8 fL (80-100); Mean Platelet Volume 8.3 fL (7.4-10.4); Nucleated RBC # (auto) 0.09 K/uL (0-0); Platelet Count 492 K/uL (130-400); RDW Coefficient of Variation 19.7 % (11.5-14.5); RDW Standard Deviation 55.8 fL (36.4-46.3); White Blood Count 9.65 K/uL (4.8-10.8)
[2019-09-29] MEDS ORDERED: IRON SUCROSE 200 MG in 0.9 % SODIUM CHLORIDE 100 ML IV ONE (08:00)
[2019-09-29 08:07] LABS: BUN Creatinine Ratio 16.5 (10-20); Calcium 7.8 mg/dl (8.5-10.1); Creatinine Clr Calc Pharmacy 50.7 ml/min; Est GFR (African American) 72.4; Est GFR (Non-African American) 62.5; Phosphorus 4.6 mg/dl (2.5-4.9); Potassium 3.9 mmol/L (3.5-5.1)
--- NOTE | 2019-09-29 08:19 | Hospitalist Progress Note ---
Date of Service September 29, 2019 Assessment & Plan (1) Symptomatic anemia: Patient has had PICA (ice cravings) for 6+ months suggesting severe iron deficiency on a chronic basis. In July 2018 she was anemic with Hb 9.5 at that time. she is chronically anticoagulated with eliquis for afib, also has factor V leiden last colonoscopy was 2013 wiht one poly removed, diverticulosis and internal hemorrhoids Tx 2 units PRBCs 09/27 with robust rise in hgb to [address] Eduardo did perform upper endoscopy without sources for blood loss, suspicious for ирина and plans lower endoscopy 09/29 start PPI IV twice daily in the event her presumed occult GI bleeding (over lengthy period of time) is due to upper GI source. (2) Iron deficiency anemia: Ferritin is <10. PICA (ice cravings) for 6+ months. Tx 2 units PRBCs due to significant symptoms attributable from the anemia. I don't believe her anemia is due to acute blood loss - everything appears chronic. Will hold PO Fe. Given venofer 200mg IV x 1 in am of 09/29/19 Hold eliquis in prep for endoscopies. (3) Factor V Leiden mutation: history of such. had LLE DVT in the past. takes chronic eliquis for PAF. will need to cautiously hold eliquis in light of severe anemia and need for endoscopies. (4) Paroxysmal atrial fibrillation: in NSR at this time. pt states she feels lightheaded even post transfusion, she has been bradycardic, will hold diltiazem in am of 09/29 and have cardiology eval for advice on meds, cont amiodarone hold eliquis. (5) Right hip pain: 2nd bursitis. 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 (8) Mitral regurgitation: likely cause of murmur. anemia will make murmur louder as well. last echo in 2017 - should have repeat echo as outpatient. (9) Dizziness: Patient states she had a longstanding history of vertigo and this is almost like vertigo which she is experiencing. She says she has had the Mahsa maneuver one time in the past with some success will reconsult physical therapy for consideration (10) DVT prophylaxis: odalys cash SCDs updated by phone Admission and Anticipated Discharge Date Admission Date: September 28, 2019 Subjective this pt had symptomatic iron deficiency anemia, did have upper endoscopy without defined source of blood loss, is no chronic anticoagulation due to afib, she has significant arthritis and does use nsaids, but fortunately did not have any upper GI source of bleeding Review of Systems Review of Systems: Mild distress and fatigue no headache, blurry or double vision no speech or swallowing issues no chest pain, pressure or palpitations no shortness of breath, cough or wheezes no abdominal pain, nausea or vomiting, diarrhea or constipation no dysuria, hematuria or frequency Significant arthritic changes to her hands does have chronic daily low back pain Chronic daily low back pain, without CVA tenderness or radicular pain no bruising, bleeding or rashes no focal signs of weakness or numbness or altered sensation no complaints or anxiety or depression. Physical Exam Physical Exam: The patient appeared well nourished and normally developed. Vital signs as documented. Head exam is normocephalic atraumatic no scleral icterus Neck is without JVD, thyromegaly, or carotid bruits. Lungs are clear to auscultation, no focal loss of breath sounds Cardiac exam, Rhythm is regular.. Systolic ejection murmur is heard Abdominal exam reveals normal bowel sounds, soft non tender, no masses Extremities are nonedematous and both hands have changes of osteoarthritis Neurologic exam is alert and oriented, no focal loss of strength or sensation Skin is without bruises or rashes Psychologically is without concerns for anxiety or depression Results & Data Results & Data ([facility]) Vital Signs (Past 12 Hours) Vital Signs Temp Pulse Pulse Pulse Resp BP BP 09/29/19 07:20 98.1 F 50 L 18 183/67 H 09/29/19 07:10 49 L 09/29/19 03:40 98.1 F 46 L 20 177/63 H 09/29/19 01:17 48 L 09/28/19 23:57 97.9 F 51 L 20 190/77 H 09/28/19 20:32 49 L 173/70 H Pulse Ox 09/29/19 07:20 97 09/29/19 07:10 09/29/19 03:40 100 09/29/19 01:17 09/28/19 23:57 98 09/28/19 20:32 PG Care Time/CCT Total # of Minutes Spent Total Time Spent with Patient: Total time spent is greater than 50% in coordination of care (as documented) at patient's floor/unit and/or counseling patient: Coding Level of Care Code 27810 Subseq Hosp Care Lvl 3 Diagnoses Symptomatic anemia D64.9 Iron deficiency anemia D50.9 Iron deficiency anemia type: unspecified iron deficiency Factor V Leiden mutation D68.51 Paroxysmal atrial fibrillation I48.0 Right hip pain M25.551 Hypocalcemia E83.51 Hx of total knee replacement Z96.651 Laterality: right Mitral regurgitation I34.0 Cardiac valve disease etiology: etiology unspecified Dizziness R42 DVT prophylaxis Z29.9 (1) Mitral regurgitation Cardiac valve disease etiology: etiology unspecified Qualified Code(s): I34.0 - Nonrheumatic mitral (valve) insufficiency (2) Iron deficiency anemia Iron deficiency anemia type: unspecified iron deficiency Qualified Code(s): D50.9 - Iron deficiency anemia, unspecified (3) Hx of total knee replacement Laterality: right Qualified Code(s): Z96.651 - Presence of right artificial knee joint
[2019-09-29] MEDS: GABAPENTIN 100 MG CAP PO SCH ×4 (08:41→20:43)
[2019-09-29] MEDS: ATORVASTATIN 10 MG TAB PO SCH (08:41)
[2019-09-29] MEDS: CEFDINIR 300 MG CAP PO SCH (08:41)
[2019-09-29] MEDS: PANTOprazole 40 MG in SYRINGE 0 ML IV SCH ×2 (08:41→20:41)
[2019-09-29] MEDS: CYANOCOBALAMIN (VITAMIN B-12) 2,500 MCG TAB.SUBL SL SCH (08:42)
[2019-09-29] MEDS: BACLOFEN 10 MG TAB PO SCH (08:42)
[2019-09-29] MEDS: AMIODARONE 200 MG TAB PO SCH (08:42)
[2019-09-29] MEDS: CHOLECALCIFEROL 1,000 UNITS 25 MCG TAB PO SCH (08:42)
[2019-09-29] MEDS ORDERED: dilTIAZem HCL 180 MG CAPCR PO SCH (09:00)
--- NOTE | 2019-09-29 09:31 | Anesthesiology Consultation ---
Date of Service September 29, 2019 History Surgery Operation Date: 09/29/19 16:30 Proposed Procedures p Esophagogastroduodenoscopy Dr Eduardo - Corby Nguyen Case, DO Height/Weight Height: 5 ft 3 in Weight: 76.4 kg Allergies Allergy/AdvReac Type Severity Reaction Status Date / Time No Known Allergies Allergy NONE Verified 09/28/19 13:06 Medications Home Medications Medication Instructions Recorded Confirmed Last Taken vitamins A,C,V-ymax-hsmidx 14,320 1 cap PO BID 11/05/18 09/28/19 09/27/19 unit-226 mg-200 unit capsule acetaminophen 500 mg tablet 1,500 mg PO HS tab 11/28/18 09/28/19 09/27/19 cholecalciferol (vitamin D3) 25 1,000 units PO DAILY tab 11/28/18 09/28/19 09/27/19 mcg (1,000 unit) tablet cyanocobalamin (vitamin B-12) 2,500 mcg SL DAILY tab 11/28/18 09/28/19 09/27/19 2,500 mcg sublingual tablet ferrous sulfate 325 mg (65 mg 325 mg PO DAILY tab 11/28/18 09/28/19 09/27/19 iron) tablet melatonin 10 mg tablet 20 mg PO HS tab 11/28/18 09/28/19 09/27/19 gabapentin 100 mg capsule 100 mg PO .COMPLEX #360 cap 02/26/19 09/28/19 09/27/19 apixaban 5 mg tablet 5 mg PO BID #180 tab 07/19/19 09/28/19 09/27/19 prednisone 20 mg tablet 20 mg PO .COMPLEX #30 tab 09/20/19 09/28/19 09/27/19 amiodarone 200 mg PO QAM 09/28/19 09/28/19 09/27/19 atorvastatin 10 mg PO QAM 09/28/19 09/28/19 09/27/19 baclofen 10 mg PO QAM 09/28/19 09/28/19 09/27/19 cefdinir 300 mg PO QAM 09/28/19 09/28/19 09/27/19 diltiazem HCl 180 mg PO QAM 09/28/19 09/28/19 09/27/19 venlafaxine 75 mg PO QDL 09/28/19 09/28/19 09/27/19 Active Medications Generic Name Dose Route Start Last Admin Trade Name Freq PRN Reason Stop Dose Admin Acetaminophen 1,500 mg 09/28/19 21:00 09/28/19 20:28 Tylenol PO 10/28/19 20:59 1,500 mg HS JACKY Administration Amiodarone HCl 200 mg 09/29/19 09:00 09/29/19 08:42 Cordarone PO 10/29/19 08:59 200 mg QAM JACKY Administration Atorvastatin Calcium 10 mg 09/29/19 09:00 09/29/19 08:41 Lipitor PO 10/29/19 08:59 10 mg QAM JACKY Administration Baclofen 10 mg 09/29/19 09:00 09/29/19 08:42 Lioresal PO 10/29/19 08:59 10 mg QAM JACKY Administration Cefdinir 300 mg 09/29/19 09:00 09/29/19 08:41 Omnicef Cap PO 10/29/19 08:59 300 mg QAM JACKY Administration Cyanocobalamin 2,500 mcg 09/29/19 09:00 09/29/19 08:42 Vitamin B-12 SL 10/29/19 08:59 2,500 mcg DAILY JACKY Administration Diltiazem HCl 180 mg 09/29/19 09:00 09/29/19 08:42 Cardizem Cd PO 10/29/19 08:59 180 mg QAM JACKY Administration Gabapentin 200 mg 09/28/19 21:00 09/29/19 08:41 Neurontin PO 10/28/19 20:59 200 mg BID JACKY Administration Pantoprazole Sodium 40 mg/ 10 mls @ 5 mls/min 09/28/19 14:15 09/29/19 08:41 Syringe IV 10/28/19 14:14 5 mls/min BID JACKY Administration Melatonin 9 mg 09/28/19 23:28 09/28/19 23:54 Melatonin PO 10/28/19 23:27 9 mg HS PRN Administration Sleep Multivitamins/Minerals 1 tab 09/28/19 19:00 09/29/19 06:09 Multivitamin W/ Minerals Tab PO 10/28/19 18:59 1 tab BID@0700,1900 JACKY Administration Vitamin D 1,000 units 09/29/19 09:00 09/29/19 08:42 Vitamin D3 PO 10/29/19 08:59 1,000 units DAILY JACKY Administration Past Medical History Medical History Anemia Atrial premature complex Chronic neck pain Diverticulosis of colon Factor V Leiden mutation (Chronic) Fracture of rib, single, closed Haemophilus infection (Inactive) Heart disease (Chronic) Hypocalcemia (Resolved) Infection and inflammatory reaction due to other internal joint prosthesis, subsequent encounter (Resolved) On amiodarone therapy (Chronic) Paroxysmal atrial fibrillation (Chronic) Spinal stenosis (Chronic) Vitamin D deficiency Past Family History Family History Brother Prostate cancer Mother Diabetes Other Coronary heart disease Hypertension Denies family history of Ovarian cancer Myocardial infarction Breast cancer Colorectal cancer Past Surgical History Surgical History History of lung biopsy History of right knee surgery History of tonsillectomy Hx of total knee replacement Social History Smoking Status: Never smoker Do You Dip or Chew Tobacco: No Hx Alcohol Use: Yes Hx Substance Use: No substance use type: does not use Physical Exam Vital Signs Last Vital Signs Temp 36.7 C 09/29/19 07:20 Pulse 50 L 09/29/19 07:20 Resp 18 09/29/19 07:20 BP 183/67 H 09/29/19 07:20 Pulse Ox 97 09/29/19 07:20 Testing Laboratory Results 09/29/19 06:51 09/29/19 06:51 PT 11.0 Seconds (9.0-12.0) 09/28/19 12:08 INR 1.0 (0.9-1.1) 09/28/19 12:08 APTT 23.5 Seconds (21.0-31.0) 09/28/19 12:08 Blood Type O Negative 09/28/19 12:08 Antibody Screen NEGATIVE 09/28/19 12:08 Electrocardiogram Date: 09/28/19 Sinus bradycardia Nonspecific T wave abnormality Abnormal ECG When compared with ECG of 11-JUN-2016 00:00, No significant change was found Confirmed by Momo Perez ([id number] on 09/28/2019 12:21:45 PM
--- NOTE | 2019-09-29 09:31 | Gastrointestinal Consultation ---
Date of Consultation September 29, 2019 Assessment & Plan (1) Symptomatic anemia: Patient is a 79 yo female with symptomatic anemia. -EGD today (Keep NPO) -Continue Protonix 40 mg IV BID -Continue to follow H/H -Further recommendations pending results of EGD. Initially Patient did refuse EGD & colonoscopy evaluation. She did eventually decide to proceed with an EGD, but notes she had a bad experience with a colonoscopy and is hesitant to proceed with that. Thank you for allowing us to participate in the care of this patient. If you should have any further questions or concerns, do not hesitate to contact us at extension [phone] or [phone]. Supervising Physician Co-Signing Physician Notes Agree with MICHAEL Bai as above Abd: Soft, NT, ND, +BS Continue supportive care Proceed with EGD now Consider colonoscopy if no findings on EGD. History of Present Illness Reason for Consultation: Anemia Attending Physician: Satinder Marcus MD History of Present Illness Patient is a 79 yo female who presented to the ED due receiving a phone call from her PCP alerting her that her hemoglobin was significantly low. The patient reports she had been tired and had dyspnea on exertion along with ice cravings. The patient notes that she had no further GI symptoms. She denies hematemesis, melena, or hematochezia. She reports she has not had any abdominal pain, diarrhea, nausea, vomiting, heartburn, or reflux. She reports very briefly last night she experienced heartburn for the first time but it went away shortly after. She reports that she has no history of GI issues. She does note that she had a colonoscopy many years ago and had a bad prep. She denies pertinent family history. Her H/H on admission was 6.6/25.1. She has been transfused since that time and her H/H is now 9/31.1. She is on Protonix 40 mg IV push BID. Allergies Allergy/AdvReac Type Severity Reaction Status Date / Time No Known Allergies Allergy NONE Verified 09/28/19 13:06 Home Medications Home Medications Medication Instructions Recorded Confirmed Type vitamins A,C,A-poma-grykqq 14,320 1 cap PO BID 11/05/18 09/28/19 History unit-226 mg-200 unit capsule acetaminophen 500 mg tablet 1,500 mg PO HS tab 11/28/18 09/28/19 History cholecalciferol (vitamin D3) 25 1,000 units PO DAILY tab 11/28/18 09/28/19 History mcg (1,000 unit) tablet cyanocobalamin (vitamin B-12) 2,500 mcg SL DAILY tab 11/28/18 09/28/19 History 2,500 mcg sublingual tablet ferrous sulfate 325 mg (65 mg 325 mg PO DAILY tab 11/28/18 09/28/19 History iron) tablet melatonin 10 mg tablet 20 mg PO HS tab 11/28/18 09/28/19 History gabapentin 100 mg capsule 100 mg PO .COMPLEX #360 cap 02/26/19 09/28/19 Rx apixaban 5 mg tablet 5 mg PO BID #180 tab 07/19/19 09/28/19 Rx prednisone 20 mg tablet 20 mg PO .COMPLEX #30 tab 09/20/19 09/28/19 Rx amiodarone 200 mg PO QAM 09/28/19 09/28/19 History atorvastatin 10 mg PO QAM 09/28/19 09/28/19 History baclofen 10 mg PO QAM 09/28/19 09/28/19 History cefdinir 300 mg PO QAM 09/28/19 09/28/19 History diltiazem HCl 180 mg PO QAM 09/28/19 09/28/19 History venlafaxine 75 mg PO QDL 09/28/19 09/28/19 History Patient History Medical History Anemia Atrial premature complex Chronic neck pain Diverticulosis of colon Factor V Leiden mutation (Chronic) Fracture of rib, single, closed Haemophilus infection (Inactive) Heart disease (Chronic) Hypocalcemia (Resolved) Infection and inflammatory reaction due to other internal joint prosthesis, subsequent encounter (Resolved) On amiodarone therapy (Chronic) Paroxysmal atrial fibrillation (Chronic) Spinal stenosis (Chronic) Vitamin D deficiency Surgical History History of lung biopsy History of right knee surgery History of tonsillectomy Hx of total knee replacement Family History Brother Prostate cancer Mother Diabetes Other Coronary heart disease Hypertension Denies family history of Ovarian cancer Myocardial infarction Breast cancer Colorectal cancer Social History Preferred Language: Turkmen Communication Ability: Effective Metrology Manager Required: No Beliefs That Will Affect Care: None marital status: Current Living Situation: Spouse Current Living Situation Comment: [facility] current occupational status: retired current occupation: worked at [employer] Other Information That Helps Us Care for You: No Feels Safe at Home: Yes Safety Concerns: Feels Safe At This Time Smoking Status: Never smoker Do You Dip or Chew Tobacco: No ; Second Hand Exposure: No ; Tobacco Cessation Education Requested by Patient: No Hx Alcohol Use: Yes Alcohol Intake Frequency: Rarely Hx Substance Use: No Childhood Exposure to Second-Hand Smoke: No during the past year weight has: remained stable Dental Care, Regularly: No Seatbelt Use: always Sunscreen Use: Yes Review of Systems Constitutional: no fever and no chills Respiratory: no cough Cardiovascular: no chest pain Gastrointestinal: no abdominal pain, no heartburn, no coffee ground emesis, no change in bowel habits, no constipation, no diarrhea/loose stools, no blood in stools and no melena Musculoskeletal: no problem reported Integumentary: no problem reported Neurologic: no problem reported Psychiatric: no problem reported Physical Exam Constitutional: WD/WN, vitals as above Eyes: PERRL, conjunctivae normal, anicteric sclerae ENMT: external ear and nose normal, oropharynx normal Neck: normal visual inspection Respiratory: normal respiratory effort, lungs clear to auscultation Cardiovascular: RRR, no murmur, no edema Gastrointestinal (Abdomen): normal bowel sounds, soft, nontender, no hepatosplenomegaly Musculoskeletal: Head/Neck/Chest: normocephalic Skin: no rashes, warm and dry Psychiatric: A+Ox3, euthymic affect Results & Data ([facility]) Vital Signs (Past 12 Hours) Vital Signs Temp Pulse Pulse Resp BP Pulse Ox 09/29/19 07:20 36.7 C 50 L 18 183/67 H 97 09/29/19 07:10 49 L 09/29/19 03:40 36.7 C 46 L 20 177/63 H 100 09/29/19 01:17 48 L 09/28/19 23:57 36.6 C 51 L 20 190/77 H 98 PG Care Time/CCT Total # of Minutes Spent Total Time Spent with Patient: Total time spent is greater than 50% in coordination of care (as documented) at patient's floor/unit and/or counseling patient: Coding Level of Care Code 49798 Initial Inpt Care Lvl 3 Diagnoses Symptomatic anemia D64.9
--- NOTE | 2019-09-29 12:59 | GI REPORT ---
Patient Name: Marilyn Live Procedure Date: 09/29/2019 12:14 PM Date of : 1940 Admit Type: Inpatient Age: 79 Gender: Female Attending MD: Corby Eduardo DO Procedure: Upper GI endoscopy Providers: Corby Eduardo DO Referring MD: Satinder Marcus Indications: Iron deficiency anemia Medicines: Monitored Anesthesia Care Complications: No immediate complications. Estimated Blood Loss: Estimated blood loss: none. Procedure: Pre-Anesthesia Assessment: - Prior to the procedure, a History and Physical was performed, and patient medications and allergies were reviewed. The patient's tolerance of previous anesthesia was also reviewed. The risks and benefits of the procedure and the sedation options and risks were discussed with the patient. All questions were answered, and informed consent was obtained. Prior Anticoagulants: The patient has taken Eliquis (apixaban), last dose was 2 days prior to procedure. ASA Grade Assessment: III - A patient with severe systemic disease. After reviewing the risks and benefits, the patient was deemed in satisfactory condition to undergo the procedure. After obtaining informed consent, the endoscope was passed under direct vision. Throughout the procedure, the patient's blood pressure, pulse, and oxygen saturations were monitored continuously. The Endoscope was introduced through the mouth, and advanced to the second part of duodenum. The upper GI endoscopy was accomplished without difficulty. The patient tolerated the procedure well. Findings: Patchy, white plaques were found in the entire esophagus. Cells for cytology were obtained by brushing. The stomach was normal. The examined duodenum was normal. Impression: - Esophageal plaques were found, suspicious for candidiasis. Cells for cytology obtained. - Normal stomach. - Normal examined duodenum. Recommendation: - Return patient to [facility] for ongoing care. - Perform a colonoscopy tomorrow. - Continue present medications. - Await cytology results. Corby Eduardo DO 09/29/2019 12:59:09 PM This report has been signed electronically. Note Initiated On: 09/29/2019 12:14 PM Number of Addenda: 0 I attest to the content of the Intraoperative Record and orders documented therein, exceptions below {[id number]}
[2019-09-29] MEDS ORDERED: bisacodyL 5 MG TABEC PO ONE (13:03)
--- NOTE | 2019-09-29 13:34 | Anesthesiology Progress Note ---
Date of Service September 29, 2019 Anesthesia Post Procedure Vital Signs Vital Signs: Temp Pulse Pulse Pulse Resp BP BP 09/29/19 13:16 50 L 18 160/67 H 09/29/19 12:58 44 L 16 120/48 L 09/29/19 12:42 49 L 16 149/70 H 09/29/19 11:56 37.2 C 53 L 18 175/76 H 09/29/19 10:53 36.8 C 57 L 18 178/71 H 09/29/19 07:20 36.7 C 50 L 18 183/67 H 09/29/19 07:10 49 L 09/29/19 03:40 36.7 C 46 L 20 177/63 H 09/29/19 01:17 48 L 09/28/19 23:57 36.6 C 51 L 20 190/77 H 09/28/19 20:32 49 L 09/28/19 19:42 36.6 C 50 L 182/79 H 09/28/19 19:10 36.4 C L 50 L 18 176/71 H 09/28/19 18:40 36.9 C 50 L 18 168/70 H 09/28/19 18:10 36.9 C 51 L 18 178/69 H 09/28/19 17:55 36.6 C 50 L 18 177/74 H 09/28/19 17:38 36.6 C 61 18 178/69 H 09/28/19 16:34 36.9 C 63 18 09/28/19 14:38 36.7 C 56 L 14 174/74 H 09/28/19 14:08 36.8 C 48 L 19 180/82 H 09/28/19 13:53 37.0 C 53 L 15 184/76 H 09/28/19 13:45 60 18 09/28/19 13:36 51 L 12 158/75 H 09/28/19 13:35 36.9 C 50 L 18 158/75 H BP Pulse Ox 09/29/19 13:16 99 09/29/19 12:58 99 09/29/19 12:42 100 09/29/19 11:56 99 09/29/19 10:53 98 09/29/19 07:20 97 09/29/19 07:10 09/29/19 03:40 100 09/29/19 01:17 09/28/19 23:57 98 09/28/19 20:32 173/70 H 09/28/19 19:42 100 09/28/19 19:10 100 09/28/19 18:40 99 09/28/19 18:10 100 09/28/19 17:55 100 09/28/19 17:38 92 09/28/19 16:34 173/62 H 98 09/28/19 14:38 100 09/28/19 14:08 100 09/28/19 13:53 100 09/28/19 13:45 09/28/19 13:36 100 09/28/19 13:35 100 Transfer of Care Handoff Completed per policy Notes Mental Status: alert / awake / arousable and participated in evaluation Patient Amnestic to Procedure: Yes Nausea / Vomiting: adequately controlled Pain: adequately controlled Airway Patency, RR, SpO2: stable & adequate BP & HR: stable & adequate Hydration State: stable & adequate Anesthetic Complications: no major complications apparent and Pt Satisfied with anesthetic care
[2019-09-29] MEDS: VENLAFAXINE HCL XR 75 MG CAPXR PO SCH (13:42)
[2019-09-29] MEDS ORDERED: POLYETHYLENE (MIRALAX) 17 GM PACK PO SCH ×2 (18:00)
[2019-09-29] MEDS: LIDOCAINE 5% 1 PATCH TD SCH (18:39)
--- NOTE | 2019-09-29 18:44 | XRay Report ---
XR lumbar spine 2-3V HISTORY: 79 years-old Female eval for comp fx acute on chronic low back pain COMPARISON: Radiographs of the pelvis 09/06/2017, CT abdomen and pelvis 07/04/2012 TECHNIQUE: 3 views of the lumbar spine FINDINGS: Demineralized appearance of the bones. Convex left curvature of the mid lumbar spine. 4 mm anterolist hesis L3 on L4 and 6 mm anterolisthesis L4 on L5, likely secondary to long-standing facet arthrosis. There is severe multilevel facet arthropathy. Moderate to severe multilevel disc space narrowing with at least moderate spondylitic spurring. No acute fracture or subluxation of the lumbar spine identif ied. 30% anterior endplate compression deformity of T12 is unchanged. Soft tissues are unremarkable. Mild gaseous distention of the transverse colon. Severe right hip post erior arthritis. IMPRESSION: 1. No acute fracture or subluxation. 2. Remote T12 compression deformity. 3. Severe right hip osteoarthritis. ACT 112: Negative or not required by law. The above report was generated using voice recognition software. It may contain grammatical, syntax o r spelling errors. Electronically signed by: Lars Cruz M.D. 09/29/2019 6:43 PM
[2019-09-29] MEDS: ACETAMINOPHEN 500 MG TAB PO SCH (20:42)
[2019-09-30] MEDS ORDERED: [UNRECOGNIZED DRUG - REMARK] ONE (03:00)
[2019-09-30] MEDS: CEROVITE ADV FORMULA TAB PO SCH ×2 (06:29→17:51)
--- NOTE | 2019-09-30 07:04 | Hospitalist Progress Note ---
Date of Service September 30, 2019 Assessment & Plan (1) Symptomatic anemia: Patient has had PICA (ice cravings) for 6+ months suggesting severe iron deficiency on a chronic basis. In July 2018 she was anemic with Hb 9.5 at that time. she is chronically anticoagulated with eliquis for afib, also has factor V leiden last colonoscopy was 2013 wiht one poly removed, diverticulosis and internal hemorrhoids Tx 2 units PRBCs 09/27 with robust rise in hgb to [address] Eduardo did perform upper endoscopy without sources for blood loss, suspicious for ирина and lower endoscopy 09/29 (2) Iron deficiency anemia: Ferritin is <10. PICA (ice cravings) for 6+ months. Tx 2 units PRBCs due to significant symptoms attributable from the anemia. Given venofer 200mg IV x 1 in am of 09/29/19 will recommend pcp monitor her iron levels as an outpt and pt may need further parenteral iron, will recommend po at this point (3) Factor V Leiden mutation: history of such. had LLE DVT in the past. takes chronic eliquis for PAF. . (4) Paroxysmal atrial fibrillation: in NSR at this time. pt states she feels lightheaded even post transfusion, she has been bradycardic,. Cardiology consult agrees to stop diltiazem but to continue amiodarone resume eliquis at discharge (5) Right hip pain: 2nd bursitis. no additional prednisone, may use volatren gel and lidoderm or OTC equivalent with associated LBP,lumbar spine x ray shows old T12 compression fracture (6) Hypocalcemia: albumin level is wnl., vitamin D level is low (7) Hx of total knee replacement: RIGHT. with subsequent septic knee - s/p surgery, and chronic antibiotic suppressive Rx for haemophilus cont cefdinir daily as previous. (8) Mitral regurgitation: likely cause of murmur. anemia will make murmur louder as well. last echo in 2017 - (9) Dizziness: Patient states she had a longstanding history of vertigo and this is almost like vertigo which she is experiencing. She says she has had the Mahsa maneuver one time in the past with some success will reconsult physical therapy for consideration light headedness has improved with better heart rate after stopping diltiazem Admission and Anticipated Discharge Date Admission Date: September 28, 2019 Subjective Patient is a 79 yo female with iron deficiency anemia. She underwent an EGD on 09/29/19 without findings to explain her anemia. She has completed a Miralax bowel prep. She denies any bleeding during her prep. She denies abdominal pain or other symptoms at present. H/H has been stable, she wants to try for discharge tonight as long as the colonoscopy does not show any issues and she recovers from anesthesia, due to the need to care for family at home Review of Systems Review of Systems: Mild distress and fatigue no headache, blurry or double vision no speech or swallowing issues no chest pain, pressure or palpitations no shortness of breath, cough or wheezes no abdominal pain, nausea or vomiting, diarrhea or constipation no dysuria, hematuria or frequency Significant arthritic changes to her hands does have chronic daily low back pain Chronic daily low back pain, without CVA tenderness or radicular pain no bruising, bleeding or rashes no focal signs of weakness or numbness or altered sensation no complaints or anxiety or depression. Physical Exam Physical Exam: The patient appeared well nourished and normally developed. Vital signs as documented. Head exam is normocephalic atraumatic no scleral icterus Neck is without JVD, thyromegaly, or carotid bruits. Lungs are clear to auscultation, no focal loss of breath sounds Cardiac exam, Rhythm is regular.. Systolic ejection murmur is heard Abdominal exam reveals normal bowel sounds, soft non tender, no masses Extremities are nonedematous and both hands have changes of osteoarthritis Neurologic exam is alert and oriented, no focal loss of strength or sensation Skin is without bruises or rashes Psychologically is without concerns for anxiety or depression Results & Data Results & Data ([facility]) Vital Signs (Past 12 Hours) Vital Signs Temp Pulse Pulse Resp BP BP Pulse Ox 09/30/19 06:13 55 L 152/61 H 09/30/19 03:40 97.7 F 50 L 20 189/66 H 99 09/30/19 00:20 50 L 09/30/19 00:00 98.2 F 51 L 18 112/76 95 09/29/19 19:44 97.9 F 53 L 20 125/57 L 97 PG Care Time/CCT Total # of Minutes Spent Total Time Spent with Patient: Total time spent is greater than 50% in coordin ation of care (as documented) at patient's floor/unit and/or counseling patient: Coding Level of Care Code 27731 Subseq Hosp Care Lvl 2 Diagnoses Symptomatic anemia D64.9 Iron deficiency anemia D50.9 Iron deficiency anemia type: unspecified iron deficiency Factor V Leiden mutation D68.51 Paroxysmal atrial fibrillation I48.0 Right hip pain M25.551 Hypocalcemia E83.51 Hx of total knee replacement Z96.651 Laterality: right Mitral regurgitation I34.0 Cardiac valve disease etiology: etiology unspecified Dizziness R42 (1) Mitral regurgitation Cardiac valve disease etiology: etiology unspecified Qualified Code(s): I34.0 - Nonrheumatic mitral (valve) insufficiency (2) Iron deficiency anemia Iron deficiency anemia type: unspecified iron deficiency Qualified Code(s): D50.9 - Iron deficiency anemia, unspecified (3) Hx of total knee replacement Laterality: right Qualified Code(s): Z96.651 - Presence of right artificial knee joint
[2019-09-30 07:40] LABS: Hematocrit (blood only) 32.6 % (37-47); Hemoglobin 9.2 g/dL (12.0-16.0); Mean Corpuscular Hemoglobin 22.3 pg (25-34); Mean Corpuscular Hgb Conc 28.2 g/dL (32-36); Mean Corpuscular Volume 78.9 fL (80-100); Mean Platelet Volume 7.9 fL (7.4-10.4); Nucleated RBC # (auto) 0.07 K/uL (0-0); Nucleated RBC % (auto) 0.9 %; Platelet Count 504 K/uL (130-400); RDW Coefficient of Variation 20.3 % (11.5-14.5); RDW Standard Deviation 58.4 fL (36.4-46.3); Red Blood Count 4.13 M/uL (4.2-5.4); White Blood Count 8.27 K/uL (4.8-10.8)
[2019-09-30 07:55] LABS: BUN Creatinine Ratio 14.2 (10-20); Calcium 7.9 mg/dl (8.5-10.1); Creatinine Clr Calc Pharmacy 43.5 ml/min; Est GFR (African American) 60.6; Est GFR (Non-African American) 52.3; Potassium 3.5 mmol/L (3.5-5.1)
[2019-09-30] MEDS: GABAPENTIN 100 MG CAP PO SCH ×4 (08:28→20:19)
[2019-09-30] MEDS: CEFDINIR 300 MG CAP PO SCH (08:31)
[2019-09-30] MEDS: BACLOFEN 10 MG TAB PO SCH (08:32)
[2019-09-30] MEDS: ATORVASTATIN 10 MG TAB PO SCH (08:32)
[2019-09-30] MEDS: LIDOCAINE 5% 1 PATCH TD SCH (08:33)
[2019-09-30] MEDS: AMIODARONE 200 MG TAB PO SCH (08:33)
[2019-09-30] MEDS: CYANOCOBALAMIN (VITAMIN B-12) 2,500 MCG TAB.SUBL SL SCH (08:33)
[2019-09-30] MEDS: PANTOprazole 40 MG in SYRINGE 0 ML IV SCH ×2 (08:33→20:20)
[2019-09-30] MEDS: CHOLECALCIFEROL 1,000 UNITS 25 MCG TAB PO SCH (08:34)
--- NOTE | 2019-09-30 09:07 | Gastroenterology Progress Note ---
Date of Service September 30, 2019 Assessment & Plan (1) Iron deficiency anemia: -Keep NPO -Proceed with colonoscopy today -Continue to monitor H/H Admission and Anticipated Discharge Date Admission Date: September 28, 2019 Supervising Physician Co-Signing Physician Notes Agree with MICHAEL Bai Abd: Soft, NT, ND, +BS Patient did not have clean prep, and therefore, will give additional bowel prep tonight for colonoscopy in the AM Subjective Patient is a 79 yo female with iron deficiency anemia. She underwent an EGD on 09/29/19 without findings to explain her anemia. She has completed a Miralax bowel prep and is planned for a colonoscopy today. She denies any bleeding during her prep. She denies abdominal pain or other symptoms at present. H/H presently 9.2/32.6. Review of Systems Constitutional: no fever and no chills Respiratory: no cough and no dyspnea Cardiovascular: no chest pain Gastrointestinal: no abdominal pain and no blood in stools Physical Exam Constitutional: WD/WN, vitals as above Neck: normal visual inspection Respiratory: normal respiratory effort Cardiovascular: Extremities: no edema Gastrointestinal (Abdomen): Inspection/Auscultation: abdomen normal to inspection Results & Data Results & Data ([facility]) Vital Signs (Past 12 Hours) Vital Signs Temp Pulse Pulse Resp BP BP Pulse Ox 09/30/19 08:00 36.6 C 50 L 18 147/69 H 93 09/30/19 07:11 50 L 09/30/19 06:13 55 L 152/61 H 09/30/19 03:40 36.5 C 50 L 20 189/66 H 99 09/30/19 00:20 50 L 09/30/19 00:00 36.8 C 51 L 18 112/76 95 PG Care Time/CCT Total # of Minutes Spent Total Time Spent with Patient: Total time spent is greater than 50% in coordination of care (as documented) at patient's floor/unit and/or counseling patient: Coding Level of Care Code None Diagnoses Iron deficiency anemia D50.9 Iron deficiency anemia type: unspecified iron deficiency (1) Iron deficiency anemia Iron deficiency anemia type: unspecified iron deficiency Qualified Code(s): D50.9 - Iron deficiency anemia, unspecified
[2019-09-30] MEDS: VENLAFAXINE HCL XR 75 MG CAPXR PO SCH (11:06)
[2019-09-30] MEDS ORDERED: POLYETHYLENE (MIRALAX) 17 GM PACK PO ONE (14:15)
--- NOTE | 2019-09-30 15:20 | Cardiology Consultation ---
Date of Consultation September 30, 2019 Assessment & Plan (1) Dizziness: She has different types of dizziness. Some of her dizziness is likely related to her anemia. How much of her symptoms are related to bradycardia is less clear. However, it does not seem imperative that she remain on diltiazem. She does have slow heart rates at times. I think her diltiazem could easily be discontinued. She should continue on amiodarone. If she requires additional antihypertensives amlodipine could be considered. (2) Mitral regurgitation: She does have a murmur on exam. An echocardiogram obtained less than 3 years ago did not reveal any evidence of aortic stenosis but only mild mitral valvular regurgitation. (3) Paroxysmal atrial tachycardia: No current symptoms suggestive of recurrent arrhythmia. She appears to have been doing very well on amiodarone over the years. It would seem reasonable to continue this medication. She does have a history of atrial fibrillation as well. Her anticoagulation has been stopped in anticipation of a GI evaluation. In the absence of overt bleeding, I would consider resumption of her systemic anticoagulation. History of Present Illness Reason for Consultation: Bradycardia, dizziness Requesting Physician: Angeline Attending Physician: Satinder Marcus MD History of Present Illness The patient is a 79-year-old woman with a history of paroxysmal atrial tachycardia and atrial fibrillation who was admitted after discovery of significant anemia. The patient states that she visited her primary care physician for routine evaluation was discovered to have anemic. The patient had notice some element of exercise intolerance for several weeks. She had also described an element of dizziness and lightheadedness at times. Her dizziness varies in character. Sometimes associated with movements of her head and more consistent with vertigo. Other times it is related to changes in position. She has not felt overtly presyncopal. She has not had recent symptoms of palpitations or rapid heartbeats. She has not had chest pain. She denies limiting dyspnea. Allergies Allergy/AdvReac Type Severity Reaction Status Date / Time No Known Allergies Allergy NONE Verified 09/28/19 13:06 Home Medications Home Medications Medication Instructions Recorded Confirmed Type vitamins A,C,L-rggl-qooqpv 14,320 1 cap PO BID 11/05/18 09/28/19 History unit-226 mg-200 unit capsule acetaminophen 500 mg tablet 1,500 mg PO HS tab 11/28/18 09/28/19 History cholecalciferol (vitamin D3) 25 1,000 units PO DAILY tab 11/28/18 09/28/19 History mcg (1,000 unit) tablet cyanocobalamin (vitamin B-12) 2,500 mcg SL DAILY tab 11/28/18 09/28/19 History 2,500 mcg sublingual tablet ferrous sulfate 325 mg (65 mg 325 mg PO DAILY tab 11/28/18 09/28/19 History iron) tablet melatonin 10 mg tablet 20 mg PO HS tab 11/28/18 09/28/19 History gabapentin 100 mg capsule 100 mg PO .COMPLEX #360 cap 02/26/19 09/28/19 Rx apixaban 5 mg tablet 5 mg PO BID #180 tab 07/19/19 09/28/19 Rx prednisone 20 mg tablet 20 mg PO .COMPLEX #30 tab 09/20/19 09/28/19 Rx amiodarone 200 mg PO QAM 09/28/19 09/28/19 History atorvastatin 10 mg PO QAM 09/28/19 09/28/19 History baclofen 10 mg PO QAM 09/28/19 09/28/19 History cefdinir 300 mg PO QAM 09/28/19 09/28/19 History venlafaxine 75 mg PO QDL 09/28/19 09/28/19 History Patient History Medical History Anemia Atrial premature complex Chronic neck pain Diverticulosis of colon Factor V Leiden mutation (Chronic) Fracture of rib, single, closed Haemophilus infection (Inactive) Heart disease (Chronic) Hypocalcemia (Resolved) Infection and inflammatory reaction due to other internal joint prosthesis, subsequent encounter (Resolved) On amiodarone therapy (Chronic) Paroxysmal atrial fibrillation (Chronic) Spinal stenosis (Chronic) Vitamin D deficiency Surgical History History of lung biopsy History of right knee surgery History of tonsillectomy Hx of total knee replacement Family History Brother Prostate cancer Mother Diabetes Other Coronary heart disease Hypertension Denies family history of Ovarian cancer Myocardial infarction Breast cancer Colorectal cancer Social History Preferred Language: Gibraltarian Communication Ability: Effective 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 Business 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 Required: No Beliefs That Will Affect Care: None marital status: Current Living Situation: Spouse Current Living Situation Comment: [place] current occupational status: retired current occupation: worked at [employer] Other Information That Helps Us Care for You: No Feels Safe at Home: Yes Safety Concerns: Feels Safe At This Time Smoking Status: Never smoker Do You Dip or Chew Tobacco: No ; Second Hand Exposure: No ; Tobacco Cessation Education Requested by Patient: No Hx Alcohol Use: Yes Alcohol Intake Frequency: Rarely Hx Substance Use: No Childhood Exposure to Second-Hand Smoke: No during the past year weight has: remained stable Dental Care, Regularly: No Seatbelt Use: always Sunscreen Use: Yes Review of Systems Review of Systems: All systems reviewed & are unremarkable except as noted in HPI & below Patient's main concern currently is right knee and right hip pain. She feels that this limits her ambulation. She has been ambulatory to the bathroom back is not had dizziness or lightheadedness today. Physical Exam Physical Exam: She is alert and oriented x3. Mood affect appear normal. She answered all questions appropriately. HEENT: Sclerae are anicteric. Pupils are equal and reactive to light and accommodation. Extraocular movements were intact. Neuro: Cranial nerves intact Neck: Examination of the submandibular region did not reveal any significant lymphadenopathy. Carotids are palpable bilaterally and free of bruits on auscultation. There was no evidence of jugular venous distention. The thyroid was not enlarged. Lungs: Lungs are clear to auscultation bilaterally. There are no rales wheezes or rhonchi. She has normal respiratory effort without use of accessory muscles. There is normal pulmonary excursion. Cardiac: The rhythm was regular. S1 and S2 were normal. Crescendo systolic murmur. The PMI was not markedly displaced on palpation. Abdomen: The abdomen was soft and nontender. Extremities: Patient has bilateral radial pulses that are equal in intensity. There is no evidence cyanosis or clubbing. There was no evidence of significant peripheral edema bilaterally. Skin: There are no rashes noted on examination today. Results & Data ([facility]) Vital Signs (Past 12 Hours) Vital Signs Temp Pulse Pulse Resp BP BP Pulse Ox 09/30/19 11:00 36.7 C 65 18 106/69 98 06/18/20 08:00 36.6 C 50 L 18 147/69 H 93 09/30/19 07:11 50 L 09/30/19 06:13 55 L 152/61 H 09/30/19 03:40 36.5 C 50 L 20 189/66 H 99 Laboratory Results Abnormal Lab Results 09/30/19 09/30/19 07:10 07:10 WBC 8.27 RBC 4.13 L Hgb 9.2 L Hct 32.6 L MCV 78.9 L MCH 22.3 L MCHC 28.2 L RDW Std Deviation 58.4 H RDW Coeff of German 20.3 H Plt Count 504 H MPV 7.9 Absolute Nucleated RBC 0.07 H Nucleated RBC % (auto) 0.9 Sodium 138 Potassium 3.5 Chloride 105 Carbon Dioxide 27 Anion Gap 7.0 BUN 15 Creatinine 1.02 Est Cr Clr Drug Dosing 43.5 Est GFR ( Amer) 60.6 Est GFR (Non-Af Amer) 52.3 BUN/Creatinine Ratio 14.2 Glucose 78 Calcium 7.9 L Diagnostic Findings EKG obtained on 09/28/2019: Normal sinus rhythm with heart rate of 56. Otherwise unremarkable PG Care Time/CCT Total # of Minutes Spent Total Time Spent with Patient: Total time spent is greater than 50% in coordination of care (as documented) at patient's floor/unit and/or counseling patient: Coding Level of Care Code 99733 Initial Inpt Care Lvl 3 Diagnoses Dizziness R42 Mitral regurgitation I34.0 Cardiac valve disease etiology: etiology unspecified Paroxysmal atrial tachycardia I47.1 (1) Mitral regurgitation Cardiac valve disease etiology: etiology unspecified Qualified Code(s): I34.0 - Nonrheumatic mitral (valve) insufficiency
--- NOTE | 2019-09-30 16:39 | Discharge Summary ---
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 She saw her PCP yesterday for a routine follow-up and labs were drawn as part of her visit. Those labs showed the low hemoglobin. She has had ice cravings for "months" and has had progressive fatigue for 1-2 months along with dizziness/lightheadedness - especially with activity, going up steps, etc. No dyspnea or chest pain. No nausea, emesis, abd pain. Denies overt melena or BRBPR. H/o GI bleeding in 1975 requiring multiple units PRBCs. Unknown source at that time. Does not use OTC NSAIDs. Rarely drinks etoh. During my assessment she was receiving her first unit of PRBCs. Patient states she is currently early on in a prednisone taper for right hip bursitis. Principal Diagnosis symptomatic anemia iron deficiency anemia bradycardia Discharge Exam The patient appeared well Vital signs as documented. Lungs are clear to auscultation and appear unlabored Cardiac exam, Rhythm is regular.. No murmurs, rubs or gallops. Abdominal exam reveals normal bowel sounds, soft non tender, no masses Extremities are nonedematous and both pedal pulses are normal. Neurologic exam is alert and oriented, no focal loss of strength or sensation Skin is without bruises or rashes Psychologically is without concerns for anxiety or depression Discharge Data Allergies Allergy/AdvReac Type Severity Reaction Status Date / Time No Known Allergies Allergy NONE Verified 09/28/19 13:06 Consultations 09/28/19 12:58 ED Decision to Admit Stat 09/28/19 16:16 Consult Gastroenterology Routine 09/29/19 17:16 Consult Cardiology Routine Procedures Performed Operation Date: 09/29/19 16:30 Actual Procedures p EGD Biopsy Cytology - Corby Eduardo, DO Operation Date: 09/30/19 16:30 <No data on this case meets the specified criteria> Hospital Course (1) Symptomatic anemia: Patient has had PICA (ice cravings) for 6+ months suggesting severe iron deficiency on a chronic basis. In July 2018 she was anemic with Hb 9.5 at that time. she is chronically anticoagulated with eliquis for afib, also has factor V leiden last colonoscopy was 2013 wiht one poly removed, diverticulosis and internal hemorrhoids Tx 2 units PRBCs 09/27 with robust rise in hgb to [address] Eduardo did perform upper endoscopy without sources for blood loss, suspicious for ирина and lower endoscopy 09/29, again without sources of acute bleeding her anemia is thus attributed to iron deficiency and she is encouraged to be compliant with her oral iron supplementation and involve her primary care doctor in following her anemia and iron level (2) Iron deficiency anemia: Ferritin is <10. PICA (ice cravings) for 6+ months. Tx 2 units PRBCs due to significant symptoms attributable from the anemia. Given venofer 200mg IV x 1 in am of 09/29/19 will recommend pcp monitor her iron levels as an outpt and pt may need further parenteral iron, will recommend po at this point (3) Factor V Leiden mutation: history of such. had LLE DVT in the past. takes chronic eliquis for PAF. . (4) Paroxysmal atrial fibrillation: in NSR at this time. pt states she feels lightheaded even post transfusion, she has been bradycardic,. Cardiology consult agrees to stop diltiazem but to continue amiodarone resume eliquis at discharge (5) Right hip pain: 2nd bursitis. no additional prednisone, may use volatren gel and lidoderm or OTC equivalent with associated LBP,lumbar spine x ray shows old T12 compression fracture (6) Hypocalcemia: albumin level is wnl., vitamin D level is low (7) Hx of total knee replacement: RIGHT. with subsequent septic knee - s/p surgery, and chronic antibiotic suppressive Rx for haemophilus cont cefdinir daily as previous. (8) Mitral regurgitation: likely cause of murmur. anemia will make murmur louder as well. last echo in 2017 - (9) Dizziness: Patient states she had a longstanding history of vertigo and this is almost like vertigo which she is experiencing. She says she has had the Mahsa maneuver one time in the past with some success will reconsult physical therapy for consideration light headedness has improved with better heart rate after stopping diltiazem Total Time Total Time Spent Total Time Spent (In Minutes): It required greater than 30 minutes to prepare this patient for discharge Discharge Plan Discharge Items Patient Disposition: Home - Self-Care Reason For Visit: SYMPTOMATIC ANEMIA,LIKELY OCCULT GI BLEEDING Discharge Diagnosis: iron deficiency anemia transfused 2 units of blood did have intravenous iron infusion Activity: Per Instructions section Activity Comment: gradually increase physical activity Non-emergency contact: Primary Care Provider Call non-emergency contact if: you have any medication questions and your pain is not controlled Follow-up/Referrals: Verónica Allen CRNP [Primary Care Provider] - 10/05/19 10:30 am (Please, follow up at [facility] with Verónica APONTE on FridayOctober 04 at 10:30 am. *If you need to change this appointment, call the office at [phone].) Diet: Regular Addtl Attending Provider Instructions: your heart rate was noted to be slower during your stay and Dr Weldon partner, Dr jones recommends stopping your diltiazem, it would be recommended to call to schedule a follow up visit for cardiology in the next month or so continue to eat a balanced diet and continue oral iron supplementation if you feel that the patch for your back pain helped you may continue those over the counter Pending Studies at Discharge: No Stand-Alone Forms: [facility] [employer], Smoking Cessation Medications and DC Order Prescriptions: New diclofenac sodium [Voltaren] 1 % gel 2 gm TOP QID PRN (Reason: arthritic pain) Qty: 100 RF: 0 Continued gabapentin 100 mg capsule 100 mg PO .COMPLEX Qty: 360 RF: 3 apixaban 5 mg tablet 5 mg PO BID Qty: 180 RF: 3 ferrous sulfate 325 mg (65 mg iron) tablet 325 mg PO DAILY RF: 0 cholecalciferol (vitamin D3) 1,000 unit (25 mcg) tablet 1,000 units PO DAILY RF: 0 cyanocobalamin (vitamin B-12) 2,500 mcg tablet, sublingual 2,500 mcg SL DAILY RF: 0 acetaminophen 500 mg tablet 1,500 mg PO HS RF: 0 melatonin 10 mg tablet 20 mg PO HS RF: 0 PreserVision AREDS 14,320-226-200 [id number] capsule 1 cap PO BID RF: 0 atorvastatin 10 mg tablet 10 mg PO QAM RF: 0 amiodarone 200 mg tablet 200 mg PO QAM RF: 0 baclofen 10 mg tablet 10 mg PO QAM RF: 0 cefdinir 300 mg capsule 300 mg PO QAM RF: 0 venlafaxine 75 mg tablet extended release 24hr 75 mg PO QDL RF: 0 Discontinued prednisone 20 mg tablet 20 mg PO .COMPLEX Qty: 30 RF: 0 Discharge Orders: Discharge Order (Routine); Ordered 10/01/19 Ordered By: Satinder Marcus Admission Data Admit Date/Time: 09/28/19 14:12 Attending Provider: Satinder Marcus Admit Provider: Cale Bethea Primary Care Provider: Verónica Allen Other Providers: Cale Bethea ; Corby Eduardo ; Timmy Bolanos Other Interventions: Discharge Summary Assessment (RN) Last Done: 10/01/19 15:39 Coding Level of Care Code D/C Day Management >30 mins Diagnoses Symptomatic anemia D64.9 Iron deficiency anemia D50.9 Iron deficiency anemia type: unspecified iron deficiency Factor V Leiden mutation D68.51 Paroxysmal atrial fibrillation I48.0 Right hip pain M25.551 Hypocalcemia E83.51 Hx of total knee replacement Z96.651 Laterality: right Mitral regurgitation I34.0 Cardiac valve disease etiology: etiology unspecified Dizziness R42
[2019-09-30] MEDS ORDERED: bisacodyL 5 MG TABEC PO ONE (18:00)
[2019-09-30] MEDS: ACETAMINOPHEN 500 MG TAB PO SCH (20:20)
[2019-09-30] MEDS ORDERED: MAGNESIUM CITRATE 296 ML/BTL PO STA (21:47)
[2019-09-30] MEDS ORDERED: ALUMINUM/MAGNESIUM SUSP 30 ML UDC PO PRN (23:19)
[2019-09-30] MEDS ORDERED: ALUMINUM/MAGNESIUM SUSP 30 ML UDC ONE (23:30)
--- NOTE | 2019-10-01 04:09 | Communication Note ---
Date of Service: October 01, 2019 Notified that pt was still having formed stool after bowel prep with dulcolax and 7 packets of miralax. Ordered one additional dose of mag citrate. Notified that stool became yellow fluid after that with "brown flakes". Also ordered maalox for heartburn Resident Activity Tracking Resident Involvement: Offal Separator Coverage Note Care Provided: Adult Hospital Medicine
[2019-10-01] MEDS: CEROVITE ADV FORMULA TAB PO SCH (06:44)
--- NOTE | 2019-10-01 09:46 | History & Physical Bridge Note ---
Date of Service October 01, 2019 History & Physical Bridge Note I have examined the patient, reviewed the History & Physical and in the interval since the performance of the History & Physical I have noted the following changes of clinical significance: no changes noted. Patient is reporting that her stools are yellow-clear at present without solid stool after 2 days of liquids & 2 separate Miralax preps with an additional dose of Magnesium Citrate given by the hospitalist service. She admits that several years ago during her last colonoscopy she had a bad prep because she did not follow the directions appropriately because she did not want to wake up in the middle of the night. Proceed with colonoscopy today. Supervising Physician Co-Signing Physician Notes Agree with MICHAEL Bai as above Abd: Soft, NT, ND, +BS Proceed with colonoscopy today
--- NOTE | 2019-10-01 11:17 | Anesthesiology Consultation ---
Date of Service October 01, 2019 Assessment & Plan (1) Encounter for pre-operative examination: Chart Review Chart Review: Acceptable Risk for Surgery and Patient NOT seen in Pre Admission Testing Consults Requested none ASA ASA3 Proposed Anesthesia Anesthesia Type: MAC Risk / Benefits Reviewed With: PT / POA / Parent / Guardian, Accepts Plan and Informed Consent Obtained History Surgery Operation Date: 09/29/19 16:30 Proposed Procedures p Esophagogastroduodenoscopy Dr Jayce Nguyen Case, DO Operation Date: 10/01/19 11:50 Proposed Procedures p Colonoscopy Dr. Jayce Nguyen Case, DO Height/Weight Height: 5 ft 3 in Weight: 73.8 kg Allergies Allergy/AdvReac Type Severity Reaction Status Date / Time No Known Allergies Allergy NONE Verified 09/28/19 13:06 Medications Home Medications Medication Instructions Recorded Confirmed Last Taken vitamins A,C,F-yhja-mbgjba 14,320 1 cap PO BID 11/05/18 09/28/19 09/27/19 unit-226 mg-200 unit capsule acetaminophen 500 mg tablet 1,500 mg PO HS tab 11/28/18 09/28/19 09/27/19 cholecalciferol (vitamin D3) 25 1,000 units PO DAILY tab 11/28/18 09/28/19 09/27/19 mcg (1,000 unit) tablet cyanocobalamin (vitamin B-12) 2,500 mcg SL DAILY tab 11/28/18 09/28/19 09/27/19 2,500 mcg sublingual tablet ferrous sulfate 325 mg (65 mg 325 mg PO DAILY tab 11/28/18 09/28/19 09/27/19 iron) tablet melatonin 10 mg tablet 20 mg PO HS tab 11/28/18 09/28/19 09/27/19 gabapentin 100 mg capsule 100 mg PO .COMPLEX #360 cap 02/26/19 09/28/19 09/27/19 apixaban 5 mg tablet 5 mg PO BID #180 tab 07/19/19 09/28/19 09/27/19 prednisone 20 mg tablet 20 mg PO .COMPLEX #30 tab 09/20/19 09/28/19 09/27/19 amiodarone 200 mg PO QAM 09/28/19 09/28/19 09/27/19 atorvastatin 10 mg PO QAM 09/28/19 09/28/19 09/27/19 baclofen 10 mg PO QAM 09/28/19 09/28/19 09/27/19 cefdinir 300 mg PO QAM 09/28/19 09/28/19 09/27/19 venlafaxine 75 mg PO QDL 09/28/19 09/28/19 09/27/19 diclofenac sodium [Voltaren] 2 gm TOP QID PRN #100 gm 09/30/19 Unknown Active Medications Generic Name Dose Route Start Last Admin Trade Name Freq PRN Reason Stop Dose Admin Acetaminophen 1,500 mg 09/28/19 21:00 09/30/19 20:20 Tylenol PO 10/28/19 20:59 1,500 mg HS JACKY Administration Amiodarone HCl 200 mg 09/29/19 09:00 09/30/19 08:33 Cordarone PO 10/29/19 08:59 200 mg QAM JACKY Administration Atorvastatin Calcium 10 mg 09/29/19 09:00 09/30/19 08:32 Lipitor PO 10/29/19 08:59 Not Given QAM JACKY Baclofen 10 mg 09/29/19 09:00 09/30/19 08:32 Lioresal PO 10/29/19 08:59 10 mg QAM JACKY Administration Cefdinir 300 mg 09/29/19 09:00 09/30/19 08:31 Omnicef Cap PO 10/29/19 08:59 300 mg QAM JACKY Administration Cyanocobalamin 2,500 mcg 09/29/19 09:00 09/30/19 08:33 Vitamin B-12 SL 10/29/19 08:59 Not Given DAILY JACKY Diltiazem HCl 180 mg 09/29/19 09:00 09/29/19 08:42 Cardizem Cd PO 10/29/19 08:59 180 mg QAM JACKY Administration Gabapentin 200 mg 09/28/19 21:00 09/30/19 20:19 Neurontin PO 10/28/19 20:59 200 mg BID JACKY Administration Gabapentin 100 mg 09/29/19 11:30 09/30/19 16:19 Neurontin PO 10/29/19 11:29 100 mg AC@1130,1630 JACKY Administration Pantoprazole Sodium 40 mg/ 10 mls @ 5 mls/min 09/28/19 14:15 09/30/19 20:20 Syringe IV 10/28/19 14:14 5 mls/min BID JACKY Administration Lidocaine 1 patch 09/29/19 17:15 09/30/19 08:33 Lidoderm 5% TD 10/29/19 17:14 1 patch QAM JACKY Administration Melatonin 9 mg 09/28/19 23:28 09/28/19 23:54 Melatonin PO 10/28/19 23:27 9 mg HS PRN Administration Sleep Miscellaneous 1 ea 09/29/19 21:00 09/30/19 20:20 Remove Lidoderm Patch N/A 10/29/19 20:59 1 ea DAILY@2100 JACKY Administration Multivitamins/Minerals 1 tab 09/28/19 19:00 10/01/19 06:44 Multivitamin W/ Minerals Tab PO 10/28/19 18:59 Not Given BID@0700,1900 JACKY Venlafaxine HCl 75 mg 09/29/19 11:30 09/30/19 11:06 Effexor Extended Release PO 10/29/19 11:29 75 mg QDL JACKY Administration Vitamin D 1,000 units 09/29/19 09:00 09/30/19 08:34 Vitamin D3 PO 10/29/19 08:59 Not Given DAILY JACKY NPO Date Last Intake of Fluids: 09/30/19 Time Last Intake of Fluids: 23:55 Last Intake of Fluids Comment: maalox Date Last Intake of Solids: 09/28/19 Time Last Intake of Solids: 08:00 Past Medical History Medical History Anemia Atrial premature complex Chronic neck pain Diverticulosis of colon Factor V Leiden mutation (Chronic) Fracture of rib, single, closed Haemophilus infection (Inactive) Heart disease (Chronic) Hypocalcemia (Resolved) Infection and inflammatory reaction due to other internal joint prosthesis, subsequent encounter (Resolved) On amiodarone therapy (Chronic) Paroxysmal atrial fibrillation (Chronic) Spinal stenosis (Chronic) Vitamin D deficiency Exercise / Class Metabolic Activity II 4-5 Yardwork/Stairs/Walk up hill Past Family History Family History Brother Prostate cancer Mother Diabetes Other Coronary heart disease Hypertension Denies family history of Ovarian cancer Myocardial infarction Breast cancer Colorectal cancer Past Surgical History Surgical History History of lung biopsy History of right knee surgery History of tonsillectomy Hx of total knee replacement Past Anesthesia History No Hx of Anesthesia Complications and No Family Hx of Anesthesia Complications History of PONV No Hx of PONV and No Hx of Motion Sickness Social History Smoking Status: Never smoker Do You Dip or Chew Tobacco: No Hx Alcohol Use: Yes Hx Substance Use: No substance use type: does not use Physical Exam Vital Signs Last Vital Signs Temp 36.8 C 10/01/19 10:51 Pulse 58 L 10/01/19 10:51 Resp 16 10/01/19 10:51 BP 170/69 H 10/01/19 10:51 Pulse Ox 98 10/01/19 10:51 ENMT Mouth: no dentition abnormality Thyromental Distance: > or= 3.5 Finger Breadths Mallampati Class: II Neck normal visual inspection Respiratory normal respiratory effort Auscultation: lungs clear to auscultation bilaterally Cardiovascular Rate/Rhythm: regular rate and regular rhythm Psychiatric Orientation: alert Testing Laboratory Results 09/30/19 07:10 09/30/19 07:10 PT 11.0 Seconds (9.0-12.0) 09/28/19 12:08 INR 1.0 (0.9-1.1) 09/28/19 12:08 APTT 23.5 Seconds (21.0-31.0) 09/28/19 12:08 Blood Type O Negative 09/28/19 12:08 Antibody Screen NEGATIVE 09/28/19 12:08 09/29/19 12:41 Fungal Smear - Final Throat Fungal Culture - Preliminary No yeast or fungus isolated to date.
[2019-10-01] MEDS ORDERED: PROPOFOL IV EMULSION 10 MG/ML 20 ML VIAL IV ONE ×2 (11:30)
[2019-10-01] MEDS ORDERED: LIDOCAINE HCL 2% 2 ML VIAL/AMP(20MG/ML) INFIL ONE (11:30)
--- NOTE | 2019-10-01 12:26 | GI REPORT ---
Patient Name: Marilyn Live Procedure Date: 10/01/2019 11:37 AM Date of : 1940 Admit Type: Inpatient Age: 79 Gender: Female Attending MD: Corby Eduardo DO Procedure: Colonoscopy Providers: Corby Eduardo DO Referring MD: Verónica Allen Indications: Iron deficiency anemia Medicines: Monitored Anesthesia Care Complications: No immediate complications. Estimated Blood Loss: Estimated blood loss: none. Procedure: Pre-Anesthesia Assessment: - Prior to the procedure, a History and Physical was performed, and patient medications and allergies were reviewed. The patient's tolerance of previous anesthesia was also reviewed. The risks and benefits of the procedure and the sedation options and risks were discussed with the patient. All questions were answered, and informed consent was obtained. Prior Anticoagulants: The patient has taken no previous anticoagulant or antiplatelet agents. ASA Grade Assessment: III - A patient with severe systemic disease. After reviewing the risks and benefits, the patient was deemed in satisfactory condition to undergo the procedure. After I obtained informed consent, the scope was passed under direct vision. Throughout the procedure, the patient's blood pressure, pulse, and oxygen saturations were monitored continuously. The Colonoscope was introduced through the anus and advanced to the cecum, identified by appendiceal orifice and ileocecal valve. The colonoscopy was performed without difficulty. The patient tolerated the procedure well. The quality of the bowel preparation was good. The ileocecal valve, appendiceal orifice, and rectum were photographed. Findings: The perianal and digital rectal examinations were normal. Multiple small-mouthed diverticula were found in the sigmoid colon. Non-bleeding internal hemorrhoids were found during retroflexion. The hemorrhoids were small. Impression: - Diverticulosis in the sigmoid colon. - Non-bleeding internal hemorrhoids. - No specimens collected. Recommendation: - Return patient to [facility] for [facility] care. - Advance diet as tolerated. - Continue present medications. Corby Eduardo DO 10/01/2019 12:26:15 PM This report has been signed electronically. Note Initiated On: 10/01/2019 11:37 AM Number of Addenda: 0 I attest to the content of the Intraoperative Record and orders documented therein, exceptions below {[id number]}
--- NOTE | 2019-10-01 12:30 | Anesthesiology Progress Note ---
Date of Service October 01, 2019 Anesthesia Post Procedure Vital Signs Vital Signs: Temp Pulse Pulse Resp BP BP Pulse Ox 10/01/19 12:14 59 L 16 124/69 97 10/01/19 10:51 36.8 C 58 L 16 170/69 H 98 10/01/19 07:26 55 L 10/01/19 07:00 36.8 C 72 18 133/76 99 10/01/19 02:53 36.4 C L 72 17 160/68 H 98 10/01/19 00:13 55 L 09/30/19 23:25 36.7 C 58 L 15 157/69 H 98 09/30/19 19:47 36.5 C 65 18 152/71 H 90 09/30/19 16:00 36.7 C 62 18 120/65 98 09/30/19 15:25 60 Transfer of Care Handoff Completed per policy Notes Mental Status: alert / awake / arousable Patient Amnestic to Procedure: Yes Nausea / Vomiting: adequately controlled Pain: adequately controlled Airway Patency, RR, SpO2: stable & adequate BP & HR: stable & adequate Hydration State: stable & adequate Anesthetic Complications: no major complications apparent
[2019-10-01] MEDS: CEFDINIR 300 MG CAP PO SCH (13:55)
[2019-10-01] MEDS: GABAPENTIN 100 MG CAP PO SCH ×3 (13:55→16:49)
[2019-10-01] MEDS: CHOLECALCIFEROL 1,000 UNITS 25 MCG TAB PO SCH (13:56)
[2019-10-01] MEDS: BACLOFEN 10 MG TAB PO SCH (13:56)
[2019-10-01] MEDS: AMIODARONE 200 MG TAB PO SCH (13:56)
[2019-10-01] MEDS: VENLAFAXINE HCL XR 75 MG CAPXR PO SCH (13:56)
[2019-10-01] MEDS: ATORVASTATIN 10 MG TAB PO SCH (13:56)
[2019-10-01] MEDS: CYANOCOBALAMIN (VITAMIN B-12) 2,500 MCG TAB.SUBL SL SCH (13:56)
[2019-10-01] MEDS: LIDOCAINE 5% 1 PATCH TD SCH (13:57)
[2019-10-01] MEDS: PANTOprazole 40 MG in SYRINGE 0 ML IV SCH (13:57)
== END 2019-10-01 19:03 | disposition home or self-care (01) | DRG 812 ==
LOC: ED 11:35 → 2N 14:12 → SUATTDRO 14:12 → 2N 16:06

== ENCOUNTER 2019-12-21 07:02 | Observation (INO) ==
--- NOTE | 2019-11-23 11:36 | PAT Medication Instructions ---
Medication Instructions Date of Service November 23, 2019 Home Medications Medication Instructions Recorded gabapentin 100 mg capsule 100 mg PO .COMPLEX #360 cap 02/26/19 apixaban 5 mg tablet 5 mg PO BID #180 tab 07/19/19 diclofenac sodium [Voltaren] 2 gm TOP QID PRN #100 gm 09/30/19 amiodarone 200 mg tablet 200 mg PO QAM #90 tab 11/03/19 vitamins A,C,U-nevl-eublnq 14,320 unit-226 mg-200 unit capsule 1 cap PO BID acetaminophen 500 mg tablet 1,500 mg PO HS cholecalciferol (vitamin D3) 25 mcg (1,000 unit) tablet 2,000 units PO QAM cyanocobalamin (vitamin B-12) 2,500 mcg sublingual tablet 2,500 mcg SL QAM ferrous sulfate 325 mg (65 mg iron) tablet 325 mg PO QPM gabapentin 100 mg capsule 100 mg PO .COMPLEX apixaban 5 mg tablet 5 mg PO BID atorvastatin 10 mg PO QAM baclofen 10 mg PO QAM cefdinir 300 mg PO QAM venlafaxine 75 mg PO QAM diclofenac sodium [Voltaren] 2 gm TOP QID PRN melatonin 10 mg tablet 10 mg PO HS amiodarone 200 mg tablet 200 mg PO QAM calcium carbonate-vitamin D3 [Calcium 600 + D(3)] 1 cap PO QPM diclofenac sodium 75 mg PO QAM diphenhydramine-acetaminophen [Tylenol PM Extra Strength] 3 tab PO HS ASK your surgeon for instructions diclofenac sodium 75 mg PO QAM ASK your prescriber and surgeon apixaban 5 mg tablet 5 mg PO BID (in order for spinal anesthesia, Apixaban/Eliquis needs to be stopped 72 hours/3 days before surgery. Please check if okay with doctor that prescribes this to you) STOP taking 2 weeks before surgery (or as soon as possible if surgery is within 2 weeks) vitamins A,C,M-ggwu-luxcuq 14,320 unit-226 mg-200 unit capsule 1 cap PO BID STOP taking 24 hours before surgery diclofenac sodium [Voltaren] 2 gm TOP QID PRN DO NOT take the morning of surgery cholecalciferol (vitamin D3) 25 mcg (1,000 unit) tablet 2,000 units PO QAM cyanocobalamin (vitamin B-12) 2,500 mcg sublingual tablet 2,500 mcg SL QAM baclofen 10 mg PO QAM Take morning of surgery With a small sip of water, OTHERWISE NOTHING TO EAT OR DRINK AFTER MIDNIGHT: gabapentin 100 mg capsule 100 mg PO .COMPLEX atorvastatin 10 mg PO QAM cefdinir 300 mg PO QAM venlafaxine 75 mg PO QAM amiodarone 200 mg tablet 200 mg PO QAM Take evening before surgery acetaminophen 500 mg tablet 1,500 mg PO HS ferrous sulfate 325 mg (65 mg iron) tablet 325 mg PO QPM melatonin 10 mg tablet 10 mg PO HS calcium carbonate-vitamin D3 [Calcium 600 + D(3)] 1 cap PO QPM diphenhydramine-acetaminophen [Tylenol PM Extra Strength] 3 tab PO HS Other Notes If you have any questions please call us at [phone] or [phone] or [phone] or [phone]
--- NOTE | 2019-11-26 11:35 | Anesthesiology Consultation ---
Date of Service November 26, 2019 Assessment & Plan (1) Encounter for pre-operative examination: - Awaiting surgeon-ordered PCP ([facility]; 11/30) and cardiology clearance ([facility] cardiology; 11/30) Per PAT assessment on 11/25: Travel screen- negative. No known COVID-19 positive contacts. No current COVID-19 related symptoms. Surgeon arranging preop COVID testing. Awaiting results. - Eliquis instructions: patient made aware that in order for spinal anesthesia, Eliquis needs to be held 72 hours/3 days prior to surgery. Patient voiced understanding/will check if okay with prescriber. Chart Review Chart Review: Patient seen in Pre Admission Testing Teaching & Discussion Pre-Anesthesia Teaching/Discussion Notes: Instructed NPO after midnight before surgery,except medications with 15 cc of water. Medication instructions provided according to the [facility] guidelines. History Surgery Operation Date: 12/21/19 07:45 Proposed Procedures p Right Total Anterior Hip Arthroplasty - Ramon Robertson DO Height/Weight Height: 5 ft 3 in Weight: 78.6 kg Allergies Allergy/AdvReac Type Severity Reaction Status Date / Time No Known Allergies Allergy NONE Verified 11/19/19 13:50 Medications Home Medications Medication Instructions Recorded Confirmed Last Taken vitamins A,C,A-cnbj-hgyetn 14,320 1 cap PO BID 11/05/18 11/19/19 09/27/19 unit-226 mg-200 unit capsule acetaminophen 500 mg tablet 1,500 mg PO HS tab 11/28/18 11/19/19 09/27/19 cholecalciferol (vitamin D3) 25 2,000 units PO QAM tab 11/28/18 11/19/19 09/27/19 mcg (1,000 unit) tablet cyanocobalamin (vitamin B-12) 2,500 mcg SL QAM tab 11/28/18 11/19/19 09/27/19 2,500 mcg sublingual tablet ferrous sulfate 325 mg (65 mg 325 mg PO QPM tab 11/28/18 11/19/19 09/27/19 iron) tablet gabapentin 100 mg capsule 100 mg PO .COMPLEX #360 cap 02/26/19 11/19/19 09/27/19 apixaban 5 mg tablet 5 mg PO BID #180 tab 07/19/19 11/19/19 09/27/19 atorvastatin 10 mg PO QAM 09/28/19 11/19/19 09/27/19 baclofen 10 mg PO QAM 09/28/19 11/19/19 09/27/19 cefdinir 300 mg PO QAM 09/28/19 11/19/19 09/27/19 venlafaxine 75 mg PO QAM 09/28/19 11/19/19 09/27/19 diclofenac sodium [Voltaren] 2 gm TOP QID PRN #100 gm 09/30/19 11/19/19 Unknown melatonin 10 mg tablet 10 mg PO HS tab 10/27/19 11/19/19 Unknown amiodarone 200 mg tablet 200 mg PO QAM #90 tab 11/03/19 11/19/19 Unknown calcium carbonate-vitamin D3 1 cap PO QPM 11/19/19 11/19/19 Unknown [Calcium 600 + D(3)] diclofenac sodium 75 mg PO QAM 11/19/19 11/19/19 Unknown diphenhydramine-acetaminophen 3 tab PO HS 11/19/19 11/19/19 Unknown [Tylenol PM Extra Strength] Past Medical History Medical History Anemia iron deficiency s/p 2 units transfusion 10/01/19 ([facility] 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 Perez) Paroxysmal atrial tachycardia Spinal stenosis Urinary, incontinence, stress female Exercise / Class Metabolic Activity II 4-5 Yardwork/Stairs/Walk up hill (no chest pain or sob with one flight of stairs) Past Family History Family History Brother Prostate cancer Mother Diabetes Other Coronary heart disease Hypertension Denies family history of Ovarian cancer Myocardial infarction Breast cancer Colorectal cancer Past Surgical History Surgical History History of bilateral tubal ligation History of colonoscopy colonoscopy: 10/01/19: MAC sedation at [facility] History of esophagogastroduodenoscopy (EGD) EGD: 09/29/19: MAC sedation at [facility] History of lung biopsy History of right knee surgery RIGHT KNEE DEBRIDEMENT History of tonsillectomy Hx of total knee replacement RIGHT Social History Smoking Status: Never smoker Do You Dip or Chew Tobacco: No Hx Alcohol Use: Yes Alcohol type: wine alcohol intake frequency: holidays/special occasions only Hx Substance Use: No substance use type: does not use Review of Systems Patient denies chest pain, shortness of breath, fever, chills, dyspnea on exertion, cough, wheezing, palpitations. Physical Exam Vital Signs VITALS BP 125/71 P 54 TEMP 98.1 SP02 98%RA RESP 18 PHYSICAL Decreased cervical extension 2/2 cervicalgia (DDD per patient) Full TMJ range of motion. TMD 3 finger breaths Mallampati Score 2 Dentition: upper front veneers, poor dentition specifically molars Lungs: clear throughout to auscultation Cardiac: regular rate and rhythm, III/ systolic murmur with faint radiation to right carotid Spine: normal Extremities: nonpitting LLE edema (patient states chronic) Testing Laboratory Results 11/26/19 11:55 11/26/19 11:55 PT 10.5 Seconds (9.0-12.0) 11/26/19 11:55 INR 1.0 (0.9-1.1) 11/26/19 11:55 APTT 31.1 Seconds (21.0-31.0) H 11/26/19 11:55 Hemoglobin A1c 5.3 % (4.5-5.6) 11/26/19 11:55 Urine Color Yellow 11/26/19 11:55 Urine Appearance Clear (Clear) 11/26/19 11:55 Urine pH 5.5 (4.5-7.5) 11/26/19 11:55 Ur Specific [place] 1.025 (1.000-1.030) 11/26/19 11:55 Urine Protein Negative (Negative) 11/26/19 11:55 Urine Glucose (UA) Negative (Negative) 11/26/19 11:55 Urine Ketones Negative (Negative) 11/26/19 11:55 Urine Nitrite Negative (Negative) 11/26/19 11:55 Ur Leukocyte Esterase Negative (Negative) 11/26/19 11:55 Blood Type O Negative 11/26/19 11:55 Antibody Screen NEGATIVE 11/26/19 11:55 Anemia stable/mildly improved compared to most recent 10/2019 labs* Electrocardiogram Date: 09/28/19 SB at 56bpm. NS TWA. No significant change compared to 06/10/16 per roller review. Chest X-Ray Date: 11/26/19 FINDINGS: chronic interstitial change left lung base. Lungs otherwise appear clear. Mild stable cardiomegaly. Diaphragms are smooth. IMPRESSION: Chronic change left base. Mild stable cardiomegaly. No acute process. Echocardiogram Date: 06/05/16 LVEF 65-70%. No RWMA. Moderate cLVH. Borderline anterior leaflet MVP with mild MR. Compared to 01/05/14 study "no significant change" per report.
--- NOTE | 2019-11-26 12:30 | XRay Report ---
XR chest Pre-admission PA/Lat CLINICAL HISTORY: pat preoperative evaluation COMPARISON STUDY: 09/06/2017 FINDINGS: chronic interstitial change left lung base. Lungs otherwise appear clear. Mild stable cardi omegaly. Diaphragms are smooth. IMPRESSION: Chronic change left base. Mild stable cardiomegaly. No acute process. ACT 112: Negative or not required by law. The above report was generated using voice recognition software. It may contain grammatical, syntax or spelling errors. Electronically signed by: Khai Davis M.D. 11/26/2019 12:29 PM
[2019-11-26 13:20] LABS: Basophils # (auto) 0.06 K/uL (0-0.2); Basophils % (auto) 0.9 %; Eosinophils # (auto) 0.39 K/uL (0-0.5); Eosinophils % (auto) 5.7 %; Hematocrit (blood only) 34.7 % (37-47); Hemoglobin 10.7 g/dL (12.0-16.0); Immature Granulocytes # (auto) 0.02 K/uL (0.00-0.02); Immature Granulocytes % (auto) 0.3 %; Lymphocytes # (auto) 1.82 K/uL (1.2-3.4); Lymphocytes % (auto) 26.5 %; Mean Corpuscular Hgb Conc 30.8 g/dL (32-36); Monocytes # (auto) 0.83 K/uL (0.11-0.59); Monocytes % (auto) 12.1 %; Neutrophils # (auto) 3.74 K/uL (1.4-6.5); Neutrophils % (auto) 54.5 %; Platelet Count 416 K/uL (130-400); RDW Coefficient of Variation 24.4 % (11.5-14.5); RDW Standard Deviation 79.8 fL (36.4-46.3); Red Blood Count 3.69 M/uL (4.2-5.4); White Blood Count 6.86 K/uL (4.8-10.8)
[2019-11-26 13:35] LABS: Appearance Urine Clear (Clear); Bilirubin Urine Negative (Negative); Blood Urine Negative (Negative); Color Urine Yellow; Glucose Urine UA Negative (Negative); Ketones Urine Negative (Negative); Leukocyte Esterase Urine Negative (Negative); Nitrite Urine Negative (Negative); Protein Urine Negative (Negative); Specific Gravity Urine 1.025 (1.000-1.030); Urobilinogen Urine Negative (Negative); pH Urine 5.5 (4.5-7.5)
[2019-11-26 13:36] LABS: Partial Thromboplastin Ratio 1.1; Partial Thromboplastin Time 31.1 Seconds (21.0-31.0); Prothrombin Time 10.5 Seconds (9.0-12.0)
[2019-11-26 13:39] LABS: Albumin Level 3.3 gm/dl (3.4-5.0); Calcium 7.8 mg/dl (8.5-10.1); Creatinine Clr Calc Pharmacy 52.7 ml/min; Est GFR (African American) 74.5; Est GFR (Non-African American) 64.3; Potassium 4.3 mmol/L (3.5-5.1)
[2019-11-26 13:47] LABS: Estimated Average Glucose 105 mg/dl; Hemoglobin A1C 5.3 % (4.5-5.6)
[2019-11-26 13:52] LABS: Anisocytosis Present
--- NOTE | 2019-12-18 09:47 | History & Physical Report ---
Date of Service December 21, 2019 Assessment & Plan (1) Degenerative joint disease of right hip: I have indicated the patient for right anterior total hip replacement. The risks, benefits and complications of surgery were explained to the patient which include but not limited to infection, acute blood loss, DVT/PE, injury to nerves, vessels, bone, soft tissue, arthrofibrosis, chronic pain, failure of the prosthesis, hip dislocation, leg length discrepancy, need for additional surgery, cardiac and pulmonary events and . The patient wished to proceed with surgery and informed consent was obtained at this time. We will plan for restarting home medication, Eliquis post-operatively for DVT prophylaxis. Upon discharge the patient will be discharged home with home health services. Appropriate clearances by PCP and cardiology were obtained. History of Present Illness Chief Complaint: Right hip pain/djd Primary Care Provider: Daren Mcnair DO The patient is a 79 year old female who presents with complaints of severe right hip pain and DJD. The patient has failed outpatient conservative treatments to this point which included activity modification, home exercise/ walking program, patient unable to take NSAIDs secondary to Eliquis, declined further conservative treatments including IA corticosteroid injection. The patient's pain and limited function have progressed to the point where they severely hinder their activities of daily living and they no longer tolerate exercise programs. They are requesting to proceed with total hip replacement surgery. Allergies Allergy/AdvReac Type Severity Reaction Status Date / Time No Known Allergies Allergy NONE Verified 12/21/19 07:17 Home Medications Home Medications Medication Instructions Recorded Confirmed Type vitamins A,C,X-leaz-tdejkg 14,320 1 cap PO BID 11/05/18 12/21/19 History unit-226 mg-200 unit capsule acetaminophen 500 mg tablet 1,500 mg PO HS tab 11/28/18 12/21/19 History cholecalciferol (vitamin D3) 25 2,000 units PO QAM tab 11/28/18 12/21/19 History mcg (1,000 unit) tablet cyanocobalamin (vitamin B-12) 2,500 mcg SL QAM tab 11/28/18 12/21/19 History 2,500 mcg sublingual tablet ferrous sulfate 325 mg (65 mg 325 mg PO QPM tab 11/28/18 12/21/19 History iron) tablet gabapentin 100 mg capsule 100 mg PO .COMPLEX #360 cap 02/26/19 12/21/19 Rx apixaban 5 mg tablet 5 mg PO BID #180 tab 07/19/19 12/21/19 Rx atorvastatin 10 mg PO QAM 09/28/19 12/21/19 History baclofen 10 mg PO QAM 09/28/19 12/21/19 History venlafaxine 75 mg PO QAM 09/28/19 12/21/19 History diclofenac sodium [Voltaren] 2 gm TOP QID PRN #100 gm 09/30/19 12/21/19 Rx melatonin 10 mg tablet 10 mg PO HS tab 10/27/19 12/21/19 History amiodarone 200 mg tablet 200 mg PO QAM #90 tab 11/03/19 12/21/19 Rx calcium carbonate-vitamin D3 1 cap PO QPM 11/19/19 12/21/19 History [Calcium 600 + D(3)] diclofenac sodium 75 mg PO QAM 11/19/19 12/21/19 History diphenhydramine-acetaminophen 3 tab PO HS 11/19/19 12/21/19 History [Tylenol PM Extra Strength] Past Med/Surg History Medical History Anemia iron deficiency s/p 2 units transfusion 10/01/19 ([facility] 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 Perez) Paroxysmal atrial tachycardia Spinal stenosis Urinary, incontinence, stress female Surgical History History of bilateral tubal ligation History of colonoscopy colonoscopy: 10/01/19: MAC sedation at [facility] History of esophagogastroduodenoscopy (EGD) EGD: 09/29/19: MAC sedation at [facility] History of lung biopsy History of right knee surgery RIGHT KNEE DEBRIDEMENT History of tonsillectomy Hx of total knee replacement RIGHT Family History Brother Prostate cancer Mother Diabetes Other Coronary heart disease Hypertension Denies family history of Ovarian cancer Myocardial infarction Breast cancer Colorectal cancer Social History Smoking Status: Never smoker Second Hand Exposure: No; Do You Dip or Chew Tobacco: No; Hx Alcohol Use: Yes Alcohol type: wine Hx Substance Use: No Preferred Language: Azeri Communication Ability: Effective Larry Car Operator Required: No Beliefs That Will Affect Care: None marital status: Current Living Situation: Spouse Current Living Situation Comment: [place] current occupational status: retired current occupation: worked at [employer] Other [employer] Care for You: No Feels Safe at Home: Yes Safety Concerns: Feels Safe At This Time Childhood Exposure to Second-Hand Smoke: No during the past year weight has: remained stable Dental Care, Regularly: No Seatbelt Use: always Sunscreen Use: Yes Review of Systems Review of Systems: All systems reviewed & are unremarkable except as noted in HPI & below Constitutional: as per Subjective / HPI Physical Exam Physical Exam: RLE NVSI +EHL/FHL/TA/GS SILT grossly, +2 DP pulse, compartments soft NT, painful limited ROM of the hip, antalgic gait. Constitutional: WD/WN, vitals as above Eyes: PERRL, conjunctivae normal, anicteric sclerae ENMT: external ear and nose normal, oropharynx normal Neck: trachea midline, no thyromegaly Respiratory: normal respiratory effort, lungs clear to auscultation Cardiovascular: RRR, no murmur, no edema Gastrointestinal (Abdomen): normal bowel sounds, soft, nontender, no hepatosplenomegaly Musculoskeletal: no cyanosis or clubbing, extremities motor strength 5/5 Skin: no rashes, warm and dry Neurologic: patellar DTR's 2+ bilat, sensation intact Psychiatric: A+Ox3, euthymic affect Lymphatic: no cervical or axillary lymphadenopathy Results & Data Results & Data ([facility]) Diagnostic Findings Multiple views of the hip demonstrates severe DJD with complete loss of the joint space. +osteophytes, +sclerosis, +subchondral cysts. Pre Admission Testing Addendum Laboratory Results 11/26/19 11:55 11/26/19 11:55 PT 10.5 Seconds (9.0-12.0) 11/26/19 11:55 INR 1.0 (0.9-1.1) 11/26/19 11:55 APTT 31.1 Seconds (21.0-31.0) H 11/26/19 11:55 Hemoglobin A1c 5.3 % (4.5-5.6) 11/26/19 11:55 Urine Color Yellow 11/26/19 11:55 Urine Appearance Clear (Clear) 11/26/19 11:55 Urine pH 5.5 (4.5-7.5) 11/26/19 11:55 Ur Specific [place] 1.025 (1.000-1.030) 11/26/19 11:55 Urine Protein Negative (Negative) 11/26/19 11:55 Urine Glucose (UA) Negative (Negative) 11/26/19 11:55 Urine Ketones Negative (Negative) 11/26/19 11:55 Urine Nitrite Negative (Negative) 11/26/19 11:55 Ur Leukocyte Esterase Negative (Negative) 11/26/19 11:55 Blood Type O Negative 11/26/19 11:55 Antibody Screen NEGATIVE 11/26/19 11:55 11/26/19 11:55 Urine Culture - Final Urine,Clean Catch [email or web address] not [email or web address]
[~2019-12-21 07:02] MED LIST changes: -ACET-1256 PO; +ACETAMINOPHEN 500 MG TAB PO SCH; -ALUMCHW2 PO; -ATOR10TA82 PO; -CEFD300C2 PO; -CRD200 PO; -CYAN100020 PO; +CeleBREX 200 MG CAP PO SCH; -DILT-113 PO; -DOXY25TA8 PO; -EFF75 PO; +FAMOTIDINE 20 MG TAB PO SCH; -FERR325T18 PO; +GABAPENTIN 300 MG CAP PO SCH; +LR 500ML BOLUS, THEN 15ML/HR IV SCH; -MELA1TAB3 PO; +METOCLOPRAMIDE HCL 10 MG TABLET PO SCH; +ROPIVACAINE 0.5% HCL/PF 150 MG, BUPIVACAINE 0.5% MPF 30 ML, EPINEPHrine 0.15 MG, Ketoro... INFIL SCH; -WARF1TAB PO; +ceFAZolin 1000MG 1,000 MG/7.5 ML SYR IV SCH; +dexAMETHasone 4 MG TAB PO SCH
[2019-12-21] MEDS ORDERED: BUPIVACAINE 0.5 % 5 MG/1 ML PF 10ML VIAL ONE (07:29)
[2019-12-21] MEDS ORDERED: fentaNYL citrate 100 MCG/2 ML VIAL ONE (08:09)
[2019-12-21] MEDS ORDERED: MIDAZOLAM HCL 1 MG/ML 2ML VIAL ONE (08:09)
[2019-12-21] MEDS ORDERED: ONDANSETRON INJ 2 MG/ML 2 ML VIAL IV PRN ×2 (09:02→13:34)
[2019-12-21] MEDS ORDERED: ATROPINE SULFATE 0.1 MG/ML 10ML SYR IV PRN (09:02)
[2019-12-21] MEDS ORDERED: ePHEDrine sulfate 50 MG/ML AMP IV PRN (09:02)
[2019-12-21] MEDS ORDERED: fentaNYL citrate 100 MCG/2 ML VIAL IV PRN (09:02)
--- NOTE | 2019-12-21 09:14 | History & Physical Bridge Note ---
Date of Service December 21, 2019 History & Physical Bridge Note I have examined the patient, reviewed the History & Physical and in the interval since the performance of the History & Physical I have noted the following changes of clinical significance: no changes noted
[2019-12-21] MEDS ORDERED: BACITRACIN INJ 50,000 UNIT VIAL ONE (09:32)
[2019-12-21] MEDS ORDERED: ORTHO JOINT ANESTHETIC ONE (09:32)
[2019-12-21] MEDS ORDERED: PROPOFOL IV EMULSION 10 MG/ML 20 ML VIAL IV ONE (10:58)
[2019-12-21] MEDS ORDERED: ePHEDrine sulfate 50 MG/ML AMP ONE ×2 (10:58→11:32)
[2019-12-21] MEDS ORDERED: PHENYLEPHRINE 100MCG/ML 5ML SYR ONE (10:58)
--- NOTE | 2019-12-21 11:48 | Fluoroscopy Report ---
FL hip RT 1V CLINICAL HISTORY: RT TOTAL HIP COMPARISON STUDY: None. FLUOROSCOPY TIME: 42nd. FINDINGS: 2 fluoroscopic spot images of the right hip demonstrate a right total arthroplasty. The junito dware is intact. No fracture or dislocation. IMPRESSION: Fluoroscopy provided for right total hip arthroplasty. ACT 112: Negative or not required by law. Electronically signed by: Nura Conner M.D. 12/21/2019 11:47 AM
--- NOTE | 2019-12-21 11:50 | Post Operative Brief Note ---
Immediate Post Op Note v1 Date of Surgery December 21, 2019 Pre & Post Diagnosis Operation Date: 12/21/19 09:45 Pre-Op Diagnosis: Unilateral Primary Osteoarthritis, Right Hip Post-Op Diagnosis: Unilateral Primary Osteoarthritis, Right Hip I identified the patient and participated in the time-out.: Yes Procedure Operation Date: 12/21/19 09:45 Actual Procedures p Right Total Anterior Hip Arthroplasty(Right) - Ramon Robertson DO Surgeon Ramon Robertson DO Anesthesiology Medical Doctor Juan Rice Estimated Blood Loss 185 Findings Consistent with Post-Op Diagnosis Fluids 1500 cc LR Specimens Femoral head Drains Ribeiro Catheter (inserted prior to start of procedure by Mary Rees RN without difficulty) Complications none Disposition Disposition: Recovery Room Overlapping Procedure I was present for: the critical portions of procedure. I was immediately available: during the entire case. Back up surgeon: was not required during procedure.
--- NOTE | 2019-12-21 11:52 | Operative Report ---
Post Operative Report Pre & Post Diagnosis Operation Date: 12/21/19 09:45 Pre-Op Diagnosis: Unilateral Primary Osteoarthritis, Right Hip Post-Op Diagnosis: Unilateral Primary Osteoarthritis, Right Hip I identified the patient and participated in the time-out.: Yes Procedure Operation Date: 12/21/19 09:45 Actual Procedures p Right Total Anterior Hip Arthroplasty(Right) - Ramon Robertson DO Surgeon Ramon Robertson DO Computer Video Game Designer Juan Rice Estimated Blood Loss 185 Findings Consistent with Post-Op Diagnosis Fluids 1500 cc LR Specimens Femoral head Anesthesia Type Spinal MAC Complications none Disposition Disposition: Recovery Room Indications The patient is a 79-year-old female who presents with severe progressive right hip DJD who has failed outpatient conservative treatments. I indicated the patient for a anterior total hip replacement and the risks and benefits were explained in detail which include but not limited to infection, bleeding, blood clot, damage to surrounding bone, nerves, vessels, soft tissue, hip dislocation, failure of the prosthesis, leg length discrepancy, need for additional surgery and . The patient agreed to proceed with replacement of the hip and informed consent was obtained. Appropriate clearances were obtained. Description of Procedure COMPONENTS USED: Live & Nephfarmfloology hip system: Acetabulum size 52, femur size 6 high offset, femoral head 36-3, liner 5236, acetabular screw 25 mm x 1. DESCRIPTION OF PROCEDURE: Following satisfactory spinal anesthesia, the patient was placed supine on the OR table. The left leg was placed in the well leg trujillo and the right leg in the traction device. The right leg was prepared with ChloraPrep and draped sterilely. A surgical timeout was performed, patient identified and site koby verified. Appropriate antibiotics were given. A standard anterior approach in the interval between the sartorius and tensor musc les was performed. Dissection was carried down through subcutaneous tissues. Electrocautery was utilized for hemostasis. Circumflex femoral vessels were identified, tied and ligated. The anterior capsular fat pad was removed and the capsulotomy was performed revealing the arthritic femoral neck and head. A femoral neck cut was made with reciprocating saw and the bone fragments removed. The acetabular self-retraining retractor was placed. Acetabular reaming was completed under fluoroscopic guidance, a 52 shell was impacted into an anatomic position and secured with a dome screw. Local anesthetic was placed and following irrigation, the polyethylene liner was placed. The femur was placed into position of external rotation, extension and adduction. Femoral canal was prepared up to the size 6 high offset. Trial reduction with a 36-3 neck length head showed good soft tissue tension, leg lengths restored, and good fit and fill of the proximal canal using fluoroscopic landmarks. The hip was dislocated. The trial component was removed. The final implant was placed. The hip was irrigated with sterile saline solution and reduced. A Betadine soak was performed. After 3 minutes, the hip was once more irrigated with copious sterile saline solution with bacitracin. Kell-incisional soft tissue was injected utilizing [place] [facility] which includes a combination of Ropivicaine 0.5% 150mg, Bupivicaine 0.5%/Epinephrine 1:200,000 30ml, Toradol 30mg, Dexamethasone 4mg, Ketamine 10mg, Clonidine 100mcg and NSS 30ml solution. The capsule was then closed with 1-0 Vicryl interrupted figure of eight sutures. The fascia was closed with a running suture of #1 Vicryl, the subcutaneous tissues with 2-0 Vicryl and the skin was closed with parul. A sterile dry dressing was applied which included john incisional VAC. The patient tolerated the procedure well and was transported to PACU in stable condition. Due to the complex nature of the procedure, the entire surgery was performed with the operational assistance of Juan rice PA-C. The clinical assistant professor, under direct supervision, was involved in the actual performance of all aspects of the surgical procedure including patient positioning, hemostasis, tissue retraction, instrument management and wound closure. I attest to the content of the Intraoperative Record and any orders documented therein. Any exceptions are noted below.
--- NOTE | 2019-12-21 12:44 | XRay Report ---
SINGLE VIEW PELVIS; SINGLE VIEW RIGHT HIP CLINICAL HISTORY: Postoperative examination. FINDINGS: An AP portable view of the hips and pelvis with a crosstable lateral portable view of the r ight hip are obtained. A bipolar right hip arthroplasty is in near-anatomic alignment. A single olya ical lag screw transfixes the acetabular cup. No acute fracture is identified. There are expected pos toperative changes overlying the right hip including skin clips, subcutaneous gas, and soft tissue sw elling. IMPRESSION: Expected postoperative findings status post right hip arthroplasty. No acute fracture is seen. ACT 112: Negative or not required by law. Electronically signed by: Manolo Baker M.D. 12/21/2019 12:43 PM
[2019-12-21] MEDS ORDERED: NALOXONE HCL 0.4 MG/1 ML VIAL/CARP IV PRN (13:34)
[2019-12-21] MEDS ORDERED: HYDROmorphone INJ 0.5 MG/0.5 ML SYR IV PRN (13:34)
[2019-12-21] MEDS ORDERED: bisacodyL 10 MG SUPP PR PRN (13:34)
[2019-12-21] MEDS ORDERED: MAGNESIUM HYDROXIDE SUSP 30 ML UDC PO PRN (13:34)
[2019-12-21] MEDS ORDERED: METOCLOPRAMIDE HCL INJ 5 MG/ML 2 ML VIAL IV PRN (13:34)
[2019-12-21] MEDS ORDERED: diphenhydrAMINE Capsule 25 MG CAP PO PRN (13:34)
[2019-12-21] MEDS: SODIUM CHLORIDE 0.9% 1000ML 1,000 ML IV SCH ×2 (13:48→22:09)
[2019-12-21] MEDS: oxyCODONE HCL IR 5 MG TAB (IMMEDIATE RELEASE) PO PRN ×2 (14:50→19:48)
[2019-12-21] MEDS: ACETAMINOPHEN 500 MG TAB PO SCH ×2 (14:50→22:05)
--- NOTE | 2019-12-21 14:54 | Anesthesiology Progress Note ---
Date of Service December 21, 2019 Anesthesia Post Procedure Vital Signs Vital Signs: Temp Pulse Pulse Pulse Resp BP BP 12/21/19 14:32 36.6 C 73 16 118/66 12/21/19 14:03 36.5 C 70 16 124/57 L 12/21/19 13:34 36.6 C 67 16 119/58 L 12/21/19 13:10 62 20 111/64 12/21/19 13:00 61 18 110/48 L 12/21/19 12:50 36.4 C L 60 18 110/48 L 12/21/19 12:40 64 20 117/46 L 12/21/19 12:30 64 16 114/52 L 12/21/19 12:20 61 12 115/47 L 12/21/19 12:11 36.2 C L 63 12 116/53 L 12/21/19 08:40 54 L 18 136/64 12/21/19 07:50 36.6 C 61 18 183/74 H Pulse Ox 12/21/19 14:32 99 12/21/19 14:03 100 12/21/19 13:34 97 12/21/19 13:10 98 12/21/19 13:00 98 12/21/19 12:50 98 12/21/19 12:40 96 12/21/19 12:30 94 12/21/19 12:20 99 12/21/19 12:11 99 12/21/19 08:40 94 12/21/19 07:50 99 Transfer of Care Handoff Completed per policy Notes Mental Status: alert / awake / arousable and participated in evaluation Patient Amnestic to Procedure: Yes Nausea / Vomiting: adequately controlled Pain: adequately controlled Airway Patency, RR, SpO2: stable & adequate BP & HR: stable & adequate Hydration State: stable & adequate Neuraxial Anesthesia: was administered and sensory block is resolving Anesthetic Complications: no major complications apparent and Pt Satisfied with anesthetic care
--- NOTE | 2019-12-21 16:22 | Orthopedic Progress Note ---
Date of Service December 21, 2019 Assessment & Plan (1) Degenerative joint disease of right hip: s/p R anterior CLAUDIA -ancef x 24 -DVT ppx: SCDs, TEDs, Eliquis BID -WBAT RLE -PT/OT -PO XR demonstrates well aligned well fixed prosthesis without fracture/dislocation -am labs -DC planning Admission and Anticipated Discharge Date Admission Date: December 21, 2019 Subjective Post Operative Progress Note Patient seen sitting up in bed, comfortable, denies complaints, pain well controlled, no acute issues. Review of Systems Review of Systems: All systems reviewed & are unremarkable except as noted in HPI & below Constitutional: as per Subjective / HPI Physical Exam Physical Exam: RLE NVSI +EHL/FHL/TA/GS SILT grossly, +2 DP pulse, compartments soft NT, dressing cdi. Constitutional: WD/WN, vitals as above Results & Data ([facility]) Vital Signs (Past 12 Hours) Vital Signs Temp Pulse Pulse Pulse Resp BP BP 12/21/19 15:17 36.4 C L 78 16 127/56 L 12/21/19 14:32 36.6 C 73 16 118/66 12/21/19 14:03 36.5 C 70 16 124/57 L 12/21/19 13:34 36.6 C 67 16 119/58 L 12/21/19 13:10 62 20 111/64 12/21/19 13:00 61 18 110/48 L 12/21/19 12:50 36.4 C L 60 18 110/48 L 12/21/19 12:40 64 20 117/46 L 12/21/19 12:30 64 16 114/52 L 12/21/19 12:20 61 12 115/47 L 12/21/19 12:11 36.2 C L 63 12 116/53 L 12/21/19 08:40 54 L 18 136/64 12/21/19 07:50 36.6 C 61 18 183/74 H Pulse Ox 12/21/19 15:17 99 12/21/19 14:32 99 12/21/19 14:03 100 12/21/19 13:34 97 12/21/19 13:10 98 12/21/19 13:00 98 12/21/19 12:50 98 12/21/19 12:40 96 12/21/19 12:30 94 12/21/19 12:20 99 12/21/19 12:11 99 12/21/19 08:40 94 12/21/19 07:50 99
[2019-12-21] MEDS: GABAPENTIN 100 MG CAP PO SCH ×2 (16:46→22:03)
[2019-12-21] MEDS: ceFAZolin 2000MG 2,000 MG/15 ML SYR IV SCH (17:49)
[2019-12-21] MEDS ORDERED: FERROUS SULFATE 325 MG TAB PO SCH (21:00)
[2019-12-21] MEDS ORDERED: SENNA 8.6 MG TAB PO SCH (21:00)
[2019-12-21] MEDS ORDERED: MELATONIN 3 MG TAB PO SCH (21:00)
[2019-12-21] MEDS ORDERED: NON-FORMULARY MEDICATION (Vitamins A,C,E-Zinc-Copper [Preservision Areds] 1 CAP) PO SCH (21:00)
[2019-12-21] MEDS: DOCUSATE SODIUM 100 MG CAP PO SCH (22:05)
[2019-12-22] MEDS: ceFAZolin 2000MG 2,000 MG/15 ML SYR IV SCH (02:46)
[2019-12-22] MEDS: ACETAMINOPHEN 500 MG TAB PO SCH ×2 (05:33→13:38)
[2019-12-22 06:16] LABS: Hematocrit (blood only) 27.3 % (37-47); Hemoglobin 8.3 g/dL (12.0-16.0); Immature Granulocytes # (auto) 0.02 K/uL (0.00-0.02); Immature Granulocytes % (auto) 0.2 %; Lymphocytes # (auto) 1.53 K/uL (1.2-3.4); Mean Corpuscular Hemoglobin 28.6 pg (25-34); Mean Corpuscular Hgb Conc 30.4 g/dL (32-36); Mean Corpuscular Volume 94.1 fL (80-100); Mean Platelet Volume 8.2 fL (7.4-10.4); Monocytes % (auto) 13.7 %; Neutrophils # (auto) 7.86 K/uL (1.4-6.5); Neutrophils % (auto) 72.1 %; Platelet Count 340 K/uL (130-400); RDW Coefficient of Variation 18.1 % (11.5-14.5); RDW Standard Deviation 62.6 fL (36.4-46.3); White Blood Count 10.91 K/uL (4.8-10.8)
[2019-12-22 06:46] LABS: BUN Creatinine Ratio 19.3 (10-20); Calcium 7.6 mg/dl (8.5-10.1); Creatinine Clr Calc Pharmacy 59.7 ml/min; Est GFR (African American) 86.5; Est GFR (Non-African American) 74.6; Potassium 4.2 mmol/L (3.5-5.1)
[2019-12-22] MEDS: oxyCODONE HCL IR 5 MG TAB (IMMEDIATE RELEASE) PO PRN (08:42)
[2019-12-22] MEDS: DOCUSATE SODIUM 100 MG CAP PO SCH (08:44)
[2019-12-22] MEDS: GABAPENTIN 100 MG CAP PO SCH ×2 (08:45→13:38)
--- NOTE | 2019-12-22 08:50 | Orthopedic Progress Note ---
Date of Service December 22, 2019 Assessment & Plan (1) Degenerative joint disease of right hip: s/p R anterior CLAUDIA POD#1 -ancef x 24 -DVT ppx: SCDs, TEDs, Eliquis BID -WBAT RLE -PT/OT -PO XR demonstrates well aligned well fixed prosthesis without fracture/dislocation -am labs - as above, hgb 8.3 -DC planning - home with Admission and Anticipated Discharge Date Admission Date: December 21, 2019 Subjective Post Operative Progress Note Patient seen sitting up in bed, comfortable, denies complaints, pain well controlled, no acute issues. Denies F/C/N/V/SOB/CP. Review of Systems Review of Systems: All systems reviewed & are unremarkable except as noted in HPI & below Constitutional: as per Subjective / HPI Physical Exam Physical Exam: RLE NVSI +EHL/FHL/TA/GS SILT grossly, +2 DP pulse, compartments soft NT, dressing cdi. Constitutional: WD/WN, vitals as above Results & Data ([facility]) Vital Signs (Past 12 Hours) Vital Signs Temp Pulse Resp BP Pulse Ox 12/22/19 07:24 36.7 C 60 16 157/71 H 97 12/22/19 03:28 37.0 C 61 16 149/68 H 96 12/21/19 23:32 37.0 C 57 L 16 152/72 H 99 Laboratory Results 12/22/19 12/22/19 Range/Units 06:03 06:03 WBC 10.91 H (4.8-10.8) K/uL RBC 2.90 L (4.2-5.4) M/uL Hgb 8.3 L (12.0-16.0) g/dL Hct 27.3 L (37-47) % MCV 94.1 (80-100) fL MCH 28.6 (25-34) pg MCHC 30.4 L (32-36) g/dL RDW Std Deviation 62.6 H (36.4-46.3) fL RDW Coeff of German 18.1 H (11.5-14.5) % Plt Count 340 (130-400) K/uL MPV 8.2 (7.4-10.4) fL Immature Gran % (Auto) 0.2 % Neut % (Auto) 72.1 % Lymph % (Auto) 14.0 % Kemper % (Auto) 13.7 % Eos % (Auto) 0.0 % Baso % (Auto) 0.0 % Neut # (Auto) 7.86 H (1.4-6.5) K/uL Lymph # (Auto) 1.53 (1.2-3.4) K/uL Kemper # (Auto) 1.50 H (0.11-0.59) K/uL Eos # (Auto) 0.00 (0-0.5) K/uL Baso # (Auto) 0.00 (0-0.2) K/uL Immature Gran # (Auto) 0.02 (0.00-0.02) K/uL Sodium 140 (136-145) mmol/L Potassium 4.2 (3.5-5.1) mmol/L Chloride 109 H (98-107) mmol/L Carbon Dioxide 23 (21-32) mmol/L Anion Gap 8.0 (3-11) BUN 15 (7-18) mg/dl Creatinine 0.76 (0.6-1.2) mg/dl Est Cr Clr Drug Dosing 59.7 ml/min Est GFR ( Amer) 86.5 Est GFR (Non-Af Amer) 74.6 BUN/Creatinine Ratio 19.3 (10-20) Glucose 121 H (70-99) mg/dl Calcium 7.6 L (8.5-10.1) mg/dl
[2019-12-22] MEDS ORDERED: BACLOFEN 10 MG TAB PO SCH (09:00)
[2019-12-22] MEDS ORDERED: ATORVASTATIN 10 MG TAB PO SCH (09:00)
[2019-12-22] MEDS ORDERED: VENLAFAXINE HCL XR 75 MG CAPXR PO SCH (09:00)
[2019-12-22] MEDS ORDERED: APIXABAN 5 MG TABLET PO SCH (09:00)
[2019-12-22] MEDS ORDERED: MULTIVITAMIN TAB PO SCH (09:00)
[2019-12-22] MEDS ORDERED: AMIODARONE 200 MG TAB PO SCH (09:00)
--- NOTE | 2019-12-22 19:06 | Discharge Summary ---
Date of Service December 22, 2019 Admission HPI Per Admitting Provider The patient is a 79 year old female who presents with complaints of severe right hip pain and DJD. The patient has failed outpatient conservative treatments to this point which included activity modification, home exercise/ walking program, patient unable to take NSAIDs secondary to Eliquis, declined further conservative treatments including IA corticosteroid injection. The patient's pain and limited function have progressed to the point where they severely hinder their activities of daily living and they no longer tolerate exercise programs. They are requesting to proceed with total hip replacement surgery. Principal Diagnosis Right anterior total hip replacement -Right hip DJD Discharge Exam RLE NVSI +EHL/FHL/TA/GS SILT grossly, +2 DP pulse, compartments soft NT, dressing cdi. Constitutional WD/WN, vitals as above Discharge Data Allergies Allergy/AdvReac Type Severity Reaction Status Date / Time No Known Allergies Allergy NONE Verified 12/21/19 07:17 Consultations 12/22/19 08:00 Consult Case Management - Discharge Planning Routine Procedures Performed Operation Date: 12/21/19 09:45 Actual Procedures p Right Total Anterior Hip Arthroplasty(Right) - Ramon Robertson DO Ordered Studies 12/21/19 09:40 FL fluoroscopy <1hr Routine FL hip RT 1V Routine Hospital Course (1) Degenerative joint disease of right hip: The patient is a 79 -year-old female who presents with long standing history of severe right hip DJD and failed outpatient conservative treatments. The patient's symptoms have progressed to the point where it has been difficult to perform even normal activities of daily living. I indicated the patient for a right anterior total hip arthroplasty, the risks, benefits and complications of the procedure include but not limited to infection, bleeding, damage to bone, nerves, vessels, surrounding soft tissue, may develop blood clots, loss of function, leg length discrepancy, dislocation, failure of the components, loosening of the components, the need for additional surgery and . The patient wished to proceed with surgery at this time and informed consent was obtained. Hospital Course: On 12/21/19 the patient was taken to the operating room, adequate anesthesia administered and underwent a right anterior total hip arthroplasty. The patient tolerated the procedure well and was taken to the PACU in stable condition. Post-operatively the patient was started on a DVT ppx medication and given appropriate IV antibiotics. Consults were placed to physical therapy, occupational therapy and case management. On POD#1, the patient did well overnight and their pain was well controlled. Labs were drawn and the Hgb was 8.3. The patient progressed well with PT. Dressings were changed at this time and the incision was clean, dry and intact. The patients hospital stay was relatively uneventful and they were deemed stable by the orthopedic team and consultants to be discharged home with HH on 12/22/19. Discharge Instructions: Upon discharge the patient may weight bear as tolerates through their operative extremity. They were instructed to keep the incision clean and dry at all times. The patient may shower but should not submerge the incision, avoid bathing, pools and hot tubes. The patient was given a script for pain medication and should take as instructed. The patient's home blood thinner, Eliquis was restarted post-operatively and should take as directed. The patient was instructed to not drive or travel for long distances until cleared to do so. If the patient develops any symptoms of fevers, chills, nausea, vomiting, increased redness, swelling, pain or drainage from the surgical site, they should notify the office and/or proceed to the nearest emergency room. The patient should follow up in 10-14 days after surgery for their routine post- operative follow-up appointment and should call the office to confirm the date and time. s/p R anterior CLAUDIA POD#1 -ancef x 24 -DVT ppx: SCDs, TEDs, Eliquis BID -WBAT RLE -PT/OT -PO XR demonstrates well aligned well fixed prosthesis without fracture/dislocation -am labs - as above, hgb 8.3 -DC planning - home with Total Time Total Time Spent Total Time Spent (In Minutes): 30 Discharge Plan Discharge Items Patient Disposition: Home - Home Health Services Reason For Visit: Unilateral Primary Osteoarthritis, Right Hip Discharge Diagnosis: Right anterior total hip replacement Condition on Discharge: Good Activity: Per Instructions section Lifting: Wait until after follow-up appointment Bathing: Keep incision dry Bathing Comment: No bathing, pools or hot tubs Sexual Activity: Wait until after follow-up appointment Exercise/Sports: Wait until after follow-up appointment Driving/Machine Use: No driving Weightbearing: Full weightbearing Non-emergency contact: Primary Care Provider and Surgeon Call non-emergency contact if: you have any medication questions, your symptoms worsen, your pain is not controlled, your pain is worsening, your pain is unusual for you, your pain is concerning for you, you have a fever, your temperature is above 101, your wound has increased redness, your wound has increased drainage and your wound pain has increased Follow-up/Referrals: Daren Mcnair DO [Primary Care Provider] - Diet: Regular Addtl Attending Provider Instructions: ACTIVITY RECOMMENDATIONS: SELF CARE INSTRUCTIONS AFTER TOTAL HIP REPLACEMENT : Direct Anterior Approach Until the incision and soft tissues around your hip have healed, there is a possibility that the hip prosthesis could dislocate. A. Hip flexion ( Up & Down out of chair or steps ) may be difficult. This is normal. B. Numbness in front of the thigh is also normal for a few weeks. C. Use hand rails when walking on stairs. D. Wear low heeled shoes with non-slip soles. E. Be sure that your floors are free of things that could trip you - throw rugs, electrical cords, small objects. Avoid wet and waxed floors, especially with crutches and canes. F. Try to walk several times a day with rest periods between. G. Continue with all the exercises taught to you in the hospital. Again, make walking a part of your daily routine. SPECIAL CARE INSTRUCTIONS: VERY IMPORTANT TO READ AND REVIEW A. You may still be at risk for phlebitis and blood clots. 1. Wear surgical stockings (YAYO hose) for 2 weeks after surgery to improve circulation and reduce swelling. 2. Take your home blood thinner, Eliquis twice daily or as directed by your doctor. This is your blood thinner. 3. High risk patients may be prescribed a stronger blood thinner if necessary. 4. If you are on Coumadin normally, your family doctor/practical nursing faculty should monitor your blood work. Expect a phone call the day of or the day after bloodwork is drawn to adjust your dosage. B. You must take antibiotics before having dental work, bladder, bowel and other surgery. Your doctor will provide you with a permanent card to carry describing precautions. C. Call [facility] if you have a fever, redness or swelling around the incision, cloudy drainage from incision, or sudden increase in pain in your hip, not relieved by your regular pain medication. D. Please call the office at if you have any concerns or questions about your operation or recovery. * YOU MAY SHOWER, NO TUB BATHS UNTIL CLEARED BY YOUR DOCTOR. - Keep an extra close eye on the top portion of your incision. Be sure to keep clean & dry. * WEAR YAYO HOSE 20 HOURS PER DAY FOR 2 WEEKS. * YOU MAY PROGRESS FROM A WALKER, TO A CANE, TO INDEPENDENT AT YOUR OWN PACE. * MOST PATIENTS WILL HAVE HOME NURSING FOR THERAPY. IF YOU DECIDE TO DO OUTPATIENT PHYSICAL THERAPY, PLEASE SCHEDULE THIS 3 TIMES PER WEEK. *ALEXX incisional vac is a special dressing covering your incision. This dressing provides a sterile dry environment while you are healing. The dressing is to be left in place for 7 days post-operatively. Your home nurse or surgeon will remove. If you develop any redness or blisters or have any questions notify your surgeon immediately. FOLLOW UP VISIT: If appointment is not already scheduled: Please call [facility] to make a follow-up appointment for 2 weeks after your surgery at . Pending Studies at Discharge: No Stand-Alone Forms: My [facility], Opioid Pain Management, Smoking Cessation Medications and DC Order Prescriptions: New acetaminophen 500 mg Tablet 1,000 mg PO Q8 PRN (Reason: pain/fevers) Qty: 90 RF: 0 oxycodone 5 mg Tablet 5 mg PO Q6H MDD 4 PRN (Reason: pain) Qty: 30 RF: 0 sennosides [Senokot] 8.6 mg Tablet 17.2 mg PO HS PRN (Reason: constipation) Qty: 28 RF: 0 Continued gabapentin 100 mg capsule 100 mg PO .COMPLEX Qty: 360 RF: 3 apixaban 5 mg tablet 5 mg PO BID Qty: 180 RF: 3 amiodarone 200 mg tablet 200 mg PO QAM Qty: 90 RF: 3 ferrous sulfate 325 mg (65 mg iron) tablet 325 mg PO QPM RF: 0 cholecalciferol (vitamin D3) 1,000 unit (25 mcg) tablet 2,000 units PO QAM RF: 0 cyanocobalamin (vitamin B-12) 2,500 mcg tablet, sublingual 2,500 mcg SL QAM RF: 0 melatonin 10 mg tablet 10 mg PO HS RF: 0 PreserVision AREDS [id number] capsule 1 cap PO BID RF: 0 Calcium 600 + D(3) 600 mg calcium- 200 unit Capsule 1 cap PO QPM RF: 0 atorvastatin 10 mg tablet 10 mg PO QAM RF: 0 Hold Instructions: to hold while taking Fluconazole baclofen 10 mg tablet 10 mg PO QAM RF: 0 venlafaxine 75 mg tablet extended release 24hr 75 mg PO QAM RF: 0 diclofenac sodium [Voltaren] 1 % gel 2 gm TOP QID PRN (Reason: arthritic pain) Qty: 100 RF: 0 Discontinued acetaminophen 500 mg tablet 1,500 mg PO HS RF: 0 diphenhydramine-acetaminophen [Tylenol PM Extra Strength] 25-500 mg Tablet 3 tab PO HS RF: 0 diclofenac sodium 75 mg Tablet,Delayed Release (Dr/Ec) 75 mg PO QAM RF: 0 Discharge Orders: Discharge Order (Routine); Ordered 12/22/19 Ordered By: Kyler Hobbs/Other Patient Handouts: Total Hip Replacement, Understanding Hip Replacement, Hip Replace After Hospital Admission Data Admit Date/Time: 12/21/19 12:32 Attending Provider: Ramon Robertson Admit Provider: Ramon Robertson Primary Care Provider: Daren Mcnair Other Providers: [facility],Home Health Other Interventions: Discharge Summary Assessment (RN) Last Done: 12/22/19 13:00
== END 2019-12-22 14:23 | disposition home health service (06) | DRG 470 ==
LOC: ASU 07:02 → 3E 07:02 → INTOOBSV 12:32 → OBSVTOIN 12:32